=== PATIENT | female | born 1940 | race African-American/Black ===

== ENCOUNTER 2019-12-18 18:24 | Inpatient (IN) | payer MEDICARE, MEDICAID ==
[~2019-12-18] VITALS: Ht 160 cm; Wt 69.4 kg
[~2019-12-18 18:24] MED LIST: AMLODIPINE BES2.5 MG ORAL; ATORVASTATIN CA40 MG ORAL; CLOPIDOGREL75 MG ORAL; DEXILANT60 MG ORAL; DIOVAN HCT 1601 EACH ORAL; ISOSORBIDE MONO30 M1 PO; LABETALOL HCL100 MG ORAL; LIDODERM700 M1 TOPIC; LORATADINE10 M2 PO; LYRICA75 M1 ORAL; MONTELUKAST SOD10 MG ORAL; PHENYTOIN100 MG/4 M ORAL
[2019-12-18] MEDS ORDERED: CODEINE 30MG TA30 MG ORAL (18:26)
[2019-12-18] MEDS ORDERED: LOSARTAN POTASS25 MG ORAL (18:26)
[2019-12-18 18:30] VITALS: BP 107/46
--- NOTE | 2019-12-18 18:30 | NUR ---
ED Nurse Note: Pt brought in by 68 from home due to Nausea and vomiting since this morning. Denies abd pain. Pt is on dialysis M/W/F. States toe pain on right foot. Temp 102.5 F in triage. AAO x4, follows commands. Fistula on left upper arm.
--- NOTE | 2019-12-18 19:23 | NUR ---
HAND-OFF: Report given to cammie KAYE.
[2019-12-18] MEDS ORDERED: Acetaminophen 500mg (ES) tab ORAL ONE (19:30)
[2019-12-18] MEDS ORDERED: Vancomycin 1 GM in NS 275 ML IVPB ONE (19:30)
--- NOTE | 2019-12-18 19:30 | NUR ---
ED Nurse Note: Patient tolerated medication administration well. Octavio continue to monitor.
[2019-12-18 19:59] LABS: ANION GAP 21 mmol/L (5-15); BLOOD UREA NITROGEN 56 mg/dL (7-18); CALCIUM 9.7 MG/DL (8.5-10.1); CARBON DIOXIDE 21 MMOL/L (21-32); CHLORIDE 96 MMOL/L (98-107); CREATININE 8.5 MG/DL (0.55-1.30); POTASSIUM 4.9 MMOL/L (3.5-5.1); SODIUM 137 MMOL/L (136-145)
--- NOTE | 2019-12-18 20:03 | NUR ---
ED Nurse Note: IV at right AC infiltrated, will DC and restart.
[2019-12-18 20:13] LABS: ALANINE AMINOTRANSFERASE 16 U/L (12-78); ALBUMIN 3.2 G/DL (3.4-5.0); ALBUMIN/GLOBULIN RATIO 0.6 (1.0-2.7); ALKALINE PHOSPHATASE 107 U/L (46-116); ASPARTATE AMINO TRANSFERASE 18 U/L (15-37); BILIRUBIN,TOTAL 0.5 MG/DL (0.2-1.0); CKMB 1.1 NG/ML (0.0-3.6); CREATINE KINASE 57 U/L (26-308); HEMOGLOBIN 11.6 G/DL (12.0-16.0); MEAN CORPUSCULAR VOLUME 101 FL (80-99); PLATELET COUNT 294 K/UL (150-450); RED BLOOD COUNT 3.67 M/UL (4.20-5.40); RED CELL DISTRIBUTION WIDTH 14.6 % (11.6-14.8); WHITE BLOOD COUNT 21.8 K/UL (4.8-10.8)
[2019-12-18] MEDS ORDERED: Meropenem 1 GM in NS 55 ML IVPB ONE (20:45)
--- NOTE | 2019-12-18 21:08 | NUR ---
ED Nurse Note: Andrey for patient for dialysis 15G needles used along with numbing cream. wei include in report.
[2019-12-18 21:09] VITALS: BP 111/54
[2019-12-18] MEDS ORDERED: Albuterol/Ipratropium 3ml neb HHN PRN (21:30)
[2019-12-18] MEDS ORDERED: Zolpidem 5mg tab ORAL PRN (21:30)
[2019-12-18] MEDS ORDERED: Miralax 17gm pkt ORAL PRN (21:30)
--- NOTE | 2019-12-18 21:49 | NUR ---
ED Nurse Note: cALLED TO RENDER REPORT, DAISY KAYE UNAVAILABLE, CN INFORMED AND DOCUMENTED
--- NOTE | 2019-12-18 21:57 | Emergency Room Report ---
History of Present Illness General Chief Complaint: Nausea Source: Patient Present Illness HPI This patient states that she has had pain in her right foot for the past month. She has a wound on her right pinky toe that has been followed by her primary care physician. She states that she has had significant pain in that toe and swelling in her foot. She states today she started vomiting and has had pain in her foot. She notes that she did take Tylenol with codeine for the first time and associates the nausea and vomiting with that medication. She states she believes that it is too strong for her. She denies abdominal pain. She denies fever or chills. She denies chest pain or shortness of breath. She has no other complaints. Allergies: Coded Allergies: SULFA (SULFONAMIDE ANTIBIOTICS) (Verified Allergy, Mild, 08/19/09) Patient History Past Medical History: see triage record, DM, HTN, renal disease, dialysis Social History: Denies: smoking, alcohol use, drug use Reviewed Nursing Documentation: PMH: Agreed; PSxH: Agreed Nursing Documentation-PMH Past Medical History: No History, Except For Hx Cardiac Problems: No - dialysis M,W,F, pacemaker Hx Hypertension: Yes Hx Pacemaker: Yes - Hypothyroidism Hx Diabetes: Yes Hx Dialysis: Yes - M W F Review of Systems All Other Systems: negative except mentioned in HPI Physical Exam Vital Signs Date Time Temp Pulse Resp B/P (MAP) Pulse Ox O2 Delivery O2 Flow Rate FiO2 12/18/19 18:20 102.6 78 19 132/58 (82) 97 Room Air Sp02 EP Interpretation: reviewed, normal General Appearance: no apparent distress, alert, GCS 15, non-toxic Head: normocephalic, atraumatic Eyes: bilateral eye normal inspection, bilateral eye PERRL ENT: hearing grossly normal, normal pharynx, no angioedema, normal voice Neck: full range of motion, supple/symm/no masses Respiratory: chest non-tender, lungs clear, normal breath sounds, no respiratory distress, no retraction, no accessory muscle use, speaking full sentences Cardiovascular #1: no edema, tachycardia Gastrointestinal: normal bowel sounds, non tender, soft, non-distended, no guarding, no rebound Rectal: deferred Musculoskeletal: back normal, normal range of motion, non-tender Neurologic: alert, motor strength/tone normal, oriented x3, sensory intact, responsive, speech normal Psychiatric: judgement/insight normal, memory normal, mood/affect normal, no suicidal/homicidal ideation Skin: other - R. foot, ulcer on R. 5th toe and swelling and erythema of foot. Medical Decision Making Diagnostic Impression: Primary Impression: Pneumonia Additional Impressions: Fever Sepsis Cellulitis ER Course This patient has sepsis. She has an opacification on chest x-ray that is consistent with pneumonia. She also has a foot wound that could be the source of her infection with an associated cellulitis. She presented with a temp of 102. She was tachycardic. She was given aggressive IV fluid resuscitation and broad-spectrum antibiotics. She responded well to this treatment with a normal blood pressure and normalized heart rate. The patient will be admitted for further evaluation and treatment, monitoring and further IV antibiotics. Laboratory Tests Test 12/18/19 19:00 White Blood Count 21.8 K/UL (4.8-10.8) H Red Blood Count 3.67 M/UL (4.20-5.40) L Hemoglobin 11.6 G/DL (12.0-16.0) L Hematocrit 37.0 % (37.0-47.0) Mean Corpuscular Volume 101 FL (80-99) H Mean Corpuscular Hemoglobin 31.7 PG (27.0-31.0) H Mean Corpuscular Hemoglobin Concent 31.4 G/DL (32.0-36.0) L Red Cell Distribution Width 14.6 % (11.6-14.8) Platelet Count 294 K/UL (150-450) Mean Platelet Volume 6.4 FL (6.5-10.1) L Neutrophils (%) (Auto) % (45.0-75.0) Lymphocytes (%) (Auto) % (20.0-45.0) Monocytes (%) (Auto) % (1.0-10.0) Eosinophils (%) (Auto) % (0.0-3.0) Basophils (%) (Auto) % (0.0-2.0) Differential Total Cells Counted 100 Neutrophils % (Manual) 82 % (45-75) H Lymphocytes % (Manual) 7 % (20-45) L Monocytes % (Manual) 9 % (1-10) Eosinophils % (Manual) 1 % (0-3) Basophils % (Manual) 0 % (0-2) Band Neutrophils 1 % (0-8) Platelet Estimate Adequate Platelet Morphology Normal Hypochromasia 1+ Anisocytosis 1+ Sodium Level 137 MMOL/L (136-145) Potassium Level 4.9 MMOL/L (3.5-5.1) Chloride Level 96 MMOL/L (98-107) L Carbon Dioxide Level 21 MMOL/L (21-32) Anion Gap 21 mmol/L (5-15) H Blood Urea Nitrogen 56 mg/dL (7-18) H Creatinine 8.5 MG/DL (0.55-1.30) H Estimate Glomerular Filtration Rate 5.5 mL/min (>60) Glucose Level 121 MG/DL (74-106) H Lactic Acid Level 1.40 mmol/L (0.4-2.0) Calcium Level 9.7 MG/DL (8.5-10.1) Total Bilirubin 0.5 MG/DL (0.2-1.0) Aspartate Amino Transferase (AST) 18 U/L (15-37) Alanine Aminotransferase (ALT) 16 U/L (12-78) Alkaline Phosphatase 107 U/L (46-116) Total Creatine Kinase 57 U/L (26-308) Creatine Kinase MB 1.1 NG/ML (0.0-3.6) Creatine Kinase MB Relative Index 1.9 Troponin I 0.263 ng/mL (0.000-0.056) Total Protein 8.8 G/DL (6.4-8.2) H Albumin 3.2 G/DL (3.4-5.0) L Globulin 5.6 g/dL Albumin/Globulin Ratio 0.6 (1.0-2.7) L Microbiology Date/Time Source Procedure Growth Status 12/18/19 19:00 Nasal Nares - Final Complete 12/18/19 19:00 Nasal Nares - Final Complete EKG Diagnostic Results Rate: tachycardiac Rhythm: other - Atrial paced Rhythm Strip Diag. Results EP Interpretation: yes Rate: 100's Rhythm: no PVC's, no ectopy, other - Atrial paced. Chest X-Ray Diagnostic Results Chest X-Ray Diagnostic Results : Chest X-Ray Ordered: Yes # of Views/Limited/Complete: 1 View Indication: Other EP Interpretation: Yes Interpretation: other - RML opacity Impression: Other - RML PNA/opacity Last Vital Signs Date Time Temp Pulse Resp B/P (MAP) Pulse Ox O2 Delivery O2 Flow Rate FiO2 12/18/19 21:09 99.3 77 16 111/54 97 Room Air Status: improved Disposition: ADMITTED INPATIENT Condition: Serious Referrals: NON PHYSICIAN (PCP) Juli Duncan DO Dec 18, 2019 21:57
--- NOTE | 2019-12-18 22:25 | NUR ---
ED Nurse Note: Report renderd to Hank KAYE.
--- NOTE | 2019-12-18 22:50 | NUR ---
ED Nurse Note: Patient transported to floor without complication, belongings brought up secondarily.
--- NOTE | 2019-12-18 23:20 | NUR ---
NURSE NOTES: Received pt from ER nruse. Pt transported via gurney. Transported onto bed with staff assistance. Belongings verified with pt and signed with ER nurse at bedside. Oriented pt to room and floor. Pt is a0x4, and talkative. desk monitor placed on pt, and vitals taken. Bed locked in lowest position, bed alarm on, call light within reach. Will continue with plan of care.
[2019-12-19] VITALS: BP 112/54
[2019-12-19 04:00] VITALS: BP 118/62
[2019-12-19] MEDS: NovoLOG Insulin Flexpen SUBQ SCH ×4 (06:30→21:00)
[2019-12-19 07:10] LABS: HEMATOCRIT 31.4 % (37.0-47.0); HEMOGLOBIN 10.3 G/DL (12.0-16.0); MEAN CORPUSCULAR VOLUME 98 FL (80-99); PLATELET COUNT 262 K/UL (150-450); RED BLOOD COUNT 3.21 M/UL (4.20-5.40)
[2019-12-19 07:17] LABS: WHITE BLOOD COUNT 23.3 K/UL (4.8-10.8)
--- NOTE | 2019-12-19 07:20 | NUR ---
WBC REPORTED 23.3 BY FRED FROM LAB >>>>> ID DOCTOR WILL MAKE AWARE Addendum: 12/19/19 at 0743 by JHONATHAN ROBBINS RN RN DR.ALBORZI MORGAN AND WAITING FOR CALL BACK
--- NOTE | 2019-12-19 07:25 | NUR ---
HAND-OFF: Report given to VARGAS Chamberlain. Pt is awake and resting in bed in no acute distress., with HOB elevated, heels off loaded. Iv site intact and patent. Bed locked in lowest position, bed alarm on, call light within reach. Endorsed plan of care.
[2019-12-19 07:37] LABS: ALANINE AMINOTRANSFERASE 47 U/L (12-78); ALBUMIN 2.8 G/DL (3.4-5.0); ALBUMIN/GLOBULIN RATIO 0.6 (1.0-2.7); ANION GAP 18 mmol/L (5-15); ASPARTATE AMINO TRANSFERASE 63 U/L (15-37); BILIRUBIN,TOTAL 0.4 MG/DL (0.2-1.0); BLOOD UREA NITROGEN 63 mg/dL (7-18); CALCIUM 8.8 MG/DL (8.5-10.1); CARBON DIOXIDE 20 MMOL/L (21-32); CHLORIDE 98 MMOL/L (98-107); CHOLESTEROL 130 MG/DL (< 200); CREATININE 8.7 MG/DL (0.55-1.30); HDL CHOLESTEROL 42 MG/DL (40-60); POTASSIUM 4.8 MMOL/L (3.5-5.1); SODIUM 135 MMOL/L (136-145); TRIGLYCERIDES 59 MG/DL (30-150)
[2019-12-19 07:47] LABS: ALKALINE PHOSPHATASE 110 U/L (46-116)
[2019-12-19 08:00] VITALS: BP 99/58
[2019-12-19] MEDS ORDERED: Losartan 25mg tab ORAL SCH (09:00)
--- NOTE | 2019-12-19 09:14 | Consultation ---
Consult Note Consult Note Asked to [facility]a for dialysis management she has left arm fistula been on dialysis 9 years wants dialysis tomorrow not today ! ( she says I know my body !) ER: This patient states that she has had pain in her right foot for the past month. She has a wound on her right pinky toe that has been followed by her primary care physician. She states that she has had significant pain in that toe and swelling in her foot. She states today she started vomiting and has had pain in her foot. She notes that she did take Tylenol with codeine for the first time and associates the nausea and vomiting with that medication. She states she believes that it is too strong for her. She denies abdominal pain. She denies fever or chills. She denies chest pain or shortness of breath. She has no other complaints. Allergies: SULFA (SULFONAMIDE ANTIBIOTICS) (Verified Allergy, Mild, 08/19/09) Past Medical History: see triage record, DM, HTN, renal disease, dialysis Social History: Denies: smoking, alcohol use, drug use Reviewed Nursing Documentation: PMH: Agreed; PSxH: Agreed Past Medical History: No History, Except For Hx Cardiac Problems: No - dialysis M,W,F, pacemaker Hx Hypertension: Yes Hx Pacemaker: Yes - Hypothyroidism Hx Diabetes: Yes Hx Dialysis: Yes - M W F examined Data reviewed Assessment/Plan ESRD Pneumonia Fever Sepsis Cellulitis Leukocytosis DM , elevated A1c Pace Maker- Elevated Troponin HypoAlbuminemia on Vanco- Dialysis in am, as refuses today ! 2D echo adjust cardiac abd BP meds per orders Peter Solorio MD Dec 19, 2019 09:14
--- NOTE | 2019-12-19 09:31 | Diagnostic Imaging Report ---
Indication: Chest pain Technique: One view of the chest Comparison: 03/16/2012 Findings: The heart is enlarged. There is suggestion of mild interstitial prominence. No focal airspace consolidation. No definite effusions. There is a left axillary/subclavian venous stent again demonstrated. Interim placement of a pacemaker Impression: Cardiomegaly with mild pulmonary venous congestion Other findings as noted
[2019-12-19] MEDS ORDERED: Vancomycin 1gm in D5W 275ml IVPB SCH (10:00)
[2019-12-19] MEDS: Heparin 5000 units/ml inj SUBQ SCH ×2 (10:01→23:38)
[2019-12-19] MEDS: Nitroglycerin Patch 0.2mg/hr TDERMAL SCH (10:03)
[2019-12-19] MEDS: Docusate 100mg cap ORAL SCH ×2 (11:53→16:11)
[2019-12-19 12:00] VITALS: BP 119/53
--- NOTE | 2019-12-19 12:32 | NUR ---
blood culture + cocci in cluster >>>> MADE AWARE
--- NOTE | 2019-12-19 12:33 | NUR ---
PATIENT REFUSED [facility] TODAY AND PER DR. SWAIN PATIENT WILL DIALYSIS TOMORROW
--- NOTE | 2019-12-19 12:42 | Infectious Diseases Prog Note ---
Subjective Allergies: Coded Allergies: SULFA (SULFONAMIDE ANTIBIOTICS) (Verified Allergy, Mild, 08/19/09) Subjective # [id number] Objective Vital Signs Last 24 Hour Vital Signs Date Time Temp Pulse Resp B/P (MAP) Pulse Ox O2 Delivery O2 Flow Rate FiO2 12/19/19 12:00 67 12/19/19 12:00 99.1 66 20 119/53 (75) 94 12/19/19 10:03 118/62 12/19/19 09:00 Room Air 12/19/19 08:00 65 12/19/19 08:00 98.2 68 18 99/58 (72) 94 12/19/19 04:00 97.8 72 19 118/62 (80) 96 12/19/19 04:00 72 12/19/19 00:00 98.1 69 18 112/54 (73) 93 12/19/19 00:00 69 12/18/19 23:49 Room Air 12/18/19 22:50 99.3 77 16 111/54 97 Room Air 12/18/19 21:09 99.3 77 16 111/54 97 Room Air 12/18/19 20:06 99.3 12/18/19 20:04 99.3 12/18/19 18:30 102.6 81 17 107/46 97 Room Air 12/18/19 18:20 102.6 78 19 132/58 (82) 97 Room Air Height (Feet): 5 Height (Inches): 3.00 Weight (Pounds): 155 Microbiology Date/Time Source Procedure Growth Status 12/18/19 19:15 Blood Blood Culture - Preliminary Resulted 12/18/19 19:00 Blood Blood Culture - Preliminary Resulted 12/18/19 19:00 Nasal Nares - Final Complete 12/18/19 19:00 Nasal Nares - Final Complete 12/18/19 21:25 Rectum Received Laboratory Tests Test 12/18/19 19:00 12/19/19 06:25 White Blood Count 21.8 K/UL (4.8-10.8) H 23.3 K/UL (4.8-10.8) *H Red Blood Count 3.67 M/UL (4.20-5.40) L 3.21 M/UL (4.20-5.40) L Hemoglobin 11.6 G/DL (12.0-16.0) L 10.3 G/DL (12.0-16.0) L Hematocrit 37.0 % (37.0-47.0) 31.4 % (37.0-47.0) L Mean Corpuscular Volume 101 FL (80-99) H 98 FL (80-99) Mean Corpuscular Hemoglobin 31.7 PG (27.0-31.0) H 32.1 PG (27.0-31.0) H Mean Corpuscular Hemoglobin Concent 31.4 G/DL (32.0-36.0) L 32.8 G/DL (32.0-36.0) Red Cell Distribution Width 14.6 % (11.6-14.8) 13.0 % (11.6-14.8) Platelet Count 294 K/UL (150-450) 262 K/UL (150-450) Mean Platelet Volume 6.4 FL (6.5-10.1) L 6.1 FL (6.5-10.1) L Neutrophils (%) (Auto) % (45.0-75.0) % (45.0-75.0) Lymphocytes (%) (Auto) % (20.0-45.0) % (20.0-45.0) Monocytes (%) (Auto) % (1.0-10.0) % (1.0-10.0) Eosinophils (%) (Auto) % (0.0-3.0) % (0.0-3.0) Basophils (%) (Auto) % (0.0-2.0) % (0.0-2.0) Differential Total Cells Counted 100 100 Neutrophils % (Manual) 82 % (45-75) H 82 % (45-75) H Lymphocytes % (Manual) 7 % (20-45) L 8 % (20-45) L Monocytes % (Manual) 9 % (1-10) 10 % (1-10) Eosinophils % (Manual) 1 % (0-3) 0 % (0-3) Basophils % (Manual) 0 % (0-2) 0 % (0-2) Band Neutrophils 1 % (0-8) 0 % (0-8) Platelet Estimate Adequate Adequate Platelet Morphology Normal Normal Hypochromasia 1+ 1+ Anisocytosis 1+ Sodium Level 137 MMOL/L (136-145) 135 MMOL/L (136-145) L Potassium Level 4.9 MMOL/L (3.5-5.1) 4.8 MMOL/L (3.5-5.1) Chloride Level 96 MMOL/L (98-107) L 98 MMOL/L (98-107) Carbon Dioxide Level 21 MMOL/L (21-32) 20 MMOL/L (21-32) L Anion Gap 21 mmol/L (5-15) H 18 mmol/L (5-15) H Blood Urea Nitrogen 56 mg/dL (7-18) H 63 mg/dL (7-18) H Creatinine 8.5 MG/DL (0.55-1.30) H 8.7 MG/DL (0.55-1.30) H Estimat Glomerular Filtration Rate 5.5 mL/min (>60) 5.5 mL/min (>60) Glucose Level 121 MG/DL (74-106) H 142 MG/DL (74-106) H Lactic Acid Level 1.40 mmol/L (0.4-2.0) Calcium Level 9.7 MG/DL (8.5-10.1) 8.8 MG/DL (8.5-10.1) Total Bilirubin 0.5 MG/DL (0.2-1.0) 0.4 MG/DL (0.2-1.0) Aspartate Amino Transf (AST/SGOT) 18 U/L (15-37) 63 U/L (15-37) H Alanine Aminotransferase (ALT/SGPT) 16 U/L (12-78) 47 U/L (12-78) Alkaline Phosphatase 107 U/L (46-116) 110 U/L (46-116) Total Creatine Kinase 57 U/L (26-308) Creatine Kinase MB 1.1 NG/ML (0.0-3.6) Creatine Kinase MB Relative Index 1.9 Troponin I 0.263 ng/mL (0.000-0.056) Total Protein 8.8 G/DL (6.4-8.2) H 7.5 G/DL (6.4-8.2) Albumin 3.2 G/DL (3.4-5.0) L 2.8 G/DL (3.4-5.0) L Globulin 5.6 g/dL 4.7 g/dL Albumin/Globulin Ratio 0.6 (1.0-2.7) L 0.6 (1.0-2.7) L Hemoglobin A1c 6.4 % (4.3-6.0) H Triglycerides Level 59 MG/DL (30-150) Cholesterol Level 130 MG/DL (< 200) LDL Cholesterol 69 mg/dL (<100) HDL Cholesterol 42 MG/DL (40-60) Cholesterol/HDL Ratio 3.1 (3.3-4.4) L Thyroid Stimulating Hormone (TSH) 1.160 uiU/mL (0.358-3.740) Random Vancomycin Level 11.5 ug/mL Current Medications Medications (Trade) Dose Ordered Sig/Bere Route PRN Reason Start Time Stop Time Status Last Admin Dose Admin Acetaminophen (Tylenol) 650 mg Q4H PRN ORAL T>100.5 12/18/19 21:30 01/17/20 21:29 Albuterol/ Ipratropium (Albuterol/ Ipratropium) 3 ml Q6H PRN HHN dyspnea 12/18/19 21:30 12/23/19 21:29 Clonidine HCl (Catapres Tab) 0.1 mg Q4H PRN ORAL SBP > 160mmhg 12/18/19 21:30 01/17/20 21:29 Dextrose (Dextrose 50%) 25 ml Q30M PRN IV Hypoglycemia 12/18/19 21:30 01/17/20 21:29 Dextrose (Dextrose 50%) 50 ml Q30M PRN IV Hypoglycemia 12/18/19 21:30 01/17/20 21:29 Docusate Sodium (Colace) 100 mg THREE TIMES A DAY ORAL 12/19/19 13:00 01/18/20 12:59 Heparin Sodium (Porcine) (Heparin 5000 units/ml) 5,000 units EVERY 12 HOURS SUBQ 12/19/19 09:00 01/18/20 08:59 12/19/19 10:01 Insulin Aspart (NovoLOG) BEFORE MEALS AND HS SUBQ 12/19/19 06:30 01/18/20 06:29 Losartan Potassium (Cozaar) 25 mg DAILY ORAL 12/20/19 09:00 01/18/20 08:59 Nitroglycerin (Ntg) 1 patch Q24H TDERMAL 12/19/19 09:30 01/18/20 09:29 12/19/19 10:03 Ondansetron HCl (Zofran) 4 mg Q6H PRN IVP Nausea & Vomiting 12/18/19 21:30 01/17/20 21:29 Pantoprazole (Protonix) 40 mg EVERY 12 HOURS ORAL 12/19/19 21:00 01/18/20 20:59 Polyethylene Glycol (Miralax) 17 gm HSPRN PRN ORAL Constipation 12/18/19 21:30 01/17/20 21:29 Vancomycin HCl (Vanco rx to dose) 1 ea DAILY PRN MISC Per rx protocol 12/18/19 21:30 01/17/20 21:29 Zolpidem Tartrate (Ambien) 5 mg HSPRN PRN ORAL Insomnia 12/18/19 21:30 12/25/19 21:29 Roberto David MD Dec 19, 2019 12:42
--- NOTE | 2019-12-19 13:25 | Consultation ---
History of Present Illness General Date patient seen: Dec 19, 2019 Chief Complaint: pain Reason for Consultation: inpatient management Present Illness HPI 79 year old female with hx of DM, HTN, renal disease, on dialysis presented to ER with CC of pain in her right foot for the past month. She has a wound on her right pinky toe and significant pain in that toe and swelling in her foot. She states today she started vomiting after taking Tylenol with codeine for the first time She denies abdominal pain. She denies fever or chills. She denies chest pain or shortness of breath. She was febrile in ER and admitted to telemetry for further treatment. Allergies: Coded Allergies: SULFA (SULFONAMIDE ANTIBIOTICS) (Verified Allergy, Mild, 08/19/09) Medication History Scheduled Losartan Potassium* (Losartan Potassium*), 25 MG ORAL DAILY, (Reported) Scheduled PRN Codeine (Codeine Sulfate), 30 MG ORAL Q6H PRN for For Pain, (Reported) Discontinued Medications Amlodipine Besylate* (Amlodipine Besylate*), 2.5 MG ORAL DAILY, (Reported) Discontinued Reason: Pt stopped taking med Atorvastatin Calcium* (Atorvastatin Calcium*), 40 MG ORAL BEDTIME, (Reported) Discontinued Reason: Pt stopped taking med Clopidogrel* (Clopidogrel*), 75 MG ORAL DAILY, (Reported) Discontinued Reason: Pt stopped taking med Dexlansoprazole (Dexilant), 60 MG ORAL DAILY, (Reported) Discontinued Reason: Pt stopped taking med Isosorbide Mononitrate (Isosorbide Mononitrate Er), 30 MG PO, (Reported) Discontinued Reason: Pt stopped taking med Labetalol Hcl* (Normodyne*), 100 MG ORAL EVERY 12 HOURS, (Reported) Discontinued Reason: Pt stopped taking med Lidocaine Patch* (Lidoderm Patch*), 1 PATCH TOPIC see instructions Discontinued Reason: Pt stopped taking med Loratadine (Loratadine), 10 MG PO, (Reported) Discontinued Reason: Pt stopped taking med Montelukast Sodium* (Montelukast Sodium*), 20 MG ORAL DAILY, (Reported) Discontinued Reason: Pt stopped taking med Phenytoin (Phenytoin*), 100 MG ORAL, (Reported) Discontinued Reason: Pt stopped taking med Pregabalin* (Lyrica*), 50 MG ORAL DAILY, (Reported) Discontinued Reason: Pt stopped taking med Valsartan/Hydrochlorothiazide 160-12.5MG (Diovan Hct 160-12.5 Mg Tab), 1 TAB ORAL DAILY, (Reported) Discontinued Reason: Pt stopped taking med Patient History Healthcare decision maker N Resuscitation status Full Code Advanced Directive on File Past Medical/Surgical History Past Medical/Surgical History: (1) History of pacemaker (2) ESRF (end stage renal failure) (3) Hypothyroidism (4) Diabetes mellitus Review of Systems All Other Systems: negative except mentioned in HPI Physical Exam General Appearance: WD/WN Lines, tubes and drains: peripheral HEENT: normocephalic, atraumatic Neck: non-tender, normal alignment Respiratory/Chest: chest wall non-tender, lungs clear Breasts: no masses Cardiovascular/Chest: normal peripheral pulses Abdomen: normal bowel sounds Genitourinary/Rectal: normal genital exam Extremities: normal range of motion, non-tender Skin Exam: normal pigmentation 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 Last 24 Hour Vital Signs Date Time Temp Pulse Resp B/P (MAP) Pulse Ox O2 Delivery O2 Flow Rate FiO2 12/19/19 12:00 67 12/19/19 12:00 99.1 66 20 119/53 (75) 94 12/19/19 10:03 118/62 12/19/19 09:00 Room Air 12/19/19 08:00 65 12/19/19 08:00 98.2 68 18 99/58 (72) 94 12/19/19 04:00 97.8 72 19 118/62 (80) 96 12/19/19 04:00 72 12/19/19 00:00 98.1 69 18 112/54 (73) 93 12/19/19 00:00 69 12/18/19 23:49 Room Air 12/18/19 22:50 99.3 77 16 111/54 97 Room Air 12/18/19 21:09 99.3 77 16 111/54 97 Room Air 12/18/19 20:06 99.3 12/18/19 20:04 99.3 12/18/19 18:30 102.6 81 17 107/46 97 Room Air 12/18/19 18:20 102.6 78 19 132/58 (82) 97 Room Air Intake and Output 12/18/19 12/19/19 19:00 07:00 Intake Total 2000 ml Balance 2000 ml Intake Oral 0 ml IV Total 2000 ml # Voids 1 Laboratory Tests Test 12/18/19 19:00 12/19/19 06:25 White Blood Count 21.8 K/UL (4.8-10.8) H 23.3 K/UL (4.8-10.8) *H Red Blood Count 3.67 M/UL (4.20-5.40) L 3.21 M/UL (4.20-5.40) L Hemoglobin 11.6 G/DL (12.0-16.0) L 10.3 G/DL (12.0-16.0) L Hematocrit 37.0 % (37.0-47.0) 31.4 % (37.0-47.0) L Mean Corpuscular Volume 101 FL (80-99) H 98 FL (80-99) Mean Corpuscular Hemoglobin 31.7 PG (27.0-31.0) H 32.1 PG (27.0-31.0) H Mean Corpuscular Hemoglobin Concent 31.4 G/DL (32.0-36.0) L 32.8 G/DL (32.0-36.0) Red Cell Distribution Width 14.6 % (11.6-14.8) 13.0 % (11.6-14.8) Platelet Count 294 K/UL (150-450) 262 K/UL (150-450) Mean Platelet Volume 6.4 FL (6.5-10.1) L 6.1 FL (6.5-10.1) L Neutrophils (%) (Auto) % (45.0-75.0) % (45.0-75.0) Lymphocytes (%) (Auto) % (20.0-45.0) % (20.0-45.0) Monocytes (%) (Auto) % (1.0-10.0) % (1.0-10.0) Eosinophils (%) (Auto) % (0.0-3.0) % (0.0-3.0) Basophils (%) (Auto) % (0.0-2.0) % (0.0-2.0) Differential Total Cells Counted 100 100 Neutrophils % (Manual) 82 % (45-75) H 82 % (45-75) H Lymphocytes % (Manual) 7 % (20-45) L 8 % (20-45) L Monocytes % (Manual) 9 % (1-10) 10 % (1-10) Eosinophils % (Manual) 1 % (0-3) 0 % (0-3) Basophils % (Manual) 0 % (0-2) 0 % (0-2) Band Neutrophils 1 % (0-8) 0 % (0-8) Platelet Estimate Adequate Adequate Platelet Morphology Normal Normal Hypochromasia 1+ 1+ Anisocytosis 1+ Sodium Level 137 MMOL/L (136-145) 135 MMOL/L (136-145) L Potassium Level 4.9 MMOL/L (3.5-5.1) 4.8 MMOL/L (3.5-5.1) Chloride Level 96 MMOL/L (98-107) L 98 MMOL/L (98-107) Carbon Dioxide Level 21 MMOL/L (21-32) 20 MMOL/L (21-32) L Anion Gap 21 mmol/L (5-15) H 18 mmol/L (5-15) H Blood Urea Nitrogen 56 mg/dL (7-18) H 63 mg/dL (7-18) H Creatinine 8.5 MG/DL (0.55-1.30) H 8.7 MG/DL (0.55-1.30) H Estimat Glomerular Filtration Rate 5.5 mL/min (>60) 5.5 mL/min (>60) Glucose Level 121 MG/DL (74-106) H 142 MG/DL (74-106) H Lactic Acid Level 1.40 mmol/L (0.4-2.0) Calcium Level 9.7 MG/DL (8.5-10.1) 8.8 MG/DL (8.5-10.1) Total Bilirubin 0.5 MG/DL (0.2-1.0) 0.4 MG/DL (0.2-1.0) Aspartate Amino Transf (AST/SGOT) 18 U/L (15-37) 63 U/L (15-37) H Alanine Aminotransferase (ALT/SGPT) 16 U/L (12-78) 47 U/L (12-78) Alkaline Phosphatase 107 U/L (46-116) 110 U/L (46-116) Total Creatine Kinase 57 U/L (26-308) Creatine Kinase MB 1.1 NG/ML (0.0-3.6) Creatine Kinase MB Relative Index 1.9 Troponin I 0.263 ng/mL (0.000-0.056) Total Protein 8.8 G/DL (6.4-8.2) H 7.5 G/DL (6.4-8.2) Albumin 3.2 G/DL (3.4-5.0) L 2.8 G/DL (3.4-5.0) L Globulin 5.6 g/dL 4.7 g/dL Albumin/Globulin Ratio 0.6 (1.0-2.7) L 0.6 (1.0-2.7) L Hemoglobin A1c 6.4 % (4.3-6.0) H Triglycerides Level 59 MG/DL (30-150) Cholesterol Level 130 MG/DL (< 200) LDL Cholesterol 69 mg/dL (<100) HDL Cholesterol 42 MG/DL (40-60) Cholesterol/HDL Ratio 3.1 (3.3-4.4) L Thyroid Stimulating Hormone (TSH) 1.160 uiU/mL (0.358-3.740) Random Vancomycin Level 11.5 ug/mL Microbiology Date/Time Source Procedure Growth Status 12/18/19 19:15 Blood Blood Culture - Preliminary Resulted 12/18/19 19:00 Blood Blood Culture - Preliminary Resulted 12/18/19 19:00 Nasal Nares - Final Complete 12/18/19 19:00 Nasal Nares - Final Complete 12/18/19 21:25 Rectum Received Height (Feet): 5 Height (Inches): 3.00 Weight (Pounds): 155 Medications Current Medications Medications (Trade) Dose Ordered Sig/Bere Route PRN Reason Start Time Stop Time Status Last Admin Dose Admin Acetaminophen (Tylenol) 650 mg Q4H PRN ORAL T>100.5 12/18/19 21:30 01/17/20 21:29 Albuterol/ Ipratropium (Albuterol/ Ipratropium) 3 ml Q6H PRN HHN dyspnea 12/18/19 21:30 12/23/19 21:29 Clonidine HCl (Catapres Tab) 0.1 mg Q4H PRN ORAL SBP > 160mmhg 12/18/19 21:30 01/17/20 21:29 Dextrose (Dextrose 50%) 25 ml Q30M PRN IV Hypoglycemia 12/18/19 21:30 01/17/20 21:29 Dextrose (Dextrose 50%) 50 ml Q30M PRN IV Hypoglycemia 12/18/19 21:30 01/17/20 21:29 Docusate Sodium (Colace) 100 mg THREE TIMES A DAY ORAL 12/19/19 13:00 01/18/20 12:59 Heparin Sodium (Porcine) (Heparin 5000 units/ml) 5,000 units EVERY 12 HOURS SUBQ 12/19/19 09:00 01/18/20 08:59 12/19/19 10:01 Insulin Aspart (NovoLOG) BEFORE MEALS AND HS SUBQ 12/19/19 06:30 01/18/20 06:29 Losartan Potassium (Cozaar) 25 mg DAILY ORAL 12/20/19 09:00 01/18/20 08:59 Nitroglycerin (Ntg) 1 patch Q24H TDERMAL 12/19/19 09:30 01/18/20 09:29 12/19/19 10:03 Ondansetron HCl (Zofran) 4 mg Q6H PRN IVP Nausea & Vomiting 12/18/19 21:30 01/17/20 21:29 Pantoprazole (Protonix) 40 mg EVERY 12 HOURS ORAL 12/19/19 21:00 01/18/20 20:59 Piperacillin Sod/ Tazobactam Sod 2.25 gm/Dextrose 55 ml @ 110 mls/hr Q8H IV 12/19/19 15:00 12/26/19 14:59 Polyethylene Glycol (Miralax) 17 gm HSPRN PRN ORAL Constipation 12/18/19 21:30 01/17/20 21:29 Vancomycin HCl (Vanco rx to dose) 1 ea DAILY PRN MISC Per rx protocol 12/18/19 21:30 01/17/20 21:29 Zolpidem Tartrate (Ambien) 5 mg HSPRN PRN ORAL Insomnia 12/18/19 21:30 12/25/19 21:29 Assessment/Plan Problem List: (1) Sepsis ICD Codes: A41.9 - Sepsis, unspecified organism SNOMED: 20693901 (2) Cellulitis ICD Codes: L03.90 - Cellulitis, unspecified SNOMED: 328043921 (3) ESRF (end stage renal failure) ICD Codes: N18.6 - End stage renal disease SNOMED: 23738529 (4) History of pacemaker ICD Codes: Z95.0 - Presence of cardiac pacemaker SNOMED: 896907641 (5) Hypothyroidism ICD Codes: E03.9 - Hypothyroidism, unspecified SNOMED: 03127780 (6) Diabetes mellitus ICD Codes: E11.9 - Type 2 diabetes mellitus without complications SNOMED: 46279655 Assessment/Plan: robles culture iv abx wound care podiatry to see Nephrology to arrange for HD monitor BP telemetry records reviewed. sliding scale diabetic diet. Ulisses Amaral MD Dec 19, 2019 13:25
[2019-12-19] MEDS ORDERED: Piperacillin/Tazobactam 3.375 GM in NS 110 ML IVPB SCH (14:00)
--- NOTE | 2019-12-19 14:03 | NUR ---
CASE MANAGEMENT:INITIAL REVIEW 79 YR OLD FEMALE BIBA FROM HOME CC;NAUSEA SI;PNA. FEVER. CELLULITIS. SEPSIS. 102.3 81 19 132/58 97% ON RA WBC 21.8 CL 96 BUN 56 CR 8.5 TROP 0.263. ALB 3.1 TOT PROTEIN 8.8 CXR= Cardiomegaly with mild pulmonary venous congestion IS;IVF NS ZOFRAN IV ONCE ACETAMINOPHEN PO ONCE VANCOMYCIN IV ONCE MEROPENEM IV ONCE ADMITTED TO TELEMETRY TELE STATUS DCP;FROM HOME
[2019-12-19] MEDS: Zosyn 2.25 gm in D5W 55ml IV SCH ×2 (14:48→23:27)
[2019-12-19 16:00] VITALS: BP 143/76
--- NOTE | 2019-12-19 16:52 | Consultation ---
History of Present Illness General Date patient seen: Dec 19, 2019 Time patient seen: 04:45 Chief Complaint: Nausea Referring physician: Dr. Melgoza Reason for Consultation: inpatient management Present Illness HPI Pt seen bedside for R foot 5th digit gangrene, pt states her toes has worsened in appearance over past few weeks. Pt also confirms h/o vomitting and ABD pain. Allergies: Coded Allergies: SULFA (SULFONAMIDE ANTIBIOTICS) (Verified Allergy, Mild, 08/19/09) Medication History Scheduled Losartan Potassium* (Losartan Potassium*), 25 MG ORAL DAILY, (Reported) Scheduled PRN Codeine (Codeine Sulfate), 30 MG ORAL Q6H PRN for For Pain, (Reported) Discontinued Medications Amlodipine Besylate* (Amlodipine Besylate*), 2.5 MG ORAL DAILY, (Reported) Discontinued Reason: Pt stopped taking med Atorvastatin Calcium* (Atorvastatin Calcium*), 40 MG ORAL BEDTIME, (Reported) Discontinued Reason: Pt stopped taking med Clopidogrel* (Clopidogrel*), 75 MG ORAL DAILY, (Reported) Discontinued Reason: Pt stopped taking med Dexlansoprazole (Dexilant), 60 MG ORAL DAILY, (Reported) Discontinued Reason: Pt stopped taking med Isosorbide Mononitrate (Isosorbide Mononitrate Er), 30 MG PO, (Reported) Discontinued Reason: Pt stopped taking med Labetalol Hcl* (Normodyne*), 100 MG ORAL EVERY 12 HOURS, (Reported) Discontinued Reason: Pt stopped taking med Lidocaine Patch* (Lidoderm Patch*), 1 PATCH TOPIC see instructions Discontinued Reason: Pt stopped taking med Loratadine (Loratadine), 10 MG PO, (Reported) Discontinued Reason: Pt stopped taking med Montelukast Sodium* (Montelukast Sodium*), 20 MG ORAL DAILY, (Reported) Discontinued Reason: Pt stopped taking med Phenytoin (Phenytoin*), 100 MG ORAL, (Reported) Discontinued Reason: Pt stopped taking med Pregabalin* (Lyrica*), 50 MG ORAL DAILY, (Reported) Discontinued Reason: Pt stopped taking med Valsartan/Hydrochlorothiazide 160-12.5MG (Diovan Hct 160-12.5 Mg Tab), 1 TAB ORAL DAILY, (Reported) Discontinued Reason: Pt stopped taking med Patient History Healthcare decision maker N Resuscitation status Full Code Advanced Directive on File Physical Exam Physical Exam Narrative Focused RLE Derm: R foot gangrene noted 5th digit. Minimal edema, erythema. (+) POP. Vasc: 1/4 DP/PT pulses. Neuro: SILT diminished. MSK: MS/ROM deferred secondary to pain. Last 24 Hour Vital Signs Date Time Temp Pulse Resp B/P (MAP) Pulse Ox O2 Delivery O2 Flow Rate FiO2 12/19/19 16:00 99.9 66 20 143/76 (98) 94 12/19/19 12:00 67 12/19/19 12:00 99.1 66 20 119/53 (75) 94 12/19/19 10:03 118/62 12/19/19 09:00 Room Air 12/19/19 08:00 65 12/19/19 08:00 98.2 68 18 99/58 (72) 94 12/19/19 04:00 97.8 72 19 118/62 (80) 96 12/19/19 04:00 72 12/19/19 00:00 98.1 69 18 112/54 (73) 93 12/19/19 00:00 69 12/18/19 23:49 Room Air 12/18/19 22:50 99.3 77 16 111/54 97 Room Air 12/18/19 21:09 99.3 77 16 111/54 97 Room Air 12/18/19 20:06 99.3 12/18/19 20:04 99.3 12/18/19 18:30 102.6 81 17 107/46 97 Room Air 12/18/19 18:20 102.6 78 19 132/58 (82) 97 Room Air Intake and Output 12/18/19 12/19/19 19:00 07:00 Intake Total 2000 ml Balance 2000 ml Intake Oral 0 ml IV Total 2000 ml # Voids 1 Laboratory Tests Test 12/18/19 19:00 12/19/19 06:25 12/19/19 06:35 White Blood Count 21.8 K/UL (4.8-10.8) H 23.3 K/UL (4.8-10.8) *H Red Blood Count 3.67 M/UL (4.20-5.40) L 3.21 M/UL (4.20-5.40) L Hemoglobin 11.6 G/DL (12.0-16.0) L 10.3 G/DL (12.0-16.0) L Hematocrit 37.0 % (37.0-47.0) 31.4 % (37.0-47.0) L Mean Corpuscular Volume 101 FL (80-99) H 98 FL (80-99) Mean Corpuscular Hemoglobin 31.7 PG (27.0-31.0) H 32.1 PG (27.0-31.0) H Mean Corpuscular Hemoglobin Concent 31.4 G/DL (32.0-36.0) L 32.8 G/DL (32.0-36.0) Red Cell Distribution Width 14.6 % (11.6-14.8) 13.0 % (11.6-14.8) Platelet Count 294 K/UL (150-450) 262 K/UL (150-450) Mean Platelet Volume 6.4 FL (6.5-10.1) L 6.1 FL (6.5-10.1) L Neutrophils (%) (Auto) % (45.0-75.0) % (45.0-75.0) Lymphocytes (%) (Auto) % (20.0-45.0) % (20.0-45.0) Monocytes (%) (Auto) % (1.0-10.0) % (1.0-10.0) Eosinophils (%) (Auto) % (0.0-3.0) % (0.0-3.0) Basophils (%) (Auto) % (0.0-2.0) % (0.0-2.0) Differential Total Cells Counted 100 100 Neutrophils % (Manual) 82 % (45-75) H 82 % (45-75) H Lymphocytes % (Manual) 7 % (20-45) L 8 % (20-45) L Monocytes % (Manual) 9 % (1-10) 10 % (1-10) Eosinophils % (Manual) 1 % (0-3) 0 % (0-3) Basophils % (Manual) 0 % (0-2) 0 % (0-2) Band Neutrophils 1 % (0-8) 0 % (0-8) Platelet Estimate Adequate Adequate Platelet Morphology Normal Normal Hypochromasia 1+ 1+ Anisocytosis 1+ Sodium Level 137 MMOL/L (136-145) 135 MMOL/L (136-145) L Potassium Level 4.9 MMOL/L (3.5-5.1) 4.8 MMOL/L (3.5-5.1) Chloride Level 96 MMOL/L (98-107) L 98 MMOL/L (98-107) Carbon Dioxide Level 21 MMOL/L (21-32) 20 MMOL/L (21-32) L Anion Gap 21 mmol/L (5-15) H 18 mmol/L (5-15) H Blood Urea Nitrogen 56 mg/dL (7-18) H 63 mg/dL (7-18) H Creatinine 8.5 MG/DL (0.55-1.30) H 8.7 MG/DL (0.55-1.30) H Estimat Glomerular Filtration Rate 5.5 mL/min (>60) 5.5 mL/min (>60) Glucose Level 121 MG/DL (74-106) H 142 MG/DL (74-106) H Lactic Acid Level 1.40 mmol/L (0.4-2.0) Calcium Level 9.7 MG/DL (8.5-10.1) 8.8 MG/DL (8.5-10.1) Total Bilirubin 0.5 MG/DL (0.2-1.0) 0.4 MG/DL (0.2-1.0) Aspartate Amino Transf (AST/SGOT) 18 U/L (15-37) 63 U/L (15-37) H Alanine Aminotransferase (ALT/SGPT) 16 U/L (12-78) 47 U/L (12-78) Alkaline Phosphatase 107 U/L (46-116) 110 U/L (46-116) Total Creatine Kinase 57 U/L (26-308) Creatine Kinase MB 1.1 NG/ML (0.0-3.6) Creatine Kinase MB Relative Index 1.9 Troponin I 0.263 ng/mL (0.000-0.056) Total Protein 8.8 G/DL (6.4-8.2) H 7.5 G/DL (6.4-8.2) Albumin 3.2 G/DL (3.4-5.0) L 2.8 G/DL (3.4-5.0) L Globulin 5.6 g/dL 4.7 g/dL Albumin/Globulin Ratio 0.6 (1.0-2.7) L 0.6 (1.0-2.7) L Hemoglobin A1c 6.4 % (4.3-6.0) H Triglycerides Level 59 MG/DL (30-150) Cholesterol Level 130 MG/DL (< 200) LDL Cholesterol 69 mg/dL (<100) HDL Cholesterol 42 MG/DL (40-60) Cholesterol/HDL Ratio 3.1 (3.3-4.4) L Thyroid Stimulating Hormone (TSH) 1.160 uiU/mL (0.358-3.740) Random Vancomycin Level 11.5 ug/mL Hepatitis B Surface Antigen Pending Microbiology Date/Time Source Procedure Growth Status 12/18/19 19:15 Blood Blood Culture - Preliminary Resulted 12/18/19 19:00 Blood Blood Culture - Preliminary Resulted 12/18/19 19:00 Nasal Nares - Final Complete 12/18/19 19:00 Nasal Nares - Final Complete 12/18/19 21:25 Rectum Received Height (Feet): 5 Height (Inches): 3.00 Weight (Pounds): 155 Medications Current Medications Medications (Trade) Dose Ordered Sig/Bere Route PRN Reason Start Time Stop Time Status Last Admin Dose Admin Acetaminophen (Tylenol) 650 mg Q4H PRN ORAL T>100.5 12/18/19 21:30 01/17/20 21:29 Albuterol/ Ipratropium (Albuterol/ Ipratropium) 3 ml Q6H PRN HHN dyspnea 12/18/19 21:30 12/23/19 21:29 Clonidine HCl (Catapres Tab) 0.1 mg Q4H PRN ORAL SBP > 160mmhg 12/18/19 21:30 01/17/20 21:29 Dextrose (Dextrose 50%) 25 ml Q30M PRN IV Hypoglycemia 12/18/19 21:30 01/17/20 21:29 Dextrose (Dextrose 50%) 50 ml Q30M PRN IV Hypoglycemia 12/18/19 21:30 01/17/20 21:29 Docusate Sodium (Colace) 100 mg THREE TIMES A DAY ORAL 12/19/19 13:00 01/18/20 12:59 Heparin Sodium (Porcine) (Heparin 5000 units/ml) 5,000 units EVERY 12 HOURS SUBQ 12/19/19 09:00 01/18/20 08:59 12/19/19 10:01 Insulin Aspart (NovoLOG) BEFORE MEALS AND HS SUBQ 12/19/19 06:30 01/18/20 06:29 Losartan Potassium (Cozaar) 25 mg DAILY ORAL 12/20/19 09:00 01/18/20 08:59 Nitroglycerin (Ntg) 1 patch Q24H TDERMAL 12/19/19 09:30 01/18/20 09:29 12/19/19 10:03 Ondansetron HCl (Zofran) 4 mg Q6H PRN IVP Nausea & Vomiting 12/18/19 21:30 01/17/20 21:29 Pantoprazole (Protonix) 40 mg EVERY 12 HOURS ORAL 12/19/19 21:00 01/18/20 20:59 Piperacillin Sod/ Tazobactam Sod 2.25 gm/Dextrose 55 ml @ 110 mls/hr Q8H IV 12/19/19 15:00 12/26/19 14:59 12/19/19 14:48 Polyethylene Glycol (Miralax) 17 gm HSPRN PRN ORAL Constipation 12/18/19 21:30 01/17/20 21:29 Vancomycin HCl (Vanco rx to dose) 1 ea DAILY PRN MISC Per rx protocol 12/18/19 21:30 01/17/20 21:29 Zolpidem Tartrate (Ambien) 5 mg HSPRN PRN ORAL Insomnia 12/18/19 21:30 12/25/19 21:29 Assessment/Plan Assessment/Plan: A: R foot 5th digit gangrene DM HTN ESRD PVD P: - Pt seen and evaluated - Discuss findings with patient. - lab and chart reviewed. - R foot XR ordered, R/O OM ST infection. - Arterial U/S ordered to B/L L/E. - Rec betadine dressing to RLE. - Cont IV Abx. - Cont Tx per specialists. - Pt may require surgical intervention pending medical and vasc clearance. - Podiatry will cont to monitor. Zurdo Flood DPM Dec 19, 2019 16:52
--- NOTE | 2019-12-19 17:05 | NUR ---
patient scheduled for HD tomorrow. [facility] ([facility]) NOTIFIED WAITING FOR HD NURSE TO CALL BACK TO CONFIRM
--- NOTE | 2019-12-19 17:45 | Consultation ---
DATE OF CONSULTATION: 12/19/2019 INFECTIOUS DISEASE CONSULTATION CONSULTING PHYSICIAN: Roberto David M.D. REFERRING PHYSICIAN: 1. Ulisses Amaral M.D. 2. Dave Melgoza M.D. REASON FOR CONSULTATION: Evaluation of the patient for bacteremia, sepsis, right foot infection, and antibiotic management. HISTORY OF PRESENT ILLNESS: The patient is a 79-year-old female with multiple medical problems, as listed below, who was admitted to this medical center due to right foot pain and swelling. The patient was found to have a fever at the time of admission. Now, the patient's blood culture is growing gram positive cocci. An Infectious Disease consultation has been requested for further evaluation of the patient antibiotic management. PAST MEDICAL HISTORY: Significant for end-stage renal disease, on hemodialysis, hypertension, diabetes, hypothyroidism, and pacemaker placement. MEDICATIONS: IV vancomycin. ALLERGIES: Sulfa. FAMILY HISTORY: Not contributing. SOCIAL HISTORY: The patient lives at home. REVIEW OF SYSTEMS: A 10-point review was done, the patient does not have cough. No abdominal pain. Most of the pertinent points as mentioned above. PHYSICAL EXAMINATION: HEENT: No pale conjunctivae. No icterus. NECK: No lymphadenopathy. CHEST: Clear. HEART: S1, S2. ABDOMEN: Obese and nontender. EXTREMITY: An AV shunt placed on the left upper extremity. Right foot fifth toe is tender. Plantar surface of the foot is tender. LABORATORY AND DIAGNOSTIC DATA: White blood cells 23 and hemoglobin 10.3. BUN 63 and creatinine 8.3. ALT, AST, and alkaline phosphatase unremarkable. Blood culture 2/2 is growing gram positive cocci. ASSESSMENT: The patient is a 79-year-old female with, 1. Right foot infection, rule out osteomyelitis. 2. Bacteremia, rule out endocarditis versus pacemaker infection. 3. Leukocytosis. 4. Sepsis. 5. Fever. PLAN: 1. We will continue the patient on vancomycin. 2. Add Zosyn. 3. Monitor CBC. 4. Monitor BMP. 5. Monitor blood culture. 6. Bone scan of bone scan to rule out osteomyelitis of right foot. 7. Recommend a DARYN to rule out endocarditis or pacemaker infection. 8. Monitor CBC and BMP. Thank you Dr. Melgoza and Dr. Amaral for allowing me to participate in the care of this patient. I will follow the patient with you during this hospitalization. Roberto David M.D. DR: DELMA JOB#: [id number] CC:
--- NOTE | 2019-12-19 18:53 | History & Physical ---
History and Physical History & Physicial Dictated for Int Med-Dr Melgoza no. [id number]. Hieu Kim MD Dec 19, 2019 18:53
--- NOTE | 2019-12-19 18:57 | NUR ---
NM 3-Phase Bone Scan complete and sent to [facility] for after-hours preliminary report.
--- NOTE | 2019-12-19 19:00 | Cardiac Electrophysiology PN ---
Subjective Subjective Bio pacer Agree with DARYN to R/O endocarditis [id number] Objective Last 24 Hour Vital Signs Date Time Temp Pulse Resp B/P (MAP) Pulse Ox O2 Delivery O2 Flow Rate FiO2 12/19/19 16:00 99.9 66 20 143/76 (98) 94 12/19/19 16:00 65 12/19/19 12:00 67 12/19/19 12:00 99.1 66 20 119/53 (75) 94 12/19/19 10:03 118/62 12/19/19 09:00 Room Air 12/19/19 08:00 65 12/19/19 08:00 98.2 68 18 99/58 (72) 94 12/19/19 04:00 97.8 72 19 118/62 (80) 96 12/19/19 04:00 72 12/19/19 00:00 98.1 69 18 112/54 (73) 93 12/19/19 00:00 69 12/18/19 23:49 Room Air 12/18/19 22:50 99.3 77 16 111/54 97 Room Air 12/18/19 21:09 99.3 77 16 111/54 97 Room Air 12/18/19 20:06 99.3 12/18/19 20:04 99.3 Intake and Output 12/18/19 12/19/19 19:00 07:00 Intake Total 2000 ml Balance 2000 ml Intake Oral 0 ml IV Total 2000 ml # Voids 1 Laboratory Tests Test 12/18/19 19:00 12/19/19 06:25 12/19/19 06:35 White Blood Count 21.8 K/UL (4.8-10.8) H 23.3 K/UL (4.8-10.8) *H Red Blood Count 3.67 M/UL (4.20-5.40) L 3.21 M/UL (4.20-5.40) L Hemoglobin 11.6 G/DL (12.0-16.0) L 10.3 G/DL (12.0-16.0) L Hematocrit 37.0 % (37.0-47.0) 31.4 % (37.0-47.0) L Mean Corpuscular Volume 101 FL (80-99) H 98 FL (80-99) Mean Corpuscular Hemoglobin 31.7 PG (27.0-31.0) H 32.1 PG (27.0-31.0) H Mean Corpuscular Hemoglobin Concent 31.4 G/DL (32.0-36.0) L 32.8 G/DL (32.0-36.0) Red Cell Distribution Width 14.6 % (11.6-14.8) 13.0 % (11.6-14.8) Platelet Count 294 K/UL (150-450) 262 K/UL (150-450) Mean Platelet Volume 6.4 FL (6.5-10.1) L 6.1 FL (6.5-10.1) L Neutrophils (%) (Auto) % (45.0-75.0) % (45.0-75.0) Lymphocytes (%) (Auto) % (20.0-45.0) % (20.0-45.0) Monocytes (%) (Auto) % (1.0-10.0) % (1.0-10.0) Eosinophils (%) (Auto) % (0.0-3.0) % (0.0-3.0) Basophils (%) (Auto) % (0.0-2.0) % (0.0-2.0) Differential Total Cells Counted 100 100 Neutrophils % (Manual) 82 % (45-75) H 82 % (45-75) H Lymphocytes % (Manual) 7 % (20-45) L 8 % (20-45) L Monocytes % (Manual) 9 % (1-10) 10 % (1-10) Eosinophils % (Manual) 1 % (0-3) 0 % (0-3) Basophils % (Manual) 0 % (0-2) 0 % (0-2) Band Neutrophils 1 % (0-8) 0 % (0-8) Platelet Estimate Adequate Adequate Platelet Morphology Normal Normal Hypochromasia 1+ 1+ Anisocytosis 1+ Sodium Level 137 MMOL/L (136-145) 135 MMOL/L (136-145) L Potassium Level 4.9 MMOL/L (3.5-5.1) 4.8 MMOL/L (3.5-5.1) Chloride Level 96 MMOL/L (98-107) L 98 MMOL/L (98-107) Carbon Dioxide Level 21 MMOL/L (21-32) 20 MMOL/L (21-32) L Anion Gap 21 mmol/L (5-15) H 18 mmol/L (5-15) H Blood Urea Nitrogen 56 mg/dL (7-18) H 63 mg/dL (7-18) H Creatinine 8.5 MG/DL (0.55-1.30) H 8.7 MG/DL (0.55-1.30) H Estimat Glomerular Filtration Rate 5.5 mL/min (>60) 5.5 mL/min (>60) Glucose Level 121 MG/DL (74-106) H 142 MG/DL (74-106) H Lactic Acid Level 1.40 mmol/L (0.4-2.0) Calcium Level 9.7 MG/DL (8.5-10.1) 8.8 MG/DL (8.5-10.1) Total Bilirubin 0.5 MG/DL (0.2-1.0) 0.4 MG/DL (0.2-1.0) Aspartate Amino Transf (AST/SGOT) 18 U/L (15-37) 63 U/L (15-37) H Alanine Aminotransferase (ALT/SGPT) 16 U/L (12-78) 47 U/L (12-78) Alkaline Phosphatase 107 U/L (46-116) 110 U/L (46-116) Total Creatine Kinase 57 U/L (26-308) Creatine Kinase MB 1.1 NG/ML (0.0-3.6) Creatine Kinase MB Relative Index 1.9 Troponin I 0.263 ng/mL (0.000-0.056) Total Protein 8.8 G/DL (6.4-8.2) H 7.5 G/DL (6.4-8.2) Albumin 3.2 G/DL (3.4-5.0) L 2.8 G/DL (3.4-5.0) L Globulin 5.6 g/dL 4.7 g/dL Albumin/Globulin Ratio 0.6 (1.0-2.7) L 0.6 (1.0-2.7) L Hemoglobin A1c 6.4 % (4.3-6.0) H Triglycerides Level 59 MG/DL (30-150) Cholesterol Level 130 MG/DL (< 200) LDL Cholesterol 69 mg/dL (<100) HDL Cholesterol 42 MG/DL (40-60) Cholesterol/HDL Ratio 3.1 (3.3-4.4) L Thyroid Stimulating Hormone (TSH) 1.160 uiU/mL (0.358-3.740) Random Vancomycin Level 11.5 ug/mL Hepatitis B Surface Antigen Pending Microbiology Date/Time Source Procedure Growth Status 12/18/19 19:15 Blood Blood Culture - Preliminary Resulted 12/18/19 19:00 Blood Blood Culture - Preliminary Resulted 12/18/19 19:00 Nasal Nares - Final Complete 12/18/19 19:00 Nasal Nares - Final Complete 12/18/19 21:25 Rectum Received Dawit Lopez MD Dec 19, 2019 18:59
--- NOTE | 2019-12-19 19:06 | Diagnostic Imaging Report ---
Indication: Cellulitis Technique: 25.2 mCi of technetium 99 M-MDP was injected intravenously. A triple phase bone scan was then performed with blood flow, blood pool and delayed planar imaging in the region of interest. Several spot images were also obtained. Comparison: None Findings: . I have confirmed the clinical area of interest is the right forefoot. Examination shows slightly increased asymmetric blood flow to the left forefoot. Blood pool images show increased soft tissue uptake within the right foot and ankle. Delayed planar images show no abnormal bone activity on either foot. Impression: Findings consistent with cellulitis of the right foot. Interestingly there is increased blood flow to the left forefoot which is a curiosity. Delayed planar images show no abnormal uptake. Findings negative for acute osteomyelitis for either foot.
--- NOTE | 2019-12-19 19:13 | NUR ---
NURSE NOTES: Received pt from [facility]AYE. Pt is resting in bed in no acute distress, with family at bedside. Iv site intact. Bed locked in lowest position, bed alarm on, call light within reach. Will continue with plan of care.
[2019-12-19 20:00] VITALS: BP 130/61
--- NOTE | 2019-12-19 20:21 | NUR ---
NURSE NOTES: Called [facility] and confirmed dialysis appointment for patient for .
[2019-12-20] VITALS: BP 106/55
--- NOTE | 2019-12-20 00:15 | History and Physical Report ---
DATE OF ADMISSION: 12/18/2019 CHIEF COMPLAINT: The patient is a 79-year-old female, who presents with a chief complaint of right foot pain. HISTORY OF PRESENT ILLNESS: The patient has a history of diabetes. The patient has had pain in the right foot for the last month. The patient has a wound on her right fifth toe, which has been followed by her primary care physician. The patient states the pain in the right foot has increased over the past couple of days. The patient states the pain got so bad that she took Tylenol with Codeine for the first time. The patient then began to have nausea and vomiting secondary to codeine. The patient presented to [place] emergency room. The patient is admitted with right foot pain and possible right fifth toe osteomyelitis. REVIEW OF SYSTEMS: CONSTITUTIONAL: The patient denies weight loss or weight gain. The patient denies fevers or chills. HEENT: The patient denies ear or throat pain. The patient denies headache. CARDIOVASCULAR: The patient denies palpitations or chest pain. CHEST: The patient denies wheeze or shortness of breath. ABDOMEN: The patient denies nausea, vomiting, diarrhea, or constipation. GENITOURINARY: The patient denies dysuria or increased frequency of urination. NEUROMUSCULAR: The patient complains of right foot pain as above. The patient denies seizures or generalized weakness. PAST MEDICAL HISTORY: Significant for, 1. Type 2 diabetes. 2. Hypertension. 3. End-stage renal disease, on hemodialysis every Sunday, Sunday, and Sunday. The patient's last dialysis was Tuesday, December 17, 2019. 4. Hypothyroidism. 5. Peripheral vascular disease. PAST SURGICAL HISTORY: Significant for pacemaker implantation. CURRENT MEDICATIONS: 1. Losartan 25 mg one tab p.o. daily. 2. Tylenol No. 3 one tablet p.o. q.6 hours p.r.n. ALLERGIES: Sulfa drugs. SOCIAL HISTORY: The patient is a . The patient lives alone. The patient denies tobacco or alcohol use. PHYSICAL EXAMINATION: VITAL SIGNS: Temperature 102.6, respirations 19, pulse 78, and blood pressure 132/58. GENERAL: The patient is a well-developed and well-nourished female, in no apparent distress. HEENT: Eyes, pupils are equal and responsive to light and accommodation. Extraocular movements are intact. NECK: Supple without lymphadenopathy. CHEST: Lungs are clear to auscultation bilaterally without wheezes or rales. CARDIOVASCULAR: Regular rhythm and rate. S1, S2 are normal without murmurs, rubs, or gallops. ABDOMEN: Soft, nontender, and nondistended. Positive bowel sounds. No evidence of hepatosplenomegaly. Currently, no rebound or guarding noted. EXTREMITIES: There is swelling of the right foot compared to the left. There is erythema over the right fifth toe. RECTAL/GENITAL: Refused. NEUROLOGIC: Cranial nerves II through XII are grossly intact without focal deficits. Motor strength is 5/5 bilaterally. Deep tendon reflexes are 2+ plantar. LABORATORY STUDIES: WBC 21.8, hemoglobin 11.6, and hematocrit 37.0, and platelets 294,000. Sodium 137, potassium 4.9, chloride 106, CO2 21, BUN 56, creatinine 8.5, and glucose 121. Troponin elevated at 0.263. An x-ray of the right foot is pending. ASSESSMENT: This is a 79-year-old female. 1. Right foot pain. 2. Fever. 3. Ulcer of the right fifth toe 4. Leukocytosis. 5. Diabetes type 2. 6. Hypertension. 7. End-stage renal disease, on hemodialysis. 8. Hypothyroidism. 9. Peripheral vascular disease. 10. Pacemaker in situ. TREATMENT: 1. Right foot pain/ulcer of the right fifth toe. A Podiatry consultation has been obtained with . We will follow recommendations of Podiatry. A nuclear medicine bone scan is pending to rule out osteomyelitis. The patient has been started empirically on Zosyn and vancomycin. 2. Fever. This may be secondary to cellulitis of the right foot as above. An Infectious Disease consultation has been obtained with Dr. David. We will follow recommendation of Infectious Disease. 3. Diabetes type 2. The patient has been placed on a NovoLog sliding scale. 4. Hypertension. Continue losartan as above. 5. End-stage renal disease. A Nephrology consultation has been obtained with Dr. Peter Solorio. The patient's last dialysis was Tuesday, December 17, 2019. Follow recommendations of Dr. Solorio. 6. Hypothyroidism. Continue Synthroid. 7. Pacemaker in situ. A pacemaker check is scheduled with Dr. Dawit Lopez. 8. Elevated troponin. A Cardiology consultation has been obtained with Dr. Bjorn Hayden. Hieu Kim M.D. DR: CHERYL JOB#: [id number] CC:
--- NOTE | 2019-12-20 00:45 | Consultation ---
DATE OF CONSULTATION: 12/19/2019 CARDIOLOGY CONSULTATION CONSULTING PHYSICIAN: Dawit Lopez M.D. REFERRING PHYSICIAN: Dave Melgoza M.D. REASON FOR CONSULTATION: Evaluation of the patient's pacemaker and management of hypertension. HISTORY OF PRESENT ILLNESS: The patient is a 79-year-old lady with history of hypertension and sick sinus syndrome, who underwent a right-sided permanent pacemaker implantation at [facility] by Dr. Byron de guzman. The patient was brought to the hospital for right foot pain and swelling and was found to have fever and blood culture grew gram-positive cocci. The patient was evaluated by Infectious Disease specialist and started on IV antibiotic. A Cardiology consultation was recommended for further evaluation and to rule out endocarditis or pacemaker infection. REVIEW OF SYSTEMS: Review of systems was negative other than what was mentioned in the history of present illness. PAST MEDICAL HISTORY: As mentioned above. FAMILY HISTORY: Noncontributory. SOCIAL HISTORY: She lives at home. Does not smoke or drink alcohol. PHYSICAL EXAMINATION: VITAL SIGNS: Show blood pressure of 142/76, pulse 66, respirations 18, and temperature is 100. HEAD AND NECK: Shows no JVD or carotid bruit. LUNGS: Clear. CARDIOVASCULAR: Shows regular S1 and S2 with no gallop or murmur. The pacemaker in the right subclavian. ABDOMEN: Soft. EXTREMITIES: Left arm dialysis access. LABORATORY AND DIAGNOSTIC DATA: Her labs show white count of 23.2, hemoglobin 10.2, hematocrit 31, and platelet count of 262,000. Sodium 135, potassium 4.8, BUN of 62, creatinine 8.2, and glucose of 114. Troponin is 0.263. ASSESSMENT AND PLAN: 1. Elevated troponin of 0.26. The patient does not have any chest pain. This could be due to renal failure. We will repeat cardiac enzymes. Her echocardiogram showed ejection fraction of 50%. 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 2. Status post Biotronik pacemaker. The pacemaker will be interrogated for further evaluation. 3. Severe pulmonary hypertension. 4. Bacteremia. We will schedule the patient for transesophageal echocardiogram to rule out any vegetation in the valves or in the leads. The patient is already on broad-spectrum intravenous antibiotic per ID as the white count is also 23,000. 5. End-stage renal disease, on hemodialysis. Thank you very much for allowing me to participate in the care of this patient. Please do not hesitate to contact me for any questions regarding my evaluation. Dawit Lopez M.D. DR: ROSITA JOB#: [id number] CC:
[2019-12-20 04:00] VITALS: BP 117/56
[2019-12-20] MEDS: NovoLOG Insulin Flexpen SUBQ SCH ×4 (06:06→21:00)
[2019-12-20] MEDS: Zosyn 2.25 gm in D5W 55ml IV SCH ×3 (06:06→23:51)
--- NOTE | 2019-12-20 06:59 | NUR ---
NURSE NOTES: Left a message for Dr. Solorio in regards to pt requesting lidocaine for comfort during her HD. Endorsed plan to day RN.
--- NOTE | 2019-12-20 07:12 | Pulmonology Progress Note ---
Assessment/Plan Assessment/Plan ASSESSMENT Sepsis with bacteremia Right fifth toe gangrene ESRD, on HD Severe pulmonary HTN Aortic stenosis with aortic regurgitation PVD Anemia of chronic kidney disease Pacemaker HTN DM PLAN OF CARE tele Echo with EF 50% , no evidence of vegetation RVSP of 64 moderate AR, abx as per ID bone scan no evidence of osteomyelitis X-ray of R foot arterial duplex DARYN - rule out endocarditis O2 HHN PRN DVT prophylactics HD as per nephro; monitor volumes renal parameters BP management with current regimen BS management with SSI wound care as per senior speech pathologist recommendation pain management supportive care case discussed and evaluated by supervising physician Subjective Allergies: Coded Allergies: SULFA (SULFONAMIDE ANTIBIOTICS) (Verified Allergy, Mild, 08/19/09) Subjective leuk trending down, still [id number] fevers resolved Objective Last 24 Hour Vital Signs Date Time Temp Pulse Resp B/P (MAP) Pulse Ox O2 Delivery O2 Flow Rate FiO2 12/20/19 04:00 71 12/20/19 04:00 98.1 74 18 117/56 (76) 97 12/20/19 00:00 98.1 74 18 106/55 (72) 98 12/20/19 00:00 74 12/19/19 21:51 98.0 12/19/19 21:00 Room Air 12/19/19 20:00 64 12/19/19 20:00 100.5 64 18 130/61 (84) 96 12/19/19 16:00 99.9 66 20 143/76 (98) 94 12/19/19 16:00 65 12/19/19 12:00 67 12/19/19 12:00 99.1 66 20 119/53 (75) 94 12/19/19 10:03 118/62 12/19/19 09:00 Room Air 12/19/19 08:00 65 12/19/19 08:00 98.2 68 18 99/58 (72) 94 Intake and Output 12/19/19 12/20/19 19:00 07:00 Intake Total 600 ml Balance 600 ml Intake Oral 600 ml General Appearance: no acute distress HEENT: normocephalic, atraumatic, anicteric, mucous membranes moist Respiratory/Chest: lungs clear, no respiratory distress, chest wall tender Cardiovascular: normal rate, regular rhythm Abdomen: normal bowel sounds, soft, non tender Extremities: other - LUE AV shnt + thrill/bruit; R 5 th toe TTP, also TTP plantar surface of the foor, +1 edema of the foot Microbiology Date/Time Source Procedure Growth Status 12/18/19 19:15 Blood Blood Culture - Preliminary Staphylococcus Aureus Resulted 12/18/19 19:00 Blood Blood Culture - Preliminary Staphylococcus Aureus Resulted 12/18/19 19:00 Nasal Nares - Final Complete 12/18/19 19:00 Nasal Nares - Final Complete 12/18/19 21:25 Rectum Received Current Medications Medications (Trade) Dose Ordered Sig/Bere Route PRN Reason Start Time Stop Time Status Last Admin Dose Admin Acetaminophen (Tylenol) 650 mg Q4H PRN ORAL T>100.5 12/18/19 21:30 01/17/20 21:29 12/19/19 21:21 Albuterol/ Ipratropium (Albuterol/ Ipratropium) 3 ml Q6H PRN HHN dyspnea 12/18/19 21:30 12/23/19 21:29 Clonidine HCl (Catapres Tab) 0.1 mg Q4H PRN ORAL SBP > 160mmhg 12/18/19 21:30 01/17/20 21:29 Dextrose (Dextrose 50%) 25 ml Q30M PRN IV Hypoglycemia 12/18/19 21:30 01/17/20 21:29 Dextrose (Dextrose 50%) 50 ml Q30M PRN IV Hypoglycemia 12/18/19 21:30 01/17/20 21:29 Docusate Sodium (Colace) 100 mg THREE TIMES A DAY ORAL 12/19/19 13:00 01/18/20 12:59 Heparin Sodium (Porcine) (Heparin 5000 units/ml) 5,000 units EVERY 12 HOURS SUBQ 12/19/19 09:00 01/18/20 08:59 12/19/19 23:38 Insulin Aspart (NovoLOG) BEFORE MEALS AND HS SUBQ 12/19/19 06:30 01/18/20 06:29 Losartan Potassium (Cozaar) 25 mg DAILY ORAL 12/20/19 09:00 01/18/20 08:59 Nitroglycerin (Ntg) 1 patch Q24H TDERMAL 12/19/19 09:30 01/18/20 09:29 12/19/19 10:03 Ondansetron HCl (Zofran) 4 mg Q6H PRN IVP Nausea & Vomiting 12/18/19 21:30 01/17/20 21:29 Pantoprazole (Protonix) 40 mg EVERY 12 HOURS ORAL 12/19/19 21:00 01/18/20 20:59 12/19/19 23:28 Piperacillin Sod/ Tazobactam Sod 2.25 gm/Dextrose 55 ml @ 110 mls/hr Q8H IV 12/19/19 15:00 12/26/19 14:59 12/20/19 06:06 Polyethylene Glycol (Miralax) 17 gm HSPRN PRN ORAL Constipation 12/18/19 21:30 01/17/20 21:29 Vancomycin HCl (Vanco rx to dose) 1 ea DAILY PRN MISC Per rx protocol 12/18/19 21:30 01/17/20 21:29 Zolpidem Tartrate (Ambien) 5 mg HSPRN PRN ORAL Insomnia 12/18/19 21:30 12/25/19 21:29 Nova Natarajan CLEAN ROOM TECHNICIAN Dec 20, 2019 07:12
--- NOTE | 2019-12-20 07:27 | NUR ---
HAND-OFF: Report given to VARGAS Demarco. Endorsed plan of care. Pt resting in bed in no acute distress with HOB elevated. Iv site intact. Bed locked in lowest position bed alarm on, call light within reach.
[2019-12-20] MEDS: Losartan 25mg tab ORAL SCH (07:51)
--- NOTE | 2019-12-20 07:55 | NUR ---
NURSE NOTES: Received pt in bed, AAO x 4. On NC 1L/min. No c/o of pain/distress. IV on R hand intact and patent, with SL. MAULIK shunt noted. Side rails x 3. Bed in the lowest, locked, and alarm on. Call light within reach. Will continue to monitor
[2019-12-20 08:00] VITALS: BP 141/67
[2019-12-20] MEDS: Nitroglycerin Patch 0.2mg/hr TDERMAL SCH (08:08)
[2019-12-20] MEDS: Docusate 100mg cap ORAL SCH ×3 (08:43→17:38)
[2019-12-20] MEDS: Heparin 5000 units/ml inj SUBQ SCH ×2 (08:45→22:02)
--- NOTE | 2019-12-20 09:25 | Nephrology Progress Note ---
Assessment/Plan Problem List: (1) ESRF (end stage renal failure) (2) History of pacemaker (3) Pulmonary hypertension Assessment ESRD Pneumonia Fever Sepsis Cellulitis Leukocytosis DM , elevated A1c Pace Maker- Elevated Troponin HypoAlbuminemia Sepsis with bacteremia Right fifth toe gangrene Aortic stenosis with aortic regurgitation PVD Anemia of chronic kidney disease DM Plan on Vanco- and Zosyn Dialysis 2D echo EjFx 50- Pulm HTN adjust cardiac abd BP meds Anemia rees per orders Subjective ROS Limited/Unobtainable: No Objective Objective Last 24 Hour Vital Signs Date Time Temp Pulse Resp B/P (MAP) Pulse Ox O2 Delivery O2 Flow Rate FiO2 12/20/19 08:13 Room Air 12/20/19 07:51 117/56 12/20/19 04:00 71 12/20/19 04:00 98.1 74 18 117/56 (76) 97 12/20/19 00:00 98.1 74 18 106/55 (72) 98 12/20/19 00:00 74 12/19/19 21:51 98.0 12/19/19 21:00 Room Air 12/19/19 20:00 64 12/19/19 20:00 100.5 64 18 130/61 (84) 96 12/19/19 16:00 99.9 66 20 143/76 (98) 94 12/19/19 16:00 65 12/19/19 12:00 67 12/19/19 12:00 99.1 66 20 119/53 (75) 94 12/19/19 10:03 118/62 Intake and Output 12/19/19 12/20/19 19:00 07:00 Intake Total 600 ml 280 ml Balance 600 ml 280 ml Intake Oral 600 ml 280 ml Height (Feet): 5 Height (Inches): 3.00 Weight (Pounds): 165 General Appearance: no apparent distress Cardiovascular: normal rate Respiratory/Chest: decreased breath sounds Abdomen: distended Peter Solorio MD Dec 20, 2019 09:25
--- NOTE | 2019-12-20 10:22 | Diagnostic Imaging Report ---
EXAM: XR Right Foot Complete, 3 or More Views CLINICAL HISTORY: PAIN TECHNIQUE: Frontal, lateral and oblique views of the right foot. COMPARISON: None FINDINGS: Bones/joints: No displaced fracture or dislocation identified. Osteopenia. Degenerative changes of the right first MTP joint. Degenerative changes of the interphalangeal joints. Posterior calcaneal spur. Soft tissues: Mild diffuse soft tissue swelling. Extensive vascular calcifications. IMPRESSION: No displaced fracture or dislocation identified.
[2019-12-20 11:46] LABS: HEMATOCRIT 29.8 % (37.0-47.0); HEMOGLOBIN 9.8 G/DL (12.0-16.0); MEAN CORPUSCULAR VOLUME 97 FL (80-99); PLATELET COUNT 248 K/UL (150-450); RED BLOOD COUNT 3.09 M/UL (4.20-5.40); RED CELL DISTRIBUTION WIDTH 12.7 % (11.6-14.8); WHITE BLOOD COUNT 18.9 K/UL (4.8-10.8)
[2019-12-20 12:00] VITALS: BP 147/79
[2019-12-20 12:23] LABS: ALANINE AMINOTRANSFERASE 53 U/L (12-78); ALBUMIN 2.7 G/DL (3.4-5.0); ALBUMIN/GLOBULIN RATIO 0.6 (1.0-2.7); ALKALINE PHOSPHATASE 108 U/L (46-116); ANION GAP 20 mmol/L (5-15); ASPARTATE AMINO TRANSFERASE 44 U/L (15-37); BILIRUBIN,TOTAL 0.4 MG/DL (0.2-1.0); BLOOD UREA NITROGEN 73 mg/dL (7-18); CALCIUM 9.2 MG/DL (8.5-10.1); CARBON DIOXIDE 16 MMOL/L (21-32); CHLORIDE 94 MMOL/L (98-107); CREATININE 10.3 MG/DL (0.55-1.30); GAMMA GLUTAMYL TRANSPEPTIDASE 54 U/L (5-85); PHOSPHORUS 7.6 MG/DL (2.5-4.9); POTASSIUM 5.2 MMOL/L (3.5-5.1); SODIUM 130 MMOL/L (136-145)
--- NOTE | 2019-12-20 12:25 | NUR ---
NURSE NOTES: reported from lab with troponin 2.62, call placed to dr amaya and message left.
--- NOTE | 2019-12-20 12:54 | Diagnostic Imaging Report ---
EXAM: US Duplex Right Lower Extremity Arteries CLINICAL HISTORY: PAIN TECHNIQUE: Real-time duplex ultrasound scan of the right lower extremity arteries integrating B-mode two-dimensional vascular structure, Doppler spectral analysis and color flow Doppler imaging. COMPARISON: None FINDINGS: Right common femoral artery: No acute findings. No occlusion or significant stenosis on color flow and spectral Doppler imaging. Normal waveform. Right superficial femoral artery: Normal flow in the proximal and mid superficial femoral artery. Minimal flow in the distal right superficial femoral artery, suggesting upstream stenosis. Right popliteal artery: Monophasic waveforms in the right popliteal artery. Right calf/foot arteries: Monophasic waveforms in the right posterior tibial artery, anterior tibial artery, peroneal artery, and dorsalis pedis artery. Soft tissues: Unremarkable. IMPRESSION: Normal flow in the proximal and mid superficial femoral artery. Minimal flow in the distal right superficial femoral artery, suggesting upstream stenosis. Monophasic waveforms in the downstream popliteal artery and calf arteries.
[2019-12-20 13:09] LABS: IRON 24 ug/dL (50-175); TOTAL IRON BINDING CAPACITY 155 ug/dL (250-450)
[2019-12-20 13:10] LABS: % IRON SATURATION 15 % (15-50); FERRITIN 1108 NG/ML (8-388)
--- NOTE | 2019-12-20 13:12 | Cardiac Electrophysiology PN ---
Assessment/Plan Assessment/Plan 1. Elevated troponin of 0.26. Levels are flat. The patient does not have any chest pain. Likely due to renal failure. Echocardiogram showed ejection fraction of 50%. 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 2. Status post Biotronik pacemaker. The pacemaker will be interrogated for further evaluation. 3. Severe pulmonary hypertension. 4. Bacteremia. Scheduled for transesophageal echocardiogram to rule out any vegetation in the valves or in the leads. The patient is already on broad-spectrum intravenous antibiotic per ID as the white count is also 23,000. 5. End-stage renal disease, on hemodialysis. CLAUDINE RN Subjective Subjective Alert in NAD getting HD Agree with DARYN to R/O endocarditis Objective Last 24 Hour Vital Signs Date Time Temp Pulse Resp B/P (MAP) Pulse Ox O2 Delivery O2 Flow Rate FiO2 12/20/19 08:13 Room Air 12/20/19 08:00 78 12/20/19 08:00 98.2 73 20 141/67 (91) 96 12/20/19 07:51 117/56 12/20/19 04:00 71 12/20/19 04:00 98.1 74 18 117/56 (76) 97 12/20/19 00:00 98.1 74 18 106/55 (72) 98 12/20/19 00:00 74 12/19/19 21:51 98.0 12/19/19 21:00 Room Air 12/19/19 20:00 64 12/19/19 20:00 100.5 64 18 130/61 (84) 96 12/19/19 16:00 99.9 66 20 143/76 (98) 94 12/19/19 16:00 65 Intake and Output 12/19/19 12/20/19 19:00 07:00 Intake Total 600 ml 280 ml Balance 600 ml 280 ml Intake Oral 600 ml 280 ml Laboratory Tests Test 12/20/19 10:20 White Blood Count 18.9 K/UL (4.8-10.8) H Red Blood Count 3.09 M/UL (4.20-5.40) L Hemoglobin 9.8 G/DL (12.0-16.0) L Hematocrit 29.8 % (37.0-47.0) L Mean Corpuscular Volume 97 FL (80-99) Mean Corpuscular Hemoglobin 31.9 PG (27.0-31.0) H Mean Corpuscular Hemoglobin Concent 33.0 G/DL (32.0-36.0) Red Cell Distribution Width 12.7 % (11.6-14.8) Platelet Count 248 K/UL (150-450) Mean Platelet Volume 6.0 FL (6.5-10.1) L Neutrophils (%) (Auto) % (45.0-75.0) Lymphocytes (%) (Auto) % (20.0-45.0) Monocytes (%) (Auto) % (1.0-10.0) Eosinophils (%) (Auto) % (0.0-3.0) Basophils (%) (Auto) % (0.0-2.0) Differential Total Cells Counted 100 Neutrophils % (Manual) 79 % (45-75) H Lymphocytes % (Manual) 6 % (20-45) L Monocytes % (Manual) 15 % (1-10) H Eosinophils % (Manual) 0 % (0-3) Basophils % (Manual) 0 % (0-2) Band Neutrophils 0 % (0-8) Platelet Estimate Adequate Platelet Morphology Normal Hypochromasia 2+ Anisocytosis 1+ Sodium Level 130 MMOL/L (136-145) L Potassium Level 5.2 MMOL/L (3.5-5.1) H Chloride Level 94 MMOL/L (98-107) L Carbon Dioxide Level 16 MMOL/L (21-32) L Anion Gap 20 mmol/L (5-15) H Blood Urea Nitrogen 73 mg/dL (7-18) H Creatinine 10.3 MG/DL (0.55-1.30) H Estimat Glomerular Filtration Rate 4.4 mL/min (>60) Glucose Level 142 MG/DL (74-106) H Uric Acid 5.1 MG/DL (2.6-7.2) Calcium Level 9.2 MG/DL (8.5-10.1) Phosphorus Level 7.6 MG/DL (2.5-4.9) H Magnesium Level 2.3 MG/DL (1.8-2.4) Iron Level Pending Unsaturated Iron Binding Pending Ferritin Pending Total Bilirubin 0.4 MG/DL (0.2-1.0) Gamma Glutamyl Transpeptidase 54 U/L (5-85) Aspartate Amino Transf (AST/SGOT) 44 U/L (15-37) H Alanine Aminotransferase (ALT/SGPT) 53 U/L (12-78) Alkaline Phosphatase 108 U/L (46-116) Troponin I 2.620 ng/mL (0.000-0.056) C-Reactive Protein, Quantitative Pending Pro-B-Type Natriuretic Peptide > 21017 pg/mL (0-125) H Total Protein 7.4 G/DL (6.4-8.2) Albumin 2.7 G/DL (3.4-5.0) L Globulin 4.7 g/dL Albumin/Globulin Ratio 0.6 (1.0-2.7) L Vitamin B12 Level Pending Folate Pending Microbiology Date/Time Source Procedure Growth Status 12/18/19 19:15 Blood Blood Culture - Preliminary Staphylococcus Aureus Resulted 12/18/19 19:00 Blood Blood Culture - Preliminary Staphylococcus Aureus Resulted 12/18/19 19:00 Nasal Nares - Final Complete 12/18/19 19:00 Nasal Nares - Final Complete 12/18/19 21:25 Rectum Received Objective HEAD AND NECK: No JVD or carotid bruit. LUNGS: Clear. CARDIOVASCULAR: Shows regular S1 and S2 with no gallop or murmur. The pacemaker in the right subclavian. ABDOMEN: Soft. EXTREMITIES: Left arm dialysis access. Dawit Lopez MD Dec 20, 2019 13:12
--- NOTE | 2019-12-20 13:55 | Internal Med Progress Note ---
Subjective Physician Name Hieu Kim Attending Physician Dave Melgoza MD Current Medications Medications (Trade) Dose Ordered Sig/Bere Route PRN Reason Start Time Stop Time Status Last Admin Dose Admin Acetaminophen (Tylenol) 650 mg Q4H PRN ORAL T>100.5 12/18/19 21:30 01/17/20 21:29 12/19/19 21:21 Albuterol/ Ipratropium (Albuterol/ Ipratropium) 3 ml Q6H PRN HHN dyspnea 12/18/19 21:30 12/23/19 21:29 Clonidine HCl (Catapres Tab) 0.1 mg Q4H PRN ORAL SBP > 160mmhg 12/18/19 21:30 01/17/20 21:29 Dextrose (Dextrose 50%) 25 ml Q30M PRN IV Hypoglycemia 12/18/19 21:30 01/17/20 21:29 Dextrose (Dextrose 50%) 50 ml Q30M PRN IV Hypoglycemia 12/18/19 21:30 01/17/20 21:29 Docusate Sodium (Colace) 100 mg THREE TIMES A DAY ORAL 12/19/19 13:00 01/18/20 12:59 12/20/19 08:43 Heparin Sodium (Porcine) (Heparin 5000 units/ml) 5,000 units EVERY 12 HOURS SUBQ 12/19/19 09:00 01/18/20 08:59 12/20/19 08:45 Insulin Aspart (NovoLOG) BEFORE MEALS AND HS SUBQ 12/19/19 06:30 01/18/20 06:29 Losartan Potassium (Cozaar) 25 mg DAILY ORAL 12/20/19 09:00 01/18/20 08:59 Nitroglycerin (Ntg) 1 patch Q24H TDERMAL 12/19/19 09:30 01/18/20 09:29 12/19/19 10:03 Ondansetron HCl (Zofran) 4 mg Q6H PRN IVP Nausea & Vomiting 12/18/19 21:30 01/17/20 21:29 Pantoprazole (Protonix) 40 mg EVERY 12 HOURS ORAL 12/19/19 21:00 01/18/20 20:59 12/20/19 08:43 Piperacillin Sod/ Tazobactam Sod 2.25 gm/Dextrose 55 ml @ 110 mls/hr Q8H IV 12/19/19 15:00 12/26/19 14:59 12/20/19 06:06 Polyethylene Glycol (Miralax) 17 gm HSPRN PRN ORAL Constipation 12/18/19 21:30 01/17/20 21:29 Vancomycin HCl (Vanco rx to dose) 1 ea DAILY PRN MISC Per rx protocol 12/18/19 21:30 01/17/20 21:29 Zolpidem Tartrate (Ambien) 5 mg HSPRN PRN ORAL Insomnia 12/18/19 21:30 12/25/19 21:29 Allergies: Coded Allergies: SULFA (SULFONAMIDE ANTIBIOTICS) (Verified Allergy, Mild, 08/19/09) Objective Last Vital Signs Date Time Temp Pulse Resp B/P (MAP) Pulse Ox O2 Delivery O2 Flow Rate FiO2 12/20/19 12:00 76 147/79 (101) 12/20/19 08:13 Room Air 12/20/19 08:00 98.2 20 96 Laboratory Tests Test 12/20/19 10:20 White Blood Count 18.9 K/UL (4.8-10.8) H Red Blood Count 3.09 M/UL (4.20-5.40) L Hemoglobin 9.8 G/DL (12.0-16.0) L Hematocrit 29.8 % (37.0-47.0) L Mean Corpuscular Volume 97 FL (80-99) Mean Corpuscular Hemoglobin 31.9 PG (27.0-31.0) H Mean Corpuscular Hemoglobin Concent 33.0 G/DL (32.0-36.0) Red Cell Distribution Width 12.7 % (11.6-14.8) Platelet Count 248 K/UL (150-450) Mean Platelet Volume 6.0 FL (6.5-10.1) L Neutrophils (%) (Auto) % (45.0-75.0) Lymphocytes (%) (Auto) % (20.0-45.0) Monocytes (%) (Auto) % (1.0-10.0) Eosinophils (%) (Auto) % (0.0-3.0) Basophils (%) (Auto) % (0.0-2.0) Differential Total Cells Counted 100 Neutrophils % (Manual) 79 % (45-75) H Lymphocytes % (Manual) 6 % (20-45) L Monocytes % (Manual) 15 % (1-10) H Eosinophils % (Manual) 0 % (0-3) Basophils % (Manual) 0 % (0-2) Band Neutrophils 0 % (0-8) Platelet Estimate Adequate Platelet Morphology Normal Hypochromasia 2+ Anisocytosis 1+ Sodium Level 130 MMOL/L (136-145) L Potassium Level 5.2 MMOL/L (3.5-5.1) H Chloride Level 94 MMOL/L (98-107) L Carbon Dioxide Level 16 MMOL/L (21-32) L Anion Gap 20 mmol/L (5-15) H Blood Urea Nitrogen 73 mg/dL (7-18) H Creatinine 10.3 MG/DL (0.55-1.30) H Estimat Glomerular Filtration Rate 4.4 mL/min (>60) Glucose Level 142 MG/DL (74-106) H Uric Acid 5.1 MG/DL (2.6-7.2) Calcium Level 9.2 MG/DL (8.5-10.1) Phosphorus Level 7.6 MG/DL (2.5-4.9) H Magnesium Level 2.3 MG/DL (1.8-2.4) Iron Level 24 ug/dL (50-175) L Total Iron Binding Capacity 155 ug/dL (250-450) L Percent Iron Saturation 15 % (15-50) Unsaturated Iron Binding 131 ug/dL (112-346) Ferritin 1108 NG/ML (8-388) H Total Bilirubin 0.4 MG/DL (0.2-1.0) Gamma Glutamyl Transpeptidase 54 U/L (5-85) Aspartate Amino Transf (AST/SGOT) 44 U/L (15-37) H Alanine Aminotransferase (ALT/SGPT) 53 U/L (12-78) Alkaline Phosphatase 108 U/L (46-116) Troponin I 2.620 ng/mL (0.000-0.056) C-Reactive Protein, Quantitative 22.9 mg/dL (0.00-0.90) H Pro-B-Type Natriuretic Peptide > 39418 pg/mL (0-125) H Total Protein 7.4 G/DL (6.4-8.2) Albumin 2.7 G/DL (3.4-5.0) L Globulin 4.7 g/dL Albumin/Globulin Ratio 0.6 (1.0-2.7) L Vitamin B12 Level > 2000 PG/ML (193-986) H Folate 38.4 NG/ML (8.6-58.9) Microbiology Date/Time Source Procedure Growth Status 12/18/19 19:15 Blood Blood Culture - Preliminary Staphylococcus Aureus Resulted 12/18/19 19:00 Blood Blood Culture - Preliminary Staphylococcus Aureus Resulted 12/18/19 19:00 Nasal Nares - Final Complete 12/18/19 19:00 Nasal Nares - Final Complete 12/18/19 21:25 Rectum Received Intake and Output 12/19/19 12/20/19 19:00 07:00 Intake Total 600 ml 280 ml Balance 600 ml 280 ml Intake Oral 600 ml 280 ml Objective PHYSICAL EXAMINATION: GENERAL: The patient is a well-developed and well-nourished female, in no apparent distress. HEENT: Eyes, pupils are equal and responsive to light and accommodation. Extraocular movements are intact. NECK: Supple without lymphadenopathy. CHEST: Lungs are clear to auscultation bilaterally without wheezes or rales. CARDIOVASCULAR: Regular rhythm and rate. S1, S2 are normal without murmurs, rubs, or gallops. ABDOMEN: Soft, nontender, and nondistended. Positive bowel sounds. No evidence of hepatosplenomegaly. Currently, no rebound or guarding noted. EXTREMITIES: There is swelling of the right foot compared to the left. There is erythema over the right fifth toe. RECTAL/GENITAL: Refused. NEUROLOGIC: Cranial nerves II through XII are grossly intact without focal deficits. Motor strength is 5/5 bilaterally. Deep tendon reflexes are 2+ plantar. Assessment/Plan Assessment/Plan ASSESSMENT: This is a 79-year-old female. 1. Right foot pain. 2. Fever. 3. Gangrene of the right fifth toe 4. Leukocytosis. 5. Diabetes type 2. 6. Hypertension. 7. End-stage renal disease, on hemodialysis. 8. Hypothyroidism. 9. Peripheral vascular disease. 10. Pacemaker in situ. TREATMENT: 1. Right foot pain/gangrene of the right fifth toe. A Podiatry consultation has been obtained with Dr. Flood. We will follow recommendations of Podiatry. A nuclear medicine bone scan is pending to rule out osteomyelitis. ABX=Zosyn and vancomycin. 2. Fever. This may be secondary to cellulitis of the right foot as above. An Infectious Disease consultation has been obtained with Dr. David. We will follow recommendation of Infectious Disease. 3. Diabetes type 2. The patient has been placed on a NovoLog sliding scale. 4. Hypertension. Continue losartan as above. 5. End-stage renal disease. A Nephrology consultation has been obtained with Dr. Peter Solorio. The patient's last dialysis was Tuesday, December 17, 2019. Follow recommendations of Dr. Solorio. 6. Hypothyroidism. Continue Synthroid. 7. Pacemaker in situ. A pacemaker check is scheduled with Dr. Dawit Lopez. 8. Elevated troponin. A Cardiology consultation has been obtained with Dr. Bjorn Hayden. Hieu Kim MD Dec 20, 2019 13:55
[2019-12-20] MEDS: Morphine Sulfate 2mg/ml Inj(IV/IM USE ONLY) IVP PRN (14:44)
--- NOTE | 2019-12-20 15:36 | Infectious Diseases Prog Note ---
Assessment/Plan Assessment/Plan ASSESSMENT: The patient is a 79-year-old female with, 1. Right foot infection, rule out osteomyelitis. -xray R foot: No displaced fracture or dislocation identified. -bone scan: No evidence for osteomyelitis. 2. High grade Bacteremia, rule out endocarditis versus pacemaker infection. -12/18 Bcx 2/4 S. aureus (sensi p), 12/19 Bcx 1/2 GPC clusters -2d echo: limited study, no mention of vegetations 3. Leukocytosis; improving 4. Sepsis. 5. Fever; improving PLAN: 1. We will continue the patient on vancomycin #3 for S.aureus bacteremic 2. Cont empiric Zosyn #2 3. Monitor CBC. 4. Monitor BMP. 5. Monitor blood culture..; reorder x2 6 Recommend a DARYN to rule out endocarditis or pacemaker infection. 7. Monitor CBC and BMP. Thank you Dr. Melgoza and Dr. Amaral for allowing me to participate in the care of this patient. I will follow the patient with you during this hospitalization. Subjective Allergies: Coded Allergies: SULFA (SULFONAMIDE ANTIBIOTICS) (Verified Allergy, Mild, 08/19/09) Subjective Tm 100.8 wbc improving remains bacteremic Objective Vital Signs Last 24 Hour Vital Signs Date Time Temp Pulse Resp B/P (MAP) Pulse Ox O2 Delivery O2 Flow Rate FiO2 12/20/19 12:00 71 12/20/19 12:00 76 147/79 (101) 12/20/19 08:13 Room Air 12/20/19 08:00 78 12/20/19 08:00 98.2 73 20 141/67 (91) 96 12/20/19 07:51 117/56 12/20/19 04:00 71 12/20/19 04:00 98.1 74 18 117/56 (76) 97 12/20/19 00:00 98.1 74 18 106/55 (72) 98 12/20/19 00:00 74 12/19/19 21:51 98.0 12/19/19 21:00 Room Air 12/19/19 20:00 64 12/19/19 20:00 100.5 64 18 130/61 (84) 96 12/19/19 16:00 99.9 66 20 143/76 (98) 94 12/19/19 16:00 65 Height (Feet): 5 Height (Inches): 3.00 Weight (Pounds): 163 Objective HEENT: No pale conjunctivae. No icterus. NECK: No lymphadenopathy. CHEST: Clear. HEART: S1, S2. ABDOMEN: Obese and nontender. EXTREMITY: An AV shunt placed on the left upper extremity. Right foot fifth toe is tender. Plantar surface of the foot is tender. Microbiology Date/Time Source Procedure Growth Status 12/19/19 15:45 Blood Blood Culture - Preliminary Resulted 12/18/19 19:15 Blood Blood Culture - Preliminary Staphylococcus Aureus Resulted 12/18/19 19:00 Blood Blood Culture - Preliminary Staphylococcus Aureus Resulted 12/18/19 19:00 Nasal Nares - Final Complete 12/18/19 19:00 Nasal Nares - Final Complete 12/18/19 21:25 Rectum Received Laboratory Tests Test 12/20/19 10:20 White Blood Count 18.9 K/UL (4.8-10.8) H Red Blood Count 3.09 M/UL (4.20-5.40) L Hemoglobin 9.8 G/DL (12.0-16.0) L Hematocrit 29.8 % (37.0-47.0) L Mean Corpuscular Volume 97 FL (80-99) Mean Corpuscular Hemoglobin 31.9 PG (27.0-31.0) H Mean Corpuscular Hemoglobin Concent 33.0 G/DL (32.0-36.0) Red Cell Distribution Width 12.7 % (11.6-14.8) Platelet Count 248 K/UL (150-450) Mean Platelet Volume 6.0 FL (6.5-10.1) L Neutrophils (%) (Auto) % (45.0-75.0) Lymphocytes (%) (Auto) % (20.0-45.0) Monocytes (%) (Auto) % (1.0-10.0) Eosinophils (%) (Auto) % (0.0-3.0) Basophils (%) (Auto) % (0.0-2.0) Differential Total Cells Counted 100 Neutrophils % (Manual) 79 % (45-75) H Lymphocytes % (Manual) 6 % (20-45) L Monocytes % (Manual) 15 % (1-10) H Eosinophils % (Manual) 0 % (0-3) Basophils % (Manual) 0 % (0-2) Band Neutrophils 0 % (0-8) Platelet Estimate Adequate Platelet Morphology Normal Hypochromasia 2+ Anisocytosis 1+ Sodium Level 130 MMOL/L (136-145) L Potassium Level 5.2 MMOL/L (3.5-5.1) H Chloride Level 94 MMOL/L (98-107) L Carbon Dioxide Level 16 MMOL/L (21-32) L Anion Gap 20 mmol/L (5-15) H Blood Urea Nitrogen 73 mg/dL (7-18) H Creatinine 10.3 MG/DL (0.55-1.30) H Estimat Glomerular Filtration Rate 4.4 mL/min (>60) Glucose Level 142 MG/DL (74-106) H Uric Acid 5.1 MG/DL (2.6-7.2) Calcium Level 9.2 MG/DL (8.5-10.1) Phosphorus Level 7.6 MG/DL (2.5-4.9) H Magnesium Level 2.3 MG/DL (1.8-2.4) Iron Level 24 ug/dL (50-175) L Total Iron Binding Capacity 155 ug/dL (250-450) L Percent Iron Saturation 15 % (15-50) Unsaturated Iron Binding 131 ug/dL (112-346) Ferritin 1108 NG/ML (8-388) H Total Bilirubin 0.4 MG/DL (0.2-1.0) Gamma Glutamyl Transpeptidase 54 U/L (5-85) Aspartate Amino Transf (AST/SGOT) 44 U/L (15-37) H Alanine Aminotransferase (ALT/SGPT) 53 U/L (12-78) Alkaline Phosphatase 108 U/L (46-116) Troponin I 2.620 ng/mL (0.000-0.056) C-Reactive Protein, Quantitative 22.9 mg/dL (0.00-0.90) H Pro-B-Type Natriuretic Peptide > 15985 pg/mL (0-125) H Total Protein 7.4 G/DL (6.4-8.2) Albumin 2.7 G/DL (3.4-5.0) L Globulin 4.7 g/dL Albumin/Globulin Ratio 0.6 (1.0-2.7) L Vitamin B12 Level > 2000 PG/ML (193-986) H Folate 38.4 NG/ML (8.6-58.9) Current Medications Medications (Trade) Dose Ordered Sig/Bere Route PRN Reason Start Time Stop Time Status Last Admin Dose Admin Acetaminophen (Tylenol) 650 mg Q4H PRN ORAL T>100.5 12/18/19 21:30 01/17/20 21:29 12/20/19 14:02 Albuterol/ Ipratropium (Albuterol/ Ipratropium) 3 ml Q6H PRN HHN dyspnea 12/18/19 21:30 12/23/19 21:29 Clonidine HCl (Catapres Tab) 0.1 mg Q4H PRN ORAL SBP > 160mmhg 12/18/19 21:30 01/17/20 21:29 Dextrose (Dextrose 50%) 25 ml Q30M PRN IV Hypoglycemia 12/18/19 21:30 01/17/20 21:29 Dextrose (Dextrose 50%) 50 ml Q30M PRN IV Hypoglycemia 12/18/19 21:30 01/17/20 21:29 Docusate Sodium (Colace) 100 mg THREE TIMES A DAY ORAL 12/19/19 13:00 01/18/20 12:59 12/20/19 14:01 Heparin Sodium (Porcine) (Heparin 5000 units/ml) 5,000 units EVERY 12 HOURS SUBQ 12/19/19 09:00 01/18/20 08:59 12/20/19 08:45 Insulin Aspart (NovoLOG) BEFORE MEALS AND HS SUBQ 12/19/19 06:30 01/18/20 06:29 Losartan Potassium (Cozaar) 25 mg DAILY ORAL 12/20/19 09:00 01/18/20 08:59 Morphine Sulfate (Morphine Sulfate) 2 mg Q4H PRN IVP Moderate Pain (Pain Scale 4-6) 12/20/19 14:15 12/27/19 14:14 12/20/19 14:44 Morphine Sulfate (Morphine Sulfate) 4 mg Q4H PRN IVP Severe Pain (Pain Scale 7-10) 12/20/19 14:15 12/27/19 14:14 Nitroglycerin (Ntg) 1 patch Q24H TDERMAL 12/19/19 09:30 01/18/20 09:29 12/19/19 10:03 Ondansetron HCl (Zofran) 4 mg Q6H PRN IVP Nausea & Vomiting 12/18/19 21:30 01/17/20 21:29 Pantoprazole (Protonix) 40 mg EVERY 12 HOURS ORAL 12/19/19 21:00 01/18/20 20:59 12/20/19 08:43 Piperacillin Sod/ Tazobactam Sod 2.25 gm/Dextrose 55 ml @ 110 mls/hr Q8H IV 12/19/19 15:00 12/26/19 14:59 12/20/19 14:43 Polyethylene Glycol (Miralax) 17 gm HSPRN PRN ORAL Constipation 12/18/19 21:30 01/17/20 21:29 Vancomycin HCl (Vanco rx to dose) 1 ea DAILY PRN MISC Per rx protocol 12/18/19 21:30 01/17/20 21:29 Zolpidem Tartrate (Ambien) 5 mg HSPRN PRN ORAL Insomnia 12/18/19 21:30 12/25/19 21:29 Monika Fernandez M.D. Dec 20, 2019 15:36
[2019-12-20 16:00] VITALS: BP 142/59
[2019-12-20] MEDS: Morphine Sulfate 4mg/ml Inj (IV USE ONLY) IVP PRN ×2 (17:35→22:06)
--- NOTE | 2019-12-20 19:25 | NUR ---
HAND-OFF: Report given to VARGAS Cross.
--- NOTE | 2019-12-20 19:26 | NUR ---
NURSE NOTES: Got report from Dav KAYE. Pt in stable condition. Denies any pain. No s/s of distress or discomfort noted. Pt resting in bed comfortably. Bed in low and locked position, call light within reach, bedside table within reach. Continue to monitor.
[2019-12-20 20:00] VITALS: BP 150/61
[2019-12-21] VITALS: BP 124/62
[2019-12-21 04:00] VITALS: BP 120/53
[2019-12-21] MEDS ORDERED: Vancomycin 1gm in D5W 275ml IVPB ONE (04:00)
[2019-12-21] MEDS: NovoLOG Insulin Flexpen SUBQ SCH ×4 (06:30→21:00)
[2019-12-21] MEDS: Zosyn 2.25 gm in D5W 55ml IV SCH ×3 (06:45→22:22)
--- NOTE | 2019-12-21 07:30 | NUR ---
HAND-OFF: Report given to Dav KAYE.
--- NOTE | 2019-12-21 07:39 | Pulmonology Progress Note ---
Assessment/Plan Assessment/Plan ASSESSMENT Sepsis with Staph aureus bacteremia Right fifth toe gangrene ESRD, on HD Severe pulmonary HTN Aortic stenosis with aortic regurgitation PVD Anemia of chronic kidney disease Pacemaker HTN DM PLAN OF CARE tele Echo with EF 50% , no evidence of vegetation RVSP of 64 moderate AR, abx as per ID BCX + Staph aureus 12/18 and 12/19 bone scan no evidence of osteomyelitis X-ray of R foot arterial duplex DARYN - rule out endocarditis O2 HHN PRN DVT prophylactics HD as per nephro; monitor volumes renal parameters BP management with current regimen troponin elevated, patient remains asymptomatic cardio on board f BS management with SSI wound care as per turbine assembler recommendation pain management supportive care case discussed and evaluated by supervising physician Subjective Allergies: Coded Allergies: SULFA (SULFONAMIDE ANTIBIOTICS) (Verified Allergy, Mild, 08/19/09) Subjective leuk trending down, still [id number] fevers resolved Objective Last 24 Hour Vital Signs Date Time Temp Pulse Resp B/P (MAP) Pulse Ox O2 Delivery O2 Flow Rate FiO2 12/21/19 04:00 76 12/21/19 04:00 98.0 78 18 120/53 (75) 96 12/21/19 00:00 70 12/21/19 00:00 98.7 75 18 124/62 (82) 100 12/20/19 22:40 99.1 12/20/19 21:00 Room Air 12/20/19 20:00 98.1 70 19 150/61 (90) 95 12/20/19 20:00 70 12/20/19 16:00 81 12/20/19 16:00 99.1 73 142/59 (86) 12/20/19 12:00 71 12/20/19 12:00 76 147/79 (101) 12/20/19 08:13 Room Air 12/20/19 08:00 78 12/20/19 08:00 98.2 73 20 141/67 (91) 96 12/20/19 07:51 117/56 Intake and Output 12/20/19 12/21/19 19:00 07:00 Intake Total 2720 ml Balance 2720 ml Intake Oral 720 ml Hemodialysis 2000 ml Objective General Appearance: no acute distress HEENT: normocephalic, atraumatic, anicteric, mucous membranes moist Respiratory/Chest: lungs clear, no respiratory distress, chest wall tender Cardiovascular: normal rate, regular rhythm Abdomen: normal bowel sounds, soft, non tender Extremities: other - LUE AV shnt + thrill/bruit; R 5 th toe TTP, also TTP plantar surface of the foor, +1 edema of the foot Microbiology Date/Time Source Procedure Growth Status 12/19/19 15:45 Blood Blood Culture - Final Staphylococcus Aureus Complete 12/19/19 15:45 Blood Blood Culture - Final Staphylococcus Aureus Complete 12/18/19 19:15 Blood Blood Culture - Final Staphylococcus Aureus Complete 12/18/19 19:00 Blood Blood Culture - Final Staphylococcus Aureus Complete 12/18/19 21:25 Nasal Nares MRSA Culture - Final NO METHICILLIN RESISTANT STAPH AUREUS... Complete 12/18/19 19:00 Nasal Nares - Final Complete 12/18/19 19:00 Nasal Nares - Final Complete 12/18/19 21:25 Rectum Received Laboratory Tests 12/20/19 10:20: White Blood Count 18.9H, Red Blood Count 3.09L, Hemoglobin 9.8L, Hematocrit 29.8L, Mean Corpuscular Volume 97, Mean Corpuscular Hemoglobin 31.9H, Mean Corpuscular Hemoglobin Concent 33.0, Red Cell Distribution Width 12.7, Platelet Count 248, Mean Platelet Volume 6.0L, Neutrophils (%) (Auto) , Lymphocytes (%) ( Auto) , Monocytes (%) (Auto) , Eosinophils (%) (Auto) , Basophils (%) (Auto) , Differential Total Cells Counted 100, Neutrophils % (Manual) 79H, Lymphocytes % (Manual) 6L, Monocytes % (Manual) 15H, Eosinophils % (Manual) 0, Basophils % ( Manual) 0, Band Neutrophils 0, Platelet Estimate Adequate, Platelet Morphology Normal, Hypochromasia 2+, Anisocytosis 1+, Sodium Level 130L, Potassium Level 5.2H, Chloride Level 94L, Carbon Dioxide Level 16L, Anion Gap 20H, Blood Urea Nitrogen 73H, Creatinine 10.3H, Estimat Glomerular Filtration Rate 4.4, Glucose Level 142H, Uric Acid 5.1, Calcium Level 9.2, Phosphorus Level 7.6H, Magnesium Level 2.3, Iron Level 24L, Total Iron Binding Capacity 155L, Percent Iron Saturation 15, Unsaturated Iron Binding 131, Ferritin 1108H, Total Bilirubin 0.4 , Gamma Glutamyl Transpeptidase 54, Aspartate Amino Transf (AST/SGOT) 44H, Alanine Aminotransferase (ALT/SGPT) 53, Alkaline Phosphatase 108, Troponin I 2.620H, C-Reactive Protein, Quantitative 22.9H, Pro-B-Type Natriuretic Peptide > 70909L, Total Protein 7.4, Albumin 2.7L, Globulin 4.7, Albumin/Globulin Ratio 0.6L, Vitamin B12 Level > 2000H, Folate 38.4 12/20/19 18:00: Random Vancomycin Level 17.0 Current Medications Medications (Trade) Dose Ordered Sig/Bere Route PRN Reason Start Time Stop Time Status Last Admin Dose Admin Acetaminophen (Tylenol) 650 mg Q4H PRN ORAL T>100.5 12/18/19 21:30 01/17/20 21:29 12/20/19 14:02 Albuterol/ Ipratropium (Albuterol/ Ipratropium) 3 ml Q6H PRN HHN dyspnea 12/18/19 21:30 12/23/19 21:29 Clonidine HCl (Catapres Tab) 0.1 mg Q4H PRN ORAL SBP > 160mmhg 12/18/19 21:30 01/17/20 21:29 Dextrose (Dextrose 50%) 25 ml Q30M PRN IV Hypoglycemia 12/18/19 21:30 01/17/20 21:29 Dextrose (Dextrose 50%) 50 ml Q30M PRN IV Hypoglycemia 12/18/19 21:30 01/17/20 21:29 Docusate Sodium (Colace) 100 mg THREE TIMES A DAY ORAL 12/19/19 13:00 01/18/20 12:59 12/20/19 14:01 Heparin Sodium (Porcine) (Heparin 5000 units/ml) 5,000 units EVERY 12 HOURS SUBQ 12/19/19 09:00 01/18/20 08:59 12/20/19 22:02 Insulin Aspart (NovoLOG) BEFORE MEALS AND HS SUBQ 12/19/19 06:30 01/18/20 06:29 Losartan Potassium (Cozaar) 25 mg DAILY ORAL 12/20/19 09:00 01/18/20 08:59 Morphine Sulfate (Morphine Sulfate) 2 mg Q4H PRN IVP Moderate Pain (Pain Scale 4-6) 12/20/19 14:15 12/27/19 14:14 12/20/19 14:44 Morphine Sulfate (Morphine Sulfate) 4 mg Q4H PRN IVP Severe Pain (Pain Scale 7-10) 12/20/19 14:15 12/27/19 14:14 12/20/19 22:06 Nitroglycerin (Ntg) 1 patch Q24H TDERMAL 12/19/19 09:30 01/18/20 09:29 12/19/19 10:03 Ondansetron HCl (Zofran) 4 mg Q6H PRN IVP Nausea & Vomiting 12/18/19 21:30 01/17/20 21:29 12/21/19 02:15 Pantoprazole (Protonix) 40 mg EVERY 12 HOURS ORAL 12/19/19 21:00 01/18/20 20:59 12/20/19 22:00 Piperacillin Sod/ Tazobactam Sod 2.25 gm/Dextrose 55 ml @ 110 mls/hr Q8H IV 12/19/19 15:00 12/26/19 14:59 12/21/19 06:45 Polyethylene Glycol (Miralax) 17 gm HSPRN PRN ORAL Constipation 12/18/19 21:30 01/17/20 21:29 Vancomycin HCl (Vanco rx to dose) 1 ea DAILY PRN MISC Per rx protocol 12/18/19 21:30 01/17/20 21:29 Zolpidem Tartrate (Ambien) 5 mg HSPRN PRN ORAL Insomnia 12/18/19 21:30 12/25/19 21:29 Nova Natarajan NP Dec 21, 2019 07:38
[2019-12-21 08:00] VITALS: BP 111/57
--- NOTE | 2019-12-21 08:12 | NUR ---
NURSE NOTES: Received pt in bed, AAO x 4. c/o of nausea and pain on her R foot. Will give meds as ordered. IV on R hand 22g intact and patent, with SL. MAULIK shunt noted. Side rails x 3. Bed in the lowest, locked, and alarm on. Call light within reach. Will continue to monitor
[2019-12-21 08:25] LABS: HEMATOCRIT 31.6 % (37.0-47.0); HEMOGLOBIN 10.4 G/DL (12.0-16.0); MEAN CORPUSCULAR VOLUME 97 FL (80-99); PLATELET COUNT 252 K/UL (150-450); RED BLOOD COUNT 3.25 M/UL (4.20-5.40); RED CELL DISTRIBUTION WIDTH 12.8 % (11.6-14.8); WHITE BLOOD COUNT 18.3 K/UL (4.8-10.8)
[2019-12-21 08:58] LABS: % IRON SATURATION 20 % (15-50); IRON 30 ug/dL (50-175); TOTAL IRON BINDING CAPACITY 149 ug/dL (250-450)
[2019-12-21] MEDS: Losartan 25mg tab ORAL SCH (09:00)
[2019-12-21 09:07] LABS: ALANINE AMINOTRANSFERASE 45 U/L (12-78); ALBUMIN 2.7 G/DL (3.4-5.0); ALBUMIN/GLOBULIN RATIO 0.5 (1.0-2.7); ALKALINE PHOSPHATASE 103 U/L (46-116); ANION GAP 14 mmol/L (5-15); ASPARTATE AMINO TRANSFERASE 35 U/L (15-37); BILIRUBIN,TOTAL 0.5 MG/DL (0.2-1.0); BLOOD UREA NITROGEN 50 mg/dL (7-18); CARBON DIOXIDE 26 MMOL/L (21-32); CHLORIDE 91 MMOL/L (98-107); CREATININE 7.7 MG/DL (0.55-1.30); FERRITIN 1304 NG/ML (8-388); PHOSPHORUS 6.7 MG/DL (2.5-4.9); POTASSIUM 4.2 MMOL/L (3.5-5.1); SODIUM 131 MMOL/L (136-145)
[2019-12-21] MEDS: Nitroglycerin Patch 0.2mg/hr TDERMAL SCH (09:30)
[2019-12-21] MEDS: Docusate 100mg cap ORAL SCH ×3 (09:46→16:37)
[2019-12-21] MEDS: Heparin 5000 units/ml inj SUBQ SCH ×2 (09:48→21:34)
--- NOTE | 2019-12-21 11:56 | Nephrology Progress Note ---
Assessment/Plan Problem List: (1) ESRF (end stage renal failure) (2) History of pacemaker (3) Pulmonary hypertension Assessment ESRD Pneumonia Fever Sepsis Cellulitis Leukocytosis DM , elevated A1c Pace Maker- Elevated Troponin HypoAlbuminemia Sepsis with bacteremia Right fifth toe gangrene Aortic stenosis with aortic regurgitation PVD Anemia of chronic kidney disease DM Plan on Vanco- and Zosyn Dialysis next 12/21 2D echo EjFx 50- Pulm HTN adjust cardiac abd BP meds Anemia rees per orders Subjective ROS Limited/Unobtainable: No Constitutional: Reports: malaise Objective Objective Last 24 Hour Vital Signs Date Time Temp Pulse Resp B/P (MAP) Pulse Ox O2 Delivery O2 Flow Rate FiO2 12/21/19 09:30 111/57 12/21/19 09:00 Room Air 12/21/19 09:00 111/57 12/21/19 08:00 97.8 67 20 111/57 (75) 100 12/21/19 08:00 77 12/21/19 04:00 76 12/21/19 04:00 98.0 78 18 120/53 (75) 96 12/21/19 00:00 70 12/21/19 00:00 98.7 75 18 124/62 (82) 100 12/20/19 22:40 99.1 12/20/19 21:00 Room Air 12/20/19 20:00 98.1 70 19 150/61 (90) 95 12/20/19 20:00 70 12/20/19 16:00 81 12/20/19 16:00 99.1 73 142/59 (86) 12/20/19 12:00 71 12/20/19 12:00 76 147/79 (101) Intake and Output 12/20/19 12/21/19 19:00 07:00 Intake Total 2720 ml Balance 2720 ml Intake Oral 720 ml Hemodialysis 2000 ml Laboratory Tests 12/20/19 18:00: Random Vancomycin Level 17.0 12/21/19 08:00: White Blood Count 18.3H, Red Blood Count 3.25L, Hemoglobin 10.4L, Hematocrit 31.6L, Mean Corpuscular Volume 97, Mean Corpuscular Hemoglobin 32.1H, Mean Corpuscular Hemoglobin Concent 33.0, Red Cell Distribution Width 12.8, Platelet Count 252, Mean Platelet Volume 5.7L, Neutrophils (%) (Auto) , Lymphocytes (%) ( Auto) , Monocytes (%) (Auto) , Eosinophils (%) (Auto) , Basophils (%) (Auto) , Differential Total Cells Counted 100, Neutrophils % (Manual) 81H, Lymphocytes % (Manual) 6L, Monocytes % (Manual) 12H, Eosinophils % (Manual) 1, Basophils % ( Manual) 0, Band Neutrophils 0, Platelet Estimate Adequate, Platelet Morphology Normal, Sodium Level 131L, Potassium Level 4.2, Chloride Level 91L, Carbon Dioxide Level 26, Anion Gap 14, Blood Urea Nitrogen 50H, Creatinine 7.7H, Estimat Glomerular Filtration Rate 6.2, Glucose Level 149H, Calcium Level 9.0, Phosphorus Level 6.7H, Magnesium Level 2.2, Iron Level 30L, Total Iron Binding Capacity 149L, Percent Iron Saturation 20, Unsaturated Iron Binding 119, Ferritin 1304H, Total Bilirubin 0.5, Aspartate Amino Transf (AST/SGOT) 35, Alanine Aminotransferase (ALT/SGPT) 45, Alkaline Phosphatase 103, C-Reactive Protein, Quantitative 56.6H, Pro-B-Type Natriuretic Peptide > 57596T, Total Protein 7.7, Albumin 2.7L, Globulin 5.0, Albumin/Globulin Ratio 0.5L, Vitamin B12 Level > 2000H, Folate 36.6 Height (Feet): 5 Height (Inches): 3.00 Weight (Pounds): 156 General Appearance: no apparent distress Cardiovascular: normal rate Respiratory/Chest: decreased breath sounds Abdomen: soft Objective no change Peter Solorio MD Dec 21, 2019 11:56
[2019-12-21 12:00] VITALS: BP 121/58
--- NOTE | 2019-12-21 12:39 | Cardiac Electrophysiology PN ---
Assessment/Plan Assessment/Plan 1. Elevated troponin of 0.26. Levels are flat. No chest pain. Likely due to renal failure. Echo showed ejection fraction of 50%. 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 2. Status post Biotronik pacemaker. Interrogation pending 3. Severe pulmonary hypertension. 4. Bacteremia. Scheduled for transesophageal echocardiogram to rule out any vegetation in the valves or in the leads. The patient is already on broad-spectrum intravenous antibiotic per ID as the white count is also 23,000. 5. End-stage renal disease, on hemodialysis. CLAUDINE RN Subjective Subjective Alert in NAD had HD yesterday. DARYN to R/O endocarditis pending Objective Last 24 Hour Vital Signs Date Time Temp Pulse Resp B/P (MAP) Pulse Ox O2 Delivery O2 Flow Rate FiO2 12/21/19 09:30 111/57 12/21/19 09:00 Room Air 12/21/19 09:00 111/57 12/21/19 08:00 97.8 67 20 111/57 (75) 100 12/21/19 08:00 77 12/21/19 04:00 76 12/21/19 04:00 98.0 78 18 120/53 (75) 96 12/21/19 00:00 70 12/21/19 00:00 98.7 75 18 124/62 (82) 100 12/20/19 22:40 99.1 12/20/19 21:00 Room Air 12/20/19 20:00 98.1 70 19 150/61 (90) 95 12/20/19 20:00 70 12/20/19 16:00 81 12/20/19 16:00 99.1 73 142/59 (86) Intake and Output 12/20/19 12/21/19 19:00 07:00 Intake Total 2720 ml Balance 2720 ml Intake Oral 720 ml Hemodialysis 2000 ml Laboratory Tests Test 12/20/19 18:00 12/21/19 08:00 Random Vancomycin Level 17.0 ug/mL White Blood Count 18.3 K/UL (4.8-10.8) H Red Blood Count 3.25 M/UL (4.20-5.40) L Hemoglobin 10.4 G/DL (12.0-16.0) L Hematocrit 31.6 % (37.0-47.0) L Mean Corpuscular Volume 97 FL (80-99) Mean Corpuscular Hemoglobin 32.1 PG (27.0-31.0) H Mean Corpuscular Hemoglobin Concent 33.0 G/DL (32.0-36.0) Red Cell Distribution Width 12.8 % (11.6-14.8) Platelet Count 252 K/UL (150-450) Mean Platelet Volume 5.7 FL (6.5-10.1) L Neutrophils (%) (Auto) % (45.0-75.0) Lymphocytes (%) (Auto) % (20.0-45.0) Monocytes (%) (Auto) % (1.0-10.0) Eosinophils (%) (Auto) % (0.0-3.0) Basophils (%) (Auto) % (0.0-2.0) Differential Total Cells Counted 100 Neutrophils % (Manual) 81 % (45-75) H Lymphocytes % (Manual) 6 % (20-45) L Monocytes % (Manual) 12 % (1-10) H Eosinophils % (Manual) 1 % (0-3) Basophils % (Manual) 0 % (0-2) Band Neutrophils 0 % (0-8) Platelet Estimate Adequate Platelet Morphology Normal Sodium Level 131 MMOL/L (136-145) L Potassium Level 4.2 MMOL/L (3.5-5.1) Chloride Level 91 MMOL/L (98-107) L Carbon Dioxide Level 26 MMOL/L (21-32) Anion Gap 14 mmol/L (5-15) Blood Urea Nitrogen 50 mg/dL (7-18) H Creatinine 7.7 MG/DL (0.55-1.30) H Estimat Glomerular Filtration Rate 6.2 mL/min (>60) Glucose Level 149 MG/DL (74-106) H Calcium Level 9.0 MG/DL (8.5-10.1) Phosphorus Level 6.7 MG/DL (2.5-4.9) H Magnesium Level 2.2 MG/DL (1.8-2.4) Iron Level 30 ug/dL (50-175) L Total Iron Binding Capacity 149 ug/dL (250-450) L Percent Iron Saturation 20 % (15-50) Unsaturated Iron Binding 119 ug/dL (112-346) Ferritin 1304 NG/ML (8-388) H Total Bilirubin 0.5 MG/DL (0.2-1.0) Aspartate Amino Transf (AST/SGOT) 35 U/L (15-37) Alanine Aminotransferase (ALT/SGPT) 45 U/L (12-78) Alkaline Phosphatase 103 U/L (46-116) C-Reactive Protein, Quantitative 56.6 mg/dL (0.00-0.90) H Pro-B-Type Natriuretic Peptide > 36046 pg/mL (0-125) H Total Protein 7.7 G/DL (6.4-8.2) Albumin 2.7 G/DL (3.4-5.0) L Globulin 5.0 g/dL Albumin/Globulin Ratio 0.5 (1.0-2.7) L Vitamin B12 Level > 2000 PG/ML (193-986) H Folate 36.6 NG/ML (8.6-58.9) Microbiology Date/Time Source Procedure Growth Status 12/19/19 15:45 Blood Blood Culture - Final Staphylococcus Aureus Complete 12/19/19 15:45 Blood Blood Culture - Final Staphylococcus Aureus Complete 12/18/19 19:15 Blood Blood Culture - Final Staphylococcus Aureus Complete 12/18/19 19:00 Blood Blood Culture - Final Staphylococcus Aureus Complete 12/18/19 21:25 Nasal Nares MRSA Culture - Final NO METHICILLIN RESISTANT STAPH AUREUS... Complete 12/18/19 19:00 Nasal Nares - Final Complete 12/18/19 19:00 Nasal Nares - Final Complete 12/18/19 21:25 Rectum - Final NO CARBAPENEM-RESISTANT ENTEROBACTERI... Complete 12/18/19 21:25 Rectum VRE Culture - Final NO VANCOMYCIN RESISTANT ENTEROCOCCUS ... Complete Objective HEAD AND NECK: No JVD or carotid bruit. LUNGS: Clear. CARDIOVASCULAR: Shows regular S1 and S2 with no gallop or murmur. The pacemaker in the right subclavian. ABDOMEN: Soft. EXTREMITIES: Left arm dialysis access. Dawit Lopez MD Dec 21, 2019 12:39
--- NOTE | 2019-12-21 12:47 | Internal Med Progress Note ---
Subjective Date of Service: Dec 21, 2019 Physician Name Hieu Kim Attending Physician Dave Melgoza MD Current Medications Medications (Trade) Dose Ordered Sig/Bere Route PRN Reason Start Time Stop Time Status Last Admin Dose Admin Acetaminophen (Tylenol) 650 mg Q4H PRN ORAL T>100.5 12/18/19 21:30 01/17/20 21:29 12/20/19 14:02 Albuterol/ Ipratropium (Albuterol/ Ipratropium) 3 ml Q6H PRN HHN dyspnea 12/18/19 21:30 12/23/19 21:29 Clonidine HCl (Catapres Tab) 0.1 mg Q4H PRN ORAL SBP > 160mmhg 12/18/19 21:30 01/17/20 21:29 Dextrose (Dextrose 50%) 25 ml Q30M PRN IV Hypoglycemia 12/18/19 21:30 01/17/20 21:29 Dextrose (Dextrose 50%) 50 ml Q30M PRN IV Hypoglycemia 12/18/19 21:30 01/17/20 21:29 Docusate Sodium (Colace) 100 mg THREE TIMES A DAY ORAL 12/19/19 13:00 01/18/20 12:59 12/21/19 09:46 Heparin Sodium (Porcine) (Heparin 5000 units/ml) 5,000 units EVERY 12 HOURS SUBQ 12/19/19 09:00 01/18/20 08:59 12/21/19 09:48 Insulin Aspart (NovoLOG) BEFORE MEALS AND HS SUBQ 12/19/19 06:30 01/18/20 06:29 Losartan Potassium (Cozaar) 25 mg DAILY ORAL 12/20/19 09:00 01/18/20 08:59 Morphine Sulfate (Morphine Sulfate) 2 mg Q4H PRN IVP Moderate Pain (Pain Scale 4-6) 12/20/19 14:15 12/27/19 14:14 12/20/19 14:44 Morphine Sulfate (Morphine Sulfate) 4 mg Q4H PRN IVP Severe Pain (Pain Scale 7-10) 12/20/19 14:15 12/27/19 14:14 12/20/19 22:06 Nitroglycerin (Ntg) 1 patch Q24H TDERMAL 12/19/19 09:30 01/18/20 09:29 12/19/19 10:03 Ondansetron HCl (Zofran) 4 mg Q6H PRN IVP Nausea & Vomiting 12/18/19 21:30 01/17/20 21:29 12/21/19 09:46 Pantoprazole (Protonix) 40 mg EVERY 12 HOURS ORAL 12/19/19 21:00 01/18/20 20:59 12/21/19 09:46 Piperacillin Sod/ Tazobactam Sod 2.25 gm/Dextrose 55 ml @ 110 mls/hr Q8H IV 12/19/19 15:00 12/26/19 14:59 12/21/19 06:45 Polyethylene Glycol (Miralax) 17 gm HSPRN PRN ORAL Constipation 12/18/19 21:30 01/17/20 21:29 Zolpidem Tartrate (Ambien) 5 mg HSPRN PRN ORAL Insomnia 12/18/19 21:30 12/25/19 21:29 Allergies: Coded Allergies: SULFA (SULFONAMIDE ANTIBIOTICS) (Verified Allergy, Mild, 08/19/09) ROS Limited/Unobtainable: No Constitutional: Reports: no symptoms HEENT: Reports: no symptoms Cardiovascular: Reports: no symptoms Respiratory: Reports: no symptoms Gastrointestinal/Abdominal: Reports: no symptoms Genitourinary: Reports: no symptoms Neurologic/Psychiatric: Reports: no symptoms Subjective 79 YO F admitted with right foot pain. Now gangrene right 5th toe. Cover for Int Dell-Dr Melgoza Objective Last Vital Signs Date Time Temp Pulse Resp B/P (MAP) Pulse Ox O2 Delivery O2 Flow Rate FiO2 12/21/19 09:30 111/57 12/21/19 09:00 Room Air 12/21/19 08:00 97.8 67 20 100 Laboratory Tests Test 12/20/19 18:00 12/21/19 08:00 Random Vancomycin Level 17.0 ug/mL White Blood Count 18.3 K/UL (4.8-10.8) H Red Blood Count 3.25 M/UL (4.20-5.40) L Hemoglobin 10.4 G/DL (12.0-16.0) L Hematocrit 31.6 % (37.0-47.0) L Mean Corpuscular Volume 97 FL (80-99) Mean Corpuscular Hemoglobin 32.1 PG (27.0-31.0) H Mean Corpuscular Hemoglobin Concent 33.0 G/DL (32.0-36.0) Red Cell Distribution Width 12.8 % (11.6-14.8) Platelet Count 252 K/UL (150-450) Mean Platelet Volume 5.7 FL (6.5-10.1) L Neutrophils (%) (Auto) % (45.0-75.0) Lymphocytes (%) (Auto) % (20.0-45.0) Monocytes (%) (Auto) % (1.0-10.0) Eosinophils (%) (Auto) % (0.0-3.0) Basophils (%) (Auto) % (0.0-2.0) Differential Total Cells Counted 100 Neutrophils % (Manual) 81 % (45-75) H Lymphocytes % (Manual) 6 % (20-45) L Monocytes % (Manual) 12 % (1-10) H Eosinophils % (Manual) 1 % (0-3) Basophils % (Manual) 0 % (0-2) Band Neutrophils 0 % (0-8) Platelet Estimate Adequate Platelet Morphology Normal Sodium Level 131 MMOL/L (136-145) L Potassium Level 4.2 MMOL/L (3.5-5.1) Chloride Level 91 MMOL/L (98-107) L Carbon Dioxide Level 26 MMOL/L (21-32) Anion Gap 14 mmol/L (5-15) Blood Urea Nitrogen 50 mg/dL (7-18) H Creatinine 7.7 MG/DL (0.55-1.30) H Estimat Glomerular Filtration Rate 6.2 mL/min (>60) Glucose Level 149 MG/DL (74-106) H Calcium Level 9.0 MG/DL (8.5-10.1) Phosphorus Level 6.7 MG/DL (2.5-4.9) H Magnesium Level 2.2 MG/DL (1.8-2.4) Iron Level 30 ug/dL (50-175) L Total Iron Binding Capacity 149 ug/dL (250-450) L Percent Iron Saturation 20 % (15-50) Unsaturated Iron Binding 119 ug/dL (112-346) Ferritin 1304 NG/ML (8-388) H Total Bilirubin 0.5 MG/DL (0.2-1.0) Aspartate Amino Transf (AST/SGOT) 35 U/L (15-37) Alanine Aminotransferase (ALT/SGPT) 45 U/L (12-78) Alkaline Phosphatase 103 U/L (46-116) C-Reactive Protein, Quantitative 56.6 mg/dL (0.00-0.90) H Pro-B-Type Natriuretic Peptide > 95428 pg/mL (0-125) H Total Protein 7.7 G/DL (6.4-8.2) Albumin 2.7 G/DL (3.4-5.0) L Globulin 5.0 g/dL Albumin/Globulin Ratio 0.5 (1.0-2.7) L Vitamin B12 Level > 2000 PG/ML (193-986) H Folate 36.6 NG/ML (8.6-58.9) Microbiology Date/Time Source Procedure Growth Status 12/19/19 15:45 Blood Blood Culture - Final Staphylococcus Aureus Complete 12/19/19 15:45 Blood Blood Culture - Final Staphylococcus Aureus Complete 12/18/19 19:15 Blood Blood Culture - Final Staphylococcus Aureus Complete 12/18/19 19:00 Blood Blood Culture - Final Staphylococcus Aureus Complete 12/18/19 21:25 Nasal Nares MRSA Culture - Final NO METHICILLIN RESISTANT STAPH AUREUS... Complete 12/18/19 19:00 Nasal Nares - Final Complete 12/18/19 19:00 Nasal Nares - Final Complete 12/18/19 21:25 Rectum - Final NO CARBAPENEM-RESISTANT ENTEROBACTERI... Complete 12/18/19 21:25 Rectum VRE Culture - Final NO VANCOMYCIN RESISTANT ENTEROCOCCUS ... Complete Intake and Output 12/20/19 12/21/19 19:00 07:00 Intake Total 2720 ml Balance 2720 ml Intake Oral 720 ml Hemodialysis 2000 ml Objective PHYSICAL EXAMINATION: GENERAL: The patient is a well-developed and well-nourished female, in no apparent distress. HEENT: Eyes, pupils are equal and responsive to light and accommodation. Extraocular movements are intact. NECK: Supple without lymphadenopathy. CHEST: Lungs are clear to auscultation bilaterally without wheezes or rales. CARDIOVASCULAR: Regular rhythm and rate. S1, S2 are normal without murmurs, rubs, or gallops. ABDOMEN: Soft, nontender, and nondistended. Positive bowel sounds. No evidence of hepatosplenomegaly. Currently, no rebound or guarding noted. EXTREMITIES: There is swelling of the right foot compared to the left. There is erythema over the right fifth toe. RECTAL/GENITAL: Refused. NEUROLOGIC: Cranial nerves II through XII are grossly intact without focal deficits. Motor strength is 5/5 bilaterally. Deep tendon reflexes are 2+ plantar. Assessment/Plan Assessment/Plan ASSESSMENT: This is a 79-year-old female. 1. Right foot pain. 2. Fever. 3. Gangrene of the right fifth toe 4. Leukocytosis. 5. Diabetes type 2. 6. Hypertension. 7. End-stage renal disease, on hemodialysis. 8. Hypothyroidism. 9. Peripheral vascular disease. 10. Pacemaker in situ. TREATMENT: 1. Right foot pain/gangrene of the right fifth toe. A Podiatry consultation has been obtained with Dr. Flood. We will follow recommendations of Podiatry. A nuclear medicine bone scan is pending to rule out osteomyelitis. ABX=Zosyn and vancomycin. 2. Fever. This may be secondary to cellulitis of the right foot as above. An Infectious Disease consultation has been obtained with Dr. David. We will follow recommendation of Infectious Disease. 3. Diabetes type 2. The patient has been placed on a NovoLog sliding scale. 4. Hypertension. Continue losartan as above. 5. End-stage renal disease. A Nephrology consultation has been obtained with Dr. Peter Solorio. The patient's last dialysis was Tuesday, December 17, 2019. Follow recommendations of Dr. Solorio. 6. Hypothyroidism. Continue Synthroid. 7. Pacemaker in situ. A pacemaker check is scheduled with Dr. Dawit Lopez. 8. Elevated troponin. A Cardiology consultation has been obtained with Dr. Bjorn Hayden. Hieu Kim MD Dec 21, 2019 12:47
[2019-12-21 16:00] VITALS: BP 140/70
--- NOTE | 2019-12-21 18:24 | NUR ---
NURSE NOTES: Spoke with Sharif dialysis nurse regarding hemodialysis scheduled for 12/21/19 and confirmed. Addendum: 12/21/19 at 1918 by STONEY RETANA RN Spoke with Sharif dialysis nurse regarding hemodialysis scheduled for 12/22/19 and confirmed.
--- NOTE | 2019-12-21 19:18 | NUR ---
HAND-OFF: Report given to VARGAS Bower.
--- NOTE | 2019-12-21 19:27 | NUR ---
NURSE NOTES: RECEIVED PATIENT RESTING IN BED, NO COMPLAINTS OF PAIN AT THIS TIME. FALL PRECAUTIONS IN PLACE: CALL LIGHT AND BEDSIDE TABLE WITHIN REACH, BED IN LOW POSITION AND BED ALARM ON. PLAN OF CARE REVIEWED.
[2019-12-21 20:00] VITALS: BP 112/55
[2019-12-22] VITALS (7 sets, daily range): BP systolic 110–164; BP diastolic 52–72
[2019-12-22] MEDS: NovoLOG Insulin Flexpen SUBQ SCH ×4 (06:17→21:00)
[2019-12-22] MEDS: Zosyn 2.25 gm in D5W 55ml IV SCH (06:40)
--- NOTE | 2019-12-22 06:55 | NUR ---
NURSE NOTES: CALLED [facility] TO CONFIRM HD TIME. LEFT MESSAGE WITH PELON.
--- NOTE | 2019-12-22 07:27 | NUR ---
HAND-OFF: Report given to Fermín PEACOCK RN.PATIENT HAVING BREAKFAST, NO SIGNS OF DISTRESS NOTED.
--- NOTE | 2019-12-22 07:28 | NUR ---
NURSE NOTES: Received report from Marla KAYE. Pt alert and orientedx4 and able to make needs known. IV site in right hand 22G SL patent and asymptomatic. Bed in lowest position and locked. Call light within easy reach. AV shunt on left arm noted with thrill/bruit. Will continue to plan of care.
--- NOTE | 2019-12-22 07:28 | NUR ---
HAND-OFF: Report given to VARGAS MARSHALL. PATIENT ASLEEP, NO SIGNS OF DISTRESS NOTED.
[2019-12-22 07:57] LABS: BASOPHILS % (AUTO) 0.5 % (0.0-2.0); EOSINOPHILS % (AUTO) 0.9 % (0.0-3.0); HEMATOCRIT 31.1 % (37.0-47.0); HEMOGLOBIN 10.5 G/DL (12.0-16.0); LYMPHOCYTES % (AUTO) 7.4 % (20.0-45.0); MEAN CORPUSCULAR VOLUME 96 FL (80-99); MONOCYTES % (AUTO) 11.2 % (1.0-10.0); PLATELET COUNT 251 K/UL (150-450); RED BLOOD COUNT 3.25 M/UL (4.20-5.40); RED CELL DISTRIBUTION WIDTH 12.8 % (11.6-14.8); WHITE BLOOD COUNT 17.9 K/UL (4.8-10.8)
[2019-12-22 08:24] LABS: ALANINE AMINOTRANSFERASE 33 U/L (12-78); ALBUMIN 2.6 G/DL (3.4-5.0); ALBUMIN/GLOBULIN RATIO 0.5 (1.0-2.7); ALKALINE PHOSPHATASE 97 U/L (46-116); ANION GAP 19 mmol/L (5-15); ASPARTATE AMINO TRANSFERASE 24 U/L (15-37); BILIRUBIN,TOTAL 0.5 MG/DL (0.2-1.0); BLOOD UREA NITROGEN 62 mg/dL (7-18); CARBON DIOXIDE 23 MMOL/L (21-32); CHLORIDE 90 MMOL/L (98-107); CREATININE 9.3 MG/DL (0.55-1.30); PHOSPHORUS 8.3 MG/DL (2.5-4.9); POTASSIUM 4.7 MMOL/L (3.5-5.1); SODIUM 131 MMOL/L (136-145)
[2019-12-22] MEDS: Losartan 25mg tab ORAL SCH (09:00)
--- NOTE | 2019-12-22 09:07 | NUR ---
NURSE NOTES: Informed Dr. Solorio regarding Na 131. No new orders received
[2019-12-22] MEDS: Docusate 100mg cap ORAL SCH ×3 (09:43→17:28)
[2019-12-22] MEDS: Heparin 5000 units/ml inj SUBQ SCH ×2 (09:45→21:38)
[2019-12-22] MEDS: Nitroglycerin Patch 0.2mg/hr TDERMAL SCH (09:45)
--- NOTE | 2019-12-22 10:37 | Infectious Diseases Prog Note ---
Assessment/Plan Assessment/Plan ASSESSMENT: The patient is a 79-year-old female with, 1. Right foot infection, -xray R foot: No displaced fracture or dislocation identified. -bone scan: No evidence for osteomyelitis. 2. High grade Bacteremia, rule out endocarditis versus pacemaker infection. -12/18 Bcx 2/ MSSA 12/19 Bcx 1/ GPC clusters -2d echo: limited study, no mention of vegetations 3. Leukocytosis; improving 4. Sepsis. 5. Fever; improving PLAN: Ancef # 1 DC vancomycin # and c Zosyn # 4 Monitor CBC. Monitor BMP. onitor blood culture..; reorder x2 Recommend a DARYN to rule out endocarditis or pacemaker infection. Monitor CBC and BMP. Subjective Allergies: Coded Allergies: SULFA (SULFONAMIDE ANTIBIOTICS) (Verified Allergy, Mild, 08/19/09) Subjective +ve blood CX Objective Vital Signs Last 24 Hour Vital Signs Date Time Temp Pulse Resp B/P (MAP) Pulse Ox O2 Delivery O2 Flow Rate FiO2 12/22/19 09:45 151/70 12/22/19 09:00 151/70 12/22/19 08:00 97.5 74 20 151/70 (97) 95 12/22/19 04:00 77 12/22/19 04:00 98.4 74 17 110/57 (74) 95 12/22/19 00:00 75 12/22/19 00:00 98.2 71 16 115/52 (73) 92 12/21/19 21:00 Room Air 12/21/19 20:00 98.4 76 18 112/55 (74) 93 12/21/19 20:00 74 12/21/19 16:00 98.4 74 20 140/70 (93) 98 12/21/19 16:00 72 12/21/19 12:00 97.7 74 20 121/58 (79) 95 12/21/19 12:00 76 Height (Feet): 5 Height (Inches): 3.00 Weight (Pounds): 158 Respiratory/Chest: lungs clear Cardiovascular: regular rhythm Abdomen: soft, non tender Microbiology Date/Time Source Procedure Growth Status 12/20/19 18:04 Blood Blood Culture - Preliminary NO GROWTH AFTER 24 HOURS Resulted 12/20/19 18:00 Blood Blood Culture - Preliminary NO GROWTH AFTER 24 HOURS Resulted 12/19/19 15:45 Blood Blood Culture - Final Staphylococcus Aureus Complete 12/19/19 15:45 Blood Blood Culture - Final Staphylococcus Aureus Complete Laboratory Tests Test 12/22/19 06:16 White Blood Count 17.9 K/UL (4.8-10.8) H Red Blood Count 3.25 M/UL (4.20-5.40) L Hemoglobin 10.5 G/DL (12.0-16.0) L Hematocrit 31.1 % (37.0-47.0) L Mean Corpuscular Volume 96 FL (80-99) Mean Corpuscular Hemoglobin 32.3 PG (27.0-31.0) H Mean Corpuscular Hemoglobin Concent 33.8 G/DL (32.0-36.0) Red Cell Distribution Width 12.8 % (11.6-14.8) Platelet Count 251 K/UL (150-450) Mean Platelet Volume 5.4 FL (6.5-10.1) L Neutrophils (%) (Auto) 80.0 % (45.0-75.0) H Lymphocytes (%) (Auto) 7.4 % (20.0-45.0) L Monocytes (%) (Auto) 11.2 % (1.0-10.0) H Eosinophils (%) (Auto) 0.9 % (0.0-3.0) Basophils (%) (Auto) 0.5 % (0.0-2.0) Sodium Level 131 MMOL/L (136-145) L Potassium Level 4.7 MMOL/L (3.5-5.1) Chloride Level 90 MMOL/L (98-107) L Carbon Dioxide Level 23 MMOL/L (21-32) Anion Gap 19 mmol/L (5-15) H Blood Urea Nitrogen 62 mg/dL (7-18) H Creatinine 9.3 MG/DL (0.55-1.30) H Estimat Glomerular Filtration Rate 5.0 mL/min (>60) Glucose Level 71 MG/DL (74-106) L Calcium Level 9.0 MG/DL (8.5-10.1) Phosphorus Level 8.3 MG/DL (2.5-4.9) H Magnesium Level 2.2 MG/DL (1.8-2.4) Total Bilirubin 0.5 MG/DL (0.2-1.0) Aspartate Amino Transf (AST/SGOT) 24 U/L (15-37) Alanine Aminotransferase (ALT/SGPT) 33 U/L (12-78) Alkaline Phosphatase 97 U/L (46-116) C-Reactive Protein, Quantitative 33.6 mg/dL (0.00-0.90) H Pro-B-Type Natriuretic Peptide > 55403 pg/mL (0-125) H Total Protein 7.6 G/DL (6.4-8.2) Albumin 2.6 G/DL (3.4-5.0) L Globulin 5.0 g/dL Albumin/Globulin Ratio 0.5 (1.0-2.7) L Current Medications Medications (Trade) Dose Ordered Sig/Bere Route PRN Reason Start Time Stop Time Status Last Admin Dose Admin Acetaminophen (Tylenol) 650 mg Q4H PRN ORAL T>100.5 12/18/19 21:30 01/17/20 21:29 12/20/19 14:02 Albuterol/ Ipratropium (Albuterol/ Ipratropium) 3 ml Q6H PRN HHN dyspnea 12/18/19 21:30 12/23/19 21:29 Clonidine HCl (Catapres Tab) 0.1 mg Q4H PRN ORAL SBP > 160mmhg 12/18/19 21:30 01/17/20 21:29 Dextrose (Dextrose 50%) 25 ml Q30M PRN IV Hypoglycemia 12/18/19 21:30 01/17/20 21:29 Dextrose (Dextrose 50%) 50 ml Q30M PRN IV Hypoglycemia 12/18/19 21:30 01/17/20 21:29 Docusate Sodium (Colace) 100 mg THREE TIMES A DAY ORAL 12/19/19 13:00 01/18/20 12:59 12/22/19 09:43 Heparin Sodium (Porcine) (Heparin 5000 units/ml) 5,000 units EVERY 12 HOURS SUBQ 12/19/19 09:00 01/18/20 08:59 12/22/19 09:45 Insulin Aspart (NovoLOG) BEFORE MEALS AND HS SUBQ 12/19/19 06:30 01/18/20 06:29 Losartan Potassium (Cozaar) 25 mg DAILY ORAL 12/20/19 09:00 01/18/20 08:59 Morphine Sulfate (Morphine Sulfate) 2 mg Q4H PRN IVP Moderate Pain (Pain Scale 4-6) 12/20/19 14:15 12/27/19 14:14 12/20/19 14:44 Morphine Sulfate (Morphine Sulfate) 4 mg Q4H PRN IVP Severe Pain (Pain Scale 7-10) 12/20/19 14:15 12/27/19 14:14 12/20/19 22:06 Nitroglycerin (Ntg) 1 patch Q24H TDERMAL 12/19/19 09:30 01/18/20 09:29 12/22/19 09:45 Ondansetron HCl (Zofran) 4 mg Q6H PRN IVP Nausea & Vomiting 12/18/19 21:30 01/17/20 21:29 12/21/19 09:46 Pantoprazole (Protonix) 40 mg EVERY 12 HOURS ORAL 12/19/19 21:00 01/18/20 20:59 12/22/19 09:44 Piperacillin Sod/ Tazobactam Sod 2.25 gm/Dextrose 55 ml @ 110 mls/hr Q8H IV 12/19/19 15:00 12/26/19 14:59 12/22/19 06:40 Polyethylene Glycol (Miralax) 17 gm HSPRN PRN ORAL Constipation 12/18/19 21:30 01/17/20 21:29 Zolpidem Tartrate (Ambien) 5 mg HSPRN PRN ORAL Insomnia 12/18/19 21:30 12/25/19 21:29 Roberto David MD Dec 22, 2019 10:37
--- NOTE | 2019-12-22 10:52 | Nephrology Progress Note ---
Assessment/Plan Problem List: (1) ESRF (end stage renal failure) (2) History of pacemaker (3) Pulmonary hypertension Assessment ESRD Pneumonia Fever Sepsis Cellulitis Leukocytosis DM , elevated A1c Pace Maker- Elevated Troponin HypoAlbuminemia Sepsis with bacteremia Right fifth toe gangrene Aortic stenosis with aortic regurgitation PVD Anemia of chronic kidney disease DM Plan start Sensipar Phos binders on Vanco- and Zosyn Dialysis next 12/21 2D echo EjFx 50- Pulm HTN adjust cardiac abd BP meds Anemia rees per orders Subjective ROS Limited/Unobtainable: No Constitutional: Reports: malaise Objective Objective Last 24 Hour Vital Signs Date Time Temp Pulse Resp B/P (MAP) Pulse Ox O2 Delivery O2 Flow Rate FiO2 12/22/19 09:45 151/70 12/22/19 09:00 Room Air 12/22/19 09:00 151/70 12/22/19 08:00 76 12/22/19 08:00 97.5 74 20 151/70 (97) 95 12/22/19 04:00 77 12/22/19 04:00 98.4 74 17 110/57 (74) 95 12/22/19 00:00 75 12/22/19 00:00 98.2 71 16 115/52 (73) 92 12/21/19 21:00 Room Air 12/21/19 20:00 98.4 76 18 112/55 (74) 93 12/21/19 20:00 74 12/21/19 16:00 98.4 74 20 140/70 (93) 98 12/21/19 16:00 72 12/21/19 12:00 97.7 74 20 121/58 (79) 95 12/21/19 12:00 76 Intake and Output 12/21/19 12/22/19 19:00 07:00 Intake Total 400 ml 295 ml Balance 400 ml 295 ml Intake Oral 400 ml 240 ml IV Total 55 ml Laboratory Tests 12/22/19 06:16: White Blood Count 17.9H, Red Blood Count 3.25L, Hemoglobin 10.5L, Hematocrit 31.1L, Mean Corpuscular Volume 96, Mean Corpuscular Hemoglobin 32.3H, Mean Corpuscular Hemoglobin Concent 33.8, Red Cell Distribution Width 12.8, Platelet Count 251, Mean Platelet Volume 5.4L, Neutrophils (%) (Auto) 80.0H, Lymphocytes (%) (Auto) 7.4L, Monocytes (%) (Auto) 11.2H, Eosinophils (%) (Auto) 0.9, Basophils (%) (Auto) 0.5, Sodium Level 131L, Potassium Level 4.7, Chloride Level 90L, Carbon Dioxide Level 23, Anion Gap 19H, Blood Urea Nitrogen 62H, Creatinine 9.3H, Estimat Glomerular Filtration Rate 5.0, Glucose Level 71L, Calcium Level 9.0, Phosphorus Level 8.3H, Magnesium Level 2.2, Total Bilirubin 0.5, Aspartate Amino Transf (AST/SGOT) 24, Alanine Aminotransferase (ALT/SGPT) 33, Alkaline Phosphatase 97, C-Reactive Protein, Quantitative 33.6H, Pro-B-Type Natriuretic Peptide > 20625B, Total Protein 7.6, Albumin 2.6L, Globulin 5.0, Albumin/Globulin Ratio 0.5L Height (Feet): 5 Height (Inches): 3.00 Weight (Pounds): 158 General Appearance: no apparent distress Objective no change Peter Solorio MD Dec 22, 2019 10:52
--- NOTE | 2019-12-22 11:40 | NUR ---
NURSE NOTES: Dr. David notified regarding GRAM POS CO[facility]I IN [facility]
--- NOTE | 2019-12-22 11:48 | Pulmonology Progress Note ---
Assessment/Plan Problems: (1) Sepsis (2) Cellulitis (3) ESRF (end stage renal failure) (4) History of pacemaker (5) Hypothyroidism (6) Diabetes mellitus Assessment/Plan robles culture, persistent Bacteremia with Staph aureus continue iv abx wound care podiatry to see Nephrology to handle HD monitor BP telemetry records reviewed. sliding scale diabetic diet. Subjective ROS Limited/Unobtainable: No Interval Events: getting Hd Constitutional: Reports: no symptoms HEENT: Repors: no symptoms Respiratory: Reports: no symptoms Allergies: Coded Allergies: SULFA (SULFONAMIDE ANTIBIOTICS) (Verified Allergy, Mild, 08/19/09) Objective Last 24 Hour Vital Signs Date Time Temp Pulse Resp B/P (MAP) Pulse Ox O2 Delivery O2 Flow Rate FiO2 12/22/19 09:45 151/70 12/22/19 09:00 Room Air 12/22/19 09:00 151/70 12/22/19 08:00 76 12/22/19 08:00 97.5 74 20 151/70 (97) 95 12/22/19 04:00 77 12/22/19 04:00 98.4 74 17 110/57 (74) 95 12/22/19 00:00 75 12/22/19 00:00 98.2 71 16 115/52 (73) 92 12/21/19 21:00 Room Air 12/21/19 20:00 98.4 76 18 112/55 (74) 93 12/21/19 20:00 74 12/21/19 16:00 98.4 74 20 140/70 (93) 98 12/21/19 16:00 72 12/21/19 12:00 97.7 74 20 121/58 (79) 95 12/21/19 12:00 76 Intake and Output 12/21/19 12/22/19 19:00 07:00 Intake Total 400 ml 295 ml Balance 400 ml 295 ml Intake Oral 400 ml 240 ml IV Total 55 ml HEENT: normocephalic, anicteric Respiratory/Chest: chest wall non-tender, lungs clear, normal breath sounds Breasts: no masses Cardiovascular: normal peripheral pulses, normal rate Genitourinary: normal external genitalia Extremities: no cyanosis Skin: no ulcers Neurologic/Psychiatric: metal weigher II-XII grossly normal Microbiology Date/Time Source Procedure Growth Status 12/20/19 18:04 Blood Blood Culture - Preliminary Resulted 12/20/19 18:00 Blood Blood Culture - Preliminary NO GROWTH AFTER 24 HOURS Resulted 12/19/19 15:45 Blood Blood Culture - Final Staphylococcus Aureus Complete 12/19/19 15:45 Blood Blood Culture - Final Staphylococcus Aureus Complete Laboratory Tests 12/22/19 06:16: White Blood Count 17.9H, Red Blood Count 3.25L, Hemoglobin 10.5L, Hematocrit 31.1L, Mean Corpuscular Volume 96, Mean Corpuscular Hemoglobin 32.3H, Mean Corpuscular Hemoglobin Concent 33.8, Red Cell Distribution Width 12.8, Platelet Count 251, Mean Platelet Volume 5.4L, Neutrophils (%) (Auto) 80.0H, Lymphocytes (%) (Auto) 7.4L, Monocytes (%) (Auto) 11.2H, Eosinophils (%) (Auto) 0.9, Basophils (%) (Auto) 0.5, Sodium Level 131L, Potassium Level 4.7, Chloride Level 90L, Carbon Dioxide Level 23, Anion Gap 19H, Blood Urea Nitrogen 62H, Creatinine 9.3H, Estimat Glomerular Filtration Rate 5.0, Glucose Level 71L, Calcium Level 9.0, Phosphorus Level 8.3H, Magnesium Level 2.2, Total Bilirubin 0.5, Aspartate Amino Transf (AST/SGOT) 24, Alanine Aminotransferase (ALT/SGPT) 33, Alkaline Phosphatase 97, C-Reactive Protein, Quantitative 33.6H, Pro-B-Type Natriuretic Peptide > 39768S, Total Protein 7.6, Albumin 2.6L, Globulin 5.0, Albumin/Globulin Ratio 0.5L Current Medications Medications (Trade) Dose Ordered Sig/Bere Route PRN Reason Start Time Stop Time Status Last Admin Dose Admin Acetaminophen (Tylenol) 650 mg Q4H PRN ORAL T>100.5 12/18/19 21:30 01/17/20 21:29 12/20/19 14:02 Albuterol/ Ipratropium (Albuterol/ Ipratropium) 3 ml Q6H PRN HHN dyspnea 12/18/19 21:30 12/23/19 21:29 Cefazolin Sodium 1 gm/Dextrose 110 ml @ 220 mls/hr Q24H IVPB 12/22/19 14:00 12/29/19 13:59 Cinacalcet (Sensipar) 60 mg QHS ORAL 12/22/19 21:00 01/21/20 20:59 Clonidine HCl (Catapres Tab) 0.1 mg Q4H PRN ORAL SBP > 160mmhg 12/18/19 21:30 01/17/20 21:29 Dextrose (Dextrose 50%) 25 ml Q30M PRN IV Hypoglycemia 12/18/19 21:30 01/17/20 21:29 Dextrose (Dextrose 50%) 50 ml Q30M PRN IV Hypoglycemia 12/18/19 21:30 01/17/20 21:29 Docusate Sodium (Colace) 100 mg THREE TIMES A DAY ORAL 12/19/19 13:00 01/18/20 12:59 12/22/19 09:43 Heparin Sodium (Porcine) (Heparin 5000 units/ml) 5,000 units EVERY 12 HOURS SUBQ 12/19/19 09:00 01/18/20 08:59 12/22/19 09:45 Insulin Aspart (NovoLOG) BEFORE MEALS AND HS SUBQ 12/19/19 06:30 01/18/20 06:29 Losartan Potassium (Cozaar) 25 mg DAILY ORAL 12/20/19 09:00 01/18/20 08:59 Morphine Sulfate (Morphine Sulfate) 2 mg Q4H PRN IVP Moderate Pain (Pain Scale 4-6) 12/20/19 14:15 12/27/19 14:14 12/20/19 14:44 Morphine Sulfate (Morphine Sulfate) 4 mg Q4H PRN IVP Severe Pain (Pain Scale 7-10) 12/20/19 14:15 12/27/19 14:14 12/20/19 22:06 Nitroglycerin (Ntg) 1 patch Q24H TDERMAL 12/19/19 09:30 01/18/20 09:29 12/22/19 09:45 Ondansetron HCl (Zofran) 4 mg Q6H PRN IVP Nausea & Vomiting 12/18/19 21:30 01/17/20 21:29 12/21/19 09:46 Pantoprazole (Protonix) 40 mg EVERY 12 HOURS ORAL 12/19/19 21:00 01/18/20 20:59 12/22/19 09:44 Polyethylene Glycol (Miralax) 17 gm HSPRN PRN ORAL Constipation 12/18/19 21:30 01/17/20 21:29 Sevelamer Carbonate (Renvela) 1,600 mg THREE TIMES A DAY ORAL 12/22/19 13:00 01/21/20 12:59 Zolpidem Tartrate (Ambien) 5 mg HSPRN PRN ORAL Insomnia 12/18/19 21:30 12/25/19 21:29 Ulisses Amaral MD Dec 22, 2019 11:48
[2019-12-22] MEDS ORDERED: ceFAZolin 1gm/50ml Premix 50 ML IV SCH (14:00)
--- NOTE | 2019-12-22 14:15 | Cardiac Electrophysiology PN ---
Assessment/Plan Assessment/Plan 1. Elevated troponin of 0.26. Levels are flat. No chest pain. Likely due to renal failure. Echo showed ejection fraction of 50%. 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 2. Status post Biotronik pacemaker. Interrogation pending 3. Severe pulmonary hypertension. 4. Bacteremia. Scheduled for transesophageal echocardiogram to rule out any vegetation in the valves or in the leads next Sunday now. Already on broad-spectrum intravenous antibiotic per ID 5. End-stage renal disease, on hemodialysis. CLAUDINE RN Subjective Subjective Alert in NAD had HD today. DARYN to R/O endocarditis rescheduled for next Sunday due to availability issue Objective Last 24 Hour Vital Signs Date Time Temp Pulse Resp B/P (MAP) Pulse Ox O2 Delivery O2 Flow Rate FiO2 12/22/19 09:45 151/70 12/22/19 09:00 Room Air 12/22/19 09:00 151/70 12/22/19 08:00 76 12/22/19 08:00 97.5 74 20 151/70 (97) 95 12/22/19 04:00 77 12/22/19 04:00 98.4 74 17 110/57 (74) 95 12/22/19 00:00 75 12/22/19 00:00 98.2 71 16 115/52 (73) 92 12/21/19 21:00 Room Air 12/21/19 20:00 98.4 76 18 112/55 (74) 93 12/21/19 20:00 74 12/21/19 16:00 98.4 74 20 140/70 (93) 98 12/21/19 16:00 72 Intake and Output 12/21/19 12/22/19 19:00 07:00 Intake Total 400 ml 295 ml Balance 400 ml 295 ml Intake Oral 400 ml 240 ml IV Total 55 ml Laboratory Tests Test 12/22/19 06:16 White Blood Count 17.9 K/UL (4.8-10.8) H Red Blood Count 3.25 M/UL (4.20-5.40) L Hemoglobin 10.5 G/DL (12.0-16.0) L Hematocrit 31.1 % (37.0-47.0) L Mean Corpuscular Volume 96 FL (80-99) Mean Corpuscular Hemoglobin 32.3 PG (27.0-31.0) H Mean Corpuscular Hemoglobin Concent 33.8 G/DL (32.0-36.0) Red Cell Distribution Width 12.8 % (11.6-14.8) Platelet Count 251 K/UL (150-450) Mean Platelet Volume 5.4 FL (6.5-10.1) L Neutrophils (%) (Auto) 80.0 % (45.0-75.0) H Lymphocytes (%) (Auto) 7.4 % (20.0-45.0) L Monocytes (%) (Auto) 11.2 % (1.0-10.0) H Eosinophils (%) (Auto) 0.9 % (0.0-3.0) Basophils (%) (Auto) 0.5 % (0.0-2.0) Sodium Level 131 MMOL/L (136-145) L Potassium Level 4.7 MMOL/L (3.5-5.1) Chloride Level 90 MMOL/L (98-107) L Carbon Dioxide Level 23 MMOL/L (21-32) Anion Gap 19 mmol/L (5-15) H Blood Urea Nitrogen 62 mg/dL (7-18) H Creatinine 9.3 MG/DL (0.55-1.30) H Estimat Glomerular Filtration Rate 5.0 mL/min (>60) Glucose Level 71 MG/DL (74-106) L Calcium Level 9.0 MG/DL (8.5-10.1) Phosphorus Level 8.3 MG/DL (2.5-4.9) H Magnesium Level 2.2 MG/DL (1.8-2.4) Total Bilirubin 0.5 MG/DL (0.2-1.0) Aspartate Amino Transf (AST/SGOT) 24 U/L (15-37) Alanine Aminotransferase (ALT/SGPT) 33 U/L (12-78) Alkaline Phosphatase 97 U/L (46-116) C-Reactive Protein, Quantitative 33.6 mg/dL (0.00-0.90) H Pro-B-Type Natriuretic Peptide > 28498 pg/mL (0-125) H Total Protein 7.6 G/DL (6.4-8.2) Albumin 2.6 G/DL (3.4-5.0) L Globulin 5.0 g/dL Albumin/Globulin Ratio 0.5 (1.0-2.7) L Microbiology Date/Time Source Procedure Growth Status 12/20/19 18:04 Blood Blood Culture - Preliminary Resulted 12/20/19 18:00 Blood Blood Culture - Preliminary NO GROWTH AFTER 24 HOURS Resulted 12/19/19 15:45 Blood Blood Culture - Final Staphylococcus Aureus Complete 12/19/19 15:45 Blood Blood Culture - Final Staphylococcus Aureus Complete Objective HEAD AND NECK: No JVD or carotid bruit. LUNGS: Clear. CARDIOVASCULAR: Shows regular S1 and S2 with no gallop or murmur. The pacemaker in the right subclavian. ABDOMEN: Soft. EXTREMITIES: Left arm dialysis access. Dawit Lopez MD Dec 22, 2019 14:15
--- NOTE | 2019-12-22 14:59 | NUR ---
CASE MANAGEMENT:REVIEW 12/22/19 SI: SEPSIS. BACTEREMIA. RT 5TH TOE GANGRENE ESRD ON HD. PACEMAKER 98.0 78 20 164/70 94% ON RA WBC+17.9 NA-131 BUN+62 CR+9.3 IS: IV ANCEF Q24 RENVELA PO TID COZAAR PO QD PROTONIX PO Q12 HEPARIN SQ Q12 : TELEMETRY STATUS DCP: FROM HOME PLAN: DARYN TO R/O ENDOCARDITIS
--- NOTE | 2019-12-22 15:55 | NUR ---
RD ASSESSMENT & RECOMMENDATIONS SEE CARE ACTIVITY FOR COMPLETE ASSESSMENT DAILY ESTIMATED NEEDS: Needs based on ESRD, HD/ 56kg abw 25-30 kcals/kg 0813-9917 total kcals 1.2-1.8 g protein/kg 67-100 g total protein 20-22 mL/kg 8556-7776 total fluid mLs NUTRITION DIAGNOSIS: Altered nutrition related lab values R/T ESRD, DM as evidenced by elev elev creat (9.3), elev phos (8.3), elev BNP (>20947), elev A1C 6.4. CURRENT DIET:[facility] MED PO DIET RECOMMENDATIONS: RENAL, [facility] MED ADDITIONAL RECOMMENDATIONS: * Standing wt for accurate CBW * Monitor lytes (phos elev, phos binder added) * High prot snacks in b/w meals * Nephrovite x 1 * Nepro x 1 w/ variable PO intake (425kcal/19g prot per cherry)
--- NOTE | 2019-12-22 19:05 | Internal Med Progress Note ---
Subjective Date of Service: Dec 22, 2019 Physician Name Hieu Kim Attending Physician Dave Melgoza MD Current Medications Medications (Trade) Dose Ordered Sig/Bere Route PRN Reason Start Time Stop Time Status Last Admin Dose Admin Acetaminophen (Tylenol) 650 mg Q4H PRN ORAL T>100.5 12/18/19 21:30 01/17/20 21:29 12/20/19 14:02 Albuterol/ Ipratropium (Albuterol/ Ipratropium) 3 ml Q6H PRN HHN dyspnea 12/18/19 21:30 12/23/19 21:29 Cefazolin Sodium 50 ml @ 100 mls/hr Q24H IV 12/22/19 14:00 12/29/19 13:59 12/22/19 14:08 Cinacalcet (Sensipar) 60 mg QHS ORAL 12/22/19 21:00 01/21/20 20:59 Clonidine HCl (Catapres Tab) 0.1 mg Q4H PRN ORAL SBP > 160mmhg 12/18/19 21:30 01/17/20 21:29 12/22/19 14:13 Dextrose (Dextrose 50%) 25 ml Q30M PRN IV Hypoglycemia 12/18/19 21:30 01/17/20 21:29 Dextrose (Dextrose 50%) 50 ml Q30M PRN IV Hypoglycemia 12/18/19 21:30 01/17/20 21:29 Docusate Sodium (Colace) 100 mg THREE TIMES A DAY ORAL 12/19/19 13:00 01/18/20 12:59 12/22/19 17:28 Heparin Sodium (Porcine) (Heparin 5000 units/ml) 5,000 units EVERY 12 HOURS SUBQ 12/19/19 09:00 01/18/20 08:59 12/22/19 09:45 Insulin Aspart (NovoLOG) BEFORE MEALS AND HS SUBQ 12/19/19 06:30 01/18/20 06:29 Losartan Potassium (Cozaar) 25 mg DAILY ORAL 12/20/19 09:00 01/18/20 08:59 Morphine Sulfate (Morphine Sulfate) 2 mg Q4H PRN IVP Moderate Pain (Pain Scale 4-6) 12/20/19 14:15 12/27/19 14:14 12/20/19 14:44 Morphine Sulfate (Morphine Sulfate) 4 mg Q4H PRN IVP Severe Pain (Pain Scale 7-10) 12/20/19 14:15 12/27/19 14:14 12/20/19 22:06 Nitroglycerin (Ntg) 1 patch Q24H TDERMAL 12/19/19 09:30 01/18/20 09:29 12/22/19 09:45 Ondansetron HCl (Zofran) 4 mg Q6H PRN IVP Nausea & Vomiting 12/18/19 21:30 01/17/20 21:29 12/21/19 09:46 Pantoprazole (Protonix) 40 mg EVERY 12 HOURS ORAL 12/19/19 21:00 01/18/20 20:59 12/22/19 09:44 Polyethylene Glycol (Miralax) 17 gm HSPRN PRN ORAL Constipation 12/18/19 21:30 01/17/20 21:29 Sevelamer Carbonate (Renvela) 1,600 mg THREE TIMES A DAY ORAL 12/22/19 13:00 01/21/20 12:59 12/22/19 17:28 Zolpidem Tartrate (Ambien) 5 mg HSPRN PRN ORAL Insomnia 12/18/19 21:30 12/25/19 21:29 Allergies: Coded Allergies: SULFA (SULFONAMIDE ANTIBIOTICS) (Verified Allergy, Mild, 08/19/09) ROS Limited/Unobtainable: No Constitutional: Reports: no symptoms HEENT: Reports: no symptoms Respiratory: Reports: no symptoms Gastrointestinal/Abdominal: Reports: no symptoms Genitourinary: Reports: no symptoms Neurologic/Psychiatric: Reports: no symptoms Subjective 79 YO F admitted with right foot pain. Now gangrene right 5th toe and sepsis. Cover for Int Dell-Dr Melgoza Objective Last Vital Signs Date Time Temp Pulse Resp B/P (MAP) Pulse Ox O2 Delivery O2 Flow Rate FiO2 12/22/19 16:00 75 12/22/19 16:00 98.7 20 148/71 (96) 95 12/22/19 09:00 Room Air Laboratory Tests Test 12/22/19 06:16 White Blood Count 17.9 K/UL (4.8-10.8) H Red Blood Count 3.25 M/UL (4.20-5.40) L Hemoglobin 10.5 G/DL (12.0-16.0) L Hematocrit 31.1 % (37.0-47.0) L Mean Corpuscular Volume 96 FL (80-99) Mean Corpuscular Hemoglobin 32.3 PG (27.0-31.0) H Mean Corpuscular Hemoglobin Concent 33.8 G/DL (32.0-36.0) Red Cell Distribution Width 12.8 % (11.6-14.8) Platelet Count 251 K/UL (150-450) Mean Platelet Volume 5.4 FL (6.5-10.1) L Neutrophils (%) (Auto) 80.0 % (45.0-75.0) H Lymphocytes (%) (Auto) 7.4 % (20.0-45.0) L Monocytes (%) (Auto) 11.2 % (1.0-10.0) H Eosinophils (%) (Auto) 0.9 % (0.0-3.0) Basophils (%) (Auto) 0.5 % (0.0-2.0) Sodium Level 131 MMOL/L (136-145) L Potassium Level 4.7 MMOL/L (3.5-5.1) Chloride Level 90 MMOL/L (98-107) L Carbon Dioxide Level 23 MMOL/L (21-32) Anion Gap 19 mmol/L (5-15) H Blood Urea Nitrogen 62 mg/dL (7-18) H Creatinine 9.3 MG/DL (0.55-1.30) H Estimat Glomerular Filtration Rate 5.0 mL/min (>60) Glucose Level 71 MG/DL (74-106) L Calcium Level 9.0 MG/DL (8.5-10.1) Phosphorus Level 8.3 MG/DL (2.5-4.9) H Magnesium Level 2.2 MG/DL (1.8-2.4) Total Bilirubin 0.5 MG/DL (0.2-1.0) Aspartate Amino Transf (AST/SGOT) 24 U/L (15-37) Alanine Aminotransferase (ALT/SGPT) 33 U/L (12-78) Alkaline Phosphatase 97 U/L (46-116) C-Reactive Protein, Quantitative 33.6 mg/dL (0.00-0.90) H Pro-B-Type Natriuretic Peptide > 73030 pg/mL (0-125) H Total Protein 7.6 G/DL (6.4-8.2) Albumin 2.6 G/DL (3.4-5.0) L Globulin 5.0 g/dL Albumin/Globulin Ratio 0.5 (1.0-2.7) L Microbiology Date/Time Source Procedure Growth Status 12/20/19 18:04 Blood Blood Culture - Preliminary Resulted 12/20/19 18:00 Blood Blood Culture - Preliminary NO GROWTH AFTER 24 HOURS Resulted Intake and Output 12/21/19 12/22/19 19:00 07:00 Intake Total 400 ml 295 ml Balance 400 ml 295 ml Intake Oral 400 ml 240 ml IV Total 55 ml Objective PHYSICAL EXAMINATION: GENERAL: The patient is a well-developed and well-nourished female, in no apparent distress. HEENT: Eyes, pupils are equal and responsive to light and accommodation. Extraocular movements are intact. NECK: Supple without lymphadenopathy. CHEST: Lungs are clear to auscultation bilaterally without wheezes or rales. CARDIOVASCULAR: Regular rhythm and rate. S1, S2 are normal without murmurs, rubs, or gallops. ABDOMEN: Soft, nontender, and nondistended. Positive bowel sounds. No evidence of hepatosplenomegaly. Currently, no rebound or guarding noted. EXTREMITIES: There is swelling of the right foot compared to the left. There is erythema over the right fifth toe. RECTAL/GENITAL: Refused. NEUROLOGIC: Cranial nerves II through XII are grossly intact without focal deficits. Motor strength is 5/5 bilaterally. Deep tendon reflexes are 2+ plantar. Assessment/Plan Assessment/Plan ASSESSMENT: This is a 79-year-old female. 1. Right foot pain. 2. Fever. 3. Gangrene of the right fifth toe 4. Leukocytosis. 5. Diabetes type 2. 6. Hypertension. 7. End-stage renal disease, on hemodialysis. 8. Hypothyroidism. 9. Peripheral vascular disease. 10. Pacemaker in situ. 11. Sepsis=MSSA staph aureus TREATMENT: 1. Right foot pain/gangrene of the right fifth toe. A Podiatry consultation has been obtained with Dr. Flood. We will follow recommendations of Podiatry. A nuclear medicine bone scan is pending to rule out osteomyelitis. ABX=Cefazolin; S/P Zosyn and vancomycin. 2. Fever. This may be secondary to cellulitis of the right foot as above. An Infectious Disease consultation has been obtained with Dr. David. We will follow recommendation of Infectious Disease. 3. Diabetes type 2. The patient has been placed on a NovoLog sliding scale. 4. Hypertension. Continue losartan as above. 5. End-stage renal disease. A Nephrology consultation has been obtained with Dr. Peter Solorio. The patient's last dialysis was Tuesday, December 17, 2019. Follow recommendations of Dr. Solorio. 6. Hypothyroidism. Continue Synthroid. 7. Pacemaker in situ. A pacemaker check is scheduled with Dr. Dawit Lopez. 8. Elevated troponin. A Cardiology consultation has been obtained with Dr. Lopez. Await transesophageal echocardiogram to rule out Sub acute bacterial endocarditis. Hieu Kim MD Dec 22, 2019 19:05
--- NOTE | 2019-12-22 19:17 | NUR ---
HAND-OFF: Report given to Martin KAYE. Pt remains stable.
--- NOTE | 2019-12-22 19:18 | NUR ---
NURSE NOTES: Received pt from VARGAS Saucedo. Pt is awake and resting in bed with family at bedside, with HOB elevated. Iv site intact. Bed locked in lowest position bed alarm on, call light within reach. Will continue with plan of care.
[2019-12-22] MEDS: Sensipar 30mg Tab ORAL SCH (21:38)
[2019-12-23] VITALS: BP 127/66
[2019-12-23 04:00] VITALS: BP 122/56
[2019-12-23] MEDS: NovoLOG Insulin Flexpen SUBQ SCH ×4 (06:27→21:00)
--- NOTE | 2019-12-23 07:17 | NUR ---
HAND-OFF: Report given to VARGAS Mcdowell. Endorsed plan of care.
[2019-12-23 07:37] LABS: HEMATOCRIT 32.8 % (37.0-47.0); HEMOGLOBIN 10.9 G/DL (12.0-16.0); MEAN CORPUSCULAR VOLUME 96 FL (80-99); PLATELET COUNT 295 K/UL (150-450); RED BLOOD COUNT 3.41 M/UL (4.20-5.40); RED CELL DISTRIBUTION WIDTH 12.6 % (11.6-14.8); WHITE BLOOD COUNT 19.7 K/UL (4.8-10.8)
[2019-12-23 07:42] LABS: ANION GAP 14 mmol/L (5-15); BLOOD UREA NITROGEN 44 mg/dL (7-18); CALCIUM 8.9 MG/DL (8.5-10.1); CARBON DIOXIDE 25 MMOL/L (21-32); CHLORIDE 90 MMOL/L (98-107); CREATININE 7.3 MG/DL (0.55-1.30); POTASSIUM 3.9 MMOL/L (3.5-5.1); SODIUM 129 MMOL/L (136-145)
[2019-12-23 08:00] VITALS: BP 154/64
--- NOTE | 2019-12-23 08:04 | NUR ---
NURSE NOTES: Patient stable AOx4 complaining of heart burn. Will call kitchen for jen raines. RR even and unlabored. Side rails upx2, call light within reach, bed low and locked. Will continue to monitor.
[2019-12-23] MEDS: Nitroglycerin Patch 0.2mg/hr TDERMAL SCH (09:02)
[2019-12-23] MEDS: Docusate 100mg cap ORAL SCH ×3 (09:03→17:42)
[2019-12-23] MEDS: Losartan 25mg tab ORAL SCH (09:04)
[2019-12-23] MEDS: Heparin 5000 units/ml inj SUBQ SCH ×2 (09:05→21:23)
--- NOTE | 2019-12-23 10:45 | Cardiac Electrophysiology PN ---
Assessment/Plan Assessment/Plan 1. Elevated troponin of 0.26. Levels are flat and low. No chest pain. Due to renal failure. Echo showed ejection fraction of 50%. 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 2. Status post Biotronik pacemaker. Interrogation showed Nkl Fx and battery > 7 years 3. Severe pulmonary hypertension. 4. Bacteremia. Scheduled for transesophageal echocardiogram to rule out any vegetation in the valves or in the leads next Sunday now. Already on broad-spectrum intravenous antibiotic per ID 5. End-stage renal disease, on hemodialysis. 6. R foot 5th digit gangrene, pt states her toes has worsened in appearance. FU Podiatry CLAUDINE RN Subjective Subjective Alert in NAD had HD yesterday. DARYN to R/O endocarditis rescheduled for next Sunday due to availability issue Objective Last 24 Hour Vital Signs Date Time Temp Pulse Resp B/P (MAP) Pulse Ox O2 Delivery O2 Flow Rate FiO2 12/23/19 09:04 154/64 12/23/19 09:02 154/64 12/23/19 08:04 93 20 95 Room Air 21 12/23/19 08:00 97.9 94 20 154/64 (94) 96 12/23/19 04:00 97.0 79 18 122/56 (78) 98 12/23/19 04:00 79 12/23/19 00:00 91 12/23/19 00:00 98.7 91 15 127/66 (86) 95 12/22/19 21:00 Room Air 12/22/19 20:00 99.4 80 16 127/68 (87) 98 12/22/19 20:00 80 12/22/19 19:54 81 20 98 Room Air 21 12/22/19 16:00 75 12/22/19 16:00 98.7 76 20 148/71 (96) 95 12/22/19 14:13 164/70 12/22/19 14:00 98.0 78 20 164/70 (101) 94 12/22/19 12:00 73 12/22/19 12:00 97.8 76 20 154/72 (99) 96 Intake and Output 12/22/19 12/23/19 19:00 07:00 Intake Total 2291 ml 360 ml Balance 2291 ml 360 ml Intake Oral 236 ml 360 ml IV Total 55 ml Hemodialysis 2000 ml # Voids 1 Laboratory Tests Test 12/23/19 06:00 White Blood Count 19.7 K/UL (4.8-10.8) H Red Blood Count 3.41 M/UL (4.20-5.40) L Hemoglobin 10.9 G/DL (12.0-16.0) L Hematocrit 32.8 % (37.0-47.0) L Mean Corpuscular Volume 96 FL (80-99) Mean Corpuscular Hemoglobin 32.1 PG (27.0-31.0) H Mean Corpuscular Hemoglobin Concent 33.3 G/DL (32.0-36.0) Red Cell Distribution Width 12.6 % (11.6-14.8) Platelet Count 295 K/UL (150-450) Mean Platelet Volume 5.9 FL (6.5-10.1) L Neutrophils (%) (Auto) % (45.0-75.0) Lymphocytes (%) (Auto) % (20.0-45.0) Monocytes (%) (Auto) % (1.0-10.0) Eosinophils (%) (Auto) % (0.0-3.0) Basophils (%) (Auto) % (0.0-2.0) Neutrophils % (Manual) Pending Lymphocytes % (Manual) Pending Platelet Estimate Pending Platelet Morphology Pending Sodium Level 129 MMOL/L (136-145) L Potassium Level 3.9 MMOL/L (3.5-5.1) Chloride Level 90 MMOL/L (98-107) L Carbon Dioxide Level 25 MMOL/L (21-32) Anion Gap 14 mmol/L (5-15) Blood Urea Nitrogen 44 mg/dL (7-18) H Creatinine 7.3 MG/DL (0.55-1.30) H Estimat Glomerular Filtration Rate 6.5 mL/min (>60) Glucose Level 101 MG/DL (74-106) Calcium Level 8.9 MG/DL (8.5-10.1) Microbiology Date/Time Source Procedure Growth Status 12/20/19 18:04 Blood Blood Culture - Preliminary Staphylococcus Aureus Resulted 12/20/19 18:00 Blood Blood Culture - Preliminary NO GROWTH AFTER 48 HOURS Resulted Objective HEAD AND NECK: No JVD or carotid bruit. LUNGS: Clear. CARDIOVASCULAR: Shows regular S1 and S2 with no gallop or murmur. The pacemaker in the right subclavian. ABDOMEN: Soft. EXTREMITIES: Left arm dialysis access.Right 5th toe gangrene Dawit Lopez MD Dec 23, 2019 10:45
--- NOTE | 2019-12-23 11:52 | Pulmonology Progress Note ---
Assessment/Plan Problems: (1) Sepsis (2) Cellulitis (3) Dry gangrene (4) ESRF (end stage renal failure) (5) History of pacemaker (6) Hypothyroidism (7) Diabetes mellitus (8) Bacteremia Assessment/Plan robles culture, persistent Bacteremia with Staph aureus will need DARYN continue iv abx wound care podiatry following Nephrology to handle HD monitor BP telemetry records reviewed. sliding scale diabetic diet. Subjective ROS Limited/Unobtainable: No Constitutional: Reports: no symptoms Allergies: Coded Allergies: SULFA (SULFONAMIDE ANTIBIOTICS) (Verified Allergy, Mild, 08/19/09) Objective Last 24 Hour Vital Signs Date Time Temp Pulse Resp B/P (MAP) Pulse Ox O2 Delivery O2 Flow Rate FiO2 12/23/19 09:04 154/64 12/23/19 09:02 154/64 12/23/19 09:00 Room Air 12/23/19 08:04 93 20 95 Room Air 21 12/23/19 08:00 94 12/23/19 08:00 97.9 94 20 154/64 (94) 96 12/23/19 04:00 97.0 79 18 122/56 (78) 98 12/23/19 04:00 79 12/23/19 00:00 91 12/23/19 00:00 98.7 91 15 127/66 (86) 95 12/22/19 21:00 Room Air 12/22/19 20:00 99.4 80 16 127/68 (87) 98 12/22/19 20:00 80 12/22/19 19:54 81 20 98 Room Air 21 12/22/19 16:00 75 12/22/19 16:00 98.7 76 20 148/71 (96) 95 12/22/19 14:13 164/70 12/22/19 14:00 98.0 78 20 164/70 (101) 94 12/22/19 12:00 73 12/22/19 12:00 97.8 76 20 154/72 (99) 96 Intake and Output 12/22/19 12/23/19 19:00 07:00 Intake Total 2291 ml 360 ml Balance 2291 ml 360 ml Intake Oral 236 ml 360 ml IV Total 55 ml Hemodialysis 2000 ml # Voids 1 General Appearance: WD/WN HEENT: normocephalic, atraumatic Respiratory/Chest: chest wall non-tender, lungs clear Breasts: no masses Cardiovascular: normal rate Abdomen: normal bowel sounds, soft, non tender, no organomegaly Microbiology Date/Time Source Procedure Growth Status 12/20/19 18:04 Blood Blood Culture - Preliminary Staphylococcus Aureus Resulted 12/20/19 18:00 Blood Blood Culture - Preliminary NO GROWTH AFTER 48 HOURS Resulted Laboratory Tests 12/23/19 06:00: White Blood Count 19.7H, Red Blood Count 3.41L, Hemoglobin 10.9L, Hematocrit 32.8L, Mean Corpuscular Volume 96, Mean Corpuscular Hemoglobin 32.1H, Mean Corpuscular Hemoglobin Concent 33.3, Red Cell Distribution Width 12.6, Platelet Count 295, Mean Platelet Volume 5.9L, Neutrophils (%) (Auto) , Lymphocytes (%) ( Auto) , Monocytes (%) (Auto) , Eosinophils (%) (Auto) , Basophils (%) (Auto) , Neutrophils % (Manual) [Pending], Lymphocytes % (Manual) [Pending], Platelet Estimate [Pending], Platelet Morphology [Pending], Sodium Level 129L, Potassium Level 3.9, Chloride Level 90L, Carbon Dioxide Level 25, Anion Gap 14, Blood Urea Nitrogen 44H, Creatinine 7.3H, Estimat Glomerular Filtration Rate 6.5, Glucose Level 101, Calcium Level 8.9 Current Medications Medications (Trade) Dose Ordered Sig/Bere Route PRN Reason Start Time Stop Time Status Last Admin Dose Admin Acetaminophen (Tylenol) 650 mg Q4H PRN ORAL T>100.5 12/18/19 21:30 01/17/20 21:29 12/23/19 06:35 Albuterol/ Ipratropium (Albuterol/ Ipratropium) 3 ml Q6H PRN HHN dyspnea 12/18/19 21:30 12/23/19 21:29 Cefazolin Sodium 1 gm/Dextrose 55 ml @ 110 mls/hr Q24H IVP 12/23/19 14:00 12/30/19 13:59 Cinacalcet (Sensipar) 60 mg QHS ORAL 12/22/19 21:00 01/21/20 20:59 12/22/19 21:38 Clonidine HCl (Catapres Tab) 0.1 mg Q4H PRN ORAL SBP > 160mmhg 12/18/19 21:30 01/17/20 21:29 12/22/19 14:13 Dextrose (Dextrose 50%) 25 ml Q30M PRN IV Hypoglycemia 12/18/19 21:30 01/17/20 21:29 Dextrose (Dextrose 50%) 50 ml Q30M PRN IV Hypoglycemia 12/18/19 21:30 01/17/20 21:29 Docusate Sodium (Colace) 100 mg THREE TIMES A DAY ORAL 12/19/19 13:00 01/18/20 12:59 12/23/19 09:03 Heparin Sodium (Porcine) (Heparin 5000 units/ml) 5,000 units EVERY 12 HOURS SUBQ 12/19/19 09:00 01/18/20 08:59 12/23/19 09:05 Insulin Aspart (NovoLOG) BEFORE MEALS AND HS SUBQ 12/19/19 06:30 01/18/20 06:29 Losartan Potassium (Cozaar) 25 mg DAILY ORAL 12/20/19 09:00 01/18/20 08:59 12/23/19 09:04 Morphine Sulfate (Morphine Sulfate) 2 mg Q4H PRN IVP Moderate Pain (Pain Scale 4-6) 12/20/19 14:15 12/27/19 14:14 12/20/19 14:44 Morphine Sulfate (Morphine Sulfate) 4 mg Q4H PRN IVP Severe Pain (Pain Scale 7-10) 12/20/19 14:15 12/27/19 14:14 12/20/19 22:06 Neomycin/ Polymyxin/ Bacitracin (Neosporin) 1 applic BID TOPIC 12/23/19 12:00 01/22/20 11:59 Nitroglycerin (Ntg) 1 patch Q24H TDERMAL 12/19/19 09:30 01/18/20 09:29 12/23/19 09:02 Ondansetron HCl (Zofran) 4 mg Q6H PRN IVP Nausea & Vomiting 12/18/19 21:30 01/17/20 21:29 12/23/19 06:35 Pantoprazole (Protonix) 40 mg EVERY 12 HOURS ORAL 12/19/19 21:00 01/18/20 20:59 12/23/19 09:01 Polyethylene Glycol (Miralax) 17 gm HSPRN PRN ORAL Constipation 12/18/19 21:30 01/17/20 21:29 Sevelamer Carbonate (Renvela) 1,600 mg THREE TIMES A DAY ORAL 12/22/19 13:00 01/21/20 12:59 12/23/19 09:02 Zolpidem Tartrate (Ambien) 5 mg HSPRN PRN ORAL Insomnia 12/18/19 21:30 12/25/19 21:29 Ulisses Amaral MD Dec 23, 2019 11:52
[2019-12-23] MEDS: Neosporin Oint Ud Pkt TOPIC SCH ×2 (11:56→17:43)
[2019-12-23 12:00] VITALS: BP 153/72
[2019-12-23] MEDS: ceFAZolin 1gm in D5W 55ml IVP SCH (14:03)
--- NOTE | 2019-12-23 15:06 | Nephrology Progress Note ---
Assessment/Plan Problem List: (1) ESRF (end stage renal failure) (2) History of pacemaker (3) Pulmonary hypertension Assessment ESRD Pneumonia Fever Sepsis Cellulitis Leukocytosis DM , elevated A1c Pace Maker- Elevated Troponin HypoAlbuminemia Sepsis with bacteremia Right fifth toe gangrene Aortic stenosis with aortic regurgitation PVD Anemia of chronic kidney disease DM Plan start Sensipar Phos binders on Vanco- and Zosyn Dialysis next December 23 2D echo EjFx 50- Pulm HTN adjust cardiac abd BP meds Anemia rees per orders Subjective ROS Limited/Unobtainable: No Objective Objective Last 24 Hour Vital Signs Date Time Temp Pulse Resp B/P (MAP) Pulse Ox O2 Delivery O2 Flow Rate FiO2 12/23/19 12:00 95 12/23/19 09:04 154/64 12/23/19 09:02 154/64 12/23/19 09:00 Room Air 12/23/19 08:04 93 20 95 Room Air 21 12/23/19 08:00 94 12/23/19 08:00 97.9 94 20 154/64 (94) 96 12/23/19 04:00 97.0 79 18 122/56 (78) 98 12/23/19 04:00 79 12/23/19 00:00 91 12/23/19 00:00 98.7 91 15 127/66 (86) 95 12/22/19 21:00 Room Air 12/22/19 20:00 99.4 80 16 127/68 (87) 98 12/22/19 20:00 80 12/22/19 19:54 81 20 98 Room Air 21 12/22/19 16:00 75 12/22/19 16:00 98.7 76 20 148/71 (96) 95 Intake and Output 12/22/19 12/23/19 19:00 07:00 Intake Total 2291 ml 360 ml Balance 2291 ml 360 ml Intake Oral 236 ml 360 ml IV Total 55 ml Hemodialysis 2000 ml # Voids 1 Laboratory Tests 12/23/19 06:00: White Blood Count 19.7H, Red Blood Count 3.41L, Hemoglobin 10.9L, Hematocrit 32.8L, Mean Corpuscular Volume 96, Mean Corpuscular Hemoglobin 32.1H, Mean Corpuscular Hemoglobin Concent 33.3, Red Cell Distribution Width 12.6, Platelet Count 295, Mean Platelet Volume 5.9L, Neutrophils (%) (Auto) , Lymphocytes (%) ( Auto) , Monocytes (%) (Auto) , Eosinophils (%) (Auto) , Basophils (%) (Auto) , Differential Total Cells Counted 100, Neutrophils % (Manual) 77H, Lymphocytes % (Manual) 13L, Monocytes % (Manual) 10, Eosinophils % (Manual) 0, Basophils % ( Manual) 0, Band Neutrophils 0, Platelet Estimate Adequate, Platelet Morphology Normal, Red Blood Cell Morphology Normal, Sodium Level 129L, Potassium Level 3.9 , Chloride Level 90L, Carbon Dioxide Level 25, Anion Gap 14, Blood Urea Nitrogen 44H, Creatinine 7.3H, Estimat Glomerular Filtration Rate 6.5, Glucose Level 101, Calcium Level 8.9 Height (Feet): 5 Height (Inches): 3.00 Weight (Pounds): 154 General Appearance: no apparent distress Cardiovascular: normal rate Respiratory/Chest: lungs clear Objective no change Peter Solorio MD Dec 23, 2019 15:06
--- NOTE | 2019-12-23 15:26 | NUR ---
NURSE NOTES: [facility] called to schedule dialysis tomorrow. Per coach operator, nurse will call back.
[2019-12-23 16:00] VITALS: BP 123/80
--- NOTE | 2019-12-23 17:32 | Infectious Diseases Prog Note ---
Assessment/Plan Assessment/Plan ASSESSMENT: The patient is a 79-year-old female with, 1. Right foot infection, -xray R foot: No displaced fracture or dislocation identified. -bone scan: No evidence for osteomyelitis. 2. High grade Bacteremia, rule out endocarditis versus pacemaker infection. -12/18 Bcx 2/ MSSA 12/19 Bcx 1/ GPC clusters -2d echo: limited study, no mention of vegetations 3. Leukocytosis; improving 4. Sepsis, sp 5. Fever; Sp PLAN: Ancef # 2 / SP vancomycin # and c Zosyn # 4 Monitor CBC. Monitor BMP. Monitor blood culture. Recommend a DARYN to rule out endocarditis or pacemaker infection. Monitor CBC and BMP. Subjective Allergies: Coded Allergies: SULFA (SULFONAMIDE ANTIBIOTICS) (Verified Allergy, Mild, 08/19/09) Subjective +ve blood CX Objective Vital Signs Last 24 Hour Vital Signs Date Time Temp Pulse Resp B/P (MAP) Pulse Ox O2 Delivery O2 Flow Rate FiO2 12/23/19 16:00 97.2 77 20 123/80 (94) 98 12/23/19 16:00 77 12/23/19 12:00 95 12/23/19 12:00 98.2 77 20 153/72 (99) 97 12/23/19 09:04 154/64 12/23/19 09:02 154/64 12/23/19 09:00 Room Air 12/23/19 08:04 93 20 95 Room Air 21 12/23/19 08:00 94 12/23/19 08:00 97.9 94 20 154/64 (94) 96 12/23/19 04:00 97.0 79 18 122/56 (78) 98 12/23/19 04:00 79 12/23/19 00:00 91 12/23/19 00:00 98.7 91 15 127/66 (86) 95 12/22/19 21:00 Room Air 12/22/19 20:00 99.4 80 16 127/68 (87) 98 12/22/19 20:00 80 12/22/19 19:54 81 20 98 Room Air 21 Height (Feet): 5 Height (Inches): 3.00 Weight (Pounds): 154 HEENT: anicteric Respiratory/Chest: normal breath sounds Cardiovascular: regular rhythm Abdomen: soft, non tender Microbiology Date/Time Source Procedure Growth Status 12/20/19 18:04 Blood Blood Culture - Preliminary Staphylococcus Aureus Resulted 12/20/19 18:00 Blood Blood Culture - Preliminary NO GROWTH AFTER 48 HOURS Resulted Laboratory Tests Test 12/23/19 06:00 White Blood Count 19.7 K/UL (4.8-10.8) H Red Blood Count 3.41 M/UL (4.20-5.40) L Hemoglobin 10.9 G/DL (12.0-16.0) L Hematocrit 32.8 % (37.0-47.0) L Mean Corpuscular Volume 96 FL (80-99) Mean Corpuscular Hemoglobin 32.1 PG (27.0-31.0) H Mean Corpuscular Hemoglobin Concent 33.3 G/DL (32.0-36.0) Red Cell Distribution Width 12.6 % (11.6-14.8) Platelet Count 295 K/UL (150-450) Mean Platelet Volume 5.9 FL (6.5-10.1) L Neutrophils (%) (Auto) % (45.0-75.0) Lymphocytes (%) (Auto) % (20.0-45.0) Monocytes (%) (Auto) % (1.0-10.0) Eosinophils (%) (Auto) % (0.0-3.0) Basophils (%) (Auto) % (0.0-2.0) Differential Total Cells Counted 100 Neutrophils % (Manual) 77 % (45-75) H Lymphocytes % (Manual) 13 % (20-45) L Monocytes % (Manual) 10 % (1-10) Eosinophils % (Manual) 0 % (0-3) Basophils % (Manual) 0 % (0-2) Band Neutrophils 0 % (0-8) Platelet Estimate Adequate Platelet Morphology Normal Red Blood Cell Morphology Normal Sodium Level 129 MMOL/L (136-145) L Potassium Level 3.9 MMOL/L (3.5-5.1) Chloride Level 90 MMOL/L (98-107) L Carbon Dioxide Level 25 MMOL/L (21-32) Anion Gap 14 mmol/L (5-15) Blood Urea Nitrogen 44 mg/dL (7-18) H Creatinine 7.3 MG/DL (0.55-1.30) H Estimat Glomerular Filtration Rate 6.5 mL/min (>60) Glucose Level 101 MG/DL (74-106) Calcium Level 8.9 MG/DL (8.5-10.1) Current Medications Medications (Trade) Dose Ordered Sig/Bere Route PRN Reason Start Time Stop Time Status Last Admin Dose Admin Acetaminophen (Tylenol) 650 mg Q4H PRN ORAL T>100.5 12/18/19 21:30 01/17/20 21:29 12/23/19 14:07 Albuterol/ Ipratropium (Albuterol/ Ipratropium) 3 ml Q6H PRN HHN dyspnea 12/18/19 21:30 12/23/19 21:29 Cefazolin Sodium 1 gm/Dextrose 55 ml @ 110 mls/hr Q24H IVP 12/23/19 14:00 12/30/19 13:59 12/23/19 14:03 Cinacalcet (Sensipar) 60 mg QHS ORAL 12/22/19 21:00 01/21/20 20:59 12/22/19 21:38 Clonidine HCl (Catapres Tab) 0.1 mg Q4H PRN ORAL SBP > 160mmhg 12/18/19 21:30 01/17/20 21:29 12/22/19 14:13 Dextrose (Dextrose 50%) 25 ml Q30M PRN IV Hypoglycemia 12/18/19 21:30 01/17/20 21:29 Dextrose (Dextrose 50%) 50 ml Q30M PRN IV Hypoglycemia 12/18/19 21:30 01/17/20 21:29 Docusate Sodium (Colace) 100 mg THREE TIMES A DAY ORAL 12/19/19 13:00 01/18/20 12:59 12/23/19 14:02 Heparin Sodium (Porcine) (Heparin 5000 units/ml) 5,000 units EVERY 12 HOURS SUBQ 12/19/19 09:00 01/18/20 08:59 12/23/19 09:05 Insulin Aspart (NovoLOG) BEFORE MEALS AND HS SUBQ 12/19/19 06:30 01/18/20 06:29 Losartan Potassium (Cozaar) 25 mg DAILY ORAL 12/20/19 09:00 01/18/20 08:59 12/23/19 09:04 Morphine Sulfate (Morphine Sulfate) 2 mg Q4H PRN IVP Moderate Pain (Pain Scale 4-6) 12/20/19 14:15 12/27/19 14:14 12/20/19 14:44 Morphine Sulfate (Morphine Sulfate) 4 mg Q4H PRN IVP Severe Pain (Pain Scale 7-10) 12/20/19 14:15 12/27/19 14:14 12/20/19 22:06 Neomycin/ Polymyxin/ Bacitracin (Neosporin) 1 applic BID TOPIC 12/23/19 12:00 01/22/20 11:59 12/23/19 11:56 Nitroglycerin (Ntg) 1 patch Q24H TDERMAL 12/19/19 09:30 01/18/20 09:29 12/23/19 09:02 Ondansetron HCl (Zofran) 4 mg Q6H PRN IVP Nausea & Vomiting 12/18/19 21:30 01/17/20 21:29 12/23/19 06:35 Pantoprazole (Protonix) 40 mg EVERY 12 HOURS ORAL 12/19/19 21:00 01/18/20 20:59 12/23/19 09:01 Polyethylene Glycol (Miralax) 17 gm HSPRN PRN ORAL Constipation 12/18/19 21:30 01/17/20 21:29 Sevelamer Carbonate (Renvela) 1,600 mg THREE TIMES A DAY ORAL 12/22/19 13:00 01/21/20 12:59 12/23/19 11:56 Zolpidem Tartrate (Ambien) 5 mg HSPRN PRN ORAL Insomnia 12/18/19 21:30 12/25/19 21:29 Roberto David MD Dec 23, 2019 17:32
--- NOTE | 2019-12-23 17:36 | Internal Med Progress Note ---
Subjective Date of Service: Dec 23, 2019 Physician Name Hieu Kim Attending Physician Dave Melgoza MD Current Medications Medications (Trade) Dose Ordered Sig/Bere Route PRN Reason Start Time Stop Time Status Last Admin Dose Admin Acetaminophen (Tylenol) 650 mg Q4H PRN ORAL T>100.5 12/18/19 21:30 01/17/20 21:29 12/23/19 14:07 Albuterol/ Ipratropium (Albuterol/ Ipratropium) 3 ml Q6H PRN HHN dyspnea 12/18/19 21:30 12/23/19 21:29 Cefazolin Sodium 1 gm/Dextrose 55 ml @ 110 mls/hr Q24H IVP 12/23/19 14:00 12/30/19 13:59 12/23/19 14:03 Cinacalcet (Sensipar) 60 mg QHS ORAL 12/22/19 21:00 01/21/20 20:59 12/22/19 21:38 Clonidine HCl (Catapres Tab) 0.1 mg Q4H PRN ORAL SBP > 160mmhg 12/18/19 21:30 01/17/20 21:29 12/22/19 14:13 Dextrose (Dextrose 50%) 25 ml Q30M PRN IV Hypoglycemia 12/18/19 21:30 01/17/20 21:29 Dextrose (Dextrose 50%) 50 ml Q30M PRN IV Hypoglycemia 12/18/19 21:30 01/17/20 21:29 Docusate Sodium (Colace) 100 mg THREE TIMES A DAY ORAL 12/19/19 13:00 01/18/20 12:59 12/23/19 14:02 Heparin Sodium (Porcine) (Heparin 5000 units/ml) 5,000 units EVERY 12 HOURS SUBQ 12/19/19 09:00 01/18/20 08:59 12/23/19 09:05 Insulin Aspart (NovoLOG) BEFORE MEALS AND HS SUBQ 12/19/19 06:30 01/18/20 06:29 Losartan Potassium (Cozaar) 25 mg DAILY ORAL 12/20/19 09:00 01/18/20 08:59 12/23/19 09:04 Morphine Sulfate (Morphine Sulfate) 2 mg Q4H PRN IVP Moderate Pain (Pain Scale 4-6) 12/20/19 14:15 12/27/19 14:14 12/20/19 14:44 Morphine Sulfate (Morphine Sulfate) 4 mg Q4H PRN IVP Severe Pain (Pain Scale 7-10) 12/20/19 14:15 12/27/19 14:14 12/20/19 22:06 Neomycin/ Polymyxin/ Bacitracin (Neosporin) 1 applic BID TOPIC 12/23/19 12:00 01/22/20 11:59 12/23/19 11:56 Nitroglycerin (Ntg) 1 patch Q24H TDERMAL 12/19/19 09:30 01/18/20 09:29 12/23/19 09:02 Ondansetron HCl (Zofran) 4 mg Q6H PRN IVP Nausea & Vomiting 12/18/19 21:30 01/17/20 21:29 12/23/19 06:35 Pantoprazole (Protonix) 40 mg EVERY 12 HOURS ORAL 12/19/19 21:00 01/18/20 20:59 12/23/19 09:01 Polyethylene Glycol (Miralax) 17 gm HSPRN PRN ORAL Constipation 12/18/19 21:30 01/17/20 21:29 Sevelamer Carbonate (Renvela) 1,600 mg THREE TIMES A DAY ORAL 12/22/19 13:00 01/21/20 12:59 12/23/19 11:56 Zolpidem Tartrate (Ambien) 5 mg HSPRN PRN ORAL Insomnia 12/18/19 21:30 12/25/19 21:29 Allergies: Coded Allergies: SULFA (SULFONAMIDE ANTIBIOTICS) (Verified Allergy, Mild, 08/19/09) ROS Limited/Unobtainable: No Constitutional: Reports: no symptoms HEENT: Reports: no symptoms Cardiovascular: Reports: no symptoms Respiratory: Reports: no symptoms Gastrointestinal/Abdominal: Reports: no symptoms Genitourinary: Reports: no symptoms Neurologic/Psychiatric: Reports: no symptoms Subjective 79 YO F admitted with right foot pain. Now gangrene right 5th toe and sepsis. Cover for Int Jun Melgoza Objective Last Vital Signs Date Time Temp Pulse Resp B/P (MAP) Pulse Ox O2 Delivery O2 Flow Rate FiO2 12/23/19 16:00 97.2 77 20 123/80 (94) 98 12/23/19 09:00 Room Air 12/23/19 08:04 21 Laboratory Tests Test 12/23/19 06:00 White Blood Count 19.7 K/UL (4.8-10.8) H Red Blood Count 3.41 M/UL (4.20-5.40) L Hemoglobin 10.9 G/DL (12.0-16.0) L Hematocrit 32.8 % (37.0-47.0) L Mean Corpuscular Volume 96 FL (80-99) Mean Corpuscular Hemoglobin 32.1 PG (27.0-31.0) H Mean Corpuscular Hemoglobin Concent 33.3 G/DL (32.0-36.0) Red Cell Distribution Width 12.6 % (11.6-14.8) Platelet Count 295 K/UL (150-450) Mean Platelet Volume 5.9 FL (6.5-10.1) L Neutrophils (%) (Auto) % (45.0-75.0) Lymphocytes (%) (Auto) % (20.0-45.0) Monocytes (%) (Auto) % (1.0-10.0) Eosinophils (%) (Auto) % (0.0-3.0) Basophils (%) (Auto) % (0.0-2.0) Differential Total Cells Counted 100 Neutrophils % (Manual) 77 % (45-75) H Lymphocytes % (Manual) 13 % (20-45) L Monocytes % (Manual) 10 % (1-10) Eosinophils % (Manual) 0 % (0-3) Basophils % (Manual) 0 % (0-2) Band Neutrophils 0 % (0-8) Platelet Estimate Adequate Platelet Morphology Normal Red Blood Cell Morphology Normal Sodium Level 129 MMOL/L (136-145) L Potassium Level 3.9 MMOL/L (3.5-5.1) Chloride Level 90 MMOL/L (98-107) L Carbon Dioxide Level 25 MMOL/L (21-32) Anion Gap 14 mmol/L (5-15) Blood Urea Nitrogen 44 mg/dL (7-18) H Creatinine 7.3 MG/DL (0.55-1.30) H Estimat Glomerular Filtration Rate 6.5 mL/min (>60) Glucose Level 101 MG/DL (74-106) Calcium Level 8.9 MG/DL (8.5-10.1) Microbiology Date/Time Source Procedure Growth Status 12/20/19 18:04 Blood Blood Culture - Preliminary Staphylococcus Aureus Resulted 12/20/19 18:00 Blood Blood Culture - Preliminary NO GROWTH AFTER 48 HOURS Resulted Intake and Output 12/22/19 12/23/19 19:00 07:00 Intake Total 2291 ml 360 ml Balance 2291 ml 360 ml Intake Oral 236 ml 360 ml IV Total 55 ml Hemodialysis 2000 ml # Voids 1 Objective PHYSICAL EXAMINATION: GENERAL: The patient is a well-developed and well-nourished female, in no apparent distress. HEENT: Eyes, pupils are equal and responsive to light and accommodation. Extraocular movements are intact. NECK: Supple without lymphadenopathy. CHEST: Lungs are clear to auscultation bilaterally without wheezes or rales. CARDIOVASCULAR: Regular rhythm and rate. S1, S2 are normal without murmurs, rubs, or gallops. ABDOMEN: Soft, nontender, and nondistended. Positive bowel sounds. No evidence of hepatosplenomegaly. Currently, no rebound or guarding noted. EXTREMITIES: There is swelling of the right foot compared to the left. There is erythema over the right fifth toe. RECTAL/GENITAL: Refused. NEUROLOGIC: Cranial nerves II through XII are grossly intact without focal deficits. Motor strength is 5/5 bilaterally. Deep tendon reflexes are 2+ plantar. Assessment/Plan Assessment/Plan ASSESSMENT: This is a 79-year-old female. 1. Right foot pain. 2. Fever. 3. Gangrene of the right fifth toe 4. Leukocytosis. 5. Diabetes type 2. 6. Hypertension. 7. End-stage renal disease, on hemodialysis. 8. Hypothyroidism. 9. Peripheral vascular disease. 10. Pacemaker in situ. 11. Sepsis=MSSA staph aureus TREATMENT: 1. Right foot pain/gangrene of the right fifth toe. A Podiatry consultation has been obtained with Dr. Flood. We will follow recommendations of Podiatry. A nuclear medicine bone scan is pending to rule out osteomyelitis. ABX=Cefazolin; S/P Zosyn and vancomycin. 2. Fever. This may be secondary to cellulitis of the right foot as above. An Infectious Disease consultation has been obtained with Dr. David. We will follow recommendation of Infectious Disease. 3. Diabetes type 2. The patient has been placed on a NovoLog sliding scale. 4. Hypertension. Continue losartan as above. 5. End-stage renal disease. A Nephrology consultation has been obtained with Dr. Peter Solorio. The patient's last dialysis was Tuesday, December 17, 2019. Follow recommendations of Dr. Solorio. 6. Hypothyroidism. Continue Synthroid. 7. Pacemaker in situ. A pacemaker check is scheduled with Dr. Dawit Lopez. 8. Elevated troponin. A Cardiology consultation has been obtained with Dr. Lopez. Await transesophageal echocardiogram to rule out Sub acute bacterial endocarditis. Hieu Kim MD Dec 23, 2019 17:36
--- NOTE | 2019-12-23 19:28 | NUR ---
HAND-OFF: Report given to Cheli Staton RN. Patient stable. Plan of care endorsed.
[2019-12-23 20:00] VITALS: BP 146/64
[2019-12-23] MEDS: Sensipar 30mg Tab ORAL SCH (21:22)
[2019-12-24] VITALS: BP 120/55
[2019-12-24] MEDS: Morphine Sulfate 2mg/ml Inj(IV/IM USE ONLY) IVP PRN ×2 (01:21→01:23)
[2019-12-24 04:00] VITALS: BP 143/72
--- NOTE | 2019-12-24 06:07 | NUR ---
NURSE NOTES: PATIENT WISHES TO SIT IN A CHAIR. ASSISTED PATIENT TO CHAIR, BLE ELEVATED. INSTRUCTED PATIENT TO CALL FOR ASSISTANCE, PATIENT VERBALIZED UNDERSTANDING. CALL LIGHT WITHIN REACH.
--- NOTE | 2019-12-24 06:29 | NUR ---
NURSE NOTES: CALLED [facility] TO CONFIRM HD TIME. LEFT MESSAGE WITH [facility].
[2019-12-24] MEDS: NovoLOG Insulin Flexpen SUBQ SCH ×4 (06:30→21:00)
--- NOTE | 2019-12-24 07:31 | NUR ---
HAND-OFF: Report given to VARGAS STATON. PATIENT EATING BREAKFAST, NO SIGNS OF DISTRESS NOTED.
--- NOTE | 2019-12-24 07:32 | NUR ---
NURSE NOTES: Received report from Cheli/RN, Patient is awake and alert, siting up on chair, eating breakfast. On room air, No acute distress/SOB noted. Breathing unlabored and even. Able to make needs known, Genesis pain at this time. IV on Right FA Patent, no bleeding or infiltration noted. Bed in low position and locked, bed alarm engaged. Call light within reach, Encouraged to use call light when needed. Will continue plan of care.
[2019-12-24 08:00] VITALS: BP 110/41
[2019-12-24] MEDS: Losartan 25mg tab ORAL SCH (09:00)
--- NOTE | 2019-12-24 09:32 | Infectious Diseases Prog Note ---
Assessment/Plan Assessment/Plan ASSESSMENT: The patient is a 79-year-old female with, 1. Right foot infection, -xray R foot: No displaced fracture or dislocation identified. -bone scan: No evidence for osteomyelitis. 2. High grade Bacteremia, rule out endocarditis versus pacemaker infection. -12/18 Bcx 2/ MSSA 12/19 Bcx 1/ GPC clusters -2d echo: limited study, no mention of vegetations 3. Leukocytosis; persists 4. Sepsis, sp 5. Fever; Sp PLAN: Ancef # 3 3/ SP vancomycin # and c Zosyn # 4 Monitor CBC. Monitor BMP. Monitor blood culture.( Rpt ) Recommend a DARYN to rule out endocarditis or pacemaker infection. Monitor CBC and BMP CT of C/A/P if WBC does not improve Pod fup Subjective Allergies: Coded Allergies: SULFA (SULFONAMIDE ANTIBIOTICS) (Verified Allergy, Mild, 08/19/09) Subjective afebrile await DARYN Objective Vital Signs Last 24 Hour Vital Signs Date Time Temp Pulse Resp B/P (MAP) Pulse Ox O2 Delivery O2 Flow Rate FiO2 12/24/19 08:00 97.9 82 18 110/41 (64) 99 12/24/19 04:00 84 12/24/19 04:00 97.9 78 19 143/72 (95) 97 12/24/19 00:00 76 12/24/19 00:00 99.0 81 20 120/55 (76) 92 12/23/19 21:00 Room Air 12/23/19 20:00 85 12/23/19 20:00 98.1 78 20 146/64 (91) 96 12/23/19 19:54 76 20 98 Nasal Cannula 2.0 28 12/23/19 19:54 98 Nasal Cannula 2.0 28 12/23/19 16:00 97.2 77 20 123/80 (94) 98 12/23/19 16:00 77 12/23/19 12:00 95 12/23/19 12:00 98.2 77 20 153/72 (99) 97 Height (Feet): 5 Height (Inches): 3.00 Weight (Pounds): 154 Current Medications Medications (Trade) Dose Ordered Sig/Bere Route PRN Reason Start Time Stop Time Status Last Admin Dose Admin Acetaminophen (Tylenol) 650 mg Q4H PRN ORAL T>100.5 12/18/19 21:30 01/17/20 21:29 12/24/19 01:28 Cefazolin Sodium 1 gm/Dextrose 55 ml @ 110 mls/hr Q24H IVP 12/23/19 14:00 12/30/19 13:59 12/23/19 14:03 Cinacalcet (Sensipar) 60 mg QHS ORAL 12/22/19 21:00 01/21/20 20:59 12/23/19 21:22 Clonidine HCl (Catapres Tab) 0.1 mg Q4H PRN ORAL SBP > 160mmhg 12/18/19 21:30 01/17/20 21:29 12/22/19 14:13 Dextrose (Dextrose 50%) 25 ml Q30M PRN IV Hypoglycemia 12/18/19 21:30 01/17/20 21:29 Dextrose (Dextrose 50%) 50 ml Q30M PRN IV Hypoglycemia 12/18/19 21:30 01/17/20 21:29 Docusate Sodium (Colace) 100 mg THREE TIMES A DAY ORAL 12/19/19 13:00 01/18/20 12:59 12/23/19 17:42 Heparin Sodium (Porcine) (Heparin 5000 units/ml) 5,000 units EVERY 12 HOURS SUBQ 12/19/19 09:00 01/18/20 08:59 12/23/19 21:23 Insulin Aspart (NovoLOG) BEFORE MEALS AND HS SUBQ 12/19/19 06:30 01/18/20 06:29 Losartan Potassium (Cozaar) 25 mg DAILY ORAL 12/20/19 09:00 01/18/20 08:59 12/23/19 09:04 Morphine Sulfate (Morphine Sulfate) 2 mg Q4H PRN IVP Moderate Pain (Pain Scale 4-6) 12/20/19 14:15 12/27/19 14:14 12/24/19 01:21 Morphine Sulfate (Morphine Sulfate) 4 mg Q4H PRN IVP Severe Pain (Pain Scale 7-10) 12/20/19 14:15 12/27/19 14:14 12/20/19 22:06 Neomycin/ Polymyxin/ Bacitracin (Neosporin) 1 applic BID TOPIC 12/23/19 12:00 01/22/20 11:59 12/23/19 17:43 Nitroglycerin (Ntg) 1 patch Q24H TDERMAL 12/19/19 09:30 01/18/20 09:29 12/23/19 09:02 Ondansetron HCl (Zofran) 4 mg Q6H PRN IVP Nausea & Vomiting 12/18/19 21:30 01/17/20 21:29 12/23/19 17:47 Pantoprazole (Protonix) 40 mg EVERY 12 HOURS ORAL 12/19/19 21:00 01/18/20 20:59 12/23/19 21:22 Polyethylene Glycol (Miralax) 17 gm HSPRN PRN ORAL Constipation 12/18/19 21:30 01/17/20 21:29 Sevelamer Carbonate (Renvela) 1,600 mg THREE TIMES A DAY ORAL 12/22/19 13:00 01/21/20 12:59 12/23/19 17:43 Zolpidem Tartrate (Ambien) 5 mg HSPRN PRN ORAL Insomnia 12/18/19 21:30 12/25/19 21:29 Roberto David MD Dec 24, 2019 09:32
[2019-12-24] MEDS: Neosporin Oint Ud Pkt TOPIC SCH ×2 (09:34→17:32)
[2019-12-24] MEDS: Nitroglycerin Patch 0.2mg/hr TDERMAL SCH (09:34)
[2019-12-24] MEDS: Docusate 100mg cap ORAL SCH ×3 (09:34→17:32)
[2019-12-24] MEDS: Heparin 5000 units/ml inj SUBQ SCH ×2 (09:37→21:38)
--- NOTE | 2019-12-24 10:34 | NUR ---
CASE MANAGEMENT:REVIEW 12/24/19 SI: SEPSIS. BACTEREMIA. RT 5TH TOE GANGRENE ESRD ON HD. PACEMAKER 97.9 82 18 110/41 99% ON RA IS: IV ANCEF Q24 RENVELA PO TID COZAAR PO QD PROTONIX PO Q12 HEPARIN SQ Q12 IV MORPHINE Q4HRS PRN : TELEMETRY STATUS DCP: FROM HOME PLAN: DARYN TO R/O ENDOCARDITIS
--- NOTE | 2019-12-24 11:11 | Pulmonology Progress Note ---
Assessment/Plan Problems: (1) Sepsis (2) Bacteremia (3) Cellulitis (4) History of pacemaker (5) ESRF (end stage renal failure) (6) Hypothyroidism (7) Diabetes mellitus (8) Dry gangrene Assessment/Plan robles culture, persistent Bacteremia with Staph aureus, last cultures from became positive will need DARYN continue iv abx wound care podiatry following Nephrology to handle HD monitor BP telemetry records reviewed. sliding scale diabetic diet. Subjective ROS Limited/Unobtainable: No Constitutional: Reports: no symptoms HEENT: Repors: no symptoms Allergies: Coded Allergies: SULFA (SULFONAMIDE ANTIBIOTICS) (Verified Allergy, Mild, 08/19/09) Objective Last 24 Hour Vital Signs Date Time Temp Pulse Resp B/P (MAP) Pulse Ox O2 Delivery O2 Flow Rate FiO2 12/24/19 09:34 110/41 12/24/19 09:00 110/41 12/24/19 09:00 Room Air 12/24/19 08:00 77 12/24/19 08:00 97.9 82 18 110/41 (64) 99 12/24/19 04:00 84 12/24/19 04:00 97.9 78 19 143/72 (95) 97 12/24/19 00:00 76 12/24/19 00:00 99.0 81 20 120/55 (76) 92 12/23/19 21:00 Room Air 12/23/19 20:00 85 12/23/19 20:00 98.1 78 20 146/64 (91) 96 12/23/19 19:54 76 20 98 Nasal Cannula 2.0 28 12/23/19 19:54 98 Nasal Cannula 2.0 28 12/23/19 16:00 97.2 77 20 123/80 (94) 98 12/23/19 16:00 77 12/23/19 12:00 95 12/23/19 12:00 98.2 77 20 153/72 (99) 97 Intake and Output 12/23/19 12/24/19 19:00 07:00 Intake Total 292 ml 120 ml Output Total 0 ml Balance 292 ml 120 ml Intake Oral 237 ml 120 ml IV Total 55 ml Output Urine Total 0 ml General Appearance: WD/WN HEENT: normocephalic, atraumatic Respiratory/Chest: chest wall non-tender, lungs clear Breasts: no masses Cardiovascular: normal peripheral pulses Abdomen: normal bowel sounds, soft, non tender Current Medications Medications (Trade) Dose Ordered Sig/Bere Route PRN Reason Start Time Stop Time Status Last Admin Dose Admin Acetaminophen (Tylenol) 650 mg Q4H PRN ORAL T>100.5 12/18/19 21:30 01/17/20 21:29 12/24/19 09:58 Cefazolin Sodium 1 gm/Dextrose 55 ml @ 110 mls/hr Q24H IVP 12/23/19 14:00 12/30/19 13:59 12/23/19 14:03 Cinacalcet (Sensipar) 60 mg QHS ORAL 12/22/19 21:00 01/21/20 20:59 12/23/19 21:22 Clonidine HCl (Catapres Tab) 0.1 mg Q4H PRN ORAL SBP > 160mmhg 12/18/19 21:30 01/17/20 21:29 12/22/19 14:13 Dextrose (Dextrose 50%) 25 ml Q30M PRN IV Hypoglycemia 12/18/19 21:30 01/17/20 21:29 Dextrose (Dextrose 50%) 50 ml Q30M PRN IV Hypoglycemia 12/18/19 21:30 01/17/20 21:29 Docusate Sodium (Colace) 100 mg THREE TIMES A DAY ORAL 12/19/19 13:00 01/18/20 12:59 12/24/19 09:34 Heparin Sodium (Porcine) (Heparin 5000 units/ml) 5,000 units EVERY 12 HOURS SUBQ 12/19/19 09:00 01/18/20 08:59 12/24/19 09:37 Insulin Aspart (NovoLOG) BEFORE MEALS AND HS SUBQ 12/19/19 06:30 01/18/20 06:29 Losartan Potassium (Cozaar) 25 mg DAILY ORAL 12/20/19 09:00 01/18/20 08:59 12/23/19 09:04 Morphine Sulfate (Morphine Sulfate) 2 mg Q4H PRN IVP Moderate Pain (Pain Scale 4-6) 12/20/19 14:15 12/27/19 14:14 12/24/19 01:21 Morphine Sulfate (Morphine Sulfate) 4 mg Q4H PRN IVP Severe Pain (Pain Scale 7-10) 12/20/19 14:15 12/27/19 14:14 12/20/19 22:06 Neomycin/ Polymyxin/ Bacitracin (Neosporin) 1 applic BID TOPIC 12/23/19 12:00 01/22/20 11:59 12/24/19 09:34 Nitroglycerin (Ntg) 1 patch Q24H TDERMAL 12/19/19 09:30 01/18/20 09:29 12/24/19 09:34 Ondansetron HCl (Zofran) 4 mg Q6H PRN IVP Nausea & Vomiting 12/18/19 21:30 01/17/20 21:29 12/23/19 17:47 Pantoprazole (Protonix) 40 mg EVERY 12 HOURS ORAL 12/19/19 21:00 01/18/20 20:59 12/24/19 09:33 Polyethylene Glycol (Miralax) 17 gm HSPRN PRN ORAL Constipation 12/18/19 21:30 01/17/20 21:29 Sevelamer Carbonate (Renvela) 1,600 mg THREE TIMES A DAY ORAL 12/22/19 13:00 01/21/20 12:59 12/24/19 09:33 Zolpidem Tartrate (Ambien) 5 mg HSPRN PRN ORAL Insomnia 12/18/19 21:30 12/25/19 21:29 Ulisses Amaral MD Dec 24, 2019 11:11
[2019-12-24 12:00] VITALS: BP 137/63
--- NOTE | 2019-12-24 12:18 | Internal Med Progress Note ---
Subjective Date of Service: Dec 24, 2019 Physician Name JudyHieu Attending Physician Dave Melgoza MD Current Medications Medications (Trade) Dose Ordered Sig/Bere Route PRN Reason Start Time Stop Time Status Last Admin Dose Admin Acetaminophen (Tylenol) 650 mg Q4H PRN ORAL T>100.5 12/18/19 21:30 01/17/20 21:29 12/24/19 09:58 Cefazolin Sodium 1 gm/Dextrose 55 ml @ 110 mls/hr Q24H IVP 12/23/19 14:00 12/30/19 13:59 12/23/19 14:03 Cinacalcet (Sensipar) 60 mg QHS ORAL 12/22/19 21:00 01/21/20 20:59 12/23/19 21:22 Clonidine HCl (Catapres Tab) 0.1 mg Q4H PRN ORAL SBP > 160mmhg 12/18/19 21:30 01/17/20 21:29 12/22/19 14:13 Dextrose (Dextrose 50%) 25 ml Q30M PRN IV Hypoglycemia 12/18/19 21:30 01/17/20 21:29 Dextrose (Dextrose 50%) 50 ml Q30M PRN IV Hypoglycemia 12/18/19 21:30 01/17/20 21:29 Docusate Sodium (Colace) 100 mg THREE TIMES A DAY ORAL 12/19/19 13:00 01/18/20 12:59 12/24/19 09:34 Heparin Sodium (Porcine) (Heparin 5000 units/ml) 5,000 units EVERY 12 HOURS SUBQ 12/19/19 09:00 01/18/20 08:59 12/24/19 09:37 Insulin Aspart (NovoLOG) BEFORE MEALS AND HS SUBQ 12/19/19 06:30 01/18/20 06:29 Losartan Potassium (Cozaar) 25 mg DAILY ORAL 12/20/19 09:00 01/18/20 08:59 12/23/19 09:04 Morphine Sulfate (Morphine Sulfate) 2 mg Q4H PRN IVP Moderate Pain (Pain Scale 4-6) 12/20/19 14:15 12/27/19 14:14 12/24/19 01:21 Morphine Sulfate (Morphine Sulfate) 4 mg Q4H PRN IVP Severe Pain (Pain Scale 7-10) 12/20/19 14:15 12/27/19 14:14 12/20/19 22:06 Neomycin/ Polymyxin/ Bacitracin (Neosporin) 1 applic BID TOPIC 12/23/19 12:00 01/22/20 11:59 12/24/19 09:34 Nitroglycerin (Ntg) 1 patch Q24H TDERMAL 12/19/19 09:30 01/18/20 09:29 12/24/19 09:34 Ondansetron HCl (Zofran) 4 mg Q6H PRN IVP Nausea & Vomiting 12/18/19 21:30 01/17/20 21:29 12/23/19 17:47 Pantoprazole (Protonix) 40 mg EVERY 12 HOURS ORAL 12/19/19 21:00 01/18/20 20:59 12/24/19 09:33 Polyethylene Glycol (Miralax) 17 gm HSPRN PRN ORAL Constipation 12/18/19 21:30 01/17/20 21:29 Sevelamer Carbonate (Renvela) 1,600 mg THREE TIMES A DAY ORAL 12/22/19 13:00 01/21/20 12:59 12/24/19 09:33 Zolpidem Tartrate (Ambien) 5 mg HSPRN PRN ORAL Insomnia 12/18/19 21:30 12/25/19 21:29 Allergies: Coded Allergies: SULFA (SULFONAMIDE ANTIBIOTICS) (Verified Allergy, Mild, 08/19/09) ROS Limited/Unobtainable: No Constitutional: Reports: no symptoms HEENT: Reports: no symptoms Cardiovascular: Reports: no symptoms Respiratory: Reports: no symptoms Gastrointestinal/Abdominal: Reports: no symptoms Genitourinary: Reports: no symptoms Neurologic/Psychiatric: Reports: no symptoms Subjective 79 YO F admitted with right foot pain. Now gangrene right 5th toe and sepsis. Cover for Int Dell-Dr Melgoza Objective Last Vital Signs Date Time Temp Pulse Resp B/P (MAP) Pulse Ox O2 Delivery O2 Flow Rate FiO2 12/24/19 09:34 110/41 12/24/19 09:00 Room Air 12/24/19 08:00 77 12/24/19 08:00 97.9 18 99 12/23/19 19:54 2.0 28 Intake and Output 12/23/19 12/24/19 19:00 07:00 Intake Total 292 ml 120 ml Output Total 0 ml Balance 292 ml 120 ml Intake Oral 237 ml 120 ml IV Total 55 ml Output Urine Total 0 ml Objective PHYSICAL EXAMINATION: GENERAL: The patient is a well-developed and well-nourished female, in no apparent distress. HEENT: Eyes, pupils are equal and responsive to light and accommodation. Extraocular movements are intact. NECK: Supple without lymphadenopathy. CHEST: Lungs are clear to auscultation bilaterally without wheezes or rales. CARDIOVASCULAR: Regular rhythm and rate. S1, S2 are normal without murmurs, rubs, or gallops. ABDOMEN: Soft, nontender, and nondistended. Positive bowel sounds. No evidence of hepatosplenomegaly. Currently, no rebound or guarding noted. EXTREMITIES: There is swelling of the right foot compared to the left. There is erythema over the right fifth toe. RECTAL/GENITAL: Refused. NEUROLOGIC: Cranial nerves II through XII are grossly intact without focal deficits. Motor strength is 5/5 bilaterally. Deep tendon reflexes are 2+ plantar. Assessment/Plan Assessment/Plan ASSESSMENT: This is a 79-year-old female. 1. Right foot pain. 2. Fever. 3. Gangrene of the right fifth toe 4. Leukocytosis. 5. Diabetes type 2. 6. Hypertension. 7. End-stage renal disease, on hemodialysis. 8. Hypothyroidism. 9. Peripheral vascular disease. 10. Pacemaker in situ. 11. Sepsis=MSSA staph aureus TREATMENT: 1. Right foot pain/gangrene of the right fifth toe. A Podiatry consultation has been obtained with Dr. Flood. We will follow recommendations of Podiatry. A nuclear medicine bone scan is pending to rule out osteomyelitis. ABX=Cefazolin; S/P Zosyn and vancomycin. 2. Fever. This may be secondary to cellulitis of the right foot as above. An Infectious Disease consultation has been obtained with Dr. David. We will follow recommendation of Infectious Disease. 3. Diabetes type 2. The patient has been placed on a NovoLog sliding scale. 4. Hypertension. Continue losartan as above. 5. End-stage renal disease. A Nephrology consultation has been obtained with Dr. Peter Solorio. The patient's last dialysis was Tuesday, December 17, 2019. Follow recommendations of Dr. Fouladian. 6. Hypothyroidism. Continue Synthroid. 7. Pacemaker in situ. A pacemaker check is scheduled with Dr. Dawit Lopez. 8. Elevated troponin. A Cardiology consultation has been obtained with Dr. Lopez. Await transesophageal echocardiogram to rule out Sub acute bacterial endocarditis. Hieu Kim MD Dec 24, 2019 12:17
[2019-12-24] MEDS: ceFAZolin 1gm in D5W 55ml IVP SCH (13:25)
--- NOTE | 2019-12-24 13:31 | Nephrology Progress Note ---
Assessment/Plan Problem List: (1) ESRF (end stage renal failure) (2) History of pacemaker (3) Pulmonary hypertension Assessment ESRD Pneumonia Fever Sepsis Cellulitis Leukocytosis DM , elevated A1c Pace Maker- Elevated Troponin HypoAlbuminemia Sepsis with bacteremia Right fifth toe gangrene Aortic stenosis with aortic regurgitation PVD Anemia of chronic kidney disease DM Plan no labs today start Sensipar Phos binders on Vanco- and Zosyn Dialysis next December 23 2D echo EjFx 50- Pulm HTN adjust cardiac abd BP meds Anemia rees per orders Subjective ROS Limited/Unobtainable: No Constitutional: Reports: malaise Objective Objective Last 24 Hour Vital Signs Date Time Temp Pulse Resp B/P (MAP) Pulse Ox O2 Delivery O2 Flow Rate FiO2 12/24/19 12:00 98.1 67 18 137/63 (87) 95 12/24/19 09:34 110/41 12/24/19 09:00 110/41 12/24/19 09:00 Room Air 12/24/19 08:14 Room Air 12/24/19 08:13 84 18 98 Room Air 21 12/24/19 08:00 77 12/24/19 08:00 97.9 82 18 110/41 (64) 99 12/24/19 04:00 84 12/24/19 04:00 97.9 78 19 143/72 (95) 97 12/24/19 00:00 76 12/24/19 00:00 99.0 81 20 120/55 (76) 92 12/23/19 21:00 Room Air 12/23/19 20:00 85 12/23/19 20:00 98.1 78 20 146/64 (91) 96 12/23/19 19:54 76 20 98 Nasal Cannula 2.0 28 12/23/19 19:54 98 Nasal Cannula 2.0 28 12/23/19 16:00 97.2 77 20 123/80 (94) 98 12/23/19 16:00 77 Intake and Output 12/23/19 12/24/19 19:00 07:00 Intake Total 292 ml 120 ml Output Total 0 ml Balance 292 ml 120 ml Intake Oral 237 ml 120 ml IV Total 55 ml Output Urine Total 0 ml Height (Feet): 5 Height (Inches): 3.00 Weight (Pounds): 154 General Appearance: no apparent distress Respiratory/Chest: decreased breath sounds Abdomen: soft Objective no change Peter Solorio MD Dec 24, 2019 13:31
--- NOTE | 2019-12-24 14:25 | Cardiac Electrophysiology PN ---
Assessment/Plan Assessment/Plan 1. Elevated troponin of 0.26. Levels are flat and low. No chest pain due to renal failure. Echo EF 50%. 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 2. Status post Biotronik pacemaker. Interrogation showed Nkl Fx and battery > 7 years 3. Severe pulmonary hypertension. 4. Bacteremia. DARYN to rule out any vegetation in the valves or in the leads next Sunday now. Already on broad-spectrum intravenous antibiotic per ID. Repeat blood Cx today pending 5. End-stage renal disease, on hemodialysis. 6. R foot 5th digit gangrene. FU Podiatry DW RN and son and HD RN at bedside Subjective Subjective Alert in NAD getting HD today. DARYN to R/O endocarditis pending on Sunday due to availability issue Objective Last 24 Hour Vital Signs Date Time Temp Pulse Resp B/P (MAP) Pulse Ox O2 Delivery O2 Flow Rate FiO2 12/24/19 12:00 60 12/24/19 12:00 98.1 67 18 137/63 (87) 95 12/24/19 09:34 110/41 12/24/19 09:00 110/41 12/24/19 09:00 Room Air 12/24/19 08:14 Room Air 12/24/19 08:13 84 18 98 Room Air 21 12/24/19 08:00 77 12/24/19 08:00 97.9 82 18 110/41 (64) 99 12/24/19 04:00 84 12/24/19 04:00 97.9 78 19 143/72 (95) 97 12/24/19 00:00 76 12/24/19 00:00 99.0 81 20 120/55 (76) 92 12/23/19 21:00 Room Air 12/23/19 20:00 85 12/23/19 20:00 98.1 78 20 146/64 (91) 96 12/23/19 19:54 76 20 98 Nasal Cannula 2.0 28 12/23/19 19:54 98 Nasal Cannula 2.0 28 12/23/19 16:00 97.2 77 20 123/80 (94) 98 12/23/19 16:00 77 Intake and Output 12/23/19 12/24/19 19:00 07:00 Intake Total 292 ml 120 ml Output Total 0 ml Balance 292 ml 120 ml Intake Oral 237 ml 120 ml IV Total 55 ml Output Urine Total 0 ml Objective HEAD AND NECK: No JVD or carotid bruit. LUNGS: Clear. CARDIOVASCULAR: Shows regular S1 and S2 with no gallop or murmur. The pacemaker in the right subclavian. ABDOMEN: Soft. EXTREMITIES: Left arm dialysis access.Right 5th toe gangrene Dawit Lopez MD Dec 24, 2019 14:25
[2019-12-24 15:26] LABS: HEMATOCRIT 29.7 % (37.0-47.0); HEMOGLOBIN 9.8 G/DL (12.0-16.0); MEAN CORPUSCULAR VOLUME 96 FL (80-99); PLATELET COUNT 253 K/UL (150-450); RED BLOOD COUNT 3.09 M/UL (4.20-5.40); RED CELL DISTRIBUTION WIDTH 12.3 % (11.6-14.8); WHITE BLOOD COUNT 14.6 K/UL (4.8-10.8)
[2019-12-24 15:45] LABS: ALANINE AMINOTRANSFERASE 8 U/L (12-78); ALBUMIN 2.4 G/DL (3.4-5.0); ALBUMIN/GLOBULIN RATIO 0.5 (1.0-2.7); ALKALINE PHOSPHATASE 98 U/L (46-116); ANION GAP 17 mmol/L (5-15); ASPARTATE AMINO TRANSFERASE 18 U/L (15-37); BILIRUBIN,TOTAL 0.4 MG/DL (0.2-1.0); BLOOD UREA NITROGEN 49 mg/dL (7-18); CALCIUM 8.7 MG/DL (8.5-10.1); CARBON DIOXIDE 22 MMOL/L (21-32); CHLORIDE 91 MMOL/L (98-107); CREATININE 7.7 MG/DL (0.55-1.30); PHOSPHORUS 6.2 MG/DL (2.5-4.9); POTASSIUM 4.3 MMOL/L (3.5-5.1); SODIUM 130 MMOL/L (136-145)
[2019-12-24 16:00] VITALS: BP 141/74
--- NOTE | 2019-12-24 19:34 | NUR ---
HAND-OFF: Report given to Roro/RN, Patient is in stable condition. Endorsed plan of care.
--- NOTE | 2019-12-24 19:35 | NUR ---
NURSE NOTES: Received report from VARGAS Clarke. Patient resting in bed comfortably. There are no signs of distress or pain noted at the time. IV checked, no signs of infiltration, bleeding, or erythema. Bed in the lowest position, brakes on, side rails up x 2 and call light within reach. Will continue plan of care.
[2019-12-24 20:00] VITALS: BP 156/72
--- NOTE | 2019-12-24 20:07 | General Progress Note ---
Progress Note Progress Note All noted R foot 5th digit gangrene DM HTN ESRD on hd Calcific PAD Pacemaker Sepsis r/o vegetations awaiting DARYN Duplex reviewed Rec Abx per ID Cards clearance in progress Once all cleared will need selective leg angiogram to assess for revascularization Podiatry f/u Albert Camacho MD Dec 24, 2019 20:07
[2019-12-24] MEDS: Sensipar 30mg Tab ORAL SCH (21:35)
[2019-12-25] VITALS: BP 138/60
[2019-12-25 04:00] VITALS: BP 130/74
[2019-12-25] MEDS: NovoLOG Insulin Flexpen SUBQ SCH ×4 (06:13→20:38)
--- NOTE | 2019-12-25 06:59 | NUR ---
HAND-OFF: Report given to VARGAS Clarke.Patient sitting in the chair resting comfortably. No signs of distress or pain noted. Endorsed plan of care.
--- NOTE | 2019-12-25 07:05 | NUR ---
NURSE NOTES: Received report from Mariah/RN, Patient is awake and alert, siting up on chair, resting comfortably. On 2L nasal canula, No acute distress/SOB noted. Breathing unlabored and even. Able to make needs known, Genesis pain at this time. IV on Right FA Patent, no bleeding or infiltration noted. Call light within reach, Encouraged to use call light when needed. Will continue plan of care.
[2019-12-25 07:45] LABS: HEMATOCRIT 33.8 % (37.0-47.0); HEMOGLOBIN 10.9 G/DL (12.0-16.0); MEAN CORPUSCULAR VOLUME 97 FL (80-99); PLATELET COUNT 292 K/UL (150-450); RED BLOOD COUNT 3.47 M/UL (4.20-5.40); RED CELL DISTRIBUTION WIDTH 12.3 % (11.6-14.8); WHITE BLOOD COUNT 19.4 K/UL (4.8-10.8)
[2019-12-25 08:00] VITALS: BP 140/69
[2019-12-25 08:05] LABS: ALANINE AMINOTRANSFERASE < 6 U/L (12-78); ALBUMIN 2.7 G/DL (3.4-5.0); ALBUMIN/GLOBULIN RATIO 0.5 (1.0-2.7); ALKALINE PHOSPHATASE 110 U/L (46-116); ANION GAP 12 mmol/L (5-15); ASPARTATE AMINO TRANSFERASE 21 U/L (15-37); BILIRUBIN,TOTAL 0.5 MG/DL (0.2-1.0); BLOOD UREA NITROGEN 36 mg/dL (7-18); CALCIUM 9.6 MG/DL (8.5-10.1); CARBON DIOXIDE 29 MMOL/L (21-32); CHLORIDE 92 MMOL/L (98-107); CREATININE 6.7 MG/DL (0.55-1.30); PHOSPHORUS 5.6 MG/DL (2.5-4.9); POTASSIUM 4.5 MMOL/L (3.5-5.1); SODIUM 133 MMOL/L (136-145)
[2019-12-25] MEDS: Neosporin Oint Ud Pkt TOPIC SCH ×2 (09:13→17:43)
[2019-12-25] MEDS: Losartan 25mg tab ORAL SCH (09:13)
[2019-12-25] MEDS: Docusate 100mg cap ORAL SCH ×3 (09:13→17:43)
[2019-12-25] MEDS: Nitroglycerin Patch 0.2mg/hr TDERMAL SCH (09:13)
[2019-12-25] MEDS: Heparin 5000 units/ml inj SUBQ SCH ×2 (09:14→20:22)
--- NOTE | 2019-12-25 10:41 | Cardiac Electrophysiology PN ---
Assessment/Plan Assessment/Plan 1. Elevated troponin of 0.26. Levels are flat and low. No chest pain due to renal failure. Echo EF 50%. 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 2. Status post Biotronik pacemaker. Interrogation showed Nkl Fx and battery > 7 years 3. Severe pulmonary hypertension. 4. Bacteremia. DARYN to rule out any vegetation in the valves or in the leads next Sunday now. Already on broad-spectrum intravenous antibiotic per ID. Repeat blood Cx pending 5. End-stage renal disease, on hemodialysis. 6. R foot 5th digit gangrene. Podiatry and vascular surgery Will need peripheral angiogram at [facility] by Dr Janice CHOW RN at bedside Subjective Subjective Alert in NAD had HD yesterday DARYN to R/O endocarditis pending on Sunday due to availability issue Objective Last 24 Hour Vital Signs Date Time Temp Pulse Resp B/P (MAP) Pulse Ox O2 Delivery O2 Flow Rate FiO2 12/25/19 09:13 140/69 12/25/19 09:13 140/69 12/25/19 08:00 96.8 76 18 140/69 (92) 98 12/25/19 07:15 97 Nasal Cannula 2.0 28 12/25/19 07:15 77 18 97 Nasal Cannula 2.0 28 12/25/19 04:00 97.5 110 18 130/74 (92) 97 12/25/19 04:00 72 12/25/19 00:00 81 12/25/19 00:00 98.2 81 17 138/60 (86) 99 12/24/19 21:00 Nasal Cannula 2.0 12/24/19 20:20 86 18 98 Room Air 21 12/24/19 20:20 Room Air 12/24/19 20:00 97.9 85 20 156/72 (100) 93 12/24/19 20:00 86 12/24/19 16:00 71 12/24/19 16:00 97.8 78 18 141/74 (96) 97 12/24/19 12:00 60 12/24/19 12:00 98.1 67 18 137/63 (87) 95 Intake and Output 12/24/19 12/25/19 19:00 07:00 Intake Total 270 ml 2125 ml Output Total 0 ml Balance 270 ml 2125 ml Intake Oral 270 ml 125 ml Hemodialysis 2000 ml Output Urine Total 0 ml Laboratory Tests Test 12/24/19 15:00 12/25/19 07:07 White Blood Count 14.6 K/UL (4.8-10.8) H 19.4 K/UL (4.8-10.8) H Red Blood Count 3.09 M/UL (4.20-5.40) L 3.47 M/UL (4.20-5.40) L Hemoglobin 9.8 G/DL (12.0-16.0) L 10.9 G/DL (12.0-16.0) L Hematocrit 29.7 % (37.0-47.0) L 33.8 % (37.0-47.0) L Mean Corpuscular Volume 96 FL (80-99) 97 FL (80-99) Mean Corpuscular Hemoglobin 31.6 PG (27.0-31.0) H 31.6 PG (27.0-31.0) H Mean Corpuscular Hemoglobin Concent 32.9 G/DL (32.0-36.0) 32.4 G/DL (32.0-36.0) Red Cell Distribution Width 12.3 % (11.6-14.8) 12.3 % (11.6-14.8) Platelet Count 253 K/UL (150-450) 292 K/UL (150-450) Mean Platelet Volume 5.5 FL (6.5-10.1) L 5.8 FL (6.5-10.1) L Neutrophils (%) (Auto) % (45.0-75.0) % (45.0-75.0) Lymphocytes (%) (Auto) % (20.0-45.0) % (20.0-45.0) Monocytes (%) (Auto) % (1.0-10.0) % (1.0-10.0) Eosinophils (%) (Auto) % (0.0-3.0) % (0.0-3.0) Basophils (%) (Auto) % (0.0-2.0) % (0.0-2.0) Differential Total Cells Counted 100 Neutrophils % (Manual) 87 % (45-75) H Pending Lymphocytes % (Manual) 6 % (20-45) L Pending Monocytes % (Manual) 3 % (1-10) Eosinophils % (Manual) 1 % (0-3) Basophils % (Manual) 0 % (0-2) Band Neutrophils 0 % (0-8) Platelet Estimate Adequate Pending Platelet Morphology Normal Pending Hypochromasia 1+ Sodium Level 130 MMOL/L (136-145) L 133 MMOL/L (136-145) L Potassium Level 4.3 MMOL/L (3.5-5.1) 4.5 MMOL/L (3.5-5.1) Chloride Level 91 MMOL/L (98-107) L 92 MMOL/L (98-107) L Carbon Dioxide Level 22 MMOL/L (21-32) 29 MMOL/L (21-32) Anion Gap 17 mmol/L (5-15) H 12 mmol/L (5-15) Blood Urea Nitrogen 49 mg/dL (7-18) H 36 mg/dL (7-18) H Creatinine 7.7 MG/DL (0.55-1.30) H 6.7 MG/DL (0.55-1.30) H Estimat Glomerular Filtration Rate 6.2 mL/min (>60) 7.2 mL/min (>60) Glucose Level 110 MG/DL (74-106) H 111 MG/DL (74-106) H Uric Acid 4.1 MG/DL (2.6-7.2) Calcium Level 8.7 MG/DL (8.5-10.1) 9.6 MG/DL (8.5-10.1) Phosphorus Level 6.2 MG/DL (2.5-4.9) H 5.6 MG/DL (2.5-4.9) H Magnesium Level 2.1 MG/DL (1.8-2.4) 2.3 MG/DL (1.8-2.4) Total Bilirubin 0.4 MG/DL (0.2-1.0) 0.5 MG/DL (0.2-1.0) Aspartate Amino Transf (AST/SGOT) 18 U/L (15-37) 21 U/L (15-37) Alanine Aminotransferase (ALT/SGPT) 8 U/L (12-78) L < 6 U/L (12-78) L Alkaline Phosphatase 98 U/L (46-116) 110 U/L (46-116) C-Reactive Protein, Quantitative 60.7 mg/dL (0.00-0.90) H 39.4 mg/dL (0.00-0.90) H Pro-B-Type Natriuretic Peptide > 10510 pg/mL (0-125) H Total Protein 7.3 G/DL (6.4-8.2) 8.5 G/DL (6.4-8.2) H Albumin 2.4 G/DL (3.4-5.0) L 2.7 G/DL (3.4-5.0) L Globulin 4.9 g/dL 5.8 g/dL Albumin/Globulin Ratio 0.5 (1.0-2.7) L 0.5 (1.0-2.7) L Erythrocyte Sedimentation Rate 99 MM/HR (0-30) H Objective HEAD AND NECK: No JVD or carotid bruit. LUNGS: Clear. CARDIOVASCULAR: Shows regular S1 and S2 with no gallop or murmur. The pacemaker in the right subclavian. ABDOMEN: Soft. EXTREMITIES: Left arm dialysis access.Right 5th toe gangrene Dawit Lopez MD Dec 25, 2019 10:41
--- NOTE | 2019-12-25 11:38 | Internal Med Progress Note ---
Subjective Physician Name Dave Melgoza Attending Physician Dave Melgoza MD Current Medications Medications (Trade) Dose Ordered Sig/Bere Route PRN Reason Start Time Stop Time Status Last Admin Dose Admin Acetaminophen (Tylenol) 650 mg Q4H PRN ORAL T>100.5 12/18/19 21:30 01/17/20 21:29 12/25/19 04:51 Cefazolin Sodium 1 gm/Dextrose 55 ml @ 110 mls/hr Q24H IVP 12/23/19 14:00 12/30/19 13:59 12/24/19 13:25 Cinacalcet (Sensipar) 60 mg QHS ORAL 12/22/19 21:00 01/21/20 20:59 12/24/19 21:35 Clonidine HCl (Catapres Tab) 0.1 mg Q4H PRN ORAL SBP > 160mmhg 12/18/19 21:30 01/17/20 21:29 12/22/19 14:13 Dextrose (Dextrose 50%) 25 ml Q30M PRN IV Hypoglycemia 12/18/19 21:30 01/17/20 21:29 Dextrose (Dextrose 50%) 50 ml Q30M PRN IV Hypoglycemia 12/18/19 21:30 01/17/20 21:29 Docusate Sodium (Colace) 100 mg THREE TIMES A DAY ORAL 12/19/19 13:00 01/18/20 12:59 12/25/19 09:13 Heparin Sodium (Porcine) (Heparin 5000 units/ml) 5,000 units EVERY 12 HOURS SUBQ 12/19/19 09:00 01/18/20 08:59 12/25/19 09:14 Insulin Aspart (NovoLOG) BEFORE MEALS AND HS SUBQ 12/19/19 06:30 01/18/20 06:29 Losartan Potassium (Cozaar) 25 mg DAILY ORAL 12/20/19 09:00 01/18/20 08:59 12/25/19 09:13 Morphine Sulfate (Morphine Sulfate) 2 mg Q4H PRN IVP Moderate Pain (Pain Scale 4-6) 12/20/19 14:15 12/27/19 14:14 12/24/19 01:21 Morphine Sulfate (Morphine Sulfate) 4 mg Q4H PRN IVP Severe Pain (Pain Scale 7-10) 12/20/19 14:15 12/27/19 14:14 12/20/19 22:06 Neomycin/ Polymyxin/ Bacitracin (Neosporin) 1 applic BID TOPIC 12/23/19 12:00 01/22/20 11:59 12/25/19 09:13 Nitroglycerin (Ntg) 1 patch Q24H TDERMAL 12/19/19 09:30 01/18/20 09:29 12/25/19 09:13 Ondansetron HCl (Zofran) 4 mg Q6H PRN IVP Nausea & Vomiting 12/18/19 21:30 01/17/20 21:29 12/23/19 17:47 Pantoprazole (Protonix) 40 mg EVERY 12 HOURS ORAL 12/19/19 21:00 01/18/20 20:59 12/25/19 09:13 Polyethylene Glycol (Miralax) 17 gm HSPRN PRN ORAL Constipation 12/18/19 21:30 01/17/20 21:29 Sevelamer Carbonate (Renvela) 1,600 mg THREE TIMES A DAY ORAL 12/22/19 13:00 01/21/20 12:59 12/25/19 09:13 Zolpidem Tartrate (Ambien) 5 mg HSPRN PRN ORAL Insomnia 12/18/19 21:30 12/25/19 21:29 Allergies: Coded Allergies: SULFA (SULFONAMIDE ANTIBIOTICS) (Verified Allergy, Mild, 08/19/09) Subjective awake, alert, responsive, No CP or SOB, watching TV, WBC: 19.4 Objective Last Vital Signs Date Time Temp Pulse Resp B/P (MAP) Pulse Ox O2 Delivery O2 Flow Rate FiO2 12/25/19 09:13 140/69 12/25/19 08:00 96.8 76 18 98 12/25/19 07:15 Nasal Cannula 2.0 28 Laboratory Tests Test 12/24/19 15:00 12/25/19 07:07 White Blood Count 14.6 K/UL (4.8-10.8) H 19.4 K/UL (4.8-10.8) H Red Blood Count 3.09 M/UL (4.20-5.40) L 3.47 M/UL (4.20-5.40) L Hemoglobin 9.8 G/DL (12.0-16.0) L 10.9 G/DL (12.0-16.0) L Hematocrit 29.7 % (37.0-47.0) L 33.8 % (37.0-47.0) L Mean Corpuscular Volume 96 FL (80-99) 97 FL (80-99) Mean Corpuscular Hemoglobin 31.6 PG (27.0-31.0) H 31.6 PG (27.0-31.0) H Mean Corpuscular Hemoglobin Concent 32.9 G/DL (32.0-36.0) 32.4 G/DL (32.0-36.0) Red Cell Distribution Width 12.3 % (11.6-14.8) 12.3 % (11.6-14.8) Platelet Count 253 K/UL (150-450) 292 K/UL (150-450) Mean Platelet Volume 5.5 FL (6.5-10.1) L 5.8 FL (6.5-10.1) L Neutrophils (%) (Auto) % (45.0-75.0) % (45.0-75.0) Lymphocytes (%) (Auto) % (20.0-45.0) % (20.0-45.0) Monocytes (%) (Auto) % (1.0-10.0) % (1.0-10.0) Eosinophils (%) (Auto) % (0.0-3.0) % (0.0-3.0) Basophils (%) (Auto) % (0.0-2.0) % (0.0-2.0) Differential Total Cells Counted 100 100 Neutrophils % (Manual) 87 % (45-75) H 80 % (45-75) H Lymphocytes % (Manual) 6 % (20-45) L 6 % (20-45) L Monocytes % (Manual) 3 % (1-10) 12 % (1-10) H Eosinophils % (Manual) 1 % (0-3) 1 % (0-3) Basophils % (Manual) 0 % (0-2) 1 % (0-2) Band Neutrophils 0 % (0-8) 0 % (0-8) Platelet Estimate Adequate Adequate Platelet Morphology Normal Normal Hypochromasia 1+ 1+ Sodium Level 130 MMOL/L (136-145) L 133 MMOL/L (136-145) L Potassium Level 4.3 MMOL/L (3.5-5.1) 4.5 MMOL/L (3.5-5.1) Chloride Level 91 MMOL/L (98-107) L 92 MMOL/L (98-107) L Carbon Dioxide Level 22 MMOL/L (21-32) 29 MMOL/L (21-32) Anion Gap 17 mmol/L (5-15) H 12 mmol/L (5-15) Blood Urea Nitrogen 49 mg/dL (7-18) H 36 mg/dL (7-18) H Creatinine 7.7 MG/DL (0.55-1.30) H 6.7 MG/DL (0.55-1.30) H Estimat Glomerular Filtration Rate 6.2 mL/min (>60) 7.2 mL/min (>60) Glucose Level 110 MG/DL (74-106) H 111 MG/DL (74-106) H Uric Acid 4.1 MG/DL (2.6-7.2) Calcium Level 8.7 MG/DL (8.5-10.1) 9.6 MG/DL (8.5-10.1) Phosphorus Level 6.2 MG/DL (2.5-4.9) H 5.6 MG/DL (2.5-4.9) H Magnesium Level 2.1 MG/DL (1.8-2.4) 2.3 MG/DL (1.8-2.4) Total Bilirubin 0.4 MG/DL (0.2-1.0) 0.5 MG/DL (0.2-1.0) Aspartate Amino Transf (AST/SGOT) 18 U/L (15-37) 21 U/L (15-37) Alanine Aminotransferase (ALT/SGPT) 8 U/L (12-78) L < 6 U/L (12-78) L Alkaline Phosphatase 98 U/L (46-116) 110 U/L (46-116) C-Reactive Protein, Quantitative 60.7 mg/dL (0.00-0.90) H 39.4 mg/dL (0.00-0.90) H Pro-B-Type Natriuretic Peptide > 73201 pg/mL (0-125) H Total Protein 7.3 G/DL (6.4-8.2) 8.5 G/DL (6.4-8.2) H Albumin 2.4 G/DL (3.4-5.0) L 2.7 G/DL (3.4-5.0) L Globulin 4.9 g/dL 5.8 g/dL Albumin/Globulin Ratio 0.5 (1.0-2.7) L 0.5 (1.0-2.7) L Erythrocyte Sedimentation Rate 99 MM/HR (0-30) H Intake and Output 12/24/19 12/25/19 19:00 07:00 Intake Total 270 ml 2125 ml Output Total 0 ml Balance 270 ml 2125 ml Intake Oral 270 ml 125 ml Hemodialysis 2000 ml Output Urine Total 0 ml Objective GENERAL: The patient is a well-developed and well-nourished female, in no apparent distress. HEENT: Eyes, pupils are equal and responsive to light and accommodation. Extraocular movements are intact. NECK: Supple without lymphadenopathy. CHEST: Lungs are clear to auscultation bilaterally without wheezes or rales. CARDIOVASCULAR: Regular rhythm and rate. S1, S2 are normal without murmurs or gallops, Right side PPM. ABDOMEN: Soft, nontender, and nondistended. Positive bowel sounds. EXTREMITIES: No Edema, erythema over the right fifth toe, Left UE AVF. RECTAL/GENITAL: Refused. NEUROLOGIC: Cranial nerves II through XII are grossly intact without focal deficits. Motor strength is 5/5 bilaterally. Assessment/Plan Assessment/Plan ASSESSMENT: This is a 79-year-old female. 1. Right foot pain. 2. Fever. 3. Right fifth toe infection. 4. Leukocytosis. 5. Diabetes type 2. 6. Hypertension. 7. End-stage renal disease, on hemodialysis. 8. Hypothyroidism. 9. Peripheral vascular disease. 10. Pacemaker in situ. 11. Sepsis=MSSA staph aureus TREATMENT: 1. Right foot pain/gangrene of the right fifth toe. A Podiatry consultation has been obtained with Dr. Flood. We will follow recommendations of Podiatry. A nuclear medicine bone scan is pending to rule out osteomyelitis. ABX=Zosyn and vancomycin. 2. Fever. This may be secondary to cellulitis of the right foot as above. An Infectious Disease consultation has been obtained with Dr. David. We will follow recommendation of Infectious Disease. 3. Diabetes type 2. The patient has been placed on a NovoLog sliding scale. 4. Hypertension. Continue losartan as above. 5. End-stage renal disease. A Nephrology consultation has been obtained with Dr. Peter Solorio. The patient's last dialysis was Tuesday, December 17, 2019. Follow recommendations of Dr. Solorio. 6. Hypothyroidism. Continue Synthroid. 7. Pacemaker in situ. A pacemaker check is scheduled with Dr. Dawit Lopez. 8. Elevated troponin. A Cardiology consultation has been obtained with Dr. Lopez. Await transesophageal echocardiogram to rule out Sub acute bacterial endocarditis. Dave Melgoza MD Dec 25, 2019 11:38
[2019-12-25 12:00] VITALS: BP 149/55
--- NOTE | 2019-12-25 12:04 | Pulmonology Progress Note ---
Assessment/Plan Problems: (1) Bacteremia (2) Sepsis (3) Cellulitis (4) History of pacemaker (5) ESRF (end stage renal failure) (6) Hypothyroidism (7) Diabetes mellitus (8) Dry gangrene Assessment/Plan robles culture, persistent Bacteremia with Staph aureus, last cultures from became positive will need DARYN continue iv abx wound care podiatry following Nephrology to handle HD monitor BP telemetry records reviewed. sliding scale diabetic diet. Subjective ROS Limited/Unobtainable: No Constitutional: Reports: no symptoms HEENT: Repors: no symptoms Respiratory: Reports: no symptoms Allergies: Coded Allergies: SULFA (SULFONAMIDE ANTIBIOTICS) (Verified Allergy, Mild, 08/19/09) Objective Last 24 Hour Vital Signs Date Time Temp Pulse Resp B/P (MAP) Pulse Ox O2 Delivery O2 Flow Rate FiO2 12/25/19 09:13 140/69 12/25/19 09:13 140/69 12/25/19 08:00 96.8 76 18 140/69 (92) 98 12/25/19 07:15 97 Nasal Cannula 2.0 28 12/25/19 07:15 77 18 97 Nasal Cannula 2.0 28 12/25/19 04:00 97.5 110 18 130/74 (92) 97 12/25/19 04:00 72 12/25/19 00:00 81 12/25/19 00:00 98.2 81 17 138/60 (86) 99 12/24/19 21:00 Nasal Cannula 2.0 12/24/19 20:20 86 18 98 Room Air 21 12/24/19 20:20 Room Air 12/24/19 20:00 97.9 85 20 156/72 (100) 93 12/24/19 20:00 86 12/24/19 16:00 71 12/24/19 16:00 97.8 78 18 141/74 (96) 97 Intake and Output 12/24/19 12/25/19 19:00 07:00 Intake Total 270 ml 2125 ml Output Total 0 ml Balance 270 ml 2125 ml Intake Oral 270 ml 125 ml Hemodialysis 2000 ml Output Urine Total 0 ml General Appearance: WD/WN HEENT: normocephalic Respiratory/Chest: chest wall non-tender, lungs clear Cardiovascular: normal peripheral pulses, normal rate Abdomen: normal bowel sounds, soft, non tender Genitourinary: normal external genitalia Laboratory Tests 12/24/19 15:00: White Blood Count 14.6H, Red Blood Count 3.09L, Hemoglobin 9.8L, Hematocrit 29.7L, Mean Corpuscular Volume 96, Mean Corpuscular Hemoglobin 31.6H, Mean Corpuscular Hemoglobin Concent 32.9, Red Cell Distribution Width 12.3, Platelet Count 253, Mean Platelet Volume 5.5L, Neutrophils (%) (Auto) , Lymphocytes (%) ( Auto) , Monocytes (%) (Auto) , Eosinophils (%) (Auto) , Basophils (%) (Auto) , Differential Total Cells Counted 100, Neutrophils % (Manual) 87H, Lymphocytes % (Manual) 6L, Monocytes % (Manual) 3, Eosinophils % (Manual) 1, Basophils % ( Manual) 0, Band Neutrophils 0, Platelet Estimate Adequate, Platelet Morphology Normal, Hypochromasia 1+, Sodium Level 130L, Potassium Level 4.3, Chloride Level 91L, Carbon Dioxide Level 22, Anion Gap 17H, Blood Urea Nitrogen 49H, Creatinine 7.7H, Estimat Glomerular Filtration Rate 6.2, Glucose Level 110H, Uric Acid 4.1, Calcium Level 8.7, Phosphorus Level 6.2H, Magnesium Level 2.1, Total Bilirubin 0.4, Aspartate Amino Transf (AST/SGOT) 18, Alanine Aminotransferase (ALT/SGPT) 8L, Alkaline Phosphatase 98, C-Reactive Protein, Quantitative 60.7H, Pro-B-Type Natriuretic Peptide > 62925I, Total Protein 7.3, Albumin 2.4L, Globulin 4.9, Albumin/Globulin Ratio 0.5L 12/25/19 07:07: White Blood Count 19.4H, Red Blood Count 3.47L, Hemoglobin 10.9L, Hematocrit 33.8L, Mean Corpuscular Volume 97, Mean Corpuscular Hemoglobin 31.6H, Mean Corpuscular Hemoglobin Concent 32.4, Red Cell Distribution Width 12.3, Platelet Count 292, Mean Platelet Volume 5.8L, Neutrophils (%) (Auto) , Lymphocytes (%) ( Auto) , Monocytes (%) (Auto) , Eosinophils (%) (Auto) , Basophils (%) (Auto) , Differential Total Cells Counted 100, Neutrophils % (Manual) 80H, Lymphocytes % (Manual) 6L, Monocytes % (Manual) 12H, Eosinophils % (Manual) 1, Basophils % ( Manual) 1, Band Neutrophils 0, Platelet Estimate Adequate, Platelet Morphology Normal, Hypochromasia 1+, Sodium Level 133L, Potassium Level 4.5, Chloride Level 92L, Carbon Dioxide Level 29, Anion Gap 12, Blood Urea Nitrogen 36H, Creatinine 6.7H, Estimat Glomerular Filtration Rate 7.2, Glucose Level 111H, Calcium Level 9.6, Phosphorus Level 5.6H, Magnesium Level 2.3, Total Bilirubin 0.5, Aspartate Amino Transf (AST/SGOT) 21, Alanine Aminotransferase (ALT/SGPT) < 6L, Alkaline Phosphatase 110, C-Reactive Protein, Quantitative 39.4H, Total Protein 8.5H, Albumin 2.7L, Globulin 5.8, Albumin/Globulin Ratio 0.5L, Erythrocyte Sedimentation Rate 99H Current Medications Medications (Trade) Dose Ordered Sig/Bere Route PRN Reason Start Time Stop Time Status Last Admin Dose Admin Acetaminophen (Tylenol) 650 mg Q4H PRN ORAL T>100.5 12/18/19 21:30 01/17/20 21:29 12/25/19 04:51 Cefazolin Sodium 1 gm/Dextrose 55 ml @ 110 mls/hr Q24H IVP 12/23/19 14:00 12/30/19 13:59 12/24/19 13:25 Cinacalcet (Sensipar) 60 mg QHS ORAL 12/22/19 21:00 01/21/20 20:59 12/24/19 21:35 Clonidine HCl (Catapres Tab) 0.1 mg Q4H PRN ORAL SBP > 160mmhg 12/18/19 21:30 01/17/20 21:29 12/22/19 14:13 Dextrose (Dextrose 50%) 25 ml Q30M PRN IV Hypoglycemia 12/18/19 21:30 01/17/20 21:29 Dextrose (Dextrose 50%) 50 ml Q30M PRN IV Hypoglycemia 12/18/19 21:30 01/17/20 21:29 Docusate Sodium (Colace) 100 mg THREE TIMES A DAY ORAL 12/19/19 13:00 01/18/20 12:59 12/25/19 09:13 Heparin Sodium (Porcine) (Heparin 5000 units/ml) 5,000 units EVERY 12 HOURS SUBQ 12/19/19 09:00 01/18/20 08:59 12/25/19 09:14 Insulin Aspart (NovoLOG) BEFORE MEALS AND HS SUBQ 12/19/19 06:30 01/18/20 06:29 Losartan Potassium (Cozaar) 25 mg DAILY ORAL 12/20/19 09:00 01/18/20 08:59 12/25/19 09:13 Morphine Sulfate (Morphine Sulfate) 2 mg Q4H PRN IVP Moderate Pain (Pain Scale 4-6) 12/20/19 14:15 12/27/19 14:14 12/24/19 01:21 Morphine Sulfate (Morphine Sulfate) 4 mg Q4H PRN IVP Severe Pain (Pain Scale 7-10) 12/20/19 14:15 12/27/19 14:14 12/20/19 22:06 Neomycin/ Polymyxin/ Bacitracin (Neosporin) 1 applic BID TOPIC 12/23/19 12:00 01/22/20 11:59 12/25/19 09:13 Nitroglycerin (Ntg) 1 patch Q24H TDERMAL 12/19/19 09:30 01/18/20 09:29 12/25/19 09:13 Ondansetron HCl (Zofran) 4 mg Q6H PRN IVP Nausea & Vomiting 12/18/19 21:30 01/17/20 21:29 12/23/19 17:47 Pantoprazole (Protonix) 40 mg EVERY 12 HOURS ORAL 12/19/19 21:00 01/18/20 20:59 12/25/19 09:13 Polyethylene Glycol (Miralax) 17 gm HSPRN PRN ORAL Constipation 12/18/19 21:30 01/17/20 21:29 Sevelamer Carbonate (Renvela) 1,600 mg THREE TIMES A DAY ORAL 12/22/19 13:00 01/21/20 12:59 12/25/19 09:13 Zolpidem Tartrate (Ambien) 5 mg HSPRN PRN ORAL Insomnia 12/18/19 21:30 12/25/19 21:29 Ulisses Amaral MD Dec 25, 2019 12:04
--- NOTE | 2019-12-25 13:34 | Nephrology Progress Note ---
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 HypoAlbuminemia Sepsis with bacteremia Right fifth toe gangrene Aortic stenosis with aortic regurgitation PVD Anemia of chronic kidney disease DM Plan On Sensipar Phos binders on Ancef Dialysis next December 25 2D echo EjFx 50- Pulm HTN adjust cardiac abd BP meds Anemia rees per orders Subjective ROS Limited/Unobtainable: No Constitutional: Reports: malaise Objective Objective Last 24 Hour Vital Signs Date Time Temp Pulse Resp B/P (MAP) Pulse Ox O2 Delivery O2 Flow Rate FiO2 12/25/19 12:00 98.2 79 18 149/55 (86) 98 12/25/19 09:13 140/69 12/25/19 09:13 140/69 12/25/19 09:00 Nasal Cannula 2.0 12/25/19 08:00 96.8 76 18 140/69 (92) 98 12/25/19 08:00 68 12/25/19 07:15 97 Nasal Cannula 2.0 28 12/25/19 07:15 77 18 97 Nasal Cannula 2.0 28 12/25/19 04:00 97.5 110 18 130/74 (92) 97 12/25/19 04:00 72 12/25/19 00:00 81 12/25/19 00:00 98.2 81 17 138/60 (86) 99 12/24/19 21:00 Nasal Cannula 2.0 12/24/19 20:20 86 18 98 Room Air 21 12/24/19 20:20 Room Air 12/24/19 20:00 97.9 85 20 156/72 (100) 93 12/24/19 20:00 86 12/24/19 16:00 71 12/24/19 16:00 97.8 78 18 141/74 (96) 97 Intake and Output 12/24/19 12/25/19 19:00 07:00 Intake Total 270 ml 2125 ml Output Total 0 ml Balance 270 ml 2125 ml Intake Oral 270 ml 125 ml Hemodialysis 2000 ml Output Urine Total 0 ml Laboratory Tests 12/24/19 15:00: White Blood Count 14.6H, Red Blood Count 3.09L, Hemoglobin 9.8L, Hematocrit 29.7L, Mean Corpuscular Volume 96, Mean Corpuscular Hemoglobin 31.6H, Mean Corpuscular Hemoglobin Concent 32.9, Red Cell Distribution Width 12.3, Platelet Count 253, Mean Platelet Volume 5.5L, Neutrophils (%) (Auto) , Lymphocytes (%) ( Auto) , Monocytes (%) (Auto) , Eosinophils (%) (Auto) , Basophils (%) (Auto) , Differential Total Cells Counted 100, Neutrophils % (Manual) 87H, Lymphocytes % (Manual) 6L, Monocytes % (Manual) 3, Eosinophils % (Manual) 1, Basophils % ( Manual) 0, Band Neutrophils 0, Platelet Estimate Adequate, Platelet Morphology Normal, Hypochromasia 1+, Sodium Level 130L, Potassium Level 4.3, Chloride Level 91L, Carbon Dioxide Level 22, Anion Gap 17H, Blood Urea Nitrogen 49H, Creatinine 7.7H, Estimat Glomerular Filtration Rate 6.2, Glucose Level 110H, Uric Acid 4.1, Calcium Level 8.7, Phosphorus Level 6.2H, Magnesium Level 2.1, Total Bilirubin 0.4, Aspartate Amino Transf (AST/SGOT) 18, Alanine Aminotransferase (ALT/SGPT) 8L, Alkaline Phosphatase 98, C-Reactive Protein, Quantitative 60.7H, Pro-B-Type Natriuretic Peptide > 38433C, Total Protein 7.3, Albumin 2.4L, Globulin 4.9, Albumin/Globulin Ratio 0.5L 12/25/19 07:07: White Blood Count 19.4H, Red Blood Count 3.47L, Hemoglobin 10.9L, Hematocrit 33.8L, Mean Corpuscular Volume 97, Mean Corpuscular Hemoglobin 31.6H, Mean Corpuscular Hemoglobin Concent 32.4, Red Cell Distribution Width 12.3, Platelet Count 292, Mean Platelet Volume 5.8L, Neutrophils (%) (Auto) , Lymphocytes (%) ( Auto) , Monocytes (%) (Auto) , Eosinophils (%) (Auto) , Basophils (%) (Auto) , Differential Total Cells Counted 100, Neutrophils % (Manual) 80H, Lymphocytes % (Manual) 6L, Monocytes % (Manual) 12H, Eosinophils % (Manual) 1, Basophils % ( Manual) 1, Band Neutrophils 0, Platelet Estimate Adequate, Platelet Morphology Normal, Hypochromasia 1+, Sodium Level 133L, Potassium Level 4.5, Chloride Level 92L, Carbon Dioxide Level 29, Anion Gap 12, Blood Urea Nitrogen 36H, Creatinine 6.7H, Estimat Glomerular Filtration Rate 7.2, Glucose Level 111H, Calcium Level 9.6, Phosphorus Level 5.6H, Magnesium Level 2.3, Total Bilirubin 0.5, Aspartate Amino Transf (AST/SGOT) 21, Alanine Aminotransferase (ALT/SGPT) < 6L, Alkaline Phosphatase 110, C-Reactive Protein, Quantitative 39.4H, Total Protein 8.5H, Albumin 2.7L, Globulin 5.8, Albumin/Globulin Ratio 0.5L, Erythrocyte Sedimentation Rate 99H Height (Feet): 5 Height (Inches): 3.00 Weight (Pounds): 147 General Appearance: no apparent distress Cardiovascular: normal rate Respiratory/Chest: decreased breath sounds Abdomen: soft Extremities: other - no change Objective no change Peter Solorio MD Dec 25, 2019 13:34
[2019-12-25] MEDS: ceFAZolin 1gm in D5W 55ml IVP SCH (13:39)
--- NOTE | 2019-12-25 14:00 | NUR ---
NURSE NOTES: Patient is resting, no sign of distress. Will continue to monitor.
[2019-12-25] MEDS: Morphine Sulfate 4mg/ml Inj (IV USE ONLY) IVP PRN (15:25)
[2019-12-25 16:00] VITALS: BP 136/62
--- NOTE | 2019-12-25 16:25 | Infectious Diseases Prog Note ---
Assessment/Plan Assessment/Plan ASSESSMENT: The patient is a 79-year-old female with, Right foot infection, -xray R foot: No displaced fracture or dislocation identified. -bone scan: No evidence for osteomyelitis. High grade Bacteremia, rule out endocarditis versus pacemaker infection. -12/18 Bcx 2/ MSSA 12/19, Bcx MSSA -2d echo: limited study, no mention of vegetations Leukocytosis; persists Sepsis, sp Fever; Sp PLAN: Ancef # 4 3/ SP vancomycin # and Zosyn # 4 Monitor CBC. Monitor BMP. Monitor blood culture ( Rpt ) Recommend a DARYN to rule out endocarditis or pacemaker infection. Monitor CBC and BMP CT of C/A/P to Abscess Pod fup Subjective Allergies: Coded Allergies: SULFA (SULFONAMIDE ANTIBIOTICS) (Verified Allergy, Mild, 08/19/09) Subjective afebrile Objective Vital Signs Last 24 Hour Vital Signs Date Time Temp Pulse Resp B/P (MAP) Pulse Ox O2 Delivery O2 Flow Rate FiO2 12/25/19 12:00 74 12/25/19 12:00 98.2 79 18 149/55 (86) 98 12/25/19 09:13 140/69 12/25/19 09:13 140/69 12/25/19 09:00 Nasal Cannula 2.0 12/25/19 08:00 96.8 76 18 140/69 (92) 98 12/25/19 08:00 68 12/25/19 07:15 97 Nasal Cannula 2.0 28 12/25/19 07:15 77 18 97 Nasal Cannula 2.0 28 12/25/19 04:00 97.5 110 18 130/74 (92) 97 12/25/19 04:00 72 12/25/19 00:00 81 12/25/19 00:00 98.2 81 17 138/60 (86) 99 12/24/19 21:00 Nasal Cannula 2.0 12/24/19 20:20 86 18 98 Room Air 21 12/24/19 20:20 Room Air 12/24/19 20:00 97.9 85 20 156/72 (100) 93 12/24/19 20:00 86 Height (Feet): 5 Height (Inches): 3.00 Weight (Pounds): 147 HEENT: anicteric Respiratory/Chest: normal breath sounds Cardiovascular: regular rhythm Abdomen: soft, non tender Laboratory Tests Test 12/25/19 07:07 White Blood Count 19.4 K/UL (4.8-10.8) H Red Blood Count 3.47 M/UL (4.20-5.40) L Hemoglobin 10.9 G/DL (12.0-16.0) L Hematocrit 33.8 % (37.0-47.0) L Mean Corpuscular Volume 97 FL (80-99) Mean Corpuscular Hemoglobin 31.6 PG (27.0-31.0) H Mean Corpuscular Hemoglobin Concent 32.4 G/DL (32.0-36.0) Red Cell Distribution Width 12.3 % (11.6-14.8) Platelet Count 292 K/UL (150-450) Mean Platelet Volume 5.8 FL (6.5-10.1) L Neutrophils (%) (Auto) % (45.0-75.0) Lymphocytes (%) (Auto) % (20.0-45.0) Monocytes (%) (Auto) % (1.0-10.0) Eosinophils (%) (Auto) % (0.0-3.0) Basophils (%) (Auto) % (0.0-2.0) Differential Total Cells Counted 100 Neutrophils % (Manual) 80 % (45-75) H Lymphocytes % (Manual) 6 % (20-45) L Monocytes % (Manual) 12 % (1-10) H Eosinophils % (Manual) 1 % (0-3) Basophils % (Manual) 1 % (0-2) Band Neutrophils 0 % (0-8) Platelet Estimate Adequate Platelet Morphology Normal Hypochromasia 1+ Erythrocyte Sedimentation Rate 99 MM/HR (0-30) H Sodium Level 133 MMOL/L (136-145) L Potassium Level 4.5 MMOL/L (3.5-5.1) Chloride Level 92 MMOL/L (98-107) L Carbon Dioxide Level 29 MMOL/L (21-32) Anion Gap 12 mmol/L (5-15) Blood Urea Nitrogen 36 mg/dL (7-18) H Creatinine 6.7 MG/DL (0.55-1.30) H Estimat Glomerular Filtration Rate 7.2 mL/min (>60) Glucose Level 111 MG/DL (74-106) H Calcium Level 9.6 MG/DL (8.5-10.1) Phosphorus Level 5.6 MG/DL (2.5-4.9) H Magnesium Level 2.3 MG/DL (1.8-2.4) Total Bilirubin 0.5 MG/DL (0.2-1.0) Aspartate Amino Transf (AST/SGOT) 21 U/L (15-37) Alanine Aminotransferase (ALT/SGPT) < 6 U/L (12-78) L Alkaline Phosphatase 110 U/L (46-116) C-Reactive Protein, Quantitative 39.4 mg/dL (0.00-0.90) H Total Protein 8.5 G/DL (6.4-8.2) H Albumin 2.7 G/DL (3.4-5.0) L Globulin 5.8 g/dL Albumin/Globulin Ratio 0.5 (1.0-2.7) L Current Medications Medications (Trade) Dose Ordered Sig/Bere Route PRN Reason Start Time Stop Time Status Last Admin Dose Admin Acetaminophen (Tylenol) 650 mg Q4H PRN ORAL T>100.5 12/18/19 21:30 01/17/20 21:29 12/25/19 04:51 Cefazolin Sodium 1 gm/Dextrose 55 ml @ 110 mls/hr Q24H IVP 12/23/19 14:00 12/30/19 13:59 12/25/19 13:39 Cinacalcet (Sensipar) 60 mg QHS ORAL 12/22/19 21:00 01/21/20 20:59 12/24/19 21:35 Clonidine HCl (Catapres Tab) 0.1 mg Q4H PRN ORAL SBP > 160mmhg 12/18/19 21:30 01/17/20 21:29 12/22/19 14:13 Dextrose (Dextrose 50%) 25 ml Q30M PRN IV Hypoglycemia 12/18/19 21:30 01/17/20 21:29 Dextrose (Dextrose 50%) 50 ml Q30M PRN IV Hypoglycemia 12/18/19 21:30 01/17/20 21:29 Docusate Sodium (Colace) 100 mg THREE TIMES A DAY ORAL 12/19/19 13:00 01/18/20 12:59 12/25/19 13:39 Heparin Sodium (Porcine) (Heparin 5000 units/ml) 5,000 units EVERY 12 HOURS SUBQ 12/19/19 09:00 01/18/20 08:59 12/25/19 09:14 Insulin Aspart (NovoLOG) BEFORE MEALS AND HS SUBQ 12/19/19 06:30 01/18/20 06:29 Losartan Potassium (Cozaar) 25 mg DAILY ORAL 12/20/19 09:00 01/18/20 08:59 12/25/19 09:13 Morphine Sulfate (Morphine Sulfate) 2 mg Q4H PRN IVP Moderate Pain (Pain Scale 4-6) 12/20/19 14:15 12/27/19 14:14 12/24/19 01:21 Morphine Sulfate (Morphine Sulfate) 4 mg Q4H PRN IVP Severe Pain (Pain Scale 7-10) 12/20/19 14:15 12/27/19 14:14 12/25/19 15:25 Neomycin/ Polymyxin/ Bacitracin (Neosporin) 1 applic BID TOPIC 12/23/19 12:00 01/22/20 11:59 12/25/19 09:13 Nitroglycerin (Ntg) 1 patch Q24H TDERMAL 12/19/19 09:30 01/18/20 09:29 12/25/19 09:13 Ondansetron HCl (Zofran) 4 mg Q6H PRN IVP Nausea & Vomiting 12/18/19 21:30 01/17/20 21:29 12/23/19 17:47 Pantoprazole (Protonix) 40 mg EVERY 12 HOURS ORAL 12/19/19 21:00 01/18/20 20:59 12/25/19 09:13 Polyethylene Glycol (Miralax) 17 gm HSPRN PRN ORAL Constipation 12/18/19 21:30 01/17/20 21:29 Sevelamer Carbonate (Renvela) 1,600 mg THREE TIMES A DAY ORAL 12/22/19 13:00 01/21/20 12:59 12/25/19 13:39 Zolpidem Tartrate (Ambien) 5 mg HSPRN PRN ORAL Insomnia 12/18/19 21:30 12/25/19 21:29 Roberto David MD Dec 25, 2019 16:25
--- NOTE | 2019-12-25 17:29 | NUR ---
NURSE NOTES: Called [facility] and spoke with Hyun to schedule dialysis for tomorrow. Per wood grinder operator, nurse will call back.
--- NOTE | 2019-12-25 19:25 | NUR ---
HAND-OFF: Report given to Mariah/RN, Patient lying semi-rodriges's resting comfortably. Endorsed plan of care.
--- NOTE | 2019-12-25 19:44 | NUR ---
NURSE NOTES: Received report from VARGAS Clarke. Patient is resting in bed comfortably. There are no signs of distress or pain noted at this time. IV checked, patent and flushed. There are no signs of erythema, infiltration, or bleeding on the IV site. Bed in the lowest position, bed alarm on, side rails upx 3, brakes on, and call light within reach. Will continue plan of care.
[2019-12-25 20:00] VITALS: BP 151/73
[2019-12-25] MEDS: Sensipar 30mg Tab ORAL SCH (20:21)
[2019-12-26] VITALS: BP 144/80
--- NOTE | 2019-12-26 02:41 | NUR ---
Patient in bed asleep. There are no signs of distress or pain noted at this time.
[2019-12-26 04:00] VITALS: BP 155/73
[2019-12-26] MEDS: NovoLOG Insulin Flexpen SUBQ SCH ×4 (05:41→21:00)
--- NOTE | 2019-12-26 06:55 | Cardiac Electrophysiology PN ---
Assessment/Plan Assessment/Plan 1. Elevated troponin of 0.26. Levels are flat and low. No chest pain due to renal failure. EF 50%. 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 2. Status post Biotronik pacemaker. Interrogation showed Nl Fx and battery > 7 years 3. Severe pulmonary hypertension. 4. Bacteremia. DARYN to rule out vegetation in the valves or on the leads on Sunday pending Already on broad-spectrum intravenous antibiotic per ID. 5. End-stage renal disease, on hemodialysis. 6. R foot 5th digit gangrene. Podiatry and vascular surgery Will transfer to [facility] after DARYN for peripheral angiogram by Dr Janice CHOW RN at bedside Subjective Subjective Alert in NAD. Scheduled for HD today. Is nauseous DARYN to R/O endocarditis pending on Sunday Objective Last 24 Hour Vital Signs Date Time Temp Pulse Resp B/P (MAP) Pulse Ox O2 Delivery O2 Flow Rate FiO2 12/26/19 04:00 71 12/26/19 04:00 97.0 79 19 155/73 (100) 97 12/26/19 00:00 88 12/26/19 00:00 97.5 77 18 144/80 (101) 100 12/25/19 21:00 Nasal Cannula 2.0 12/25/19 20:00 70 12/25/19 20:00 98.2 77 20 151/73 (99) 96 12/25/19 16:00 96.8 76 19 136/62 (86) 100 12/25/19 16:00 94 12/25/19 12:00 74 12/25/19 12:00 98.2 79 18 149/55 (86) 98 12/25/19 09:13 140/69 12/25/19 09:13 140/69 12/25/19 09:00 Nasal Cannula 2.0 12/25/19 08:00 96.8 76 18 140/69 (92) 98 12/25/19 08:00 68 12/25/19 07:15 97 Nasal Cannula 2.0 28 12/25/19 07:15 77 18 97 Nasal Cannula 2.0 28 Laboratory Tests Test 12/25/19 07:07 White Blood Count 19.4 K/UL (4.8-10.8) H Red Blood Count 3.47 M/UL (4.20-5.40) L Hemoglobin 10.9 G/DL (12.0-16.0) L Hematocrit 33.8 % (37.0-47.0) L Mean Corpuscular Volume 97 FL (80-99) Mean Corpuscular Hemoglobin 31.6 PG (27.0-31.0) H Mean Corpuscular Hemoglobin Concent 32.4 G/DL (32.0-36.0) Red Cell Distribution Width 12.3 % (11.6-14.8) Platelet Count 292 K/UL (150-450) Mean Platelet Volume 5.8 FL (6.5-10.1) L Neutrophils (%) (Auto) % (45.0-75.0) Lymphocytes (%) (Auto) % (20.0-45.0) Monocytes (%) (Auto) % (1.0-10.0) Eosinophils (%) (Auto) % (0.0-3.0) Basophils (%) (Auto) % (0.0-2.0) Differential Total Cells Counted 100 Neutrophils % (Manual) 80 % (45-75) H Lymphocytes % (Manual) 6 % (20-45) L Monocytes % (Manual) 12 % (1-10) H Eosinophils % (Manual) 1 % (0-3) Basophils % (Manual) 1 % (0-2) Band Neutrophils 0 % (0-8) Platelet Estimate Adequate Platelet Morphology Normal Hypochromasia 1+ Erythrocyte Sedimentation Rate 99 MM/HR (0-30) H Sodium Level 133 MMOL/L (136-145) L Potassium Level 4.5 MMOL/L (3.5-5.1) Chloride Level 92 MMOL/L (98-107) L Carbon Dioxide Level 29 MMOL/L (21-32) Anion Gap 12 mmol/L (5-15) Blood Urea Nitrogen 36 mg/dL (7-18) H Creatinine 6.7 MG/DL (0.55-1.30) H Estimat Glomerular Filtration Rate 7.2 mL/min (>60) Glucose Level 111 MG/DL (74-106) H Calcium Level 9.6 MG/DL (8.5-10.1) Phosphorus Level 5.6 MG/DL (2.5-4.9) H Magnesium Level 2.3 MG/DL (1.8-2.4) Total Bilirubin 0.5 MG/DL (0.2-1.0) Aspartate Amino Transf (AST/SGOT) 21 U/L (15-37) Alanine Aminotransferase (ALT/SGPT) < 6 U/L (12-78) L Alkaline Phosphatase 110 U/L (46-116) C-Reactive Protein, Quantitative 39.4 mg/dL (0.00-0.90) H Total Protein 8.5 G/DL (6.4-8.2) H Albumin 2.7 G/DL (3.4-5.0) L Globulin 5.8 g/dL Albumin/Globulin Ratio 0.5 (1.0-2.7) L Objective HEAD AND NECK: No JVD or carotid bruit. LUNGS: Clear. CARDIOVASCULAR: Shows regular S1 and S2 with no gallop or murmur. The pacemaker in the right subclavian. ABDOMEN: Soft. EXTREMITIES: Left arm dialysis access.Right 5th toe gangrene Dawit Lopez MD Dec 26, 2019 06:55
--- NOTE | 2019-12-26 07:39 | NUR ---
HAND-OFF: Report given to VARGAS Doe. Patient is sitting in the chair eating her breakfast. There are no signs of distress or pain noted at this time. Plan of care has been endorsed.
--- NOTE | 2019-12-26 07:49 | NUR ---
NURSE NOTES: Received report from VARGAS Lemus. Pt A/Ox4, observed pt eating breakfast sitting in chair. Pt breathing even and unlabored in RA, 2L NC available PRN. Denies any pain, no s/sx of acute distress. Pt complains of nausea, PRN med administered before shift change, per RN. Bed on lowest position, call light within reach. Will continue plan of care.
[2019-12-26 07:59] VITALS: BP 153/67
[2019-12-26] MEDS: Losartan 25mg tab ORAL SCH (09:00)
[2019-12-26] MEDS: Docusate 100mg cap ORAL SCH ×3 (09:01→18:00)
[2019-12-26] MEDS: Neosporin Oint Ud Pkt TOPIC SCH ×2 (09:01→18:00)
[2019-12-26] MEDS: Nitroglycerin Patch 0.2mg/hr TDERMAL SCH (09:02)
[2019-12-26] MEDS: Heparin 5000 units/ml inj SUBQ SCH ×2 (09:03→21:12)
--- NOTE | 2019-12-26 09:17 | Infectious Diseases Prog Note ---
Assessment/Plan Assessment/Plan ASSESSMENT: The patient is a 79-year-old female with, Right foot infection, -xray R foot: No displaced fracture or dislocation identified. -bone scan: No evidence for osteomyelitis. High grade Bacteremia, rule out endocarditis versus pacemaker infection. -12/18 Bcx 2/ MSSA 12/19, Bcx MSSA -2d echo: limited study, no mention of vegetations Leukocytosis; persists Sepsis, sp Fever; Sp PLAN: Ancef # 5 3/ SP vancomycin # and Zosyn # 4 Monitor CBC. Monitor BMP. Monitor blood culture ( Rpt ) Recommend a DARYN to rule out endocarditis or pacemaker infection. Monitor CBC and BMP CT of C/A/P to Abscess Pod fup transfer to [facility] after DARYN for peripheral angiogram by Dr Camacho Subjective Allergies: Coded Allergies: SULFA (SULFONAMIDE ANTIBIOTICS) (Verified Allergy, Mild, 08/19/09) Subjective await CT no new complain afebrile Objective Vital Signs Last 24 Hour Vital Signs Date Time Temp Pulse Resp B/P (MAP) Pulse Ox O2 Delivery O2 Flow Rate FiO2 12/26/19 09:02 153/67 12/26/19 09:00 153/67 12/26/19 07:59 97.8 75 20 153/67 (95) 96 12/26/19 07:44 75 12/26/19 07:30 96 Nasal Cannula 2.0 28 12/26/19 04:00 71 12/26/19 04:00 97.0 79 19 155/73 (100) 97 12/26/19 00:00 88 12/26/19 00:00 97.5 77 18 144/80 (101) 100 12/25/19 21:00 Nasal Cannula 2.0 12/25/19 20:00 70 12/25/19 20:00 98.2 77 20 151/73 (99) 96 12/25/19 16:00 96.8 76 19 136/62 (86) 100 12/25/19 16:00 94 12/25/19 12:00 74 12/25/19 12:00 98.2 79 18 149/55 (86) 98 Height (Feet): 5 Height (Inches): 3.00 Weight (Pounds): 149 Current Medications Medications (Trade) Dose Ordered Sig/Bere Route PRN Reason Start Time Stop Time Status Last Admin Dose Admin Acetaminophen (Tylenol) 650 mg Q4H PRN ORAL T>100.5 12/18/19 21:30 01/17/20 21:29 12/25/19 23:42 Cefazolin Sodium 1 gm/Dextrose 55 ml @ 110 mls/hr Q24H IVP 12/23/19 14:00 12/30/19 13:59 12/25/19 13:39 Cinacalcet (Sensipar) 60 mg QHS ORAL 12/22/19 21:00 01/21/20 20:59 12/25/19 20:21 Clonidine HCl (Catapres Tab) 0.1 mg Q4H PRN ORAL SBP > 160mmhg 12/18/19 21:30 01/17/20 21:29 12/22/19 14:13 Dextrose (Dextrose 50%) 25 ml Q30M PRN IV Hypoglycemia 12/18/19 21:30 01/17/20 21:29 Dextrose (Dextrose 50%) 50 ml Q30M PRN IV Hypoglycemia 12/18/19 21:30 01/17/20 21:29 Docusate Sodium (Colace) 100 mg THREE TIMES A DAY ORAL 12/19/19 13:00 01/18/20 12:59 12/26/19 09:01 Heparin Sodium (Porcine) (Heparin 5000 units/ml) 5,000 units EVERY 12 HOURS SUBQ 12/19/19 09:00 01/18/20 08:59 12/26/19 09:03 Insulin Aspart (NovoLOG) BEFORE MEALS AND HS SUBQ 12/19/19 06:30 01/18/20 06:29 Losartan Potassium (Cozaar) 25 mg DAILY ORAL 12/20/19 09:00 01/18/20 08:59 12/25/19 09:13 Morphine Sulfate (Morphine Sulfate) 2 mg Q4H PRN IVP Moderate Pain (Pain Scale 4-6) 12/20/19 14:15 12/27/19 14:14 12/24/19 01:21 Morphine Sulfate (Morphine Sulfate) 4 mg Q4H PRN IVP Severe Pain (Pain Scale 7-10) 12/20/19 14:15 12/27/19 14:14 12/25/19 15:25 Neomycin/ Polymyxin/ Bacitracin (Neosporin) 1 applic BID TOPIC 12/23/19 12:00 01/22/20 11:59 12/26/19 09:01 Nitroglycerin (Ntg) 1 patch Q24H TDERMAL 12/19/19 09:30 01/18/20 09:29 12/26/19 09:02 Ondansetron HCl (Zofran) 4 mg Q6H PRN IVP Nausea & Vomiting 12/18/19 21:30 01/17/20 21:29 12/26/19 06:25 Pantoprazole (Protonix) 40 mg EVERY 12 HOURS ORAL 12/19/19 21:00 01/18/20 20:59 12/26/19 09:01 Polyethylene Glycol (Miralax) 17 gm HSPRN PRN ORAL Constipation 12/18/19 21:30 01/17/20 21:29 Sevelamer Carbonate (Renvela) 1,600 mg THREE TIMES A DAY ORAL 12/22/19 13:00 01/21/20 12:59 12/26/19 09:01 Roberto David MD Dec 26, 2019 09:17
--- NOTE | 2019-12-26 10:58 | Pulmonology Progress Note ---
Assessment/Plan Problems: (1) Bacteremia (2) Sepsis (3) Cellulitis (4) History of pacemaker (5) ESRF (end stage renal failure) (6) Hypothyroidism (7) Diabetes mellitus (8) Dry gangrene Assessment/Plan robles culture, persistent Bacteremia with Staph aureus, last cultures from became positive will need DARYN continue iv abx wound care podiatry following Nephrology to handle HD monitor BP telemetry records reviewed. sliding scale diabetic diet. Subjective ROS Limited/Unobtainable: No Constitutional: Reports: no symptoms HEENT: Repors: no symptoms Respiratory: Reports: no symptoms Allergies: Coded Allergies: SULFA (SULFONAMIDE ANTIBIOTICS) (Verified Allergy, Mild, 08/19/09) Objective Last 24 Hour Vital Signs Date Time Temp Pulse Resp B/P (MAP) Pulse Ox O2 Delivery O2 Flow Rate FiO2 12/26/19 09:02 153/67 12/26/19 09:00 153/67 12/26/19 09:00 Nasal Cannula 2.0 12/26/19 07:59 97.8 75 20 153/67 (95) 96 12/26/19 07:44 75 12/26/19 07:30 96 Nasal Cannula 2.0 28 12/26/19 04:00 71 12/26/19 04:00 97.0 79 19 155/73 (100) 97 12/26/19 00:00 88 12/26/19 00:00 97.5 77 18 144/80 (101) 100 12/25/19 21:00 Nasal Cannula 2.0 12/25/19 20:00 70 12/25/19 20:00 98.2 77 20 151/73 (99) 96 12/25/19 16:00 96.8 76 19 136/62 (86) 100 12/25/19 16:00 94 12/25/19 12:00 74 12/25/19 12:00 98.2 79 18 149/55 (86) 98 Intake and Output 12/25/19 12/26/19 19:00 07:00 Intake Total 240 ml Balance 240 ml Intake Oral 240 ml General Appearance: WD/WN HEENT: normocephalic, mucous membranes moist Respiratory/Chest: chest wall non-tender, lungs clear Breasts: no masses Cardiovascular: normal peripheral pulses Abdomen: normal bowel sounds, soft, non tender Skin: no rash Neurologic/Psychiatric: route manager II-XII grossly normal Current Medications Medications (Trade) Dose Ordered Sig/Bere Route PRN Reason Start Time Stop Time Status Last Admin Dose Admin Acetaminophen (Tylenol) 650 mg Q4H PRN ORAL T>100.5 12/18/19 21:30 01/17/20 21:29 12/25/19 23:42 Cefazolin Sodium 1 gm/Dextrose 55 ml @ 110 mls/hr Q24H IVP 12/23/19 14:00 12/30/19 13:59 12/25/19 13:39 Cinacalcet (Sensipar) 60 mg QHS ORAL 12/22/19 21:00 01/21/20 20:59 12/25/19 20:21 Clonidine HCl (Catapres Tab) 0.1 mg Q4H PRN ORAL SBP > 160mmhg 12/18/19 21:30 01/17/20 21:29 12/22/19 14:13 Dextrose (Dextrose 50%) 25 ml Q30M PRN IV Hypoglycemia 12/18/19 21:30 01/17/20 21:29 Dextrose (Dextrose 50%) 50 ml Q30M PRN IV Hypoglycemia 12/18/19 21:30 01/17/20 21:29 Docusate Sodium (Colace) 100 mg THREE TIMES A DAY ORAL 12/19/19 13:00 01/18/20 12:59 12/26/19 09:01 Heparin Sodium (Porcine) (Heparin 5000 units/ml) 5,000 units EVERY 12 HOURS SUBQ 12/19/19 09:00 01/18/20 08:59 12/26/19 09:03 Insulin Aspart (NovoLOG) BEFORE MEALS AND HS SUBQ 12/19/19 06:30 01/18/20 06:29 Losartan Potassium (Cozaar) 25 mg DAILY ORAL 12/20/19 09:00 01/18/20 08:59 12/25/19 09:13 Morphine Sulfate (Morphine Sulfate) 2 mg Q4H PRN IVP Moderate Pain (Pain Scale 4-6) 12/20/19 14:15 12/27/19 14:14 12/24/19 01:21 Morphine Sulfate (Morphine Sulfate) 4 mg Q4H PRN IVP Severe Pain (Pain Scale 7-10) 12/20/19 14:15 12/27/19 14:14 12/25/19 15:25 Neomycin/ Polymyxin/ Bacitracin (Neosporin) 1 applic BID TOPIC 12/23/19 12:00 01/22/20 11:59 12/26/19 09:01 Nitroglycerin (Ntg) 1 patch Q24H TDERMAL 12/19/19 09:30 01/18/20 09:29 12/26/19 09:02 Ondansetron HCl (Zofran) 4 mg Q6H PRN IVP Nausea & Vomiting 12/18/19 21:30 01/17/20 21:29 12/26/19 06:25 Pantoprazole (Protonix) 40 mg EVERY 12 HOURS ORAL 12/19/19 21:00 01/18/20 20:59 12/26/19 09:01 Polyethylene Glycol (Miralax) 17 gm HSPRN PRN ORAL Constipation 12/18/19 21:30 01/17/20 21:29 Sevelamer Carbonate (Renvela) 1,600 mg THREE TIMES A DAY ORAL 12/22/19 13:00 01/21/20 12:59 12/26/19 09:01 Ulisses Amaral MD Dec 26, 2019 10:58
[2019-12-26 12:00] VITALS: BP 156/69
--- NOTE | 2019-12-26 12:17 | Nephrology Progress Note ---
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 HypoAlbuminemia Sepsis with bacteremia Right fifth toe gangrene Aortic stenosis with aortic regurgitation PVD Anemia of chronic kidney disease DM Plan On Sensipar Phos binders on Ancef Dialysis next December 25 2D echo EjFx 50- Pulm HTN adjust cardiac abd BP meds Anemia rees per orders Subjective ROS Limited/Unobtainable: No Objective Objective Last 24 Hour Vital Signs Date Time Temp Pulse Resp B/P (MAP) Pulse Ox O2 Delivery O2 Flow Rate FiO2 12/26/19 11:41 86 12/26/19 09:02 153/67 12/26/19 09:00 153/67 12/26/19 09:00 Nasal Cannula 2.0 12/26/19 07:59 97.8 75 20 153/67 (95) 96 12/26/19 07:44 75 12/26/19 07:30 96 Nasal Cannula 2.0 28 12/26/19 04:00 71 12/26/19 04:00 97.0 79 19 155/73 (100) 97 12/26/19 00:00 88 12/26/19 00:00 97.5 77 18 144/80 (101) 100 12/25/19 21:00 Nasal Cannula 2.0 12/25/19 20:00 70 12/25/19 20:00 98.2 77 20 151/73 (99) 96 12/25/19 16:00 96.8 76 19 136/62 (86) 100 12/25/19 16:00 94 Intake and Output 12/25/19 12/26/19 19:00 07:00 Intake Total 240 ml Balance 240 ml Intake Oral 240 ml Height (Feet): 5 Height (Inches): 3.00 Weight (Pounds): 149 General Appearance: no apparent distress Cardiovascular: normal rate Respiratory/Chest: decreased breath sounds Abdomen: soft Objective no change Peter Solorio MD Dec 26, 2019 12:17
--- NOTE | 2019-12-26 12:33 | General Progress Note ---
Assessment/Plan Assessment/Plan: ASSESSMENT: This is a 79-year-old female. 1. Right foot pain. 2. Fever. 3. Right fifth toe infection. 4. Leukocytosis. 5. Diabetes type 2. 6. Hypertension. 7. End-stage renal disease, on hemodialysis. 8. Hypothyroidism. 9. Peripheral vascular disease. 10. Pacemaker in situ. 11. Sepsis=MSSA staph aureus TREATMENT: 1. Right foot pain/gangrene of the right fifth toe. A Podiatry consultation has been obtained with Dr. Flood. We will follow recommendations of Podiatry. A nuclear medicine bone scan is pending to rule out osteomyelitis. ABX=Zosyn and vancomycin. 2. Fever. Likely secondary to cellulitis of the right foot as above. An Infectious Disease consultation has been obtained with Dr. David. We will follow recommendation of Infectious Disease. 3. Diabetes type 2. The patient has been placed on a NovoLog sliding scale. 4. Hypertension. Continue losartan as above. Will increase to 50 mg daily and monitor. 5. End-stage renal disease. A Nephrology consultation has been obtained with Dr. Peter Solorio. Follow recommendations of Dr. Solorio. 6. Hypothyroidism. Continue Synthroid. 7. Pacemaker in situ. A pacemaker check noted with Dr. Dawit Lopez. 8. Elevated troponin. A Cardiology consultation has been obtained with Dr. Lopez. Await transesophageal echocardiogram to rule out Sub acute bacterial endocarditis and after will need arrangements to transfer to [facility] for vascular evaluation - angiogram by Dr. Lomas ( not available at [facility] [place] . Subjective Date patient seen: Dec 26, 2019 Time patient seen: 12:00 ROS Limited/Unobtainable: No Constitutional: Reports: no symptoms HEENT: Reports: no symptoms Cardiovascular: Reports: no symptoms Respiratory: Reports: no symptoms Gastrointestinal/Abdominal: Reports: no symptoms Genitourinary: Reports: no symptoms Endocrine: Reports: no symptoms Hematologic/Lymphatic: Reports: no symptoms Allergies: Coded Allergies: SULFA (SULFONAMIDE ANTIBIOTICS) (Verified Allergy, Mild, 08/19/09) All Systems: reviewed and negative except above Subjective Feels well. Denies fever, chills, L foot pain is stable. Objective Last 24 Hour Vital Signs Date Time Temp Pulse Resp B/P (MAP) Pulse Ox O2 Delivery O2 Flow Rate FiO2 3/6/20 11:41 86 12/26/19 09:02 153/67 12/26/19 09:00 153/67 12/26/19 09:00 Nasal Cannula 2.0 12/26/19 07:59 97.8 75 20 153/67 (95) 96 12/26/19 07:44 75 12/26/19 07:30 96 Nasal Cannula 2.0 28 12/26/19 04:00 71 12/26/19 04:00 97.0 79 19 155/73 (100) 97 12/26/19 00:00 88 12/26/19 00:00 97.5 77 18 144/80 (101) 100 12/25/19 21:00 Nasal Cannula 2.0 12/25/19 20:00 70 12/25/19 20:00 98.2 77 20 151/73 (99) 96 12/25/19 16:00 96.8 76 19 136/62 (86) 100 12/25/19 16:00 94 Intake and Output 12/25/19 12/26/19 19:00 07:00 Intake Total 240 ml Balance 240 ml Intake Oral 240 ml Height (Feet): 5 Height (Inches): 3.00 Weight (Pounds): 149 General Appearance: WD/WN EENT: PERRL/EOMI Neck: non-tender Cardiovascular: normal rate Respiratory/Chest: lungs clear Abdomen: non tender Extremities: normal range of motion Neurologic: press assistant and feeder II-XII grossly normal Mattie Paz MD Dec 26, 2019 12:33
[2019-12-26] MEDS: Morphine Sulfate 2mg/ml Inj(IV/IM USE ONLY) IVP PRN (13:09)
--- NOTE | 2019-12-26 13:13 | NUR ---
NURSE NOTES: Pt refused 1300 PO meds and stated that "I will not take medication because of my empty stomach". Pt NPO for CT with contrast.
--- NOTE | 2019-12-26 13:46 | NUR ---
CASE MANAGEMENT:REVIEW 12/26/19 SI: SEPSIS. BACTEREMIA. RT 5TH TOE GANGRENE ESRD ON HD. PACEMAKER 96.6 85 19 156/69 100% ON 2L/NC IS: IV ANCEF Q24 RENVELA PO TID COZAAR PO QD PROTONIX PO Q12 HEPARIN SQ Q12 IV MORPHINE Q4HRS PRN : TELEMETRY STATUS DCP: FROM HOME PLAN: DARYN TO R/O ENDOCARDITIS
[2019-12-26] MEDS: ceFAZolin 1gm in D5W 55ml IVP SCH (13:48)
--- NOTE | 2019-12-26 14:50 | NUR ---
RD ASSESSMENT & RECOMMENDATIONS SEE CARE ACTIVITY FOR COMPLETE ASSESSMENT DAILY ESTIMATED NEEDS: Needs based on ESRD, HD/ 56kg abw 25-30 kcals/kg 1989-4579 total kcals 1.2-1.8 g protein/kg 67-100 g total protein 20-22 mL/kg 8249-0435 total fluid mLs NUTRITION DIAGNOSIS: Altered nutrition related lab values R/T ESRD, DM as evidenced by elev elev creat (6.7), elev phos (5.6), elev BNP (>72146), elev A1C 6.4. CURRENT DIET:CCHO MED PO DIET RECOMMENDATIONS: RENAL, CCHO MED ADDITIONAL RECOMMENDATIONS: * Standing wt for accurate CBW * Monitor lytes (phos elev, phos binder added) * 1-2 carbs + high prot snacks in b/w meals + HS * Nephrovite x 1 * Nepro x 1 w/ variable PO intake (425kcal/19g prot per cherry) * Diet education provided on preventing hypoglycemia and on renal diet (12/25)
[2019-12-26 16:00] VITALS: BP 132/58
--- NOTE | 2019-12-26 16:49 | Diagnostic Imaging Report ---
CLINICAL INDICATION:Vomiting, abdominal pain, leukocytosis, suspected cardiac infection, unexplained fevers, hypothyroidism, pacemaker TECHNIQUE: Patient ingested only a limited amount of oral contrast; unable to tolerate. IV administration nonionic contrast. Multiphasic spiral acquisitions obtained through the chest, abdomen, and pelvis. Multiplanar reconstructions were generated. Total dose length product 765 mGycm. CTDIvol(s) one, 79, 9, 8 mGy. Radiation dose was minimized using automated exposure control COMPARISON: none FINDINGS Chest: Atelectatic changes and some consolidation are seen at the right lung base. There is some atelectasis and possibly some scarring at the left lung base. The upper lungs are clear. No effusions are demonstrated. The heart is enlarged. There is a right chest pacemaker. No pericardial effusion. The esophagus is mildly dilated, contains contrast. The included thyroid is unremarkable. No axillary or chest wall mass or adenopathy demonstrated. The bones demonstrate kyphotic deformity and mild degenerative spondylosis changes. The esophagus is mildly dilated Abdomen pelvis: Enteric contrast is only seen within the stomach. Lack of distal opacification limits assessment of the GI tract. There is a moderate amount of retained colonic stool. There is a small fat-containing midline ventral hernia. No evidence of colonic diverticulosis or diverticulitis. The appendix is normal. No small bowel distention. The gallbladder has been removed. The liver, bile ducts, pancreas, spleen, left adrenal are unremarkable. The right adrenal is poorly visualized, probably normal. Both kidneys are enlarged and demonstrate innumerable cysts. No retroperitoneal or mesenteric mass or adenopathy. No pelvic mass or adenopathy. The uterus is absent. The adnexal structures are unremarkable. The bladder is nearly empty, unremarkable. The bones demonstrate degenerative spondylosis changes. IMPRESSION: Bibasilar atelectasis and possibly some right basilar consolidation Limited assessment of the GI tract, due to patient inability to tolerate oral contrast. Mildly dilated esophagus, probably due to distal dysmotility no definite acute process otherwise Enlarged kidneys with innumerable cysts, probably reflecting adult polycystic kidney disease Prior cholecystectomy and hysterectomy Other findings as noted, including small fat-containing midline ventral hernia, degenerative spondylosis changes, pacemaker The CT scanner at [facility] is accredited by the [employer] and the scans are performed using protocols designed to limit radiation exposure to as low as reasonably achievable to attain images of sufficient resolution adequate for diagnostic evaluation.
--- NOTE | 2019-12-26 18:07 | NUR ---
NURSE NOTES: Pt refused PO medications at 1800.
--- NOTE | 2019-12-26 19:00 | NUR ---
NURSE NOTES: Received report from VARGAS Doe. Patient is awake, lying in semi rodriges's, ongoing dialysis, HD Sharif RN at beside. MAULIK AV shunt noted. A/Ox4. Denies pain at this time. No signs of acute distress noted. Checked IV site and flushed. No erythema, bleeding or infiltration noted. Bed at lowest position, brakes on, [id number]. Call light within reach. Will continue to monitor.
--- NOTE | 2019-12-26 19:51 | NUR ---
HAND-OFF: Report given to VARGAS Cuellar. Pt in stable condition, endorsed plan of care.
[2019-12-26 20:00] VITALS: BP 158/62
[2019-12-26] MEDS: Sensipar 30mg Tab ORAL SCH (21:11)
--- NOTE | 2019-12-26 21:54 | NUR ---
NURSE NOTES: Patient complained of pain at her right leg & right toe, nonradiating, with a pain scale of 6/10. No signs of nausea and vomiting. No signs of acute distress noted. Offered pain medication as ordered. Patient wants to take tylenol medication.
[2019-12-27] VITALS: BP 120/53
--- NOTE | 2019-12-27 01:51 | NUR ---
NURSE NOTES: Resting throughout the night. No significant change of condition noted. Will continue to monitor.
[2019-12-27] MEDS: NovoLOG Insulin Flexpen SUBQ SCH ×6 (05:39→21:00)
--- NOTE | 2019-12-27 07:00 | NUR ---
HAND-OFF: Report given to VARGAS Weber. Plan of care endorsed.
[2019-12-27 07:22] LABS: ANION GAP 9 mmol/L (5-15); BLOOD UREA NITROGEN 31 mg/dL (7-18); CALCIUM 8.8 MG/DL (8.5-10.1); CARBON DIOXIDE 32 MMOL/L (21-32); CHLORIDE 91 MMOL/L (98-107); CREATININE 6.1 MG/DL (0.55-1.30); POTASSIUM 4.4 MMOL/L (3.5-5.1); SODIUM 132 MMOL/L (136-145)
[2019-12-27 07:23] LABS: BASOPHILS % (AUTO) 1.2 % (0.0-2.0); EOSINOPHILS % (AUTO) 1.3 % (0.0-3.0); HEMATOCRIT 29.9 % (37.0-47.0); HEMOGLOBIN 9.9 G/DL (12.0-16.0); LYMPHOCYTES % (AUTO) 4.3 % (20.0-45.0); MEAN CORPUSCULAR VOLUME 96 FL (80-99); MONOCYTES % (AUTO) 13.5 % (1.0-10.0); NEUTROPHILS % (AUTO) 79.7 % (45.0-75.0); PLATELET COUNT 208 K/UL (150-450); RED BLOOD COUNT 3.11 M/UL (4.20-5.40); RED CELL DISTRIBUTION WIDTH 12.2 % (11.6-14.8); WHITE BLOOD COUNT 14.4 K/UL (4.8-10.8)
--- NOTE | 2019-12-27 07:57 | NUR ---
NURSE NOTES: Received patient from Scar Cuellar. Patient is awake and alert resting comfortably in bed. No complain of pain or discomfort at this time. Fall precautions in place. Encourage to use call skinner whenever she needed assistance. Left AV fistula positive bruit and thrill. Will follow
[2019-12-27 08:00] VITALS: BP 115/67
[2019-12-27] MEDS: Losartan 50mg tab ORAL SCH ×2 (08:58→09:00)
[2019-12-27] MEDS: Docusate 100mg cap ORAL SCH ×3 (08:58→17:35)
[2019-12-27] MEDS: Nitroglycerin Patch 0.2mg/hr TDERMAL SCH (08:59)
[2019-12-27] MEDS: Neosporin Oint Ud Pkt TOPIC SCH ×2 (08:59→17:36)
[2019-12-27] MEDS: Heparin 5000 units/ml inj SUBQ SCH ×2 (09:00→21:06)
--- NOTE | 2019-12-27 09:10 | Infectious Diseases Prog Note ---
Assessment/Plan Assessment/Plan ASSESSMENT: The patient is a 79-year-old female with, Right foot infection, -xray R foot: No displaced fracture or dislocation identified. -bone scan: No evidence for osteomyelitis. High grade Bacteremia, rule out endocarditis versus pacemaker infection. -12/18 Bcx 2/ MSSA 12/19, Bcx MSSA -2d echo: limited study, no mention of vegetations Leukocytosis; improving - CT of C/A/P : no Abscess Sepsis, sp Fever; Sp PLAN: Ancef # 6 3/ SP vancomycin # and Zosyn # 4 Monitor CBC. Monitor BMP. Monitor blood culture ( Rpt ) Recommend a DARYN to rule out endocarditis or pacemaker infection. Monitor CBC and BMP Pod fup transfer to [facility] after DARYN for peripheral angiogram by Dr Camacho Subjective Allergies: Coded Allergies: SULFA (SULFONAMIDE ANTIBIOTICS) (Verified Allergy, Mild, 08/19/09) Subjective no new complain Objective Vital Signs Last 24 Hour Vital Signs Date Time Temp Pulse Resp B/P (MAP) Pulse Ox O2 Delivery O2 Flow Rate FiO2 12/27/19 08:59 115/67 12/27/19 08:00 97.8 90 18 115/67 (83) 98 12/27/19 07:34 94 Room Air 21 12/27/19 04:00 87 12/27/19 00:00 97.7 84 16 120/53 (75) 98 12/27/19 00:00 82 12/26/19 22:23 98.1 12/26/19 21:00 Nasal Cannula 2.0 12/26/19 20:00 86 12/26/19 20:00 97.9 82 16 158/62 (94) 96 12/26/19 16:16 85 12/26/19 16:00 98.1 78 19 132/58 (82) 96 12/26/19 12:00 96.5 85 19 156/69 (98) 100 12/26/19 11:41 86 Height (Feet): 5 Height (Inches): 3.00 Weight (Pounds): 150 HEENT: mucous membranes moist Respiratory/Chest: normal breath sounds Cardiovascular: regular rhythm Abdomen: no organomegaly Microbiology Date/Time Source Procedure Growth Status 12/24/19 15:20 Blood Blood Culture - Preliminary NO GROWTH AFTER 48 HOURS Resulted 12/24/19 15:15 Blood Blood Culture - Preliminary NO GROWTH AFTER 48 HOURS Resulted Laboratory Tests Test 12/27/19 05:45 White Blood Count 14.4 K/UL (4.8-10.8) H Red Blood Count 3.11 M/UL (4.20-5.40) L Hemoglobin 9.9 G/DL (12.0-16.0) L Hematocrit 29.9 % (37.0-47.0) L Mean Corpuscular Volume 96 FL (80-99) Mean Corpuscular Hemoglobin 31.8 PG (27.0-31.0) H Mean Corpuscular Hemoglobin Concent 33.0 G/DL (32.0-36.0) Red Cell Distribution Width 12.2 % (11.6-14.8) Platelet Count 208 K/UL (150-450) Mean Platelet Volume 6.3 FL (6.5-10.1) L Neutrophils (%) (Auto) 79.7 % (45.0-75.0) H Lymphocytes (%) (Auto) 4.3 % (20.0-45.0) L Monocytes (%) (Auto) 13.5 % (1.0-10.0) H Eosinophils (%) (Auto) 1.3 % (0.0-3.0) Basophils (%) (Auto) 1.2 % (0.0-2.0) Sodium Level 132 MMOL/L (136-145) L Potassium Level 4.4 MMOL/L (3.5-5.1) Chloride Level 91 MMOL/L (98-107) L Carbon Dioxide Level 32 MMOL/L (21-32) Anion Gap 9 mmol/L (5-15) Blood Urea Nitrogen 31 mg/dL (7-18) H Creatinine 6.1 MG/DL (0.55-1.30) H Estimat Glomerular Filtration Rate 8.1 mL/min (>60) Glucose Level 106 MG/DL (74-106) Calcium Level 8.8 MG/DL (8.5-10.1) Current Medications Medications (Trade) Dose Ordered Sig/Bere Route PRN Reason Start Time Stop Time Status Last Admin Dose Admin Acetaminophen (Tylenol) 650 mg Q4H PRN ORAL T>100.5 12/18/19 21:30 01/17/20 21:29 12/26/19 21:53 Cefazolin Sodium 1 gm/Dextrose 55 ml @ 110 mls/hr Q24H IVP 12/23/19 14:00 12/30/19 13:59 12/26/19 13:48 Cinacalcet (Sensipar) 60 mg QHS ORAL 12/22/19 21:00 01/21/20 20:59 12/26/19 21:11 Clonidine HCl (Catapres Tab) 0.1 mg Q4H PRN ORAL SBP > 160mmhg 12/18/19 21:30 01/17/20 21:29 12/22/19 14:13 Dextrose (Dextrose 50%) 25 ml Q30M PRN IV Hypoglycemia 12/18/19 21:30 01/17/20 21:29 Dextrose (Dextrose 50%) 50 ml Q30M PRN IV Hypoglycemia 12/18/19 21:30 01/17/20 21:29 Docusate Sodium (Colace) 100 mg THREE TIMES A DAY ORAL 12/19/19 13:00 01/18/20 12:59 12/27/19 08:58 Heparin Sodium (Porcine) (Heparin 5000 units/ml) 5,000 units EVERY 12 HOURS SUBQ 12/19/19 09:00 01/18/20 08:59 12/27/19 09:00 Insulin Aspart (NovoLOG) BEFORE MEALS AND HS SUBQ 12/19/19 06:30 01/18/20 06:29 Losartan Potassium (Cozaar) 50 mg DAILY ORAL 12/27/19 09:00 01/18/20 08:59 Morphine Sulfate (Morphine Sulfate) 2 mg Q4H PRN IVP Moderate Pain (Pain Scale 4-6) 12/20/19 14:15 12/27/19 14:14 12/26/19 13:09 Morphine Sulfate (Morphine Sulfate) 4 mg Q4H PRN IVP Severe Pain (Pain Scale 7-10) 12/20/19 14:15 12/27/19 14:14 12/25/19 15:25 Neomycin/ Polymyxin/ Bacitracin (Neosporin) 1 applic BID TOPIC 12/23/19 12:00 01/22/20 11:59 12/27/19 08:59 Nitroglycerin (Ntg) 1 patch Q24H TDERMAL 12/19/19 09:30 01/18/20 09:29 12/27/19 08:59 Ondansetron HCl (Zofran) 1 mg Q4H PRN IVP Nausea & Vomiting 12/26/19 19:00 01/17/20 21:29 Pantoprazole (Protonix) 40 mg EVERY 12 HOURS ORAL 12/19/19 21:00 01/18/20 20:59 12/27/19 08:58 Polyethylene Glycol (Miralax) 17 gm HSPRN PRN ORAL Constipation 12/18/19 21:30 01/17/20 21:29 Sevelamer Carbonate (Renvela) 1,600 mg THREE TIMES A DAY ORAL 12/22/19 13:00 01/21/20 12:59 12/27/19 08:58 Roberto David MD Dec 27, 2019 09:10
--- NOTE | 2019-12-27 10:39 | Pulmonology Progress Note ---
Assessment/Plan Assessment/Plan ASSESSMENT Sepsis with Staph aureus bacteremia Persistent leukocytosis Right fifth toe gangrene Cellulitis R foot ESRD, on HD Severe pulmonary HTN Aortic stenosis with aortic regurgitation PVD Anemia of chronic kidney disease Pacemaker HTN DM PLAN OF CARE tele Echo with EF 50% , no evidence of vegetation RVSP of 64 moderate AR, troponin levels flat and not c/w ACS pattern ECG with A pacing and old OH pacemaker interrogated -> normal fx abx as per ID BCX + Staph aureus 12/18 , 12/19 and BCX 12/23 NGTD bone scan no evidence of osteomyelitis, + cellulitis R foot X-ray of R foot -> no fx or dislocation arterial duplex noted DARYN - rule out endocarditis , planned for Sunday O2 HHN PRN DVT prophylactics HD as per nephro; monitor volumes renal parameters BP management with current regimen troponin elevated, patient remains asymptomatic cardio on board BS management with SSI wound care as per battery wrecker operator recommendation pain management supportive care plan to transfer to [facility] after DARYN for angiogram case discussed and evaluated by supervising physician Subjective Allergies: Coded Allergies: SULFA (SULFONAMIDE ANTIBIOTICS) (Verified Allergy, Mild, 08/19/09) Subjective persistent leuk fevers resolved no signs of resp distress, pulse ox stable on RA no CP DARYN pending for Sunday episode of NSTVT yesterday reported by nursing Objective Last 24 Hour Vital Signs Date Time Temp Pulse Resp B/P (MAP) Pulse Ox O2 Delivery O2 Flow Rate FiO2 12/27/19 09:00 115/67 12/27/19 08:59 115/67 12/27/19 08:00 97.8 90 18 115/67 (83) 98 12/27/19 07:34 94 Room Air 21 12/27/19 04:00 87 12/27/19 00:00 97.7 84 16 120/53 (75) 98 12/27/19 00:00 82 12/26/19 22:23 98.1 12/26/19 21:00 Nasal Cannula 2.0 12/26/19 20:00 86 12/26/19 20:00 97.9 82 16 158/62 (94) 96 12/26/19 16:16 85 12/26/19 16:00 98.1 78 19 132/58 (82) 96 12/26/19 12:00 96.5 85 19 156/69 (98) 100 3/6/20 11:41 86 Intake and Output 12/26/19 12/27/19 19:00 07:00 Intake Total 480 ml 540 ml Balance 480 ml 540 ml Intake Oral 480 ml 240 ml Hemodialysis 300 ml Objective General Appearance: no acute distress HEENT: normocephalic, atraumatic, anicteric, mucous membranes moist Respiratory/Chest: lungs clear, no respiratory distress, chest wall tender Cardiovascular: normal rate, A pacing, regular rhythm Abdomen: normal bowel sounds, soft, non tender Extremities: LUE AV shunt + thrill/bruit; R 5 th toe TTP, also TTP plantar surface of the foot, +1 edema of the foot Microbiology Date/Time Source Procedure Growth Status 12/24/19 15:20 Blood Blood Culture - Preliminary NO GROWTH AFTER 48 HOURS Resulted 12/24/19 15:15 Blood Blood Culture - Preliminary NO GROWTH AFTER 48 HOURS Resulted Laboratory Tests 12/27/19 05:45: White Blood Count 14.4H, Red Blood Count 3.11L, Hemoglobin 9.9L, Hematocrit 29.9L, Mean Corpuscular Volume 96, Mean Corpuscular Hemoglobin 31.8H, Mean Corpuscular Hemoglobin Concent 33.0, Red Cell Distribution Width 12.2, Platelet Count 208, Mean Platelet Volume 6.3L, Neutrophils (%) (Auto) 79.7H, Lymphocytes (%) (Auto) 4.3L, Monocytes (%) (Auto) 13.5H, Eosinophils (%) (Auto) 1.3, Basophils (%) (Auto) 1.2, Sodium Level 132L, Potassium Level 4.4, Chloride Level 91L, Carbon Dioxide Level 32, Anion Gap 9, Blood Urea Nitrogen 31H, Creatinine 6.1H, Estimat Glomerular Filtration Rate 8.1, Glucose Level 106, Calcium Level 8.8 Current Medications Medications (Trade) Dose Ordered Sig/Bere Route PRN Reason Start Time Stop Time Status Last Admin Dose Admin Acetaminophen (Tylenol) 650 mg Q4H PRN ORAL T>100.5 12/18/19 21:30 01/17/20 21:29 12/26/19 21:53 Cefazolin Sodium 1 gm/Dextrose 55 ml @ 110 mls/hr Q24H IVP 12/23/19 14:00 12/30/19 13:59 12/26/19 13:48 Cinacalcet (Sensipar) 60 mg QHS ORAL 12/22/19 21:00 01/21/20 20:59 12/26/19 21:11 Clonidine HCl (Catapres Tab) 0.1 mg Q4H PRN ORAL SBP > 160mmhg 12/18/19 21:30 01/17/20 21:29 12/22/19 14:13 Dextrose (Dextrose 50%) 25 ml Q30M PRN IV Hypoglycemia 12/18/19 21:30 01/17/20 21:29 Dextrose (Dextrose 50%) 50 ml Q30M PRN IV Hypoglycemia 12/18/19 21:30 01/17/20 21:29 Docusate Sodium (Colace) 100 mg THREE TIMES A DAY ORAL 12/19/19 13:00 01/18/20 12:59 12/27/19 08:58 Heparin Sodium (Porcine) (Heparin 5000 units/ml) 5,000 units EVERY 12 HOURS SUBQ 12/19/19 09:00 01/18/20 08:59 12/27/19 09:00 Insulin Aspart (NovoLOG) BEFORE MEALS AND HS SUBQ 12/19/19 06:30 01/18/20 06:29 Losartan Potassium (Cozaar) 50 mg DAILY ORAL 12/27/19 09:00 01/18/20 08:59 Morphine Sulfate (Morphine Sulfate) 2 mg Q4H PRN IVP Moderate Pain (Pain Scale 4-6) 12/20/19 14:15 12/27/19 14:14 12/26/19 13:09 Morphine Sulfate (Morphine Sulfate) 4 mg Q4H PRN IVP Severe Pain (Pain Scale 7-10) 12/20/19 14:15 12/27/19 14:14 12/25/19 15:25 Neomycin/ Polymyxin/ Bacitracin (Neosporin) 1 applic BID TOPIC 12/23/19 12:00 01/22/20 11:59 12/27/19 08:59 Nitroglycerin (Ntg) 1 patch Q24H TDERMAL 12/19/19 09:30 01/18/20 09:29 12/27/19 08:59 Ondansetron HCl (Zofran) 1 mg Q4H PRN IVP Nausea & Vomiting 12/26/19 19:00 3/28/20 21:29 Pantoprazole (Protonix) 40 mg EVERY 12 HOURS ORAL 12/19/19 21:00 01/18/20 20:59 12/27/19 08:58 Polyethylene Glycol (Miralax) 17 gm HSPRN PRN ORAL Constipation 12/18/19 21:30 01/17/20 21:29 Sevelamer Carbonate (Renvela) 1,600 mg THREE TIMES A DAY ORAL 12/22/19 13:00 01/21/20 12:59 12/27/19 08:58 Nova Natarajan NP Dec 27, 2019 10:39
--- NOTE | 2019-12-27 10:43 | NUR ---
NURSE NOTES: Message left to Dr. Melgoza. Patient no BM x 6 days. Abdomen non distended with hypoactive Bowel sounds. Awaiting MD's call back
[2019-12-27] MEDS ORDERED: Sennosides 8.6mg tab ORAL SCH (11:15)
[2019-12-27 12:00] VITALS: BP 118/72
--- NOTE | 2019-12-27 12:26 | Nephrology Progress Note ---
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 HypoAlbuminemia Sepsis with bacteremia Right fifth toe gangrene Aortic stenosis with aortic regurgitation PVD Anemia of chronic kidney disease DM Plan On Sensipar Phos binders on Ancef Dialysis December 25December 28 2D echo EjFx 50- Pulm HTN adjust cardiac abd BP meds Anemia rees per orders Subjective ROS Limited/Unobtainable: No Constitutional: Reports: other - feels better Objective Objective Last 24 Hour Vital Signs Date Time Temp Pulse Resp B/P (MAP) Pulse Ox O2 Delivery O2 Flow Rate FiO2 12/27/19 09:00 Nasal Cannula 2.0 12/27/19 09:00 115/67 12/27/19 08:59 115/67 12/27/19 08:00 97.8 90 18 115/67 (83) 98 12/27/19 08:00 90 12/27/19 07:34 94 Room Air 21 12/27/19 04:00 87 12/27/19 00:00 97.7 84 16 120/53 (75) 98 12/27/19 00:00 82 12/26/19 22:23 98.1 12/26/19 21:00 Nasal Cannula 2.0 12/26/19 20:00 86 12/26/19 20:00 97.9 82 16 158/62 (94) 96 12/26/19 16:16 85 12/26/19 16:00 98.1 78 19 132/58 (82) 96 Intake and Output 12/26/19 12/27/19 19:00 07:00 Intake Total 480 ml 540 ml Balance 480 ml 540 ml Intake Oral 480 ml 240 ml Hemodialysis 300 ml Laboratory Tests 12/27/19 05:45: White Blood Count 14.4H, Red Blood Count 3.11L, Hemoglobin 9.9L, Hematocrit 29.9L, Mean Corpuscular Volume 96, Mean Corpuscular Hemoglobin 31.8H, Mean Corpuscular Hemoglobin Concent 33.0, Red Cell Distribution Width 12.2, Platelet Count 208, Mean Platelet Volume 6.3L, Neutrophils (%) (Auto) 79.7H, Lymphocytes (%) (Auto) 4.3L, Monocytes (%) (Auto) 13.5H, Eosinophils (%) (Auto) 1.3, Basophils (%) (Auto) 1.2, Sodium Level 132L, Potassium Level 4.4, Chloride Level 91L, Carbon Dioxide Level 32, Anion Gap 9, Blood Urea Nitrogen 31H, Creatinine 6.1H, Estimat Glomerular Filtration Rate 8.1, Glucose Level 106, Calcium Level 8.8 Height (Feet): 5 Height (Inches): 3.00 Weight (Pounds): 150 General Appearance: no apparent distress Objective no change Peter Solorio MD Dec 27, 2019 12:26
[2019-12-27] MEDS: ceFAZolin 1gm in D5W 55ml IVP SCH (13:18)
--- NOTE | 2019-12-27 13:41 | Cardiac Electrophysiology PN ---
Assessment/Plan Assessment/Plan 1. Elevated troponin of 0.26. Levels are flat and low. No chest pain due to renal failure. EF 50%. 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 2. Status post Biotronik pacer. Interrogation showed Nl Fx and battery > 7 years 3. Severe pulmonary hypertension. 4. Bacteremia. DARYN to rule out vegetation in the valves or on the leads on Sunday pending Already on broad-spectrum intravenous antibiotic per ID. 5. End-stage renal disease, on hemodialysis. 6. R foot 5th digit gangrene. Podiatry and vascular surgery Will transfer to [facility] after DARYN for peripheral angiogram by Dr Janice CHOW RN Subjective Subjective Alert in NAD. Had HD yesterday DARYN to R/O endocarditis pending Sunday Objective Last 24 Hour Vital Signs Date Time Temp Pulse Resp B/P (MAP) Pulse Ox O2 Delivery O2 Flow Rate FiO2 12/27/19 12:00 97.7 94 18 118/72 (87) 98 12/27/19 09:00 Nasal Cannula 2.0 12/27/19 09:00 115/67 12/27/19 08:59 115/67 12/27/19 08:00 97.8 90 18 115/67 (83) 98 12/27/19 08:00 90 12/27/19 07:34 94 Room Air 21 12/27/19 04:00 87 12/27/19 00:00 97.7 84 16 120/53 (75) 98 12/27/19 00:00 82 12/26/19 22:23 98.1 12/26/19 21:00 Nasal Cannula 2.0 12/26/19 20:00 86 12/26/19 20:00 97.9 82 16 158/62 (94) 96 12/26/19 16:16 85 12/26/19 16:00 98.1 78 19 132/58 (82) 96 Intake and Output 12/26/19 12/27/19 19:00 07:00 Intake Total 480 ml 540 ml Balance 480 ml 540 ml Intake Oral 480 ml 240 ml Hemodialysis 300 ml Laboratory Tests Test 12/27/19 05:45 White Blood Count 14.4 K/UL (4.8-10.8) H Red Blood Count 3.11 M/UL (4.20-5.40) L Hemoglobin 9.9 G/DL (12.0-16.0) L Hematocrit 29.9 % (37.0-47.0) L Mean Corpuscular Volume 96 FL (80-99) Mean Corpuscular Hemoglobin 31.8 PG (27.0-31.0) H Mean Corpuscular Hemoglobin Concent 33.0 G/DL (32.0-36.0) Red Cell Distribution Width 12.2 % (11.6-14.8) Platelet Count 208 K/UL (150-450) Mean Platelet Volume 6.3 FL (6.5-10.1) L Neutrophils (%) (Auto) 79.7 % (45.0-75.0) H Lymphocytes (%) (Auto) 4.3 % (20.0-45.0) L Monocytes (%) (Auto) 13.5 % (1.0-10.0) H Eosinophils (%) (Auto) 1.3 % (0.0-3.0) Basophils (%) (Auto) 1.2 % (0.0-2.0) Sodium Level 132 MMOL/L (136-145) L Potassium Level 4.4 MMOL/L (3.5-5.1) Chloride Level 91 MMOL/L (98-107) L Carbon Dioxide Level 32 MMOL/L (21-32) Anion Gap 9 mmol/L (5-15) Blood Urea Nitrogen 31 mg/dL (7-18) H Creatinine 6.1 MG/DL (0.55-1.30) H Estimat Glomerular Filtration Rate 8.1 mL/min (>60) Glucose Level 106 MG/DL (74-106) Calcium Level 8.8 MG/DL (8.5-10.1) Microbiology Date/Time Source Procedure Growth Status 12/24/19 15:20 Blood Blood Culture - Preliminary NO GROWTH AFTER 48 HOURS Resulted 12/24/19 15:15 Blood Blood Culture - Preliminary NO GROWTH AFTER 48 HOURS Resulted Objective HEAD AND NECK: No JVD or carotid bruit. LUNGS: Clear. CARDIOVASCULAR: Shows regular S1 and S2 with no gallop or murmur. The pacemaker in the right subclavian. ABDOMEN: Soft. EXTREMITIES: Left arm dialysis access.Right 5th toe gangrene Dawit Lopez MD Dec 27, 2019 13:41
--- NOTE | 2019-12-27 13:45 | NUR ---
NURSE NOTES: Order received from Dr. Solorio patient to have HD on thursday 12/28. Call out to [facility] dialysis to schedule and spoke with DUSTIN.
--- NOTE | 2019-12-27 13:59 | General Progress Note ---
Assessment/Plan Status: stable Assessment/Plan: ASSESSMENT: This is a 79-year-old female. 1. Right foot pain. 2. Fever. 3. Right fifth toe infection. 4. Leukocytosis. 5. Diabetes type 2. 6. Hypertension. 7. End-stage renal disease, on hemodialysis. 8. Hypothyroidism. 9. Peripheral vascular disease. 10. Pacemaker in situ. 11. Sepsis with bacteremia. now resolved Bcx negative 3/ =MSSA staph aureus TREATMENT: 1. Right foot pain/gangrene of the right fifth toe. A Podiatry consultation has been obtained with Dr. Flood. We will follow recommendations of Podiatry. A nuclear medicine bone scan is pending to rule out osteomyelitis. ABX=Zosyn and vancomycin now stopped and on ANCEF day 6 2. Fever. Likely secondary to cellulitis of the right foot as above. An Infectious Disease consultation has been obtained with Dr. David. We will follow recommendation of Infectious Disease. CT abdomen pelvis without abscess. DARYN PENDING SUNDAY to rule out SBE 3. Diabetes type 2. The patient has been placed on a NovoLog sliding scale. 4. Hypertension. Continue losartan as above. Will increase to 50 mg daily and monitor. 5. End-stage renal disease. A Nephrology consultation has been obtained with Dr. Peter Solorio. Follow recommendations of Dr. Solorio. 6. Hypothyroidism. Continue Synthroid. 7. Pacemaker in situ. A pacemaker check noted with Dr. Dawit Lopez. 8. Elevated troponin. A Cardiology consultation has been obtained with Dr. Lopez. Await transesophageal echocardiogram to rule out Sub acute bacterial endocarditis and after will need arrangements to transfer to [facility] for vascular evaluation - angiogram by Dr. Lomas ( not available at [facility] ) . Subjective Date patient seen: Dec 27, 2019 Time patient seen: 13:00 ROS Limited/Unobtainable: No Allergies: Coded Allergies: SULFA (SULFONAMIDE ANTIBIOTICS) (Verified Allergy, Mild, 08/19/09) All Systems: reviewed and negative except above Subjective Feels well. Denies fever, chills, L foot pain is stable. She wants to be able to ambulate soon. Objective Last 24 Hour Vital Signs Date Time Temp Pulse Resp B/P (MAP) Pulse Ox O2 Delivery O2 Flow Rate FiO2 12/27/19 12:00 97 12/27/19 12:00 97.7 94 18 118/72 (87) 98 12/27/19 09:00 Nasal Cannula 2.0 12/27/19 09:00 115/67 12/27/19 08:59 115/67 12/27/19 08:00 97.8 90 18 115/67 (83) 98 12/27/19 08:00 90 12/27/19 07:34 94 Room Air 21 12/27/19 04:00 87 12/27/19 00:00 97.7 84 16 120/53 (75) 98 12/27/19 00:00 82 12/26/19 22:23 98.1 12/26/19 21:00 Nasal Cannula 2.0 12/26/19 20:00 86 12/26/19 20:00 97.9 82 16 158/62 (94) 96 12/26/19 16:16 85 12/26/19 16:00 98.1 78 19 132/58 (82) 96 Intake and Output 12/26/19 12/27/19 19:00 07:00 Intake Total 480 ml 540 ml Balance 480 ml 540 ml Intake Oral 480 ml 240 ml Hemodialysis 300 ml Laboratory Tests 12/27/19 05:45: White Blood Count 14.4H, Red Blood Count 3.11L, Hemoglobin 9.9L, Hematocrit 29.9L, Mean Corpuscular Volume 96, Mean Corpuscular Hemoglobin 31.8H, Mean Corpuscular Hemoglobin Concent 33.0, Red Cell Distribution Width 12.2, Platelet Count 208, Mean Platelet Volume 6.3L, Neutrophils (%) (Auto) 79.7H, Lymphocytes (%) (Auto) 4.3L, Monocytes (%) (Auto) 13.5H, Eosinophils (%) (Auto) 1.3, Basophils (%) (Auto) 1.2, Sodium Level 132L, Potassium Level 4.4, Chloride Level 91L, Carbon Dioxide Level 32, Anion Gap 9, Blood Urea Nitrogen 31H, Creatinine 6.1H, Estimat Glomerular Filtration Rate 8.1, Glucose Level 106, Calcium Level 8.8 Height (Feet): 5 Height (Inches): 3.00 Weight (Pounds): 150 General Appearance: WD/WN EENT: PERRL/EOMI Neck: non-tender Cardiovascular: normal rate Respiratory/Chest: lungs clear Abdomen: non tender, soft Extremities: other - R foot dressing in place Neurologic: digital composer II-XII grossly normal Skin: normal pigmentation Mattie Paz MD Dec 27, 2019 13:58
[2019-12-27] MEDS ORDERED: Miralax 17gm pkt ORAL ONE (14:30)
[2019-12-27] MEDS ORDERED: Lactulose 20gm/30ml UDC ORAL ONE (15:00)
[2019-12-27 16:00] VITALS: BP 141/67
--- NOTE | 2019-12-27 19:34 | NUR ---
HAND-OFF: Report given to Scar Smith. Plan of care endorsed.
--- NOTE | 2019-12-27 19:36 | NUR ---
NURSE NOTES: Received patient from VARGAS Weber. Patient is awake and alert sitting at the side of her bed, dangling her legs. She appears comfortable, no signs of acute distress. No complaints of pain or discomfort at this time. Fall precautions in place. Encouraged to use call skinner light for assistance. Pt verbalized understanding. Left AV fistula bruit and thrill present. Will follow plan of care and continue to monitor pt.
[2019-12-27 20:00] VITALS: BP 142/81
[2019-12-27] MEDS: Sensipar 30mg Tab ORAL SCH (21:04)
[2019-12-28] VITALS: BP 131/61
[2019-12-28 04:00] VITALS: BP 122/58
[2019-12-28] MEDS: NovoLOG Insulin Flexpen SUBQ SCH ×4 (06:14→21:00)
[2019-12-28 07:13] LABS: BASOPHILS % (AUTO) 1.4 % (0.0-2.0); EOSINOPHILS % (AUTO) 1.4 % (0.0-3.0); HEMATOCRIT 28.2 % (37.0-47.0); HEMOGLOBIN 9.4 G/DL (12.0-16.0); LYMPHOCYTES % (AUTO) 7.3 % (20.0-45.0); MEAN CORPUSCULAR VOLUME 96 FL (80-99); MONOCYTES % (AUTO) 7.9 % (1.0-10.0); PLATELET COUNT 179 K/UL (150-450); RED BLOOD COUNT 2.94 M/UL (4.20-5.40); RED CELL DISTRIBUTION WIDTH 12.5 % (11.6-14.8); WHITE BLOOD COUNT 17.4 K/UL (4.8-10.8)
[2019-12-28 07:15] LABS: ANION GAP 14 mmol/L (5-15); BLOOD UREA NITROGEN 42 mg/dL (7-18); CALCIUM 9.1 MG/DL (8.5-10.1); CARBON DIOXIDE 28 MMOL/L (21-32); CHLORIDE 87 MMOL/L (98-107); CREATININE 7.9 MG/DL (0.55-1.30); POTASSIUM 4.3 MMOL/L (3.5-5.1); SODIUM 129 MMOL/L (136-145)
--- NOTE | 2019-12-28 07:45 | NUR ---
HAND-OFF: Report given to VARGAS Weber
--- NOTE | 2019-12-28 07:50 | NUR ---
NURSE NOTES: Received report from VARGAS Smith. Patient sitting comfortably on bed, eating breakfast. Patient is Alert and oriented x 4. Patient is on room air, with 02 at 2lpm as PRN. On CCHO (medium), renal diet-instructed. No acute distress nor shortness of breath noted, denies chest pain at this time. Patient has right forearm g-20 saline lock that is dry,clean and intact and left upper arm AV shunt. Bed is in lowest position, call light within reach. Bed alarm is on. Advised patient to call for any assistance. Plan of care discussed.
[2019-12-28 08:00] VITALS: BP 130/70
[2019-12-28] MEDS: Miralax 17gm pkt ORAL SCH ×2 (09:00→21:00)
[2019-12-28] MEDS: Docusate 100mg cap ORAL SCH ×3 (09:25→17:56)
[2019-12-28] MEDS: Heparin 5000 units/ml inj SUBQ SCH ×2 (09:26→21:00)
[2019-12-28] MEDS: Nitroglycerin Patch 0.2mg/hr TDERMAL SCH (09:26)
[2019-12-28] MEDS: Losartan 50mg tab ORAL SCH (09:27)
[2019-12-28] MEDS: Neosporin Oint Ud Pkt TOPIC SCH ×2 (09:27→17:56)
--- NOTE | 2019-12-28 10:34 | Pulmonology Progress Note ---
Assessment/Plan Assessment/Plan ASSESSMENT Sepsis with Staph aureus bacteremia Persistent leukocytosis Right fifth toe gangrene Cellulitis R foot ESRD, on HD Severe pulmonary HTN Aortic stenosis with aortic regurgitation PVD Anemia of chronic kidney disease Pacemaker HTN DM PLAN OF CARE tele Echo with EF 50% , no evidence of vegetation RVSP of 64 moderate AR, troponin levels flat and not c/w ACS pattern ECG with A pacing and old CO pacemaker interrogated -> normal fx abx as per ID BCX + Staph aureus 12/18 , 12/19 and BCX 12/23 NGTD bone scan no evidence of osteomyelitis, + cellulitis R foot X-ray of R foot -> no fx or dislocation arterial duplex noted DARYN - rule out endocarditis , planned for Sunday O2 HHN PRN DVT prophylactics CT chest 12/25 with bibasilar atelectasis and possibly some right basilar consolidation check CXR in am HD as per nephro; monitor volumes renal parameters BP management with current regimen troponin elevated, patient remains asymptomatic cardio on board BS management with SSI wound care as per billposting supervisor recommendation pain management supportive care plan to transfer to [facility] after DARYN for angiogram case discussed and evaluated by supervising physician Subjective Allergies: Coded Allergies: SULFA (SULFONAMIDE ANTIBIOTICS) (Verified Allergy, Mild, 08/19/09) Subjective persistent leuk fevers resolved no signs of resp distress, pulse ox stable on RA no CP DARYN pending for Sunday episode of NSTVT 12/25 reported by nursing Objective Last 24 Hour Vital Signs Date Time Temp Pulse Resp B/P (MAP) Pulse Ox O2 Delivery O2 Flow Rate FiO2 12/28/19 09:27 130/70 12/28/19 09:26 130/70 12/28/19 08:00 97.8 85 18 130/70 (90) 96 12/28/19 08:00 83 12/28/19 04:00 82 12/28/19 04:00 97.0 83 18 122/58 (79) 98 12/28/19 00:00 97.0 88 18 131/61 (84) 98 12/28/19 00:00 86 12/27/19 21:01 Nasal Cannula 2.0 12/27/19 21:00 Nasal Cannula 2.0 12/27/19 20:05 96 Nasal Cannula 2.0 28 12/27/19 20:00 97.6 79 16 142/81 (101) 99 12/27/19 20:00 83 12/27/19 16:00 98.0 87 17 141/67 (91) 99 12/27/19 16:00 86 12/27/19 12:00 97 12/27/19 12:00 97.7 94 18 118/72 (87) 98 Intake and Output 12/27/19 12/28/19 19:00 07:00 Intake Total 500 ml Balance 500 ml Intake Oral 500 ml # Bowel Movements 2 Objective General Appearance: no acute distress HEENT: normocephalic, atraumatic, anicteric, mucous membranes moist Respiratory/Chest: lungs clear, no respiratory distress, chest wall tender Cardiovascular: normal rate, A pacing, regular rhythm Abdomen: normal bowel sounds, soft, non tender Extremities: LUE AV shunt + thrill/bruit; R 5 th toe TTP, also TTP plantar surface of the foot, +1 edema of the foot Laboratory Tests 12/28/19 05:45: White Blood Count 17.4H, Red Blood Count 2.94L, Hemoglobin 9.4L, Hematocrit 28.2L, Mean Corpuscular Volume 96, Mean Corpuscular Hemoglobin 32.0H, Mean Corpuscular Hemoglobin Concent 33.3, Red Cell Distribution Width 12.5, Platelet Count 179, Mean Platelet Volume 6.4L, Neutrophils (%) (Auto) 82.0H, Lymphocytes (%) (Auto) 7.3L, Monocytes (%) (Auto) 7.9, Eosinophils (%) (Auto) 1.4, Basophils (%) (Auto) 1.4, Sodium Level 129L, Potassium Level 4.3, Chloride Level 87L, Carbon Dioxide Level 28, Anion Gap 14, Blood Urea Nitrogen 42H, Creatinine 7.9H, Estimat Glomerular Filtration Rate 6.1, Glucose Level 104, Calcium Level 9.1 Current Medications Medications (Trade) Dose Ordered Sig/Bere Route PRN Reason Start Time Stop Time Status Last Admin Dose Admin Acetaminophen (Tylenol) 650 mg Q4H PRN ORAL T>100.5 12/18/19 21:30 01/17/20 21:29 12/28/19 09:42 Cefazolin Sodium 1 gm/Dextrose 55 ml @ 110 mls/hr Q24H IVP 12/23/19 14:00 12/30/19 13:59 12/27/19 13:18 Cinacalcet (Sensipar) 60 mg QHS ORAL 12/22/19 21:00 01/21/20 20:59 12/27/19 21:04 Clonidine HCl (Catapres Tab) 0.1 mg Q4H PRN ORAL SBP > 160mmhg 12/18/19 21:30 01/17/20 21:29 12/22/19 14:13 Dextrose (Dextrose 50%) 25 ml Q30M PRN IV Hypoglycemia 12/18/19 21:30 01/17/20 21:29 Dextrose (Dextrose 50%) 50 ml Q30M PRN IV Hypoglycemia 12/18/19 21:30 01/17/20 21:29 Docusate Sodium (Colace) 100 mg THREE TIMES A DAY ORAL 12/19/19 13:00 01/18/20 12:59 12/28/19 09:25 Heparin Sodium (Porcine) (Heparin 5000 units/ml) 5,000 units EVERY 12 HOURS SUBQ 12/19/19 09:00 01/18/20 08:59 12/28/19 09:26 Insulin Aspart (NovoLOG) BEFORE MEALS AND HS SUBQ 12/19/19 06:30 01/18/20 06:29 Losartan Potassium (Cozaar) 50 mg DAILY ORAL 12/27/19 09:00 01/18/20 08:59 12/28/19 09:27 Neomycin/ Polymyxin/ Bacitracin (Neosporin) 1 applic BID TOPIC 12/23/19 12:00 01/22/20 11:59 12/28/19 09:27 Nitroglycerin (Ntg) 1 patch Q24H TDERMAL 12/19/19 09:30 01/18/20 09:29 12/28/19 09:26 Ondansetron HCl (Zofran) 1 mg Q4H PRN IVP Nausea & Vomiting 12/26/19 19:00 01/17/20 21:29 Pantoprazole (Protonix) 40 mg EVERY 12 HOURS ORAL 12/19/19 21:00 01/18/20 20:59 12/28/19 09:27 Polyethylene Glycol (Miralax) 17 gm DAILY ORAL 12/28/19 09:00 01/27/20 08:59 Polyethylene Glycol (Miralax) 17 gm HSPRN PRN ORAL Constipation 12/18/19 21:30 01/17/20 21:29 Sevelamer Carbonate (Renvela) 1,600 mg THREE TIMES A DAY ORAL 12/22/19 13:00 01/21/20 12:59 12/28/19 09:27 Nova Natarajan NP Dec 28, 2019 10:34
[2019-12-28] MEDS ORDERED: Albuterol/Ipratropium 3ml neb HHN PRN (10:45)
[2019-12-28 12:00] VITALS: BP 112/54
[2019-12-28] MEDS: ceFAZolin 1gm in D5W 55ml IVP SCH (13:44)
--- NOTE | 2019-12-28 14:25 | Nephrology Progress Note ---
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 HypoAlbuminemia Sepsis with bacteremia Right fifth toe gangrene Aortic stenosis with aortic regurgitation PVD Anemia of chronic kidney disease DM Plan On Sensipar Phos binders on Ancef Dialysis next December 28 2D echo EjFx 50- Pulm HTN adjust cardiac abd BP meds Anemia rees per orders Subjective ROS Limited/Unobtainable: No Constitutional: Reports: malaise Objective Objective Last 24 Hour Vital Signs Date Time Temp Pulse Resp B/P (MAP) Pulse Ox O2 Delivery O2 Flow Rate FiO2 12/28/19 12:00 96.7 85 18 112/54 (73) 96 12/28/19 09:27 130/70 12/28/19 09:26 130/70 12/28/19 09:00 Room Air 12/28/19 08:00 97.8 85 18 130/70 (90) 96 12/28/19 08:00 83 12/28/19 04:00 82 12/28/19 04:00 97.0 83 18 122/58 (79) 98 12/28/19 00:00 97.0 88 18 131/61 (84) 98 12/28/19 00:00 86 12/27/19 21:01 Nasal Cannula 2.0 12/27/19 21:00 Nasal Cannula 2.0 12/27/19 20:05 96 Nasal Cannula 2.0 28 12/27/19 20:00 97.6 79 16 142/81 (101) 99 12/27/19 20:00 83 12/27/19 16:00 98.0 87 17 141/67 (91) 99 12/27/19 16:00 86 Intake and Output 12/27/19 12/28/19 19:00 07:00 Intake Total 500 ml Balance 500 ml Intake Oral 500 ml # Bowel Movements 2 Laboratory Tests 12/28/19 05:45: White Blood Count 17.4H, Red Blood Count 2.94L, Hemoglobin 9.4L, Hematocrit 28.2L, Mean Corpuscular Volume 96, Mean Corpuscular Hemoglobin 32.0H, Mean Corpuscular Hemoglobin Concent 33.3, Red Cell Distribution Width 12.5, Platelet Count 179, Mean Platelet Volume 6.4L, Neutrophils (%) (Auto) 82.0H, Lymphocytes (%) (Auto) 7.3L, Monocytes (%) (Auto) 7.9, Eosinophils (%) (Auto) 1.4, Basophils (%) (Auto) 1.4, Sodium Level 129L, Potassium Level 4.3, Chloride Level 87L, Carbon Dioxide Level 28, Anion Gap 14, Blood Urea Nitrogen 42H, Creatinine 7.9H, Estimat Glomerular Filtration Rate 6.1, Glucose Level 104, Calcium Level 9.1 Height (Feet): 5 Height (Inches): 3.00 Weight (Pounds): 151 General Appearance: no apparent distress Cardiovascular: normal rate Abdomen: soft Objective no change Peter Solorio MD Dec 28, 2019 14:25
--- NOTE | 2019-12-28 14:31 | General Progress Note ---
Assessment/Plan Status: stable Assessment/Plan: ASSESSMENT: This is a 79-year-old female. 1. Right foot pain. 2. Fever. 3. Right fifth toe infection. 4. Leukocytosis. 5. Diabetes type 2. 6. Hypertension. 7. End-stage renal disease, on hemodialysis. 8. Hypothyroidism. 9. Peripheral vascular disease. 10. Pacemaker in situ. 11. Sepsis with bacteremia. now resolved Bcx negative 3/4 =MSSA staph aureus TREATMENT: 1. Right foot pain/gangrene of the right fifth toe. A Podiatry consultation has been obtained with Dr. Flood. We will follow recommendations of Podiatry. A nuclear medicine bone scan is pending to rule out osteomyelitis. ABX=Zosyn and vancomycin now stopped and on ANCEF day 7 2. Fever. Likely secondary to cellulitis of the right foot as above. An Infectious Disease consultation has been obtained with Dr. David. We will follow recommendation of Infectious Disease. CT abdomen pelvis without abscess. DARYN PENDING TOMORROW SUNDAY to rule out SBE 3. Diabetes type 2. The patient has been placed on a NovoLog sliding scale. 4. Hypertension. Continue losartan as above. Will increase to 50 mg daily and monitor. 5. End-stage renal disease. A Nephrology consultation has been obtained with Dr. Peter Solorio. Follow recommendations of Dr. Solorio. 6. Hypothyroidism. Continue Synthroid. 7. Pacemaker in situ. A pacemaker check noted with Dr. Dawit Lopez. 8. Elevated troponin. A Cardiology consultation has been obtained with Dr. Lopez. Await transesophageal echocardiogram to rule out Sub acute bacterial endocarditis and after will need arrangements to transfer to [facility] for vascular evaluation - angiogram by Dr. Lomas ( not available at [facility] [place] ) . Subjective Date patient seen: Dec 28, 2019 Allergies: Coded Allergies: SULFA (SULFONAMIDE ANTIBIOTICS) (Verified Allergy, Mild, 08/19/09) All Systems: reviewed and negative except above Subjective Feels well. Denies fever, chills, L foot pain is stable. She wants to be able to ambulate soon. She was able to move her bowels well after lactulose. Objective Last 24 Hour Vital Signs Date Time Temp Pulse Resp B/P (MAP) Pulse Ox O2 Delivery O2 Flow Rate FiO2 12/28/19 12:00 96.7 85 18 112/54 (73) 96 12/28/19 09:27 130/70 12/28/19 09:26 130/70 12/28/19 09:00 Room Air 12/28/19 08:00 97.8 85 18 130/70 (90) 96 12/28/19 08:00 83 12/28/19 04:00 82 12/28/19 04:00 97.0 83 18 122/58 (79) 98 12/28/19 00:00 97.0 88 18 131/61 (84) 98 12/28/19 00:00 86 12/27/19 21:01 Nasal Cannula 2.0 12/27/19 21:00 Nasal Cannula 2.0 12/27/19 20:05 96 Nasal Cannula 2.0 28 12/27/19 20:00 97.6 79 16 142/81 (101) 99 12/27/19 20:00 83 12/27/19 16:00 98.0 87 17 141/67 (91) 99 12/27/19 16:00 86 Intake and Output 12/27/19 12/28/19 19:00 07:00 Intake Total 500 ml Balance 500 ml Intake Oral 500 ml # Bowel Movements 2 Laboratory Tests 12/28/19 05:45: White Blood Count 17.4H, Red Blood Count 2.94L, Hemoglobin 9.4L, Hematocrit 28.2L, Mean Corpuscular Volume 96, Mean Corpuscular Hemoglobin 32.0H, Mean Corpuscular Hemoglobin Concent 33.3, Red Cell Distribution Width 12.5, Platelet Count 179, Mean Platelet Volume 6.4L, Neutrophils (%) (Auto) 82.0H, Lymphocytes (%) (Auto) 7.3L, Monocytes (%) (Auto) 7.9, Eosinophils (%) (Auto) 1.4, Basophils (%) (Auto) 1.4, Sodium Level 129L, Potassium Level 4.3, Chloride Level 87L, Carbon Dioxide Level 28, Anion Gap 14, Blood Urea Nitrogen 42H, Creatinine 7.9H, Estimat Glomerular Filtration Rate 6.1, Glucose Level 104, Calcium Level 9.1 Height (Feet): 5 Height (Inches): 3.00 Weight (Pounds): 151 General Appearance: WD/WN EENT: PERRL/EOMI Neck: supple Cardiovascular: normal rate Respiratory/Chest: lungs clear, normal breath sounds Abdomen: non tender Edema: trace edema Neurologic: regional project 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
[2019-12-28 16:00] VITALS: BP 115/78
--- NOTE | 2019-12-28 19:51 | NUR ---
HAND-OFF: Report given to VARGAS Smith. Patient is on bed, no complaints of pain at this time, plan of care endorsed.
[2019-12-28 20:00] VITALS: BP 125/58
--- NOTE | 2019-12-28 20:00 | NUR ---
NURSE NOTES: . Patient sitting comfortably in bed, is NPO at midnight for DARYN in am. Consent signed in chart. Patient has right forearm 20 G saline lock, patent. Has left upper arm AV shunt, bruit/thrill present- scheduled for hemodialysis 12/28. Bed is in lowest position, locked, call light within reach. Bed alarm is on. Advised patient to call for any assistance. Pt does not want bed alarm on and says she is aware that she is unsteady on her feet- will continue to monitor.
[2019-12-28] MEDS: Sensipar 30mg Tab ORAL SCH (22:00)
[2019-12-28] MEDS: Morphine Sulfate 2mg/ml Inj(IV/IM USE ONLY) IVP PRN (22:07)
[2019-12-29] VITALS (10 sets, daily range): BP systolic 112–148; BP diastolic 42–75
[2019-12-29] MEDS: NovoLOG Insulin Flexpen SUBQ SCH ×4 (06:05→20:43)
[2019-12-29] MEDS: Morphine Sulfate 2mg/ml Inj(IV/IM USE ONLY) IVP PRN ×2 (06:08→23:33)
--- NOTE | 2019-12-29 07:53 | Anethesia Preoperative Eval ---
Anesthesia Pre-op PMH/ROS General Date of Evaluation: Dec 29, 2019 Time of Evaluation: 07:49 Anesthesiologist: Justice ASA Score: ASA 3 Mallampati Score Class I : Soft palate, uvula, fauces, pillars visible Class II: Soft palate, uvula, fauces visible Class III: Soft palate, base of uvula visible Class IV: Only hard plate visible Mallampati Classification: Class II Surgeon: Gui Diagnosis: Bacteremia Surgical Procedure: DARYN Anesthesia History: none Family History: no anesthesia problems Allergies: Coded Allergies: SULFA (SULFONAMIDE ANTIBIOTICS) (Verified Allergy, Mild, 08/19/09) Medications: see eMAR Patient NPO?: Yes Past Medical History Cardiovascular: Reports: HTN, arrhythmia - SSS pacer in place, other - PVD, pulmonary HTN; Denies: CAD, [place], valve dz Pulmonary: Denies: asthma, COPD, ARIELLE, other Gastrointestinal/Genitourinary: Reports: GERD, ESRD - on HD; Denies: CRI, other Neurologic/Psychiatric: Reports: depression/anxiety Endocrine: Reports: DM, hypothyroidism; Denies: steroids, other HEENT: Reports: cataract (L), cataract (R); Denies: glaucoma, NIKOLAI (L), NIKOLAI (R), other Hematology/Immune: Reports: anemia; Denies: DVT, bleeding disorder, other Musculoskeletal/Integumentary: Reports: DJD; Denies: OA, RA, DDD, edema, other PMH Narrative: as above PSxH Narrative: Hysterectomy, cholecystectomy, pacemaker placement Anesthesia Pre-op Phys. Exam Physician Exam Last Vital Signs Date Time Temp Pulse Resp B/P (MAP) Pulse Ox O2 Delivery O2 Flow Rate FiO2 12/29/19 06:39 99.0 12/29/19 04:00 64 18 116/53 (74) 90 12/28/19 21:00 Room Air 12/28/19 20:00 21 12/27/19 21:01 2.0 Constitutional: NAD Neurologic: CN 2-12 intact Cardiovascular: RRR, no M/R/G Respiratory: CTA Gastrointestinal: S/NT/ND Airway Exam Mallampati Score: Class II MO: limited Neck: stiff ROM: limited Teeth: missing Dentures: no upper, no lower Anesthesia Pre-op A/P Labs see chart Risk Assessment & Plan Assessment: ASA 3 Plan: John Iyer MD Dec 29, 2019 07:53
[2019-12-29] MEDS ORDERED: NS 500ML IVPB ONE (08:00)
[2019-12-29] MEDS ORDERED: fentaNYL 100 mcg/2 mL IV ONE (08:00)
[2019-12-29] MEDS ORDERED: Propofol 200mg/20ml IV ONE (08:00)
--- NOTE | 2019-12-29 08:03 | Pre-Procedure Note/Attestation ---
Pre-Procedure Note/Attestation Complete Prior to Procedure Procedure Narrative: Transesophageal echocardiography Indications for Procedure Pre-Operative Diagnosis: Staph A. bacteremia Attestation I attest that I discussed the nature of the procedure; its benefits; risks and complications; and alternatives (and the risks and benefits of such alternatives ), prior to the procedure, with the patient (or the patient's legal telephone services sales representative). I attest that, if there was a reasonable possibility of needing a blood transfusion, the patient (or the patient's legal telephone services sales representative) was given the [facility] standardized written summary, pursuant to the García Jacquelin Blood Safety Act ([place] Health and Safety Code # 1645, as amended). I attest that I re-evaluated the patient just prior to the surgery and that there has been no change in the patient's H&P, except as documented below: Dawit Messer MD Dec 29, 2019 08:03
--- NOTE | 2019-12-29 08:10 | NUR ---
HAND-OFF: Report given to VARGAS Dick.
[2019-12-29 08:14] LABS: HEMATOCRIT 29.4 % (37.0-47.0); HEMOGLOBIN 9.6 G/DL (12.0-16.0); MEAN CORPUSCULAR VOLUME 96 FL (80-99); PLATELET COUNT 179 K/UL (150-450); RED BLOOD COUNT 3.08 M/UL (4.20-5.40); RED CELL DISTRIBUTION WIDTH 12.3 % (11.6-14.8); WHITE BLOOD COUNT 19.5 K/UL (4.8-10.8)
--- NOTE | 2019-12-29 08:27 | Brief Operative Note ---
Immediate Post Operative Note Operative Note Pre-op Diagnosis: Staph A. bacteremia Procedure: DARYN Post-op Diagnosis: Staph A. Bacteremia, no e/o valvular vegetations or presence of vegetations on the pacemaker leads. Surgeon: Dawit Messer MD Spreader Box Operator: None Specimen: none Complications: none Condition: stable Fluids: None Estimated Blood Loss: none Drains: none Packing: N/A Implant(s) used?: No Dawit Messer MD Dec 29, 2019 08:27
[2019-12-29 08:28] LABS: ALANINE AMINOTRANSFERASE 7 U/L (12-78); ALBUMIN 2.5 G/DL (3.4-5.0); ALBUMIN/GLOBULIN RATIO 0.5 (1.0-2.7); ALKALINE PHOSPHATASE 117 U/L (46-116); ANION GAP 14 mmol/L (5-15); ASPARTATE AMINO TRANSFERASE 27 U/L (15-37); BILIRUBIN,TOTAL 0.3 MG/DL (0.2-1.0); BLOOD UREA NITROGEN 50 mg/dL (7-18); CALCIUM 8.8 MG/DL (8.5-10.1); CARBON DIOXIDE 25 MMOL/L (21-32); CHLORIDE 87 MMOL/L (98-107); CREATININE 9.2 MG/DL (0.55-1.30); PHOSPHORUS 4.7 MG/DL (2.5-4.9); POTASSIUM 5.1 MMOL/L (3.5-5.1); SODIUM 126 MMOL/L (136-145)
--- NOTE | 2019-12-29 08:37 | Immediate Post-Op Evaluation ---
Immediate Post-Op Evalulation Immediate Post-Op Evalulation Procedure: DARYN Date of Evaluation: Dec 29, 2019 Time of Evaluation: 08:36 IV Fluids: 200 Blood Products: none Estimated Blood Loss: none Urinary Output: none Blood Pressure Systolic: 141 Blood Pressure Diastolic: 67 Pulse Rate: 78 Respiratory Rate: 20 O2 Sat by Pulse Oximetry: 99 Temperature (Fahrenheit): 97.6 Pain Score (1-10): 1 Nausea: No Vomiting: No Complications NONE Patient Status: reacts, patent, none Hydration Status: adequate John Rendon MD Dec 29, 2019 08:37
[2019-12-29] MEDS: Losartan 50mg tab ORAL SCH (09:00)
[2019-12-29] MEDS: Miralax 17gm pkt ORAL SCH ×2 (09:33→20:09)
[2019-12-29] MEDS: Docusate 100mg cap ORAL SCH ×3 (09:33→18:09)
[2019-12-29] MEDS: Neosporin Oint Ud Pkt TOPIC SCH ×2 (09:34→18:09)
[2019-12-29] MEDS: Nitroglycerin Patch 0.2mg/hr TDERMAL SCH (09:35)
[2019-12-29] MEDS: Heparin 5000 units/ml inj SUBQ SCH ×2 (09:38→20:48)
--- NOTE | 2019-12-29 10:16 | NUR ---
CASE MANAGEMENT:REVIEW 12/29/19 SI: SEPSIS. BACTEREMIA. RT 5TH TOE GANGRENE ESRD ON HD. PACEMAKER 97.6 78 27 112/51 100% ON 3L/NC WBC+19.5 NA-126 BUN+50 CR+9.2 GLUCOSE-73 IS: IV ANCEF Q24 RENVELA PO TID COZAAR PO QD PROTONIX PO Q12 HEPARIN SQ Q12 IV MORPHINE Q4HRS PRN : TELEMETRY STATUS DCP: FROM HOME PLAN: DARYN IN PROGRESS
--- NOTE | 2019-12-29 11:42 | Pulmonology Progress Note ---
Assessment/Plan Problems: (1) Bacteremia (2) Sepsis (3) Cellulitis (4) History of pacemaker (5) ESRF (end stage renal failure) (6) Hypothyroidism (7) Diabetes mellitus (8) Dry gangrene Assessment/Plan WBC still high CT chest, abdomen, pelvis noted. robles culture, persistent Bacteremia with Staph aureus, last cultures from became positive DARYN done by Dr. Messer, No vegetation noted. continue iv abx wound care podiatry following Nephrology to handle HD monitor BP telemetry records reviewed. sliding scale diabetic diet. Subjective ROS Limited/Unobtainable: No Constitutional: Reports: no symptoms HEENT: Repors: no symptoms Respiratory: Reports: no symptoms Allergies: Coded Allergies: SULFA (SULFONAMIDE ANTIBIOTICS) (Verified Allergy, Mild, 08/19/09) Objective Last 24 Hour Vital Signs Date Time Temp Pulse Resp B/P (MAP) Pulse Ox O2 Delivery O2 Flow Rate FiO2 12/29/19 09:35 141/61 12/29/19 08:46 97.6 78 27 112/51 100 Nasal Cannula 3 12/29/19 08:40 82 28 129/42 100 Nasal Cannula 3 12/29/19 08:37 78 20 99 12/29/19 08:35 75 26 121/64 100 Nasal Cannula 3 12/29/19 08:30 97.9 78 24 124/72 100 Nasal Cannula 3 12/29/19 06:39 99.0 12/29/19 04:00 100.0 64 18 116/53 (74) 90 12/29/19 04:00 79 12/29/19 00:00 67 12/29/19 00:00 98.3 73 19 129/62 (84) 98 12/28/19 22:37 96.8 12/28/19 21:00 Room Air 12/28/19 20:00 98.8 70 19 125/58 (80) 99 12/28/19 20:00 70 20 95 Room Air 21 12/28/19 20:00 78 12/28/19 20:00 95 Room Air 21 12/28/19 16:00 96.8 76 20 115/78 (90) 100 12/28/19 16:00 78 12/28/19 12:00 96.7 85 18 112/54 (73) 96 12/28/19 12:00 80 Intake and Output 12/28/19 12/29/19 19:00 07:00 Output Total 1 ml Balance -1 ml Stool Total 1 ml # Voids 3 3 General Appearance: WD/WN HEENT: normocephalic, atraumatic, anicteric Respiratory/Chest: chest wall non-tender, lungs clear Breasts: no masses Cardiovascular: normal rate Abdomen: normal bowel sounds, soft, non tender Genitourinary: normal external genitalia Extremities: no cyanosis Skin: no rash Neurologic/Psychiatric: conche operator II-XII grossly normal Laboratory Tests 12/29/19 07:08: White Blood Count 19.5H, Red Blood Count 3.08L, Hemoglobin 9.6L, Hematocrit 29.4L, Mean Corpuscular Volume 96, Mean Corpuscular Hemoglobin 31.2H, Mean Corpuscular Hemoglobin Concent 32.6, Red Cell Distribution Width 12.3, Platelet Count 179, Mean Platelet Volume 6.0L, Neutrophils (%) (Auto) , Lymphocytes (%) ( Auto) , Monocytes (%) (Auto) , Eosinophils (%) (Auto) , Basophils (%) (Auto) , Differential Total Cells Counted 100, Neutrophils % (Manual) 83H, Lymphocytes % (Manual) 7L, Monocytes % (Manual) 10, Eosinophils % (Manual) 0, Basophils % ( Manual) 0, Band Neutrophils 0, Platelet Estimate Adequate, Platelet Morphology Normal, Sodium Level 126L, Potassium Level 5.1, Chloride Level 87L, Carbon Dioxide Level 25, Anion Gap 14, Blood Urea Nitrogen 50H, Creatinine 9.2H, Estimat Glomerular Filtration Rate 5.1, Glucose Level 73L, Calcium Level 8.8, Phosphorus Level 4.7, Magnesium Level 2.1, Total Bilirubin 0.3, Aspartate Amino Transf (AST/SGOT) 27, Alanine Aminotransferase (ALT/SGPT) 7L, Alkaline Phosphatase 117H, Total Protein 7.6, Albumin 2.5L, Globulin 5.1, Albumin/ Globulin Ratio 0.5L Current Medications Medications (Trade) Dose Ordered Sig/Bere Route PRN Reason Start Time Stop Time Status Last Admin Dose Admin Acetaminophen (Tylenol) 650 mg Q4H PRN ORAL T>100.5 12/18/19 21:30 01/17/20 21:29 12/29/19 06:09 Acetaminophen/ Hydrocodone Bitart ([place] 5/325) 1 tab Q4H PRN ORAL Moderate Pain (Pain Scale 4-6) 12/28/19 22:00 01/04/20 21:59 Albuterol/ Ipratropium (Albuterol/ Ipratropium) 3 ml Q4HRT PRN HHN Shortness of Breath 12/28/19 10:45 01/02/20 10:44 Cefazolin Sodium 1 gm/Dextrose 55 ml @ 110 mls/hr Q24H IVP 12/23/19 14:00 12/30/19 13:59 12/28/19 13:44 Cinacalcet (Sensipar) 60 mg QHS ORAL 12/22/19 21:00 01/21/20 20:59 12/28/19 22:00 Clonidine HCl (Catapres Tab) 0.1 mg Q4H PRN ORAL SBP > 160mmhg 12/18/19 21:30 01/17/20 21:29 12/22/19 14:13 Dextrose (Dextrose 50%) 25 ml Q30M PRN IV Hypoglycemia 12/18/19 21:30 01/17/20 21:29 Dextrose (Dextrose 50%) 50 ml Q30M PRN IV Hypoglycemia 12/18/19 21:30 01/17/20 21:29 Docusate Sodium (Colace) 100 mg THREE TIMES A DAY ORAL 12/19/19 13:00 01/18/20 12:59 12/29/19 09:33 Heparin Sodium (Porcine) (Heparin 5000 units/ml) 5,000 units EVERY 12 HOURS SUBQ 12/19/19 09:00 01/18/20 08:59 12/29/19 09:38 Insulin Aspart (NovoLOG) BEFORE MEALS AND HS SUBQ 12/19/19 06:30 01/18/20 06:29 Losartan Potassium (Cozaar) 50 mg DAILY ORAL 12/27/19 09:00 01/18/20 08:59 12/28/19 09:27 Morphine Sulfate (Morphine Sulfate) 2 mg Q4H PRN IVP Severe Pain (Pain Scale 7-10) 12/28/19 22:00 01/04/20 21:59 12/29/19 06:08 Neomycin/ Polymyxin/ Bacitracin (Neosporin) 1 applic BID TOPIC 12/23/19 12:00 01/22/20 11:59 12/29/19 09:34 Nitroglycerin (Ntg) 1 patch Q24H TDERMAL 12/19/19 09:30 01/18/20 09:29 12/29/19 09:35 Ondansetron HCl (Zofran) 1 mg Q4H PRN IVP Nausea & Vomiting 12/26/19 19:00 01/17/20 21:29 Pantoprazole (Protonix) 40 mg EVERY 12 HOURS ORAL 12/19/19 21:00 01/18/20 20:59 12/29/19 09:33 Polyethylene Glycol (Miralax) 17 gm BEDTIME ORAL 12/28/19 21:00 01/27/20 20:59 Polyethylene Glycol (Miralax) 17 gm DAILY ORAL 12/28/19 09:00 01/27/20 08:59 12/29/19 09:33 Sevelamer Carbonate (Renvela) 1,600 mg THREE TIMES A DAY ORAL 12/22/19 13:00 01/21/20 12:59 12/29/19 09:33 Ulisses Amaral MD Dec 29, 2019 11:42
--- NOTE | 2019-12-29 11:44 | Cardiac Electrophysiology PN ---
Assessment/Plan Assessment/Plan 1. Elevated troponin of 0.26. Levels are flat and low. No chest pain due to renal failure. EF 50%. 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 2. Status post Biotronik pacer. Interrogation showed Nl Fx and battery > 7 years 3. Severe pulmonary hypertension. 4. Bacteremia. DARYN showed no vegetation in the valves or on the leads Already on broad-spectrum intravenous antibiotic per ID. 5. End-stage renal disease, on hemodialysis. 6. R foot 5th digit gangrene. Podiatry and vascular surgery Will transfer to [facility] for peripheral angiogram by Dr Janice CHOW RN Subjective Subjective Alert in NAD. Had HD yesterday Had DARYN by Dr. Messer that showed no vegetations on valves or leads today Objective Last 24 Hour Vital Signs Date Time Temp Pulse Resp B/P (MAP) Pulse Ox O2 Delivery O2 Flow Rate FiO2 12/29/19 09:35 141/61 12/29/19 08:46 97.6 78 27 112/51 100 Nasal Cannula 3 12/29/19 08:40 82 28 129/42 100 Nasal Cannula 3 12/29/19 08:37 78 20 99 12/29/19 08:35 75 26 121/64 100 Nasal Cannula 3 12/29/19 08:30 97.9 78 24 124/72 100 Nasal Cannula 3 12/29/19 06:39 99.0 12/29/19 04:00 100.0 64 18 116/53 (74) 90 12/29/19 04:00 79 12/29/19 00:00 67 12/29/19 00:00 98.3 73 19 129/62 (84) 98 12/28/19 22:37 96.8 12/28/19 21:00 Room Air 12/28/19 20:00 98.8 70 19 125/58 (80) 99 12/28/19 20:00 70 20 95 Room Air 21 12/28/19 20:00 78 12/28/19 20:00 95 Room Air 21 12/28/19 16:00 96.8 76 20 115/78 (90) 100 12/28/19 16:00 78 12/28/19 12:00 96.7 85 18 112/54 (73) 96 12/28/19 12:00 80 Intake and Output 12/28/19 12/29/19 19:00 07:00 Output Total 1 ml Balance -1 ml Stool Total 1 ml # Voids 3 3 Laboratory Tests Test 12/29/19 07:08 White Blood Count 19.5 K/UL (4.8-10.8) H Red Blood Count 3.08 M/UL (4.20-5.40) L Hemoglobin 9.6 G/DL (12.0-16.0) L Hematocrit 29.4 % (37.0-47.0) L Mean Corpuscular Volume 96 FL (80-99) Mean Corpuscular Hemoglobin 31.2 PG (27.0-31.0) H Mean Corpuscular Hemoglobin Concent 32.6 G/DL (32.0-36.0) Red Cell Distribution Width 12.3 % (11.6-14.8) Platelet Count 179 K/UL (150-450) Mean Platelet Volume 6.0 FL (6.5-10.1) L Neutrophils (%) (Auto) % (45.0-75.0) Lymphocytes (%) (Auto) % (20.0-45.0) Monocytes (%) (Auto) % (1.0-10.0) Eosinophils (%) (Auto) % (0.0-3.0) Basophils (%) (Auto) % (0.0-2.0) Differential Total Cells Counted 100 Neutrophils % (Manual) 83 % (45-75) H Lymphocytes % (Manual) 7 % (20-45) L Monocytes % (Manual) 10 % (1-10) Eosinophils % (Manual) 0 % (0-3) Basophils % (Manual) 0 % (0-2) Band Neutrophils 0 % (0-8) Platelet Estimate Adequate Platelet Morphology Normal Sodium Level 126 MMOL/L (136-145) L Potassium Level 5.1 MMOL/L (3.5-5.1) Chloride Level 87 MMOL/L (98-107) L Carbon Dioxide Level 25 MMOL/L (21-32) Anion Gap 14 mmol/L (5-15) Blood Urea Nitrogen 50 mg/dL (7-18) H Creatinine 9.2 MG/DL (0.55-1.30) H Estimat Glomerular Filtration Rate 5.1 mL/min (>60) Glucose Level 73 MG/DL (74-106) L Calcium Level 8.8 MG/DL (8.5-10.1) Phosphorus Level 4.7 MG/DL (2.5-4.9) Magnesium Level 2.1 MG/DL (1.8-2.4) Total Bilirubin 0.3 MG/DL (0.2-1.0) Aspartate Amino Transf (AST/SGOT) 27 U/L (15-37) Alanine Aminotransferase (ALT/SGPT) 7 U/L (12-78) L Alkaline Phosphatase 117 U/L (46-116) H Total Protein 7.6 G/DL (6.4-8.2) Albumin 2.5 G/DL (3.4-5.0) L Globulin 5.1 g/dL Albumin/Globulin Ratio 0.5 (1.0-2.7) L Objective HEAD AND NECK: No JVD or carotid bruit. LUNGS: Clear. CARDIOVASCULAR: Shows regular S1 and S2 with no gallop or murmur. The pacemaker in the right subclavian. ABDOMEN: Soft. EXTREMITIES: Left arm dialysis access.Right 5th toe gangrene Dawit Lopez MD Dec 29, 2019 11:44
--- NOTE | 2019-12-29 12:59 | Infectious Diseases Prog Note ---
Assessment/Plan Assessment/Plan ASSESSMENT: The patient is a 79-year-old female with, Fever; low grade x 1 Right foot infection, -xray R foot: No displaced fracture or dislocation identified. -bone scan: No evidence for osteomyelitis. High grade Bacteremia, no evid of endocarditis or pacemaker infection. -12/28 SP DARYN: no e/o valvular vegetations or presence of vegetations on the pacemaker leads. -12/18 Bcx 2/ MSSA 12/19, Bcx MSSA -2d echo: limited study, no mention of vegetations Leukocytosis; persists - CT of C/A/P : no Abscess Sepsis, sp PLAN: Ancef # 06/18 3/ SP vancomycin # and Zosyn # 4 Monitor CBC. Monitor BMP. Monitor blood culture ( Rpt ) Monitor CBC and BMP Pod fup transfer to [facility] for peripheral angiogram by Dr Camacho Subjective Allergies: Coded Allergies: SULFA (SULFONAMIDE ANTIBIOTICS) (Verified Allergy, Mild, 08/19/09) Subjective low grade fever x 1 Objective Vital Signs Last 24 Hour Vital Signs Date Time Temp Pulse Resp B/P (MAP) Pulse Ox O2 Delivery O2 Flow Rate FiO2 12/29/19 09:35 141/61 12/29/19 08:46 97.6 78 27 112/51 100 Nasal Cannula 3 12/29/19 08:40 82 28 129/42 100 Nasal Cannula 3 12/29/19 08:37 78 20 99 12/29/19 08:35 75 26 121/64 100 Nasal Cannula 3 12/29/19 08:30 97.9 78 24 124/72 100 Nasal Cannula 3 12/29/19 08:00 77 12/29/19 06:39 99.0 12/29/19 04:00 100.0 64 18 116/53 (74) 90 12/29/19 04:00 79 12/29/19 00:00 67 12/29/19 00:00 98.3 73 19 129/62 (84) 98 12/28/19 22:37 96.8 12/28/19 21:00 Room Air 12/28/19 20:00 98.8 70 19 125/58 (80) 99 12/28/19 20:00 70 20 95 Room Air 21 12/28/19 20:00 78 12/28/19 20:00 95 Room Air 21 12/28/19 16:00 96.8 76 20 115/78 (90) 100 12/28/19 16:00 78 Height (Feet): 5 Height (Inches): 3.00 Weight (Pounds): 152 HEENT: mucous membranes moist Respiratory/Chest: normal breath sounds Cardiovascular: regular rhythm Abdomen: non distended Laboratory Tests Test 12/29/19 07:08 White Blood Count 19.5 K/UL (4.8-10.8) H Red Blood Count 3.08 M/UL (4.20-5.40) L Hemoglobin 9.6 G/DL (12.0-16.0) L Hematocrit 29.4 % (37.0-47.0) L Mean Corpuscular Volume 96 FL (80-99) Mean Corpuscular Hemoglobin 31.2 PG (27.0-31.0) H Mean Corpuscular Hemoglobin Concent 32.6 G/DL (32.0-36.0) Red Cell Distribution Width 12.3 % (11.6-14.8) Platelet Count 179 K/UL (150-450) Mean Platelet Volume 6.0 FL (6.5-10.1) L Neutrophils (%) (Auto) % (45.0-75.0) Lymphocytes (%) (Auto) % (20.0-45.0) Monocytes (%) (Auto) % (1.0-10.0) Eosinophils (%) (Auto) % (0.0-3.0) Basophils (%) (Auto) % (0.0-2.0) Differential Total Cells Counted 100 Neutrophils % (Manual) 83 % (45-75) H Lymphocytes % (Manual) 7 % (20-45) L Monocytes % (Manual) 10 % (1-10) Eosinophils % (Manual) 0 % (0-3) Basophils % (Manual) 0 % (0-2) Band Neutrophils 0 % (0-8) Platelet Estimate Adequate Platelet Morphology Normal Sodium Level 126 MMOL/L (136-145) L Potassium Level 5.1 MMOL/L (3.5-5.1) Chloride Level 87 MMOL/L (98-107) L Carbon Dioxide Level 25 MMOL/L (21-32) Anion Gap 14 mmol/L (5-15) Blood Urea Nitrogen 50 mg/dL (7-18) H Creatinine 9.2 MG/DL (0.55-1.30) H Estimat Glomerular Filtration Rate 5.1 mL/min (>60) Glucose Level 73 MG/DL (74-106) L Calcium Level 8.8 MG/DL (8.5-10.1) Phosphorus Level 4.7 MG/DL (2.5-4.9) Magnesium Level 2.1 MG/DL (1.8-2.4) Total Bilirubin 0.3 MG/DL (0.2-1.0) Aspartate Amino Transf (AST/SGOT) 27 U/L (15-37) Alanine Aminotransferase (ALT/SGPT) 7 U/L (12-78) L Alkaline Phosphatase 117 U/L (46-116) H Total Protein 7.6 G/DL (6.4-8.2) Albumin 2.5 G/DL (3.4-5.0) L Globulin 5.1 g/dL Albumin/Globulin Ratio 0.5 (1.0-2.7) L Current Medications Medications (Trade) Dose Ordered Sig/Bere Route PRN Reason Start Time Stop Time Status Last Admin Dose Admin Acetaminophen (Tylenol) 650 mg Q4H PRN ORAL T>100.5 12/18/19 21:30 01/17/20 21:29 12/29/19 06:09 Acetaminophen/ Hydrocodone Bitart ([place] 5/325) 1 tab Q4H PRN ORAL Moderate Pain (Pain Scale 4-6) 12/28/19 22:00 01/04/20 21:59 Albuterol/ Ipratropium (Albuterol/ Ipratropium) 3 ml Q4HRT PRN HHN Shortness of Breath 12/28/19 10:45 01/02/20 10:44 Cefazolin Sodium 1 gm/Dextrose 55 ml @ 110 mls/hr Q24H IVP 12/23/19 14:00 12/30/19 13:59 12/28/19 13:44 Cinacalcet (Sensipar) 60 mg QHS ORAL 12/22/19 21:00 01/21/20 20:59 12/28/19 22:00 Clonidine HCl (Catapres Tab) 0.1 mg Q4H PRN ORAL SBP > 160mmhg 12/18/19 21:30 01/17/20 21:29 12/22/19 14:13 Dextrose (Dextrose 50%) 25 ml Q30M PRN IV Hypoglycemia 12/18/19 21:30 01/17/20 21:29 Dextrose (Dextrose 50%) 50 ml Q30M PRN IV Hypoglycemia 12/18/19 21:30 01/17/20 21:29 Docusate Sodium (Colace) 100 mg THREE TIMES A DAY ORAL 12/19/19 13:00 01/18/20 12:59 12/29/19 09:33 Heparin Sodium (Porcine) (Heparin 5000 units/ml) 5,000 units EVERY 12 HOURS SUBQ 12/19/19 09:00 01/18/20 08:59 12/29/19 09:38 Insulin Aspart (NovoLOG) BEFORE MEALS AND HS SUBQ 12/19/19 06:30 01/18/20 06:29 Losartan Potassium (Cozaar) 50 mg DAILY ORAL 12/27/19 09:00 01/18/20 08:59 12/28/19 09:27 Morphine Sulfate (Morphine Sulfate) 2 mg Q4H PRN IVP Severe Pain (Pain Scale 7-10) 12/28/19 22:00 01/04/20 21:59 12/29/19 06:08 Neomycin/ Polymyxin/ Bacitracin (Neosporin) 1 applic BID TOPIC 12/23/19 12:00 01/22/20 11:59 12/29/19 09:34 Nitroglycerin (Ntg) 1 patch Q24H TDERMAL 12/19/19 09:30 01/18/20 09:29 12/29/19 09:35 Ondansetron HCl (Zofran) 1 mg Q4H PRN IVP Nausea & Vomiting 12/26/19 19:00 01/17/20 21:29 Pantoprazole (Protonix) 40 mg EVERY 12 HOURS ORAL 12/19/19 21:00 01/18/20 20:59 12/29/19 09:33 Polyethylene Glycol (Miralax) 17 gm BEDTIME ORAL 12/28/19 21:00 01/27/20 20:59 Polyethylene Glycol (Miralax) 17 gm DAILY ORAL 12/28/19 09:00 01/27/20 08:59 12/29/19 09:33 Sevelamer Carbonate (Renvela) 1,600 mg THREE TIMES A DAY ORAL 12/22/19 13:00 01/21/20 12:59 12/29/19 09:33 Roberto David MD Dec 29, 2019 12:59
--- NOTE | 2019-12-29 13:15 | Diagnostic Imaging Report ---
Indication: Dyspnea Comparison: 12/18/2019 A single view chest radiograph was obtained. Findings: Pulmonary vascularity is prominent bilaterally especially in the central hilar regions. Cardiomegaly is present and stable. Pacemaker again noted on the right. Left axillary/subclavian stent noted. Bones are osteopenic. IMPRESSION: No acute disease. No change
--- NOTE | 2019-12-29 13:21 | Nephrology Progress Note ---
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 HypoAlbuminemia Sepsis with bacteremia Right fifth toe gangrene Aortic stenosis with aortic regurgitation PVD Anemia of chronic kidney disease DM Plan For dialysis today-I expect correction of hyponatremia after dialysis On Sensipar Phos binders on Ancef Dialysis next December 28 2D echo EjFx 50- Pulm HTN adjust cardiac abd BP meds Anemia rees per orders Subjective ROS Limited/Unobtainable: No Objective Objective Last 24 Hour Vital Signs Date Time Temp Pulse Resp B/P (MAP) Pulse Ox O2 Delivery O2 Flow Rate FiO2 12/29/19 09:35 141/61 12/29/19 09:00 Room Air 12/29/19 08:46 97.6 78 27 112/51 100 Nasal Cannula 3 12/29/19 08:40 82 28 129/42 100 Nasal Cannula 3 12/29/19 08:37 78 20 99 12/29/19 08:35 75 26 121/64 100 Nasal Cannula 3 12/29/19 08:30 97.9 78 24 124/72 100 Nasal Cannula 3 12/29/19 08:00 77 12/29/19 06:39 99.0 12/29/19 04:00 100.0 64 18 116/53 (74) 90 12/29/19 04:00 79 12/29/19 00:00 67 12/29/19 00:00 98.3 73 19 129/62 (84) 98 12/28/19 22:37 96.8 12/28/19 21:00 Room Air 12/28/19 20:00 98.8 70 19 125/58 (80) 99 12/28/19 20:00 70 20 95 Room Air 21 12/28/19 20:00 78 12/28/19 20:00 95 Room Air 21 12/28/19 16:00 96.8 76 20 115/78 (90) 100 12/28/19 16:00 78 Intake and Output 12/28/19 12/29/19 19:00 07:00 Output Total 1 ml Balance -1 ml Stool Total 1 ml # Voids 3 3 Laboratory Tests 12/29/19 07:08: White Blood Count 19.5H, Red Blood Count 3.08L, Hemoglobin 9.6L, Hematocrit 29.4L, Mean Corpuscular Volume 96, Mean Corpuscular Hemoglobin 31.2H, Mean Corpuscular Hemoglobin Concent 32.6, Red Cell Distribution Width 12.3, Platelet Count 179, Mean Platelet Volume 6.0L, Neutrophils (%) (Auto) , Lymphocytes (%) ( Auto) , Monocytes (%) (Auto) , Eosinophils (%) (Auto) , Basophils (%) (Auto) , Differential Total Cells Counted 100, Neutrophils % (Manual) 83H, Lymphocytes % (Manual) 7L, Monocytes % (Manual) 10, Eosinophils % (Manual) 0, Basophils % ( Manual) 0, Band Neutrophils 0, Platelet Estimate Adequate, Platelet Morphology Normal, Sodium Level 126L, Potassium Level 5.1, Chloride Level 87L, Carbon Dioxide Level 25, Anion Gap 14, Blood Urea Nitrogen 50H, Creatinine 9.2H, Estimat Glomerular Filtration Rate 5.1, Glucose Level 73L, Calcium Level 8.8, Phosphorus Level 4.7, Magnesium Level 2.1, Total Bilirubin 0.3, Aspartate Amino Transf (AST/SGOT) 27, Alanine Aminotransferase (ALT/SGPT) 7L, Alkaline Phosphatase 117H, Total Protein 7.6, Albumin 2.5L, Globulin 5.1, Albumin/ Globulin Ratio 0.5L Height (Feet): 5 Height (Inches): 3.00 Weight (Pounds): 152 General Appearance: no apparent distress Objective no change Peter Solorio MD Dec 29, 2019 13:21
--- NOTE | 2019-12-29 13:26 | 48 Hour Post Anesthesia Eval ---
Post Anesthesia Evaluation Procedure: DARYN Date of Evaluation: Dec 29, 2019 Time of Evaluation: 13:24 Blood Pressure Systolic: 136 0: 72 Pulse Rate: 76 Respiratory Rate: 20 Temperature (Fahrenheit): 97.6 O2 Sat by Pulse Oximetry: 97 Airway: patent Nausea: No Vomiting: No Hydration Status: adequate Cardiopulmonary Status: stable Mental Status/LOC: patient returned to baseline Follow-up Care/Observations: n/a Post-Anesthesia Complications: none Follow-up care needed: N/A John Rendon MD Dec 29, 2019 13:26
--- NOTE | 2019-12-29 13:40 | NUR ---
RADIOLOGY DEPT., CHEST X-RAY DONE.-P.DYE
[2019-12-29] MEDS: ceFAZolin 1gm in D5W 55ml IVP SCH (14:15)
[2019-12-29] MEDS: HYDROcodone/Acetamin 5/325 tab ORAL PRN (15:02)
--- NOTE | 2019-12-29 15:30 | Procedure Note ---
DATE OF PROCEDURE: 12/29/2019 SURGEON: Dawit Messer M.D. PROCEDURE: Transesophageal echocardiography. PREOPERATIVE DIAGNOSIS: Staphylococcus aureus bacteremia to rule out valvular vegetation and to rule out pacemaker lead infection. POSTOPERATIVE FINDINGS: 1. No evidence of valvular vegetation, anterior leaflet of mitral valve and aortic valves are heavily calcified. 2. No evidence of pacemaker lead infection to the extent that we were able to visualize the leads. 3. Trace mitral regurgitation with calcified anterior leaflet and mitral valve as well as thickening of anterior leaflet of mitral valve. 4. Severe tricuspid regurgitation with right ventricular systolic pressure measured at 73 mmHg consistent with severe pulmonary hypertension. 5. Mild aortic regurgitation and a calcified aortic valve leaflet. The jet appears to be central. 6. Normal left ventricular systolic function. 7. Mild plaquing of the aortic arch. PLAN AND RECOMMENDATION: Infectious Disease, Dr. David to continue with antibiotic therapy for bacteremia. If this is highly suspicious for infective endocarditis, a DARYN should be repeated in just about a week time. This is provided that the blood cultures remained to be positive. DESCRIPTION OF PROCEDURE: After obtaining the informed consent, following explaining the details of the procedure and discussing the risks, benefits, and alternatives of the procedure, the patient was brought down to the GI laboratory in the fasting state. The patient was placed on the left lateral decubitus position. The prostheses were removed. At the presence of anesthesiologist and use of propofol as a general anesthetic agent, the transesophageal echocardiography probe was advanced and was placed in the midesophageal area distance just about 35 cm from the orifice. After review of the cardiac structure, the probe was removed. The patient tolerated the procedure well without developing any complications. The amount of blood loss was 0. Complications were none. CONCLUSION: No evidence of infective endocarditis in this study, no evidence of infection of the pacemaker leads. Dawit Messer M.D. DR: MIRELLA JOB#: [id number] CC:
--- NOTE | 2019-12-29 19:10 | Internal Med Progress Note ---
Subjective Date of Service: Dec 29, 2019 Physician Name JudyHieu Attending Physician Dave Melgoza MD Current Medications Medications (Trade) Dose Ordered Sig/Bere Route PRN Reason Start Time Stop Time Status Last Admin Dose Admin Acetaminophen (Tylenol) 650 mg Q4H PRN ORAL T>100.5 12/18/19 21:30 01/17/20 21:29 12/29/19 06:09 Acetaminophen/ Hydrocodone Bitart ([place] 5/325) 1 tab Q4H PRN ORAL Moderate Pain (Pain Scale 4-6) 12/28/19 22:00 01/04/20 21:59 12/29/19 15:02 Albuterol/ Ipratropium (Albuterol/ Ipratropium) 3 ml Q4HRT PRN HHN Shortness of Breath 12/28/19 10:45 01/02/20 10:44 Cefazolin Sodium 1 gm/Dextrose 55 ml @ 110 mls/hr Q24H IVP 12/23/19 14:00 12/30/19 13:59 12/29/19 14:15 Cinacalcet (Sensipar) 60 mg QHS ORAL 12/22/19 21:00 01/21/20 20:59 12/28/19 22:00 Clonidine HCl (Catapres Tab) 0.1 mg Q4H PRN ORAL SBP > 160mmhg 12/18/19 21:30 01/17/20 21:29 12/22/19 14:13 Dextrose (Dextrose 50%) 25 ml Q30M PRN IV Hypoglycemia 12/18/19 21:30 01/17/20 21:29 Dextrose (Dextrose 50%) 50 ml Q30M PRN IV Hypoglycemia 12/18/19 21:30 01/17/20 21:29 Docusate Sodium (Colace) 100 mg THREE TIMES A DAY ORAL 12/19/19 13:00 01/18/20 12:59 12/29/19 18:09 Heparin Sodium (Porcine) (Heparin 5000 units/ml) 5,000 units EVERY 12 HOURS SUBQ 12/19/19 09:00 01/18/20 08:59 12/29/19 09:38 Insulin Aspart (NovoLOG) BEFORE MEALS AND HS SUBQ 12/19/19 06:30 01/18/20 06:29 Losartan Potassium (Cozaar) 50 mg DAILY ORAL 12/27/19 09:00 01/18/20 08:59 12/28/19 09:27 Morphine Sulfate (Morphine Sulfate) 2 mg Q4H PRN IVP Severe Pain (Pain Scale 7-10) 12/28/19 22:00 01/04/20 21:59 12/29/19 06:08 Neomycin/ Polymyxin/ Bacitracin (Neosporin) 1 applic BID TOPIC 12/23/19 12:00 01/22/20 11:59 12/29/19 18:09 Nitroglycerin (Ntg) 1 patch Q24H TDERMAL 12/19/19 09:30 01/18/20 09:29 12/29/19 09:35 Ondansetron HCl (Zofran) 1 mg Q4H PRN IVP Nausea & Vomiting 12/26/19 19:00 01/17/20 21:29 Pantoprazole (Protonix) 40 mg EVERY 12 HOURS ORAL 12/19/19 21:00 01/18/20 20:59 12/29/19 09:33 Polyethylene Glycol (Miralax) 17 gm BEDTIME ORAL 12/28/19 21:00 01/27/20 20:59 Polyethylene Glycol (Miralax) 17 gm DAILY ORAL 12/28/19 09:00 01/27/20 08:59 12/29/19 09:33 Sevelamer Carbonate (Renvela) 1,600 mg THREE TIMES A DAY ORAL 12/22/19 13:00 01/21/20 12:59 12/29/19 18:09 Allergies: Coded Allergies: SULFA (SULFONAMIDE ANTIBIOTICS) (Verified Allergy, Mild, 08/19/09) ROS Limited/Unobtainable: No Constitutional: Reports: no symptoms HEENT: Reports: no symptoms Cardiovascular: Reports: no symptoms Respiratory: Reports: no symptoms Gastrointestinal/Abdominal: Reports: no symptoms Genitourinary: Reports: no symptoms Neurologic/Psychiatric: Reports: no symptoms Subjective 79 YO F admitted with right foot pain. Now gangrene right 5th toe and sepsis. Cover for Int Dell-Dr Melgoza. S/P transesophageal echocardiogram 12/29/19 Objective Last Vital Signs Date Time Temp Pulse Resp B/P (MAP) Pulse Ox O2 Delivery O2 Flow Rate FiO2 12/29/19 13:26 76 20 97 12/29/19 09:35 141/61 12/29/19 09:00 Room Air 12/29/19 08:46 97.6 3 12/29/19 07:59 21 Laboratory Tests Test 12/29/19 07:08 White Blood Count 19.5 K/UL (4.8-10.8) H Red Blood Count 3.08 M/UL (4.20-5.40) L Hemoglobin 9.6 G/DL (12.0-16.0) L Hematocrit 29.4 % (37.0-47.0) L Mean Corpuscular Volume 96 FL (80-99) Mean Corpuscular Hemoglobin 31.2 PG (27.0-31.0) H Mean Corpuscular Hemoglobin Concent 32.6 G/DL (32.0-36.0) Red Cell Distribution Width 12.3 % (11.6-14.8) Platelet Count 179 K/UL (150-450) Mean Platelet Volume 6.0 FL (6.5-10.1) L Neutrophils (%) (Auto) % (45.0-75.0) Lymphocytes (%) (Auto) % (20.0-45.0) Monocytes (%) (Auto) % (1.0-10.0) Eosinophils (%) (Auto) % (0.0-3.0) Basophils (%) (Auto) % (0.0-2.0) Differential Total Cells Counted 100 Neutrophils % (Manual) 83 % (45-75) H Lymphocytes % (Manual) 7 % (20-45) L Monocytes % (Manual) 10 % (1-10) Eosinophils % (Manual) 0 % (0-3) Basophils % (Manual) 0 % (0-2) Band Neutrophils 0 % (0-8) Platelet Estimate Adequate Platelet Morphology Normal Sodium Level 126 MMOL/L (136-145) L Potassium Level 5.1 MMOL/L (3.5-5.1) Chloride Level 87 MMOL/L (98-107) L Carbon Dioxide Level 25 MMOL/L (21-32) Anion Gap 14 mmol/L (5-15) Blood Urea Nitrogen 50 mg/dL (7-18) H Creatinine 9.2 MG/DL (0.55-1.30) H Estimat Glomerular Filtration Rate 5.1 mL/min (>60) Glucose Level 73 MG/DL (74-106) L Calcium Level 8.8 MG/DL (8.5-10.1) Phosphorus Level 4.7 MG/DL (2.5-4.9) Magnesium Level 2.1 MG/DL (1.8-2.4) Total Bilirubin 0.3 MG/DL (0.2-1.0) Aspartate Amino Transf (AST/SGOT) 27 U/L (15-37) Alanine Aminotransferase (ALT/SGPT) 7 U/L (12-78) L Alkaline Phosphatase 117 U/L (46-116) H Total Protein 7.6 G/DL (6.4-8.2) Albumin 2.5 G/DL (3.4-5.0) L Globulin 5.1 g/dL Albumin/Globulin Ratio 0.5 (1.0-2.7) L Intake and Output 12/28/19 12/29/19 19:00 07:00 Output Total 1 ml Balance -1 ml Stool Total 1 ml # Voids 3 3 Objective PHYSICAL EXAMINATION: GENERAL: The patient is a well-developed and well-nourished female, in no apparent distress. HEENT: Eyes, pupils are equal and responsive to light and accommodation. Extraocular movements are intact. NECK: Supple without lymphadenopathy. CHEST: Lungs are clear to auscultation bilaterally without wheezes or rales. CARDIOVASCULAR: Regular rhythm and rate. S1, S2 are normal without murmurs, rubs, or gallops. ABDOMEN: Soft, nontender, and nondistended. Positive bowel sounds. No evidence of hepatosplenomegaly. Currently, no rebound or guarding noted. EXTREMITIES: There is swelling of the right foot compared to the left. There is erythema over the right fifth toe. RECTAL/GENITAL: Refused. NEUROLOGIC: Cranial nerves II through XII are grossly intact without focal deficits. Motor strength is 5/5 bilaterally. Deep tendon reflexes are 2+ plantar. Assessment/Plan Assessment/Plan ASSESSMENT: This is a 79-year-old female. 1. Right foot pain. 2. Fever. 3. Gangrene of the right fifth toe 4. Leukocytosis. 5. Diabetes type 2. 6. Hypertension. 7. End-stage renal disease, on hemodialysis. 8. Hypothyroidism. 9. Peripheral vascular disease. 10. Pacemaker in situ. 11. Sepsis=MSSA staph aureus TREATMENT: 1. Right foot pain/gangrene of the right fifth toe. A Podiatry consultation has been obtained with Dr. Flood. We will follow recommendations of Podiatry. A nuclear medicine bone scan is pending to rule out osteomyelitis. ABX=Cefazolin; S/P Zosyn and vancomycin. 2. Fever. This may be secondary to cellulitis of the right foot as above. An Infectious Disease consultation has been obtained with Dr. David. We will follow recommendation of Infectious Disease. 3. Diabetes type 2. The patient has been placed on a NovoLog sliding scale. 4. Hypertension. Continue losartan as above. 5. End-stage renal disease. A Nephrology consultation has been obtained with Dr. Peter Solorio. The patient's last dialysis was Tuesday, December 17, 2019. Follow recommendations of Dr. Solorio. 6. Hypothyroidism. Continue Synthroid. 7. Pacemaker in situ. A pacemaker check is scheduled with Dr. Dawit Lopez. 8. Elevated troponin. A Cardiology consultation has been obtained with Dr. Lopez. 9. S/P transesophageal echocardiogram 12/29/19=negative for Sub acute bacterial endocarditis. Hieu Kim MD Dec 29, 2019 19:10
--- NOTE | 2019-12-29 20:00 | NUR ---
NURSE NOTES: Family verbalized wanting to have pt sent to [facility] for angiogram and not [facility], will inform MD.
--- NOTE | 2019-12-29 20:00 | NUR ---
NURSE NOTES: Patient sitting comfortably in bed, had DARYN this am- no endocarditis per report. Patient has right forearm 20 G saline lock, patent. Has left upper arm AV shunt, bruit/thrill present. Had hemodialysis and 2 L out. VSS. Bed is in lowest position, locked, call light within reach. Bed alarm is on. Advised patient to call for any needed assistance. Pt advised to not get up without assistance, verbalized understanding but sometimes does not follow directions despite education. Will continue to monitor closely.
[2019-12-29] MEDS: Sensipar 30mg Tab ORAL SCH (20:46)
[2019-12-30] VITALS: BP 145/73
--- NOTE | 2019-12-30 00:55 | NUR ---
NURSE NOTES: Took forever to get an IV (extremely hard stick dialysis patient with scarred and rolling inaccessible collapsing veins) I finally got the IV access in a hard location near finger and I was attempting to single handedly remove caps and flush, placed morphine IV med in syringe, and aspirated for blood return, which accidentally made the plunger come out of the syringe and the morphine went onto the floor. Later wasted in pyxis. should have documented and wasted right away or put the med back but was attending to the needs of another pt right after. Informed charge nurse Glenny of the situation. Will attempt to reinsert IV to administer pain medication but will need to establish IV access first.
--- NOTE | 2019-12-30 01:10 | NUR ---
NURSE NOTES: Had assistance in placing IV and going to get pain med to give,
--- NOTE | 2019-12-30 01:45 | NUR ---
NURSE NOTES: Took out morphine to give (since other dose was wasted) but eMAR said 'early attempt to administer' even though pt did not receive it the first time. Put morphine unopened back in the pyxis- returned it to the internal bin. will attempt to reach pipeline since the med was given but wasted initially. Pt is complaining of severe 10/10 pain.
[2019-12-30] MEDS: HYDROcodone/Acetamin 5/325 tab ORAL PRN (02:03)
--- NOTE | 2019-12-30 02:10 | NUR ---
NURSE NOTES: Gave [place] instead of IV med at pt request since could not administer IV med. Will reassess
--- NOTE | 2019-12-30 03:00 | NUR ---
NURSE NOTES: Pt appears comfortable and is resting quietly in bed.
[2019-12-30 04:00] VITALS: BP 136/63
[2019-12-30] MEDS: NovoLOG Insulin Flexpen SUBQ SCH ×4 (06:09→21:00)
--- NOTE | 2019-12-30 06:53 | NUR ---
HAND-OFF: Report given to VARGAS Wilde.
--- NOTE | 2019-12-30 07:20 | NUR ---
NURSE NOTES: Nurse report given by VARGAS Smith. Patient's sitting at bedside to eat breakfast, eyes open spontaneously, breathing regular and unlabored, AO x3, complains of right foot pain, 5/10. No IV noted present at this time. Bed low and locked, call light within reach, side rails x 3, bed alarm is armed. Will continue to monitor.
[2019-12-30 07:23] LABS: HEMATOCRIT 27.3 % (37.0-47.0); HEMOGLOBIN 8.8 G/DL (12.0-16.0); MEAN CORPUSCULAR VOLUME 97 FL (80-99); PLATELET COUNT 185 K/UL (150-450); RED BLOOD COUNT 2.81 M/UL (4.20-5.40); WHITE BLOOD COUNT 19.7 K/UL (4.8-10.8)
[2019-12-30 07:55] LABS: ANION GAP 14 mmol/L (5-15); BLOOD UREA NITROGEN 42 mg/dL (7-18); CALCIUM 8.9 MG/DL (8.5-10.1); CARBON DIOXIDE 25 MMOL/L (21-32); CHLORIDE 91 MMOL/L (98-107); CREATININE 8.3 MG/DL (0.55-1.30); POTASSIUM 4.8 MMOL/L (3.5-5.1); SODIUM 130 MMOL/L (136-145)
[2019-12-30 08:52] VITALS: BP 138/62
[2019-12-30] MEDS: Losartan 50mg tab ORAL SCH (09:10)
[2019-12-30] MEDS: Neosporin Oint Ud Pkt TOPIC SCH ×2 (09:11→18:09)
[2019-12-30] MEDS: Miralax 17gm pkt ORAL SCH ×2 (09:11→21:17)
[2019-12-30] MEDS: Nitroglycerin Patch 0.2mg/hr TDERMAL SCH (09:11)
[2019-12-30] MEDS: Docusate 100mg cap ORAL SCH ×3 (09:11→18:09)
[2019-12-30] MEDS: Heparin 5000 units/ml inj SUBQ SCH ×2 (09:12→21:18)
--- NOTE | 2019-12-30 11:02 | Cardiac Electrophysiology PN ---
Assessment/Plan Assessment/Plan 1. Elevated troponin of 0.26. Levels are flat and low. No chest pain due to renal failure. EF 50%. 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 2. Status post Biotronik pacer. Interrogation showed Nl Fx and battery > 7 years 3. Severe pulmonary hypertension. 4. Bacteremia. DARYN showed no vegetation in the valves or on the leads Already on broad-spectrum intravenous antibiotic per ID. 5. End-stage renal disease, on hemodialysis. 6. R foot 5th digit gangrene. FU Podiatry and vascular surgery Awaiting transfer to [facility] for peripheral angiogram by Dr Janice CHOW RN Subjective Subjective Alert in NAD. HD pending DARYN by Dr. Messer showed no vegetations on valves or leads Awaiting transfer to [facility] today Objective Last 24 Hour Vital Signs Date Time Temp Pulse Resp B/P (MAP) Pulse Ox O2 Delivery O2 Flow Rate FiO2 12/30/19 09:11 138/62 12/30/19 09:10 138/62 12/30/19 09:00 Room Air 12/30/19 08:52 98.1 77 18 138/62 (87) 93 12/30/19 08:00 74 12/30/19 04:00 98.1 77 18 136/63 (87) 93 12/30/19 04:00 79 12/30/19 00:03 97.9 12/30/19 00:00 97.9 80 19 145/73 (97) 94 12/30/19 00:00 75 12/29/19 21:00 Room Air 12/29/19 20:00 97.9 85 18 148/73 (98) 93 12/29/19 20:00 83 12/29/19 19:39 77 18 94 Room Air 21 12/29/19 19:39 94 Room Air 21 12/29/19 16:00 80 12/29/19 16:00 97.9 84 20 147/75 (99) 94 12/29/19 13:26 76 20 97 12/29/19 12:00 71 12/29/19 12:00 98.9 73 18 141/63 (89) 95 Intake and Output 12/29/19 12/30/19 19:00 07:00 Intake Total 357 ml Output Total 0 ml Balance 357 ml Intake Oral 237 ml IV Total 120 ml Estimated Blood Loss 0 ml # Bowel Movements 1 Laboratory Tests Test 12/30/19 05:57 White Blood Count 19.7 K/UL (4.8-10.8) H Red Blood Count 2.81 M/UL (4.20-5.40) L Hemoglobin 8.8 G/DL (12.0-16.0) L Hematocrit 27.3 % (37.0-47.0) L Mean Corpuscular Volume 97 FL (80-99) Mean Corpuscular Hemoglobin 31.4 PG (27.0-31.0) H Mean Corpuscular Hemoglobin Concent 32.4 G/DL (32.0-36.0) Red Cell Distribution Width 13.0 % (11.6-14.8) Platelet Count 185 K/UL (150-450) Mean Platelet Volume 6.5 FL (6.5-10.1) Neutrophils (%) (Auto) % (45.0-75.0) Lymphocytes (%) (Auto) % (20.0-45.0) Monocytes (%) (Auto) % (1.0-10.0) Eosinophils (%) (Auto) % (0.0-3.0) Basophils (%) (Auto) % (0.0-2.0) Differential Total Cells Counted 100 Neutrophils % (Manual) 77 % (45-75) H Lymphocytes % (Manual) 7 % (20-45) L Monocytes % (Manual) 10 % (1-10) Eosinophils % (Manual) 6 % (0-3) H Basophils % (Manual) 0 % (0-2) Band Neutrophils 0 % (0-8) Platelet Estimate Adequate Platelet Morphology Normal Hypochromasia 2+ Anisocytosis 1+ Sodium Level 130 MMOL/L (136-145) L Potassium Level 4.8 MMOL/L (3.5-5.1) Chloride Level 91 MMOL/L (98-107) L Carbon Dioxide Level 25 MMOL/L (21-32) Anion Gap 14 mmol/L (5-15) Blood Urea Nitrogen 42 mg/dL (7-18) H Creatinine 8.3 MG/DL (0.55-1.30) H Estimat Glomerular Filtration Rate 5.7 mL/min (>60) Glucose Level 95 MG/DL (74-106) Calcium Level 8.9 MG/DL (8.5-10.1) Objective HEAD AND NECK: No JVD or carotid bruit. LUNGS: Clear. CARDIOVASCULAR: Shows regular S1 and S2 with no gallop or murmur. The pacemaker in the right subclavian. ABDOMEN: Soft. EXTREMITIES: Left arm dialysis access.Right 5th toe gangrene Dawit Lopez MD Dec 30, 2019 11:02
--- NOTE | 2019-12-30 11:11 | Infectious Diseases Prog Note ---
Assessment/Plan Assessment/Plan ASSESSMENT: The patient is a 79-year-old female with, Fever; low grade x 1 Right foot infection, -xray R foot: No displaced fracture or dislocation identified. -bone scan: No evidence for osteomyelitis. High grade Bacteremia, no evid of endocarditis or pacemaker infection. -12/28 SP DARYN: no e/o valvular vegetations or presence of vegetations on the pacemaker leads. -12/18 Bcx 2/ MSSA 12/19, Bcx MSSA -2d echo: limited study, no mention of vegetations Leukocytosis; persists (m/l 2nd to the Gang. of foot) - CT of C/A/P : no Abscess Sepsis, sp PLAN: Ancef # 07/19 3 SP vancomycin # and Zosyn # 4 Monitor CBC. Monitor BMP. Monitor blood culture (Rpt) Monitor CBC and BMP Pod fup Transfer to [facility] for peripheral angiogram by Dr Camacho Subjective Allergies: Coded Allergies: SULFA (SULFONAMIDE ANTIBIOTICS) (Verified Allergy, Mild, 08/19/09) Subjective afebrile no cough Objective Vital Signs Last 24 Hour Vital Signs Date Time Temp Pulse Resp B/P (MAP) Pulse Ox O2 Delivery O2 Flow Rate FiO2 12/30/19 09:11 138/62 12/30/19 09:10 138/62 12/30/19 09:00 Room Air 12/30/19 08:52 98.1 77 18 138/62 (87) 93 12/30/19 08:00 74 12/30/19 04:00 98.1 77 18 136/63 (87) 93 12/30/19 04:00 79 12/30/19 00:03 97.9 12/30/19 00:00 97.9 80 19 145/73 (97) 94 12/30/19 00:00 75 12/29/19 21:00 Room Air 12/29/19 20:00 97.9 85 18 148/73 (98) 93 12/29/19 20:00 83 12/29/19 19:39 77 18 94 Room Air 21 12/29/19 19:39 94 Room Air 21 12/29/19 16:00 80 12/29/19 16:00 97.9 84 20 147/75 (99) 94 12/29/19 13:26 76 20 97 12/29/19 12:00 71 12/29/19 12:00 98.9 73 18 141/63 (89) 95 Height (Feet): 5 Height (Inches): 3.00 Weight (Pounds): 149 HEENT: anicteric Respiratory/Chest: normal breath sounds Cardiovascular: regular rhythm Abdomen: no organomegaly Laboratory Tests Test 12/30/19 05:57 White Blood Count 19.7 K/UL (4.8-10.8) H Red Blood Count 2.81 M/UL (4.20-5.40) L Hemoglobin 8.8 G/DL (12.0-16.0) L Hematocrit 27.3 % (37.0-47.0) L Mean Corpuscular Volume 97 FL (80-99) Mean Corpuscular Hemoglobin 31.4 PG (27.0-31.0) H Mean Corpuscular Hemoglobin Concent 32.4 G/DL (32.0-36.0) Red Cell Distribution Width 13.0 % (11.6-14.8) Platelet Count 185 K/UL (150-450) Mean Platelet Volume 6.5 FL (6.5-10.1) Neutrophils (%) (Auto) % (45.0-75.0) Lymphocytes (%) (Auto) % (20.0-45.0) Monocytes (%) (Auto) % (1.0-10.0) Eosinophils (%) (Auto) % (0.0-3.0) Basophils (%) (Auto) % (0.0-2.0) Differential Total Cells Counted 100 Neutrophils % (Manual) 77 % (45-75) H Lymphocytes % (Manual) 7 % (20-45) L Monocytes % (Manual) 10 % (1-10) Eosinophils % (Manual) 6 % (0-3) H Basophils % (Manual) 0 % (0-2) Band Neutrophils 0 % (0-8) Platelet Estimate Adequate Platelet Morphology Normal Hypochromasia 2+ Anisocytosis 1+ Sodium Level 130 MMOL/L (136-145) L Potassium Level 4.8 MMOL/L (3.5-5.1) Chloride Level 91 MMOL/L (98-107) L Carbon Dioxide Level 25 MMOL/L (21-32) Anion Gap 14 mmol/L (5-15) Blood Urea Nitrogen 42 mg/dL (7-18) H Creatinine 8.3 MG/DL (0.55-1.30) H Estimat Glomerular Filtration Rate 5.7 mL/min (>60) Glucose Level 95 MG/DL (74-106) Calcium Level 8.9 MG/DL (8.5-10.1) Current Medications Medications (Trade) Dose Ordered Sig/Bere Route PRN Reason Start Time Stop Time Status Last Admin Dose Admin Acetaminophen (Tylenol) 650 mg Q4H PRN ORAL T>100.5 12/18/19 21:30 01/17/20 21:29 12/29/19 06:09 Acetaminophen/ Hydrocodone Bitart ([place] 5/325) 1 tab Q4H PRN ORAL Moderate Pain (Pain Scale 4-6) 12/28/19 22:00 01/04/20 21:59 12/30/19 02:03 Albuterol/ Ipratropium (Albuterol/ Ipratropium) 3 ml Q4HRT PRN HHN Shortness of Breath 12/28/19 10:45 01/02/20 10:44 Cefazolin Sodium 1 gm/Dextrose 55 ml @ 110 mls/hr Q24H IVP 12/23/19 14:00 01/04/20 13:59 12/29/19 14:15 Cinacalcet (Sensipar) 60 mg QHS ORAL 12/22/19 21:00 01/21/20 20:59 12/29/19 20:46 Clonidine HCl (Catapres Tab) 0.1 mg Q4H PRN ORAL SBP > 160mmhg 12/18/19 21:30 01/17/20 21:29 12/22/19 14:13 Dextrose (Dextrose 50%) 25 ml Q30M PRN IV Hypoglycemia 12/18/19 21:30 01/17/20 21:29 Dextrose (Dextrose 50%) 50 ml Q30M PRN IV Hypoglycemia 12/18/19 21:30 01/17/20 21:29 Docusate Sodium (Colace) 100 mg THREE TIMES A DAY ORAL 12/19/19 13:00 01/18/20 12:59 12/30/19 09:11 Heparin Sodium (Porcine) (Heparin 5000 units/ml) 5,000 units EVERY 12 HOURS SUBQ 12/19/19 09:00 01/18/20 08:59 12/30/19 09:12 Insulin Aspart (NovoLOG) BEFORE MEALS AND HS SUBQ 12/19/19 06:30 01/18/20 06:29 Losartan Potassium (Cozaar) 50 mg DAILY ORAL 12/27/19 09:00 01/18/20 08:59 12/30/19 09:10 Morphine Sulfate (Morphine Sulfate) 2 mg Q4H PRN IVP Severe Pain (Pain Scale 7-10) 12/28/19 22:00 01/04/20 21:59 12/29/19 23:33 Neomycin/ Polymyxin/ Bacitracin (Neosporin) 1 applic BID TOPIC 12/23/19 12:00 01/22/20 11:59 12/30/19 09:11 Nitroglycerin (Ntg) 1 patch Q24H TDERMAL 12/19/19 09:30 01/18/20 09:29 12/30/19 09:11 Ondansetron HCl (Zofran) 1 mg Q4H PRN IVP Nausea & Vomiting 12/26/19 19:00 01/17/20 21:29 Pantoprazole (Protonix) 40 mg EVERY 12 HOURS ORAL 12/19/19 21:00 01/18/20 20:59 12/30/19 09:11 Polyethylene Glycol (Miralax) 17 gm BEDTIME ORAL 12/28/19 21:00 01/27/20 20:59 Polyethylene Glycol (Miralax) 17 gm DAILY ORAL 12/28/19 09:00 01/27/20 08:59 12/30/19 09:11 Sevelamer Carbonate (Renvela) 1,600 mg THREE TIMES A DAY ORAL 12/22/19 13:00 01/21/20 12:59 12/30/19 09:11 Roberto David MD Dec 30, 2019 11:11
--- NOTE | 2019-12-30 11:42 | NUR ---
*-*DISCHARGE PLANNING*-* PATIENT HAS BEEN REFERRED TO: [facility] P: [phone] F: [phone] PATIENT FACE SHEET HAS BEEN FAXED ---------WAITING FOR ACCEPTANCE AND ROOM ASSIGNMENT
[2019-12-30 12:00] VITALS: BP 149/69
--- NOTE | 2019-12-30 12:11 | NUR ---
*-*DISCHARGE PLANNING*-* CALLED [facility] AND S/W ASHA. PER ASHA, NO BEDS AVAILABLE AT THIS TIME [facility] P: [phone]
[2019-12-30] MEDS: Morphine Sulfate 2mg/ml Inj(IV/IM USE ONLY) IVP PRN ×2 (12:22→21:46)
--- NOTE | 2019-12-30 12:24 | Pulmonology Progress Note ---
Assessment/Plan Problems: (1) Bacteremia (2) Sepsis (3) Cellulitis (4) History of pacemaker (5) ESRF (end stage renal failure) (6) Hypothyroidism (7) Diabetes mellitus (8) Dry gangrene Assessment/Plan pending transfer for vascular studies of the right leg WBC still high CT chest, abdomen, pelvis noted. robles culture, persistent Bacteremia with Staph aureus, last cultures from became positive DARYN done by Dr. Messer, No vegetation noted. continue iv abx wound care podiatry following Nephrology to handle HD monitor BP telemetry records reviewed. sliding scale diabetic diet. Subjective ROS Limited/Unobtainable: No Constitutional: Reports: no symptoms HEENT: Repors: no symptoms Respiratory: Reports: no symptoms Allergies: Coded Allergies: SULFA (SULFONAMIDE ANTIBIOTICS) (Verified Allergy, Mild, 08/19/09) Objective Last 24 Hour Vital Signs Date Time Temp Pulse Resp B/P (MAP) Pulse Ox O2 Delivery O2 Flow Rate FiO2 12/30/19 09:11 138/62 12/30/19 09:10 138/62 12/30/19 09:00 Room Air 12/30/19 08:52 98.1 77 18 138/62 (87) 93 12/30/19 08:00 74 12/30/19 04:00 98.1 77 18 136/63 (87) 93 12/30/19 04:00 79 12/30/19 00:03 97.9 12/30/19 00:00 97.9 80 19 145/73 (97) 94 12/30/19 00:00 75 12/29/19 21:00 Room Air 12/29/19 20:00 97.9 85 18 148/73 (98) 93 12/29/19 20:00 83 12/29/19 19:39 77 18 94 Room Air 21 12/29/19 19:39 94 Room Air 21 12/29/19 16:00 80 12/29/19 16:00 97.9 84 20 147/75 (99) 94 12/29/19 13:26 76 20 97 Intake and Output 12/29/19 12/30/19 19:00 07:00 Intake Total 357 ml Output Total 0 ml Balance 357 ml Intake Oral 237 ml IV Total 120 ml Estimated Blood Loss 0 ml # Bowel Movements 1 General Appearance: WD/WN HEENT: normocephalic, anicteric Respiratory/Chest: chest wall non-tender, lungs clear Breasts: no masses Cardiovascular: normal peripheral pulses Abdomen: normal bowel sounds, soft, non tender Genitourinary: normal external genitalia Extremities: no clubbing Skin: no rash Laboratory Tests 12/30/19 05:57: White Blood Count 19.7H, Red Blood Count 2.81L, Hemoglobin 8.8L, Hematocrit 27.3L, Mean Corpuscular Volume 97, Mean Corpuscular Hemoglobin 31.4H, Mean Corpuscular Hemoglobin Concent 32.4, Red Cell Distribution Width 13.0, Platelet Count 185, Mean Platelet Volume 6.5, Neutrophils (%) (Auto) , Lymphocytes (%) ( Auto) , Monocytes (%) (Auto) , Eosinophils (%) (Auto) , Basophils (%) (Auto) , Differential Total Cells Counted 100, Neutrophils % (Manual) 77H, Lymphocytes % (Manual) 7L, Monocytes % (Manual) 10, Eosinophils % (Manual) 6H, Basophils % ( Manual) 0, Band Neutrophils 0, Platelet Estimate Adequate, Platelet Morphology Normal, Hypochromasia 2+, Anisocytosis 1+, Sodium Level 130L, Potassium Level 4.8, Chloride Level 91L, Carbon Dioxide Level 25, Anion Gap 14, Blood Urea Nitrogen 42H, Creatinine 8.3H, Estimat Glomerular Filtration Rate 5.7, Glucose Level 95, Calcium Level 8.9 Current Medications Medications (Trade) Dose Ordered Sig/Bere Route PRN Reason Start Time Stop Time Status Last Admin Dose Admin Acetaminophen (Tylenol) 650 mg Q4H PRN ORAL T>100.5 12/18/19 21:30 01/17/20 21:29 12/29/19 06:09 Acetaminophen/ Hydrocodone Bitart ([place] 5/325) 1 tab Q4H PRN ORAL Moderate Pain (Pain Scale 4-6) 12/28/19 22:00 01/04/20 21:59 12/30/19 02:03 Albuterol/ Ipratropium (Albuterol/ Ipratropium) 3 ml Q4HRT PRN HHN Shortness of Breath 12/28/19 10:45 01/02/20 10:44 Cefazolin Sodium 1 gm/Dextrose 55 ml @ 110 mls/hr Q24H IVP 12/23/19 14:00 01/04/20 13:59 12/29/19 14:15 Cinacalcet (Sensipar) 60 mg QHS ORAL 12/22/19 21:00 01/21/20 20:59 12/29/19 20:46 Clonidine HCl (Catapres Tab) 0.1 mg Q4H PRN ORAL SBP > 160mmhg 12/18/19 21:30 01/17/20 21:29 12/22/19 14:13 Dextrose (Dextrose 50%) 25 ml Q30M PRN IV Hypoglycemia 12/18/19 21:30 01/17/20 21:29 Dextrose (Dextrose 50%) 50 ml Q30M PRN IV Hypoglycemia 12/18/19 21:30 01/17/20 21:29 Docusate Sodium (Colace) 100 mg THREE TIMES A DAY ORAL 12/19/19 13:00 01/18/20 12:59 12/30/19 12:21 Heparin Sodium (Porcine) (Heparin 5000 units/ml) 5,000 units EVERY 12 HOURS SUBQ 12/19/19 09:00 01/18/20 08:59 12/30/19 09:12 Insulin Aspart (NovoLOG) BEFORE MEALS AND HS SUBQ 12/19/19 06:30 01/18/20 06:29 Losartan Potassium (Cozaar) 50 mg DAILY ORAL 12/27/19 09:00 01/18/20 08:59 12/30/19 09:10 Morphine Sulfate (Morphine Sulfate) 2 mg Q4H PRN IVP Severe Pain (Pain Scale 7-10) 12/28/19 22:00 01/04/20 21:59 12/30/19 12:22 Neomycin/ Polymyxin/ Bacitracin (Neosporin) 1 applic BID TOPIC 12/23/19 12:00 01/22/20 11:59 12/30/19 09:11 Nitroglycerin (Ntg) 1 patch Q24H TDERMAL 12/19/19 09:30 01/18/20 09:29 12/30/19 09:11 Ondansetron HCl (Zofran) 1 mg Q4H PRN IVP Nausea & Vomiting 12/26/19 19:00 01/17/20 21:29 Pantoprazole (Protonix) 40 mg EVERY 12 HOURS ORAL 12/19/19 21:00 01/18/20 20:59 12/30/19 09:11 Polyethylene Glycol (Miralax) 17 gm BEDTIME ORAL 12/28/19 21:00 01/27/20 20:59 Polyethylene Glycol (Miralax) 17 gm DAILY ORAL 12/28/19 09:00 01/27/20 08:59 12/30/19 09:11 Sevelamer Carbonate (Renvela) 1,600 mg THREE TIMES A DAY ORAL 12/22/19 13:00 01/21/20 12:59 12/30/19 12:21 Ulisses Amaral MD Dec 30, 2019 12:24
--- NOTE | 2019-12-30 12:56 | Nephrology Progress Note ---
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 HypoAlbuminemia Sepsis with bacteremia Right fifth toe gangrene Aortic stenosis with aortic regurgitation PVD Anemia of chronic kidney disease DM Plan On Sensipar Phos binders on Ancef Dialysis next December 30 2D echo EjFx 50- Pulm HTN adjust cardiac abd BP meds Anemia rees per orders Subjective ROS Limited/Unobtainable: No Constitutional: Reports: malaise Objective Objective Last 24 Hour Vital Signs Date Time Temp Pulse Resp B/P (MAP) Pulse Ox O2 Delivery O2 Flow Rate FiO2 12/30/19 09:11 138/62 12/30/19 09:10 138/62 12/30/19 09:00 Room Air 12/30/19 08:52 98.1 77 18 138/62 (87) 93 12/30/19 08:00 74 12/30/19 04:00 98.1 77 18 136/63 (87) 93 12/30/19 04:00 79 12/30/19 00:03 97.9 12/30/19 00:00 97.9 80 19 145/73 (97) 94 12/30/19 00:00 75 12/29/19 21:00 Room Air 12/29/19 20:00 97.9 85 18 148/73 (98) 93 12/29/19 20:00 83 12/29/19 19:39 77 18 94 Room Air 21 12/29/19 19:39 94 Room Air 21 12/29/19 16:00 80 12/29/19 16:00 97.9 84 20 147/75 (99) 94 12/29/19 13:26 76 20 97 Intake and Output 12/29/19 12/30/19 19:00 07:00 Intake Total 357 ml Output Total 0 ml Balance 357 ml Intake Oral 237 ml IV Total 120 ml Estimated Blood Loss 0 ml # Bowel Movements 1 Laboratory Tests 12/30/19 05:57: White Blood Count 19.7H, Red Blood Count 2.81L, Hemoglobin 8.8L, Hematocrit 27.3L, Mean Corpuscular Volume 97, Mean Corpuscular Hemoglobin 31.4H, Mean Corpuscular Hemoglobin Concent 32.4, Red Cell Distribution Width 13.0, Platelet Count 185, Mean Platelet Volume 6.5, Neutrophils (%) (Auto) , Lymphocytes (%) ( Auto) , Monocytes (%) (Auto) , Eosinophils (%) (Auto) , Basophils (%) (Auto) , Differential Total Cells Counted 100, Neutrophils % (Manual) 77H, Lymphocytes % (Manual) 7L, Monocytes % (Manual) 10, Eosinophils % (Manual) 6H, Basophils % ( Manual) 0, Band Neutrophils 0, Platelet Estimate Adequate, Platelet Morphology Normal, Hypochromasia 2+, Anisocytosis 1+, Sodium Level 130L, Potassium Level 4.8, Chloride Level 91L, Carbon Dioxide Level 25, Anion Gap 14, Blood Urea Nitrogen 42H, Creatinine 8.3H, Estimat Glomerular Filtration Rate 5.7, Glucose Level 95, Calcium Level 8.9 Height (Feet): 5 Height (Inches): 3.00 Weight (Pounds): 149 General Appearance: no apparent distress Cardiovascular: normal rate Respiratory/Chest: decreased breath sounds Abdomen: soft Objective no change Peter Solorio MD Dec 30, 2019 12:56
[2019-12-30] MEDS: ceFAZolin 1gm in D5W 55ml IVP SCH (13:34)
--- NOTE | 2019-12-30 14:23 | NUR ---
TRANSFER UPDATE CALLED [facility] AND S/W ASHA. PER ASHA, NO BEDS AVAILABLE AT THIS TIME [facility] P: [phone] [facility] WILL CALL NURSES [facility] WHEN BED AVAILABLE AND PATIENT IS READY TO TRANSFER
[2019-12-30 16:00] VITALS: BP 136/72
--- NOTE | 2019-12-30 16:42 | Internal Med Progress Note ---
Subjective Date of Service: Dec 30, 2019 Physician Name Hieu Kim Attending Physician Dave Melgoza MD Current Medications Medications (Trade) Dose Ordered Sig/Bere Route PRN Reason Start Time Stop Time Status Last Admin Dose Admin Acetaminophen (Tylenol) 650 mg Q4H PRN ORAL T>100.5 12/18/19 21:30 01/17/20 21:29 12/29/19 06:09 Acetaminophen/ Hydrocodone Bitart ([place] 5/325) 1 tab Q4H PRN ORAL Moderate Pain (Pain Scale 4-6) 12/28/19 22:00 01/04/20 21:59 12/30/19 02:03 Albuterol/ Ipratropium (Albuterol/ Ipratropium) 3 ml Q4HRT PRN HHN Shortness of Breath 12/28/19 10:45 01/02/20 10:44 Cefazolin Sodium 1 gm/Dextrose 55 ml @ 110 mls/hr Q24H IVP 12/23/19 14:00 01/04/20 13:59 12/30/19 13:34 Cinacalcet (Sensipar) 60 mg QHS ORAL 12/22/19 21:00 01/21/20 20:59 12/29/19 20:46 Clonidine HCl (Catapres Tab) 0.1 mg Q4H PRN ORAL SBP > 160mmhg 12/18/19 21:30 01/17/20 21:29 12/22/19 14:13 Dextrose (Dextrose 50%) 25 ml Q30M PRN IV Hypoglycemia 12/18/19 21:30 01/17/20 21:29 Dextrose (Dextrose 50%) 50 ml Q30M PRN IV Hypoglycemia 12/18/19 21:30 01/17/20 21:29 Docusate Sodium (Colace) 100 mg THREE TIMES A DAY ORAL 12/19/19 13:00 01/18/20 12:59 12/30/19 12:21 Heparin Sodium (Porcine) (Heparin 5000 units/ml) 5,000 units EVERY 12 HOURS SUBQ 12/19/19 09:00 01/18/20 08:59 12/30/19 09:12 Insulin Aspart (NovoLOG) BEFORE MEALS AND HS SUBQ 12/19/19 06:30 01/18/20 06:29 Losartan Potassium (Cozaar) 50 mg DAILY ORAL 12/27/19 09:00 01/18/20 08:59 12/30/19 09:10 Morphine Sulfate (Morphine Sulfate) 2 mg Q4H PRN IVP Severe Pain (Pain Scale 7-10) 12/28/19 22:00 01/04/20 21:59 12/30/19 12:22 Neomycin/ Polymyxin/ Bacitracin (Neosporin) 1 applic BID TOPIC 12/23/19 12:00 01/22/20 11:59 12/30/19 09:11 Nitroglycerin (Ntg) 1 patch Q24H TDERMAL 12/19/19 09:30 01/18/20 09:29 12/30/19 09:11 Ondansetron HCl (Zofran) 1 mg Q4H PRN IVP Nausea & Vomiting 12/26/19 19:00 01/17/20 21:29 Pantoprazole (Protonix) 40 mg EVERY 12 HOURS ORAL 12/19/19 21:00 01/18/20 20:59 12/30/19 09:11 Polyethylene Glycol (Miralax) 17 gm BEDTIME ORAL 12/28/19 21:00 01/27/20 20:59 Polyethylene Glycol (Miralax) 17 gm DAILY ORAL 12/28/19 09:00 01/27/20 08:59 12/30/19 09:11 Sevelamer Carbonate (Renvela) 1,600 mg THREE TIMES A DAY ORAL 12/22/19 13:00 01/21/20 12:59 12/30/19 12:21 Allergies: Coded Allergies: SULFA (SULFONAMIDE ANTIBIOTICS) (Verified Allergy, Mild, 08/19/09) ROS Limited/Unobtainable: No Constitutional: Reports: no symptoms HEENT: Reports: no symptoms Cardiovascular: Reports: no symptoms Respiratory: Reports: no symptoms Gastrointestinal/Abdominal: Reports: no symptoms Genitourinary: Reports: no symptoms Neurologic/Psychiatric: Reports: no symptoms Subjective 79 YO F admitted with right foot pain. Now gangrene right 5th toe and sepsis. Cover for Int Dell-Dr Melgoza. S/P transesophageal echocardiogram 12/29/19 Objective Last Vital Signs Date Time Temp Pulse Resp B/P (MAP) Pulse Ox O2 Delivery O2 Flow Rate FiO2 12/30/19 16:00 99.0 84 16 136/72 (93) 96 12/30/19 09:00 Room Air 12/29/19 19:39 21 12/29/19 08:46 3 Laboratory Tests Test 12/30/19 05:57 White Blood Count 19.7 K/UL (4.8-10.8) H Red Blood Count 2.81 M/UL (4.20-5.40) L Hemoglobin 8.8 G/DL (12.0-16.0) L Hematocrit 27.3 % (37.0-47.0) L Mean Corpuscular Volume 97 FL (80-99) Mean Corpuscular Hemoglobin 31.4 PG (27.0-31.0) H Mean Corpuscular Hemoglobin Concent 32.4 G/DL (32.0-36.0) Red Cell Distribution Width 13.0 % (11.6-14.8) Platelet Count 185 K/UL (150-450) Mean Platelet Volume 6.5 FL (6.5-10.1) Neutrophils (%) (Auto) % (45.0-75.0) Lymphocytes (%) (Auto) % (20.0-45.0) Monocytes (%) (Auto) % (1.0-10.0) Eosinophils (%) (Auto) % (0.0-3.0) Basophils (%) (Auto) % (0.0-2.0) Differential Total Cells Counted 100 Neutrophils % (Manual) 77 % (45-75) H Lymphocytes % (Manual) 7 % (20-45) L Monocytes % (Manual) 10 % (1-10) Eosinophils % (Manual) 6 % (0-3) H Basophils % (Manual) 0 % (0-2) Band Neutrophils 0 % (0-8) Platelet Estimate Adequate Platelet Morphology Normal Hypochromasia 2+ Anisocytosis 1+ Sodium Level 130 MMOL/L (136-145) L Potassium Level 4.8 MMOL/L (3.5-5.1) Chloride Level 91 MMOL/L (98-107) L Carbon Dioxide Level 25 MMOL/L (21-32) Anion Gap 14 mmol/L (5-15) Blood Urea Nitrogen 42 mg/dL (7-18) H Creatinine 8.3 MG/DL (0.55-1.30) H Estimat Glomerular Filtration Rate 5.7 mL/min (>60) Glucose Level 95 MG/DL (74-106) Calcium Level 8.9 MG/DL (8.5-10.1) Intake and Output 12/29/19 12/30/19 19:00 07:00 Intake Total 357 ml Output Total 0 ml Balance 357 ml Intake Oral 237 ml IV Total 120 ml Estimated Blood Loss 0 ml # Bowel Movements 1 Objective PHYSICAL EXAMINATION: GENERAL: The patient is a well-developed and well-nourished female, in no apparent distress. HEENT: Eyes, pupils are equal and responsive to light and accommodation. Extraocular movements are intact. NECK: Supple without lymphadenopathy. CHEST: Lungs are clear to auscultation bilaterally without wheezes or rales. CARDIOVASCULAR: Regular rhythm and rate. S1, S2 are normal without murmurs, rubs, or gallops. ABDOMEN: Soft, nontender, and nondistended. Positive bowel sounds. No evidence of hepatosplenomegaly. Currently, no rebound or guarding noted. EXTREMITIES: There is swelling of the right foot compared to the left. There is erythema over the right fifth toe. RECTAL/GENITAL: Refused. NEUROLOGIC: Cranial nerves II through XII are grossly intact without focal deficits. Motor strength is 5/5 bilaterally. Deep tendon reflexes are 2+ plantar. Assessment/Plan Assessment/Plan ASSESSMENT: This is a 79-year-old female. 1. Right foot pain. 2. Fever. 3. Gangrene of the right fifth toe 4. Leukocytosis. 5. Diabetes type 2. 6. Hypertension. 7. End-stage renal disease, on hemodialysis. 8. Hypothyroidism. 9. Peripheral vascular disease. 10. Pacemaker in situ. 11. Sepsis=MSSA staph aureus TREATMENT: 1. Right foot pain/gangrene of the right fifth toe. A Podiatry consultation has been obtained with Dr. Flood. We will follow recommendations of Podiatry. A nuclear medicine bone scan is pending to rule out osteomyelitis. ABX=Cefazolin; S/P Zosyn and vancomycin. 2. Fever. This may be secondary to cellulitis of the right foot as above. An Infectious Disease consultation has been obtained with Dr. David. We will follow recommendation of Infectious Disease. 3. Diabetes type 2. The patient has been placed on a NovoLog sliding scale. 4. Hypertension. Continue losartan as above. 5. End-stage renal disease. A Nephrology consultation has been obtained with Dr. Peter Solorio. The patient's last dialysis was Tuesday, December 17, 2019. Follow recommendations of Dr. Solorio. 6. Hypothyroidism. Continue Synthroid. 7. Pacemaker in situ. A pacemaker check is scheduled with Dr. Dawit Lopez. 8. Elevated troponin. A Cardiology consultation has been obtained with Dr. Lopez. 9. S/P transesophageal echocardiogram 12/29/19=negative for Sub acute bacterial endocarditis. 10. Await transfer to [facility] for angiogram (not available at [facility]) Per vascular surgery=Hieu Luna MD Dec 30, 2019 16:42
--- NOTE | 2019-12-30 19:25 | NUR ---
NURSE NOTES: Received pt and report from VARGAS Hernández. Observed pt resting in bed with both eyes closed, arousable to voice. Pt is A/Ox3. environmental monitoring technician is in placed; pt is NSR. IV site intact, asymptomatic, and patent. Pt is on 2L NC; O2 saturation is 94%. Bed is in the lowest position and locked. Call light and bedside table is within reach. No signs/symptoms of acute distress noted at this time. Will continue plan of care.
--- NOTE | 2019-12-30 19:35 | NUR ---
HAND-OFF: Report given to VARGAS Szymanski. Patient's stable, plan of care endorsed.
[2019-12-30] MEDS: Sensipar 30mg Tab ORAL SCH (21:17)
[2019-12-31] VITALS: BP 112/52
[2019-12-31] MEDS: Morphine Sulfate 2mg/ml Inj(IV/IM USE ONLY) IVP PRN (02:51)
[2019-12-31 04:00] VITALS: BP 139/70
[2019-12-31] MEDS: NovoLOG Insulin Flexpen SUBQ SCH ×4 (06:29→21:00)
--- NOTE | 2019-12-31 07:19 | Cardiac Electrophysiology PN ---
Assessment/Plan Assessment/Plan 1. Elevated troponin of 0.26. Levels are flat and low. No chest pain due to renal failure. EF 50%. 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 2. Status post Biotronik pacer with Nl Fx and battery > 7 years 3. Severe pulmonary hypertension. 4. Bacteremia. DARYN showed no vegetation in the valves or on the leads Already on broad-spectrum intravenous antibiotic per ID. 5. End-stage renal disease, on hemodialysis. 6. R foot 5th digit gangrene. FU Podiatry and vascular surgery Awaiting transfer to [facility] for peripheral angiogram by Dr. Janice CHOW RN Subjective Subjective Alert in NAD. Last HD 12/29/19. HD pending today. DARYN showed no vegetations on valves or leads Still awaiting transfer to [facility] for peripheral angiogram Objective Last 24 Hour Vital Signs Date Time Temp Pulse Resp B/P (MAP) Pulse Ox O2 Delivery O2 Flow Rate FiO2 12/31/19 04:00 98.1 73 18 139/70 (93) 96 12/31/19 04:00 73 12/31/19 00:00 97.5 76 19 112/52 (72) 94 12/31/19 00:00 76 12/30/19 21:00 Room Air 12/30/19 20:00 73 12/30/19 19:14 77 18 95 Room Air 21 12/30/19 16:00 83 12/30/19 16:00 99.0 84 16 136/72 (93) 96 12/30/19 12:52 98.1 12/30/19 12:00 97.7 80 18 149/69 (95) 96 12/30/19 12:00 77 12/30/19 09:11 138/62 12/30/19 09:10 138/62 12/30/19 09:00 Room Air 12/30/19 08:52 98.1 77 18 138/62 (87) 93 12/30/19 08:09 74 16 96 Room Air 21 12/30/19 08:00 74 Intake and Output 12/30/19 12/31/19 19:00 07:00 Intake Total 960 ml 320 ml Balance 960 ml 320 ml Intake Oral 960 ml 200 ml Other 120 ml Objective HEAD AND NECK: No JVD or carotid bruit. LUNGS: Clear. CARDIOVASCULAR: Shows regular S1 and S2 with no gallop or murmur. The pacemaker in the right subclavian. ABDOMEN: Soft. EXTREMITIES: Left arm dialysis access.Right 5th toe gangrene Dawit Lopez MD Dec 31, 2019 07:19
[2019-12-31 07:21] LABS: BASOPHILS % (AUTO) 0.5 % (0.0-2.0); HEMATOCRIT 28.6 % (37.0-47.0); HEMOGLOBIN 9.1 G/DL (12.0-16.0); MEAN CORPUSCULAR VOLUME 99 FL (80-99); MONOCYTES % (AUTO) 11.6 % (1.0-10.0); NEUTROPHILS % (AUTO) 79.8 % (45.0-75.0); PLATELET COUNT 190 K/UL (150-450); RED CELL DISTRIBUTION WIDTH 13.1 % (11.6-14.8); WHITE BLOOD COUNT 17.6 K/UL (4.8-10.8)
--- NOTE | 2019-12-31 07:30 | NUR ---
NURSE NOTES: Nurse report given by VARGAS Szymanski. Patient's sleeping in bed but easily awake, eyes open spontaneously, breathing regular and unlabored, Ao x 3, complains of right leg pain, 6/10, endorsing nurse report already given pain regimen already, will continue to monitor closely. Bed low and locked, call light within reach, side rails x 3, bed alarm is armed. IV is saline locked, patent and asymptomatic. Wound noted at right 5th toe and open wound noted on the right foot. Will continue to monitor.
--- NOTE | 2019-12-31 07:40 | NUR ---
HAND-OFF: Report given to VARGAS Hernández. Plan of care endorsed.
[2019-12-31 07:57] LABS: ALANINE AMINOTRANSFERASE 12 U/L (12-78); ALBUMIN 2.5 G/DL (3.4-5.0); ALBUMIN/GLOBULIN RATIO 0.5 (1.0-2.7); ALKALINE PHOSPHATASE 111 U/L (46-116); ANION GAP 16 mmol/L (5-15); ASPARTATE AMINO TRANSFERASE 41 U/L (15-37); BILIRUBIN,TOTAL 0.4 MG/DL (0.2-1.0); BLOOD UREA NITROGEN 61 mg/dL (7-18); CALCIUM 9.1 MG/DL (8.5-10.1); CARBON DIOXIDE 25 MMOL/L (21-32); CHLORIDE 89 MMOL/L (98-107); CREATININE 9.4 MG/DL (0.55-1.30); PHOSPHORUS 4.4 MG/DL (2.5-4.9); POTASSIUM 5.4 MMOL/L (3.5-5.1); SODIUM 130 MMOL/L (136-145)
[2019-12-31 08:00] VITALS: BP 116/57
[2019-12-31] MEDS: Losartan 50mg tab ORAL SCH (09:00)
--- NOTE | 2019-12-31 09:00 | NUR ---
NURSE NOTES: Patient's receiving dialysis and per MD Cristin ordered morphine IM 2mg once during dialysis for the patient. Order acknowledged and carried out. Patient's vital signs are stable, and patient tolerated well with dialysis. Will continue to monitor.
[2019-12-31] MEDS: Miralax 17gm pkt ORAL SCH ×2 (09:02→21:00)
[2019-12-31] MEDS: Neosporin Oint Ud Pkt TOPIC SCH ×2 (09:03→17:55)
[2019-12-31] MEDS: Nitroglycerin Patch 0.2mg/hr TDERMAL SCH (09:03)
[2019-12-31] MEDS: Docusate 100mg cap ORAL SCH ×3 (09:04→17:55)
[2019-12-31] MEDS: Heparin 5000 units/ml inj SUBQ SCH ×2 (09:04→21:15)
[2019-12-31] MEDS ORDERED: Morphine Sulfate 2mg/ml Inj(IV/IM USE ONLY) IM SCH (11:00)
--- NOTE | 2019-12-31 11:16 | Internal Med Progress Note ---
Subjective Date of Service: Dec 31, 2019 Physician Name JudyHieu Attending Physician Dave Melgoza MD Current Medications Medications (Trade) Dose Ordered Sig/Bere Route PRN Reason Start Time Stop Time Status Last Admin Dose Admin Acetaminophen (Tylenol) 650 mg Q4H PRN ORAL T>100.5 12/18/19 21:30 01/17/20 21:29 12/29/19 06:09 Acetaminophen/ Hydrocodone Bitart ([place] 5/325) 1 tab Q4H PRN ORAL Moderate Pain (Pain Scale 4-6) 12/28/19 22:00 01/04/20 21:59 12/30/19 02:03 Albuterol/ Ipratropium (Albuterol/ Ipratropium) 3 ml Q4HRT PRN HHN Shortness of Breath 12/28/19 10:45 01/02/20 10:44 Cefazolin Sodium 1 gm/Dextrose 55 ml @ 110 mls/hr Q24H IVP 12/23/19 14:00 01/04/20 13:59 12/30/19 13:34 Cinacalcet (Sensipar) 60 mg QHS ORAL 12/22/19 21:00 01/21/20 20:59 12/30/19 21:17 Clonidine HCl (Catapres Tab) 0.1 mg Q4H PRN ORAL SBP > 160mmhg 12/18/19 21:30 01/17/20 21:29 12/22/19 14:13 Dextrose (Dextrose 50%) 25 ml Q30M PRN IV Hypoglycemia 12/18/19 21:30 01/17/20 21:29 Dextrose (Dextrose 50%) 50 ml Q30M PRN IV Hypoglycemia 12/18/19 21:30 01/17/20 21:29 Docusate Sodium (Colace) 100 mg THREE TIMES A DAY ORAL 12/19/19 13:00 01/18/20 12:59 12/31/19 09:04 Heparin Sodium (Porcine) (Heparin 5000 units/ml) 5,000 units EVERY 12 HOURS SUBQ 12/19/19 09:00 01/18/20 08:59 12/31/19 09:04 Insulin Aspart (NovoLOG) BEFORE MEALS AND HS SUBQ 12/19/19 06:30 01/18/20 06:29 Losartan Potassium (Cozaar) 50 mg DAILY ORAL 12/27/19 09:00 01/18/20 08:59 12/30/19 09:10 Morphine Sulfate (Morphine Sulfate) 2 mg ONCE IM 12/31/19 11:00 12/31/19 12:00 12/31/19 10:56 Morphine Sulfate (Morphine Sulfate) 2 mg Q4H PRN IVP Severe Pain (Pain Scale 7-10) 12/28/19 22:00 01/04/20 21:59 12/31/19 02:51 Neomycin/ Polymyxin/ Bacitracin (Neosporin) 1 applic BID TOPIC 12/23/19 12:00 01/22/20 11:59 12/31/19 09:03 Nitroglycerin (Ntg) 1 patch Q24H TDERMAL 12/19/19 09:30 01/18/20 09:29 12/31/19 09:03 Ondansetron HCl (Zofran) 1 mg Q4H PRN IVP Nausea & Vomiting 12/26/19 19:00 01/17/20 21:29 Pantoprazole (Protonix) 40 mg EVERY 12 HOURS ORAL 12/19/19 21:00 01/18/20 20:59 12/31/19 09:02 Polyethylene Glycol (Miralax) 17 gm BEDTIME ORAL 12/28/19 21:00 01/27/20 20:59 12/30/19 21:17 Polyethylene Glycol (Miralax) 17 gm DAILY ORAL 12/28/19 09:00 01/27/20 08:59 12/31/19 09:02 Sevelamer Carbonate (Renvela) 1,600 mg THREE TIMES A DAY ORAL 12/22/19 13:00 01/21/20 12:59 12/31/19 09:03 Allergies: Coded Allergies: SULFA (SULFONAMIDE ANTIBIOTICS) (Verified Allergy, Mild, 08/19/09) ROS Limited/Unobtainable: No Constitutional: Reports: no symptoms HEENT: Reports: no symptoms Cardiovascular: Reports: no symptoms Respiratory: Reports: no symptoms Gastrointestinal/Abdominal: Reports: no symptoms Genitourinary: Reports: no symptoms Neurologic/Psychiatric: Reports: no symptoms Subjective 79 YO F admitted with right foot pain. Now gangrene right 5th toe and sepsis. Cover for Int Med-Dr Melgoza. Await transfer to [facility] Objective Last Vital Signs Date Time Temp Pulse Resp B/P (MAP) Pulse Ox O2 Delivery O2 Flow Rate FiO2 12/31/19 09:03 116/57 12/31/19 09:00 Room Air 12/31/19 08:00 97.8 74 20 96 12/30/19 19:14 21 12/29/19 08:46 3 Laboratory Tests Test 12/31/19 06:30 White Blood Count 17.6 K/UL (4.8-10.8) H Red Blood Count 2.90 M/UL (4.20-5.40) L Hemoglobin 9.1 G/DL (12.0-16.0) L Hematocrit 28.6 % (37.0-47.0) L Mean Corpuscular Volume 99 FL (80-99) Mean Corpuscular Hemoglobin 31.2 PG (27.0-31.0) H Mean Corpuscular Hemoglobin Concent 31.7 G/DL (32.0-36.0) L Red Cell Distribution Width 13.1 % (11.6-14.8) Platelet Count 190 K/UL (150-450) Mean Platelet Volume 6.2 FL (6.5-10.1) L Neutrophils (%) (Auto) 79.8 % (45.0-75.0) H Lymphocytes (%) (Auto) 6.0 % (20.0-45.0) L Monocytes (%) (Auto) 11.6 % (1.0-10.0) H Eosinophils (%) (Auto) 2.0 % (0.0-3.0) Basophils (%) (Auto) 0.5 % (0.0-2.0) Sodium Level 130 MMOL/L (136-145) L Potassium Level 5.4 MMOL/L (3.5-5.1) H Chloride Level 89 MMOL/L (98-107) L Carbon Dioxide Level 25 MMOL/L (21-32) Anion Gap 16 mmol/L (5-15) H Blood Urea Nitrogen 61 mg/dL (7-18) H Creatinine 9.4 MG/DL (0.55-1.30) H Estimat Glomerular Filtration Rate 4.8 mL/min (>60) Glucose Level 73 MG/DL (74-106) L Uric Acid 5.5 MG/DL (2.6-7.2) Calcium Level 9.1 MG/DL (8.5-10.1) Phosphorus Level 4.4 MG/DL (2.5-4.9) Magnesium Level 2.3 MG/DL (1.8-2.4) Total Bilirubin 0.4 MG/DL (0.2-1.0) Aspartate Amino Transf (AST/SGOT) 41 U/L (15-37) H Alanine Aminotransferase (ALT/SGPT) 12 U/L (12-78) Alkaline Phosphatase 111 U/L (46-116) C-Reactive Protein, Quantitative 28.3 mg/dL (0.00-0.90) H Pro-B-Type Natriuretic Peptide Pending Total Protein 7.8 G/DL (6.4-8.2) Albumin 2.5 G/DL (3.4-5.0) L Globulin 5.3 g/dL Albumin/Globulin Ratio 0.5 (1.0-2.7) L Intake and Output 12/30/19 12/31/19 19:00 07:00 Intake Total 960 ml 320 ml Balance 960 ml 320 ml Intake Oral 960 ml 200 ml Other 120 ml Objective PHYSICAL EXAMINATION: GENERAL: The patient is a well-developed and well-nourished female, in no apparent distress. HEENT: Eyes, pupils are equal and responsive to light and accommodation. Extraocular movements are intact. NECK: Supple without lymphadenopathy. CHEST: Lungs are clear to auscultation bilaterally without wheezes or rales. CARDIOVASCULAR: Regular rhythm and rate. S1, S2 are normal without murmurs, rubs, or gallops. ABDOMEN: Soft, nontender, and nondistended. Positive bowel sounds. No evidence of hepatosplenomegaly. Currently, no rebound or guarding noted. EXTREMITIES: There is swelling of the right foot compared to the left. There is erythema over the right fifth toe. RECTAL/GENITAL: Refused. NEUROLOGIC: Cranial nerves II through XII are grossly intact without focal deficits. Motor strength is 5/5 bilaterally. Deep tendon reflexes are 2+ plantar. Assessment/Plan Assessment/Plan ASSESSMENT: This is a 79-year-old female. 1. Right foot pain. 2. Fever. 3. Gangrene of the right fifth toe 4. Leukocytosis. 5. Diabetes type 2. 6. Hypertension. 7. End-stage renal disease, on hemodialysis. 8. Hypothyroidism. 9. Peripheral vascular disease. 10. Pacemaker in situ. 11. Sepsis=MSSA staph aureus TREATMENT: 1. Right foot pain/gangrene of the right fifth toe. A Podiatry consultation has been obtained with Dr. Flood. We will follow recommendations of Podiatry. A nuclear medicine bone scan is pending to rule out osteomyelitis. ABX=Cefazolin; S/P Zosyn and vancomycin. 2. Fever. This may be secondary to cellulitis of the right foot as above. An Infectious Disease consultation has been obtained with Dr. David. We will follow recommendation of Infectious Disease. 3. Diabetes type 2. The patient has been placed on a NovoLog sliding scale. 4. Hypertension. Continue losartan as above. 5. End-stage renal disease. A Nephrology consultation has been obtained with Dr. Peter Solorio. The patient's last dialysis was Tuesday, December 17, 2019. Follow recommendations of Dr. Solorio. 6. Hypothyroidism. Continue Synthroid. 7. Pacemaker in situ. A pacemaker check is scheduled with Dr. Dawit Lopez. 8. Elevated troponin. A Cardiology consultation has been obtained with Dr. Lopez. 9. S/P transesophageal echocardiogram 12/29/19=negative for Sub acute bacterial endocarditis. 10. Await transfer to [facility] for angiogram (not available at [facility]) Per vascular surgery=Hieu Luna MD Dec 31, 2019 11:16
[2019-12-31 12:00] VITALS: BP 131/70
--- NOTE | 2019-12-31 12:00 | NUR ---
NURSE NOTES: Informed DR. Amaral regarding patient's K is 5.4. aware, no new order.
--- NOTE | 2019-12-31 12:03 | NUR ---
NURSE NOTES: Patient's BS is 70, patient is asymptomatic, no s/s of hypoglycemic. Gave orange juice to patient to drink. Rechecked BS after half an hour and it is 83. Patient complains of having no appetite, ordered salad for the patient. She stated she will eat and go to sleep. Will continue to monitor closely.
--- NOTE | 2019-12-31 12:12 | NUR ---
NURSE NOTES: Patient completed the dialysis and tolerated well. BP 116/78. Dialysis nurse informed 2.5 liter taken out during dialysis.
--- NOTE | 2019-12-31 12:55 | Pulmonology Progress Note ---
Assessment/Plan Problems: (1) Bacteremia (2) Sepsis (3) Cellulitis (4) History of pacemaker (5) ESRF (end stage renal failure) (6) Hypothyroidism (7) Diabetes mellitus (8) Dry gangrene Assessment/Plan pending transfer for vascular studies of the right leg WBC still high CT chest, abdomen, pelvis noted. robles culture, persistent Bacteremia with Staph aureus, last cultures from became positive DARYN done by Dr. Messer, No vegetation noted. continue iv abx wound care podiatry following Nephrology to handle HD monitor BP telemetry records reviewed. sliding scale diabetic diet. Subjective ROS Limited/Unobtainable: No Constitutional: Reports: no symptoms HEENT: Repors: no symptoms Allergies: Coded Allergies: SULFA (SULFONAMIDE ANTIBIOTICS) (Verified Allergy, Mild, 08/19/09) Objective Last 24 Hour Vital Signs Date Time Temp Pulse Resp B/P (MAP) Pulse Ox O2 Delivery O2 Flow Rate FiO2 12/31/19 12:00 97.3 81 20 131/70 (90) 94 12/31/19 11:27 97.8 12/31/19 09:03 116/57 12/31/19 09:00 116/57 12/31/19 09:00 Room Air 12/31/19 08:00 97.8 74 20 116/57 (76) 96 12/31/19 08:00 62 12/31/19 04:00 98.1 73 18 139/70 (93) 96 12/31/19 04:00 73 12/31/19 00:00 97.5 76 19 112/52 (72) 94 12/31/19 00:00 76 12/30/19 21:00 Room Air 12/30/19 20:00 73 12/30/19 19:14 77 18 95 Room Air 21 12/30/19 16:00 83 12/30/19 16:00 99.0 84 16 136/72 (93) 96 Intake and Output 12/30/19 12/31/19 19:00 07:00 Intake Total 960 ml 320 ml Balance 960 ml 320 ml Intake Oral 960 ml 200 ml Other 120 ml General Appearance: WD/WN HEENT: normocephalic, atraumatic Respiratory/Chest: chest wall non-tender, lungs clear Breasts: no masses Cardiovascular: normal peripheral pulses Abdomen: normal bowel sounds, soft, non tender Genitourinary: normal external genitalia Neurologic/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: 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 Laboratory Tests 12/31/19 06:30: White Blood Count 17.6H, Red Blood Count 2.90L, Hemoglobin 9.1L, Hematocrit 28.6L, Mean Corpuscular Volume 99, Mean Corpuscular Hemoglobin 31.2H, Mean Corpuscular Hemoglobin Concent 31.7L, Red Cell Distribution Width 13.1, Platelet Count 190, Mean Platelet Volume 6.2L, Neutrophils (%) (Auto) 79.8H, Lymphocytes (%) (Auto) 6.0L, Monocytes (%) (Auto) 11.6H, Eosinophils (%) (Auto) 2.0, Basophils (%) (Auto) 0.5, Sodium Level 130L, Potassium Level 5.4H, Chloride Level 89L, Carbon Dioxide Level 25, Anion Gap 16H, Blood Urea Nitrogen 61H, Creatinine 9.4H, Estimat Glomerular Filtration Rate 4.8, Glucose Level 73L , Uric Acid 5.5, Calcium Level 9.1, Phosphorus Level 4.4, Magnesium Level 2.3, Total Bilirubin 0.4, Aspartate Amino Transf (AST/SGOT) 41H, Alanine Aminotransferase (ALT/SGPT) 12, Alkaline Phosphatase 111, C-Reactive Protein, Quantitative 28.3H, Pro-B-Type Natriuretic Peptide [Pending], Total Protein 7.8 , Albumin 2.5L, Globulin 5.3, Albumin/Globulin Ratio 0.5L Current Medications Medications (Trade) Dose Ordered Sig/Bere Route PRN Reason Start Time Stop Time Status Last Admin Dose Admin Acetaminophen (Tylenol) 650 mg Q4H PRN ORAL T>100.5 12/18/19 21:30 01/17/20 21:29 12/29/19 06:09 Acetaminophen/ Hydrocodone Bitart ([place] 5/325) 1 tab Q4H PRN ORAL Moderate Pain (Pain Scale 4-6) 12/28/19 22:00 01/04/20 21:59 12/30/19 02:03 Albuterol/ Ipratropium (Albuterol/ Ipratropium) 3 ml Q4HRT PRN HHN Shortness of Breath 12/28/19 10:45 01/02/20 10:44 Cefazolin Sodium 1 gm/Dextrose 55 ml @ 110 mls/hr Q24H IVP 12/23/19 14:00 01/04/20 13:59 12/30/19 13:34 Cinacalcet (Sensipar) 60 mg QHS ORAL 12/22/19 21:00 01/21/20 20:59 12/30/19 21:17 Clonidine HCl (Catapres Tab) 0.1 mg Q4H PRN ORAL SBP > 160mmhg 12/18/19 21:30 01/17/20 21:29 12/22/19 14:13 Dextrose (Dextrose 50%) 25 ml Q30M PRN IV Hypoglycemia 12/18/19 21:30 01/17/20 21:29 Dextrose (Dextrose 50%) 50 ml Q30M PRN IV Hypoglycemia 12/18/19 21:30 01/17/20 21:29 Docusate Sodium (Colace) 100 mg THREE TIMES A DAY ORAL 12/19/19 13:00 01/18/20 12:59 12/31/19 09:04 Heparin Sodium (Porcine) (Heparin 5000 units/ml) 5,000 units EVERY 12 HOURS SUBQ 12/19/19 09:00 01/18/20 08:59 12/31/19 09:04 Insulin Aspart (NovoLOG) BEFORE MEALS AND HS SUBQ 12/19/19 06:30 01/18/20 06:29 Losartan Potassium (Cozaar) 50 mg DAILY ORAL 12/27/19 09:00 01/18/20 08:59 12/30/19 09:10 Morphine Sulfate (Morphine Sulfate) 2 mg Q4H PRN IVP Severe Pain (Pain Scale 7-10) 12/28/19 22:00 01/04/20 21:59 12/31/19 02:51 Neomycin/ Polymyxin/ Bacitracin (Neosporin) 1 applic BID TOPIC 12/23/19 12:00 01/22/20 11:59 12/31/19 09:03 Nitroglycerin (Ntg) 1 patch Q24H TDERMAL 12/19/19 09:30 01/18/20 09:29 12/31/19 09:03 Ondansetron HCl (Zofran) 1 mg Q4H PRN IVP Nausea & Vomiting 12/26/19 19:00 01/17/20 21:29 Pantoprazole (Protonix) 40 mg EVERY 12 HOURS ORAL 12/19/19 21:00 01/18/20 20:59 12/31/19 09:02 Polyethylene Glycol (Miralax) 17 gm BEDTIME ORAL 12/28/19 21:00 01/27/20 20:59 12/30/19 21:17 Polyethylene Glycol (Miralax) 17 gm DAILY ORAL 12/28/19 09:00 01/27/20 08:59 12/31/19 09:02 Sevelamer Carbonate (Renvela) 1,600 mg THREE TIMES A DAY ORAL 12/22/19 13:00 01/21/20 12:59 12/31/19 09:03 Ulisses Amaral MD Dec 31, 2019 12:55
[2019-12-31] MEDS: ceFAZolin 1gm in D5W 55ml IVP SCH (13:01)
--- NOTE | 2019-12-31 13:05 | Nephrology Progress Note ---
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 HypoAlbuminemia Sepsis with bacteremia Right fifth toe gangrene Aortic stenosis with aortic regurgitation PVD Anemia of chronic kidney disease DM Plan On Sensipar Phos binders on Ancef Dialysis next December 30 done 2D echo EjFx 50- Pulm HTN adjust cardiac abd BP meds Anemia rees per orders Subjective ROS Limited/Unobtainable: No Constitutional: Reports: malaise Objective Objective Last 24 Hour Vital Signs Date Time Temp Pulse Resp B/P (MAP) Pulse Ox O2 Delivery O2 Flow Rate FiO2 12/31/19 12:00 97.3 81 20 131/70 (90) 94 12/31/19 11:27 97.8 12/31/19 09:03 116/57 12/31/19 09:00 116/57 12/31/19 09:00 Room Air 12/31/19 08:00 97.8 74 20 116/57 (76) 96 12/31/19 08:00 62 12/31/19 04:00 98.1 73 18 139/70 (93) 96 12/31/19 04:00 73 12/31/19 00:00 97.5 76 19 112/52 (72) 94 12/31/19 00:00 76 12/30/19 21:00 Room Air 12/30/19 20:00 73 12/30/19 19:14 77 18 95 Room Air 21 12/30/19 16:00 83 12/30/19 16:00 99.0 84 16 136/72 (93) 96 Intake and Output 12/30/19 12/31/19 19:00 07:00 Intake Total 960 ml 320 ml Balance 960 ml 320 ml Intake Oral 960 ml 200 ml Other 120 ml Laboratory Tests 12/31/19 06:30: White Blood Count 17.6H, Red Blood Count 2.90L, Hemoglobin 9.1L, Hematocrit 28.6L, Mean Corpuscular Volume 99, Mean Corpuscular Hemoglobin 31.2H, Mean Corpuscular Hemoglobin Concent 31.7L, Red Cell Distribution Width 13.1, Platelet Count 190, Mean Platelet Volume 6.2L, Neutrophils (%) (Auto) 79.8H, Lymphocytes (%) (Auto) 6.0L, Monocytes (%) (Auto) 11.6H, Eosinophils (%) (Auto) 2.0, Basophils (%) (Auto) 0.5, Sodium Level 130L, Potassium Level 5.4H, Chloride Level 89L, Carbon Dioxide Level 25, Anion Gap 16H, Blood Urea Nitrogen 61H, Creatinine 9.4H, Estimat Glomerular Filtration Rate 4.8, Glucose Level 73L , Uric Acid 5.5, Calcium Level 9.1, Phosphorus Level 4.4, Magnesium Level 2.3, Total Bilirubin 0.4, Aspartate Amino Transf (AST/SGOT) 41H, Alanine Aminotransferase (ALT/SGPT) 12, Alkaline Phosphatase 111, C-Reactive Protein, Quantitative 28.3H, Pro-B-Type Natriuretic Peptide [Pending], Total Protein 7.8 , Albumin 2.5L, Globulin 5.3, Albumin/Globulin Ratio 0.5L Height (Feet): 5 Height (Inches): 3.00 Weight (Pounds): 150 General Appearance: no apparent distress Respiratory/Chest: decreased breath sounds Abdomen: soft Objective no change Peter Solorio MD Dec 31, 2019 13:05
--- NOTE | 2019-12-31 13:34 | NUR ---
CASE MANAGEMENT:REVIEW 12/29/19 SI: SEPSIS. BACTEREMIA. DRY GANGRENE RT 5TH TOE ESRD ON HD. PACEMAKER. S/P DARYN 97.3 81 20 131/70 94% ON RA WBC+17.6 NA-130 K+5.4 BUN+61 CR+9.4 GLUCOSE-71 IS: IV ANCEF Q24 RENVELA PO TID COZAAR PO QD PROTONIX PO Q12 HEPARIN SQ Q12 IV MORPHINE Q4HRS PRN : TELEMETRY STATUS DCP: FROM HOME Addendum: 01/02/20 at 1218 by GLEN REID LVN LVN ABOVE REVIEW FOR 12/31/19
--- NOTE | 2019-12-31 13:39 | NUR ---
RD ASSESSMENT & RECOMMENDATIONS SEE CARE ACTIVITY FOR COMPLETE ASSESSMENT DAILY ESTIMATED NEEDS: Needs based on ESRD, HD/ 56kg abw 25-30 kcals/kg 3136-5003 total kcals 1.2-1.8 g protein/kg 67-100 g total protein 20-22 mL/kg 9314-7819 total fluid mLs NUTRITION DIAGNOSIS: Altered nutrition related lab values R/T ESRD, DM as evidenced by elev elev creat (9.4), elev phos (5.6-> wnl), elev K (5.4) elev BNP (>27318), elev A1C 6.4 w/ episodes of hyperglycemia and hypoglycemia. CURRENT DIET:CCHO MED+ RENAL (soft easy chew) PO DIET RECOMMENDATIONS: RENAL (consider DC carb restriction to help prevent hypoglycemia) ADDITIONAL RECOMMENDATIONS: * Standing wt for accurate CBW * Monitor lytes and renal fxn * MONITOR FOR HYPOGLYCEMIA CLOSELY (cecilia in the AM) -> Encourage HS snack, record % intake of HS snack in EMR -> Diet ed provided on preventing hypoglycemia and on renal diet (12/25) * Nephrovite x 1 .
[2019-12-31 16:00] VITALS: BP 90/45
--- NOTE | 2019-12-31 19:17 | NUR ---
HAND-OFF: Report given to VARGAS Cartagena. Patient's stable, plan of care endorsed.
--- NOTE | 2019-12-31 19:32 | NUR ---
NURSE NOTES: Received patient from Chani KAYE, patient in stable condition, AOx3, laying in bed , IV site on right FA asymptomatic, intact, VSS, bed low&locked, side rails upx3, call light within reach, daughter Anay at bedside. Will continue to monitor and reassess
[2019-12-31 20:00] VITALS: BP 95/51
[2019-12-31] MEDS: Sensipar 30mg Tab ORAL SCH (21:21)
[2020-01-01] VITALS: BP 102/55
[2020-01-01 04:00] VITALS: BP 119/62
[2020-01-01] MEDS: NovoLOG Insulin Flexpen SUBQ SCH ×4 (06:26→21:00)
[2020-01-01 06:41] LABS: BASOPHILS % (AUTO) 0.5 % (0.0-2.0); EOSINOPHILS % (AUTO) 1.1 % (0.0-3.0); HEMATOCRIT 26.5 % (37.0-47.0); HEMOGLOBIN 8.5 G/DL (12.0-16.0); LYMPHOCYTES % (AUTO) 5.7 % (20.0-45.0); MEAN CORPUSCULAR VOLUME 99 FL (80-99); MONOCYTES % (AUTO) 8.8 % (1.0-10.0); NEUTROPHILS % (AUTO) 83.9 % (45.0-75.0); PLATELET COUNT 176 K/UL (150-450); RED BLOOD COUNT 2.67 M/UL (4.20-5.40); RED CELL DISTRIBUTION WIDTH 13.2 % (11.6-14.8); WHITE BLOOD COUNT 14.8 K/UL (4.8-10.8)
[2020-01-01 07:21] LABS: ALANINE AMINOTRANSFERASE 49 U/L (12-78); ALBUMIN 2.3 G/DL (3.4-5.0); ALBUMIN/GLOBULIN RATIO 0.5 (1.0-2.7); ALKALINE PHOSPHATASE 111 U/L (46-116); ANION GAP 13 mmol/L (5-15); ASPARTATE AMINO TRANSFERASE 571 U/L (15-37); BILIRUBIN,TOTAL 0.4 MG/DL (0.2-1.0); BLOOD UREA NITROGEN 36 mg/dL (7-18); CARBON DIOXIDE 25 MMOL/L (21-32); CHLORIDE 94 MMOL/L (98-107); CREATININE 7.1 MG/DL (0.55-1.30); PHOSPHORUS 3.4 MG/DL (2.5-4.9); POTASSIUM 4.9 MMOL/L (3.5-5.1); SODIUM 132 MMOL/L (136-145)
--- NOTE | 2020-01-01 07:48 | NUR ---
HAND-OFF: Report given to VARGAS Doe, patient in stable condition, plan of care endorsed.
--- NOTE | 2020-01-01 07:51 | NUR ---
NURSE NOTES: Received report from VARGAS Cartagena. Pt A/O x4, denies any pain at the moment, no s/sx of acute distress. Observed pt eating breakfast. Pt awaiting to be transferred to [facility] for peripheral angiogram. Bed on lowest position, call light within reach. Will continue to monitor.
[2020-01-01 08:00] VITALS: BP 121/58
--- NOTE | 2020-01-01 08:18 | NUR ---
NURSE NOTES: Reported to Dr Amaral that AST today is 571 from 41 yesterday.
[2020-01-01] MEDS: Docusate 100mg cap ORAL SCH ×3 (08:53→17:07)
[2020-01-01] MEDS: Miralax 17gm pkt ORAL SCH ×2 (08:53→20:56)
[2020-01-01] MEDS: Losartan 50mg tab ORAL SCH (08:56)
[2020-01-01] MEDS: Neosporin Oint Ud Pkt TOPIC SCH ×2 (08:57→17:08)
[2020-01-01] MEDS: Nitroglycerin Patch 0.2mg/hr TDERMAL SCH (08:58)
[2020-01-01] MEDS: Heparin 5000 units/ml inj SUBQ SCH ×2 (08:59→21:20)
--- NOTE | 2020-01-01 10:22 | NUR ---
TRANSFER UPDATE SHEET ROCK LAYER CALLED [facility] (T: [phone]) AND SPOKE WITH TAMAR PER TAMAR PATIENT IS ON THE LIST AND HAS CLEARED CLINICALS...JUST WAITING FOR A BED SOON BED BECOMES AVAILABLE ELSA WILL CALL OUR NURSES STATION
[2020-01-01 12:00] VITALS: BP 122/56
--- NOTE | 2020-01-01 12:07 | NUR ---
NURSE NOTES: Called Dr Padron's office for a new MD consult (podiatry), per Dr Melgoza.
--- NOTE | 2020-01-01 12:14 | Pulmonology Progress Note ---
Assessment/Plan Problems: (1) Bacteremia (2) Sepsis (3) Cellulitis (4) History of pacemaker (5) ESRF (end stage renal failure) (6) Hypothyroidism (7) Diabetes mellitus (8) Dry gangrene Assessment/Plan pending transfer for vascular studies of the right leg WBC still high, slightly lower today CT chest, abdomen, pelvis noted. robles culture, persistent Bacteremia with Staph aureus, last cultures from became positive DARYN done by Dr. Messer, No vegetation noted. continue iv abx wound care podiatry following Nephrology to handle HD monitor BP telemetry records reviewed. sliding scale diabetic diet. Subjective ROS Limited/Unobtainable: No Constitutional: Reports: no symptoms HEENT: Repors: no symptoms Allergies: Coded Allergies: SULFA (SULFONAMIDE ANTIBIOTICS) (Verified Allergy, Mild, 08/19/09) Objective Last 24 Hour Vital Signs Date Time Temp Pulse Resp B/P (MAP) Pulse Ox O2 Delivery O2 Flow Rate FiO2 01/01/20 09:33 96 Nasal Cannula 2.0 28 01/01/20 09:31 96 20 96 Nasal Cannula 2.0 28 01/01/20 09:00 Room Air 01/01/20 08:58 121/58 01/01/20 08:56 121/58 01/01/20 08:00 97.7 83 18 121/58 (79) 96 01/01/20 07:53 78 01/01/20 04:00 74 01/01/20 04:00 97.3 81 18 119/62 (81) 93 01/01/20 00:00 76 01/01/20 00:00 97.7 80 18 102/55 (71) 95 12/31/19 21:00 Room Air 12/31/19 20:00 64 12/31/19 20:00 99.4 72 18 95/51 (66) 94 12/31/19 19:36 67 18 96 Room Air 21 12/31/19 16:00 90 12/31/19 16:00 98.1 80 21 90/45 (60) 94 Intake and Output 12/31/19 01/01/20 19:00 07:00 Intake Total 730 ml Output Total 2000 ml Balance -1270 ml Intake Oral 730 ml Hemodialysis UF 2000 ml # Voids 2 2 # Bowel Movements 5 3 General Appearance: WD/WN HEENT: normocephalic, atraumatic Respiratory/Chest: chest wall non-tender, lungs clear Cardiovascular: normal peripheral pulses Abdomen: normal bowel sounds, soft, non tender Genitourinary: normal external genitalia Skin: no lesions Laboratory Tests 01/01/20 05:55: White Blood Count 14.8H, Red Blood Count 2.67L, Hemoglobin 8.5L, Hematocrit 26.5L, Mean Corpuscular Volume 99, Mean Corpuscular Hemoglobin 31.6H, Mean Corpuscular Hemoglobin Concent 32.0, Red Cell Distribution Width 13.2, Platelet Count 176, Mean Platelet Volume 5.9L, Neutrophils (%) (Auto) 83.9H, Lymphocytes (%) (Auto) 5.7L, Monocytes (%) (Auto) 8.8, Eosinophils (%) (Auto) 1.1, Basophils (%) (Auto) 0.5, Sodium Level 132L, Potassium Level 4.9, Chloride Level 94L, Carbon Dioxide Level 25, Anion Gap 13, Blood Urea Nitrogen 36H, Creatinine 7.1H, Estimat Glomerular Filtration Rate 6.8, Glucose Level 148H, Calcium Level 9.0, Phosphorus Level 3.4, Magnesium Level 2.3, Total Bilirubin 0.4, Aspartate Amino Transf (AST/SGOT) 571H, Alanine Aminotransferase (ALT/SGPT ) 49, Alkaline Phosphatase 111, Total Protein 7.3, Albumin 2.3L, Globulin 5.0, Albumin/Globulin Ratio 0.5L Current Medications Medications (Trade) Dose Ordered Sig/Bere Route PRN Reason Start Time Stop Time Status Last Admin Dose Admin Acetaminophen (Tylenol) 650 mg Q4H PRN ORAL T>100.5 12/18/19 21:30 01/17/20 21:29 12/29/19 06:09 Acetaminophen/ Hydrocodone Bitart ([place] 5/325) 1 tab Q4H PRN ORAL Moderate Pain (Pain Scale 4-6) 12/28/19 22:00 01/04/20 21:59 12/30/19 02:03 Albuterol/ Ipratropium (Albuterol/ Ipratropium) 3 ml Q4HRT PRN HHN Shortness of Breath 12/28/19 10:45 01/02/20 10:44 Cefazolin Sodium 1 gm/Dextrose 55 ml @ 110 mls/hr Q24H IVP 12/23/19 14:00 01/04/20 13:59 12/31/19 13:01 Cinacalcet (Sensipar) 60 mg QHS ORAL 12/22/19 21:00 01/21/20 20:59 12/31/19 21:21 Clonidine HCl (Catapres Tab) 0.1 mg Q4H PRN ORAL SBP > 160mmhg 12/18/19 21:30 01/17/20 21:29 12/22/19 14:13 Dextrose (Dextrose 50%) 25 ml Q30M PRN IV Hypoglycemia 12/18/19 21:30 01/17/20 21:29 Dextrose (Dextrose 50%) 50 ml Q30M PRN IV Hypoglycemia 12/18/19 21:30 01/17/20 21:29 Docusate Sodium (Colace) 100 mg THREE TIMES A DAY ORAL 12/19/19 13:00 01/18/20 12:59 12/31/19 13:07 Heparin Sodium (Porcine) (Heparin 5000 units/ml) 5,000 units EVERY 12 HOURS SUBQ 12/19/19 09:00 01/18/20 08:59 01/01/20 08:59 Insulin Aspart (NovoLOG) BEFORE MEALS AND HS SUBQ 12/19/19 06:30 01/18/20 06:29 Losartan Potassium (Cozaar) 50 mg DAILY ORAL 12/27/19 09:00 01/18/20 08:59 12/30/19 09:10 Morphine Sulfate (Morphine Sulfate) 2 mg Q4H PRN IVP Severe Pain (Pain Scale 7-10) 12/28/19 22:00 01/04/20 21:59 12/31/19 02:51 Neomycin/ Polymyxin/ Bacitracin (Neosporin) 1 applic BID TOPIC 12/23/19 12:00 01/22/20 11:59 01/01/20 08:57 Nitroglycerin (Ntg) 1 patch Q24H TDERMAL 12/19/19 09:30 01/18/20 09:29 01/01/20 08:58 Ondansetron HCl (Zofran) 1 mg Q4H PRN IVP Nausea & Vomiting 12/26/19 19:00 01/17/20 21:29 Pantoprazole (Protonix) 40 mg EVERY 12 HOURS ORAL 12/19/19 21:00 01/18/20 20:59 01/01/20 08:57 Polyethylene Glycol (Miralax) 17 gm BEDTIME ORAL 12/28/19 21:00 01/27/20 20:59 12/30/19 21:17 Polyethylene Glycol (Miralax) 17 gm DAILY ORAL 12/28/19 09:00 01/27/20 08:59 12/31/19 09:02 Sevelamer Carbonate (Renvela) 1,600 mg THREE TIMES A DAY ORAL 12/22/19 13:00 01/21/20 12:59 01/01/20 08:57 Ulisses Amaral MD Jan 01, 2020 12:14
--- NOTE | 2020-01-01 14:00 | NUR ---
NURSE NOTES: Called [facility] (talked to DUSTIN) to schedule dialysis tomorrow, per MD order.
[2020-01-01] MEDS: ceFAZolin 1gm in D5W 55ml IVP SCH (14:15)
--- NOTE | 2020-01-01 14:40 | Infectious Diseases Prog Note ---
Assessment/Plan Assessment/Plan ASSESSMENT: The patient is a 79-year-old female with, Fever; low grade x 1 Right foot infection, -xray R foot: No displaced fracture or dislocation identified. -bone scan: No evidence for osteomyelitis. High grade Bacteremia, no evid of endocarditis or pacemaker infection. -12/28 SP DARYN: no e/o valvular vegetations or presence of vegetations on the pacemaker leads. -12/18 Bcx 2/ MSSA 12/19, Bcx MSSA -2d echo: limited study, no mention of vegetations Leukocytosis; persists (m/l 2nd to the Gang. of foot) - CT of C/A/P : no Abscess Sepsis, sp PLAN: Ancef # 08/18 12/21 SP vancomycin # and Zosyn # 4 Monitor CBC. Monitor BMP. Monitor blood culture (Rpt) Monitor CBC and BMP Pod fup Transfer to [facility] for peripheral angiogram by Dr Camacho Subjective Allergies: Coded Allergies: SULFA (SULFONAMIDE ANTIBIOTICS) (Verified Allergy, Mild, 08/19/09) Subjective No new complain Objective Vital Signs Last 24 Hour Vital Signs Date Time Temp Pulse Resp B/P (MAP) Pulse Ox O2 Delivery O2 Flow Rate FiO2 01/01/20 12:00 96.6 66 19 122/56 (78) 100 01/01/20 11:52 78 01/01/20 09:33 96 Nasal Cannula 2.0 28 01/01/20 09:31 96 20 96 Nasal Cannula 2.0 28 01/01/20 09:00 Room Air 01/01/20 08:58 121/58 01/01/20 08:56 121/58 01/01/20 08:00 97.7 83 18 121/58 (79) 96 01/01/20 07:53 78 01/01/20 04:00 74 01/01/20 04:00 97.3 81 18 119/62 (81) 93 01/01/20 00:00 76 01/01/20 00:00 97.7 80 18 102/55 (71) 95 12/31/19 21:00 Room Air 12/31/19 20:00 64 12/31/19 20:00 99.4 72 18 95/51 (66) 94 12/31/19 19:36 67 18 96 Room Air 21 3/11/20 16:00 90 12/31/19 16:00 98.1 80 21 90/45 (60) 94 Height (Feet): 5 Height (Inches): 3.00 Weight (Pounds): 148 HEENT: anicteric Respiratory/Chest: no respiratory distress Cardiovascular: no gallop/murmur Abdomen: soft, non tender Laboratory Tests Test 01/01/20 05:55 White Blood Count 14.8 K/UL (4.8-10.8) H Red Blood Count 2.67 M/UL (4.20-5.40) L Hemoglobin 8.5 G/DL (12.0-16.0) L Hematocrit 26.5 % (37.0-47.0) L Mean Corpuscular Volume 99 FL (80-99) Mean Corpuscular Hemoglobin 31.6 PG (27.0-31.0) H Mean Corpuscular Hemoglobin Concent 32.0 G/DL (32.0-36.0) Red Cell Distribution Width 13.2 % (11.6-14.8) Platelet Count 176 K/UL (150-450) Mean Platelet Volume 5.9 FL (6.5-10.1) L Neutrophils (%) (Auto) 83.9 % (45.0-75.0) H Lymphocytes (%) (Auto) 5.7 % (20.0-45.0) L Monocytes (%) (Auto) 8.8 % (1.0-10.0) Eosinophils (%) (Auto) 1.1 % (0.0-3.0) Basophils (%) (Auto) 0.5 % (0.0-2.0) Sodium Level 132 MMOL/L (136-145) L Potassium Level 4.9 MMOL/L (3.5-5.1) Chloride Level 94 MMOL/L (98-107) L Carbon Dioxide Level 25 MMOL/L (21-32) Anion Gap 13 mmol/L (5-15) Blood Urea Nitrogen 36 mg/dL (7-18) H Creatinine 7.1 MG/DL (0.55-1.30) H Estimat Glomerular Filtration Rate 6.8 mL/min (>60) Glucose Level 148 MG/DL (74-106) H Calcium Level 9.0 MG/DL (8.5-10.1) Phosphorus Level 3.4 MG/DL (2.5-4.9) Magnesium Level 2.3 MG/DL (1.8-2.4) Total Bilirubin 0.4 MG/DL (0.2-1.0) Aspartate Amino Transf (AST/SGOT) 571 U/L (15-37) H Alanine Aminotransferase (ALT/SGPT) 49 U/L (12-78) Alkaline Phosphatase 111 U/L (46-116) Total Protein 7.3 G/DL (6.4-8.2) Albumin 2.3 G/DL (3.4-5.0) L Globulin 5.0 g/dL Albumin/Globulin Ratio 0.5 (1.0-2.7) L Current Medications Medications (Trade) Dose Ordered Sig/Bere Route PRN Reason Start Time Stop Time Status Last Admin Dose Admin Acetaminophen (Tylenol) 650 mg Q4H PRN ORAL T>100.5 12/18/19 21:30 01/17/20 21:29 12/29/19 06:09 Acetaminophen/ Hydrocodone Bitart ([place] 5/325) 1 tab Q4H PRN ORAL Moderate Pain (Pain Scale 4-6) 12/28/19 22:00 01/04/20 21:59 12/30/19 02:03 Albuterol/ Ipratropium (Albuterol/ Ipratropium) 3 ml Q4HRT PRN HHN Shortness of Breath 12/28/19 10:45 01/02/20 10:44 Cefazolin Sodium 1 gm/Dextrose 55 ml @ 110 mls/hr Q24H IVP 12/23/19 14:00 01/04/20 13:59 01/01/20 14:15 Cinacalcet (Sensipar) 60 mg QHS ORAL 12/22/19 21:00 01/21/20 20:59 12/31/19 21:21 Clonidine HCl (Catapres Tab) 0.1 mg Q4H PRN ORAL SBP > 160mmhg 12/18/19 21:30 01/17/20 21:29 12/22/19 14:13 Dextrose (Dextrose 50%) 25 ml Q30M PRN IV Hypoglycemia 12/18/19 21:30 01/17/20 21:29 Dextrose (Dextrose 50%) 50 ml Q30M PRN IV Hypoglycemia 12/18/19 21:30 01/17/20 21:29 Docusate Sodium (Colace) 100 mg THREE TIMES A DAY ORAL 12/19/19 13:00 01/18/20 12:59 12/31/19 13:07 Heparin Sodium (Porcine) (Heparin 5000 units/ml) 5,000 units EVERY 12 HOURS SUBQ 12/19/19 09:00 01/18/20 08:59 01/01/20 08:59 Insulin Aspart (NovoLOG) BEFORE MEALS AND HS SUBQ 12/19/19 06:30 01/18/20 06:29 Losartan Potassium (Cozaar) 50 mg DAILY ORAL 12/27/19 09:00 01/18/20 08:59 12/30/19 09:10 Morphine Sulfate (Morphine Sulfate) 2 mg Q4H PRN IVP Severe Pain (Pain Scale 7-10) 12/28/19 22:00 01/04/20 21:59 12/31/19 02:51 Neomycin/ Polymyxin/ Bacitracin (Neosporin) 1 applic BID TOPIC 12/23/19 12:00 01/22/20 11:59 01/01/20 08:57 Nitroglycerin (Ntg) 1 patch Q24H TDERMAL 12/19/19 09:30 01/18/20 09:29 01/01/20 08:58 Ondansetron HCl (Zofran) 1 mg Q4H PRN IVP Nausea & Vomiting 12/26/19 19:00 01/17/20 21:29 Pantoprazole (Protonix) 40 mg EVERY 12 HOURS ORAL 12/19/19 21:00 01/18/20 20:59 01/01/20 08:57 Polyethylene Glycol (Miralax) 17 gm BEDTIME ORAL 12/28/19 21:00 01/27/20 20:59 12/30/19 21:17 Polyethylene Glycol (Miralax) 17 gm DAILY ORAL 12/28/19 09:00 01/27/20 08:59 12/31/19 09:02 Sevelamer Carbonate (Renvela) 1,600 mg THREE TIMES A DAY ORAL 12/22/19 13:00 01/21/20 12:59 01/01/20 12:34 Roberto David MD Jan 01, 2020 14:40
--- NOTE | 2020-01-01 15:25 | Nephrology Progress Note ---
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 HypoAlbuminemia Sepsis with bacteremia Right fifth toe gangrene Aortic stenosis with aortic regurgitation PVD Anemia of chronic kidney disease DM Plan Due transfer to [facility] for vascular surgery call procedure and angiogram On Sensipar Phos binders on Ancef Dialysis next January 01 2D echo EjFx 50- Pulm HTN adjust cardiac abd BP meds Anemia rees per orders Subjective ROS Limited/Unobtainable: No Constitutional: Reports: malaise Objective Objective Last 24 Hour Vital Signs Date Time Temp Pulse Resp B/P (MAP) Pulse Ox O2 Delivery O2 Flow Rate FiO2 01/01/20 12:00 96.6 66 19 122/56 (78) 100 01/01/20 11:52 78 01/01/20 09:33 96 Nasal Cannula 2.0 28 01/01/20 09:31 96 20 96 Nasal Cannula 2.0 28 01/01/20 09:00 Room Air 01/01/20 08:58 121/58 01/01/20 08:56 121/58 01/01/20 08:00 97.7 83 18 121/58 (79) 96 01/01/20 07:53 78 01/01/20 04:00 74 01/01/20 04:00 97.3 81 18 119/62 (81) 93 01/01/20 00:00 76 01/01/20 00:00 97.7 80 18 102/55 (71) 95 12/31/19 21:00 Room Air 12/31/19 20:00 64 12/31/19 20:00 99.4 72 18 95/51 (66) 94 12/31/19 19:36 67 18 96 Room Air 21 12/31/19 16:00 90 12/31/19 16:00 98.1 80 21 90/45 (60) 94 Intake and Output 12/31/19 01/01/20 19:00 07:00 Intake Total 730 ml Output Total 2000 ml Balance -1270 ml Intake Oral 730 ml Hemodialysis UF 2000 ml # Voids 2 2 # Bowel Movements 5 3 Laboratory Tests 01/01/20 05:55: White Blood Count 14.8H, Red Blood Count 2.67L, Hemoglobin 8.5L, Hematocrit 26.5L, Mean Corpuscular Volume 99, Mean Corpuscular Hemoglobin 31.6H, Mean Corpuscular Hemoglobin Concent 32.0, Red Cell Distribution Width 13.2, Platelet Count 176, Mean Platelet Volume 5.9L, Neutrophils (%) (Auto) 83.9H, Lymphocytes (%) (Auto) 5.7L, Monocytes (%) (Auto) 8.8, Eosinophils (%) (Auto) 1.1, Basophils (%) (Auto) 0.5, Sodium Level 132L, Potassium Level 4.9, Chloride Level 94L, Carbon Dioxide Level 25, Anion Gap 13, Blood Urea Nitrogen 36H, Creatinine 7.1H, Estimat Glomerular Filtration Rate 6.8, Glucose Level 148H, Calcium Level 9.0, Phosphorus Level 3.4, Magnesium Level 2.3, Total Bilirubin 0.4, Aspartate Amino Transf (AST/SGOT) 571H, Alanine Aminotransferase (ALT/SGPT ) 49, Alkaline Phosphatase 111, Total Protein 7.3, Albumin 2.3L, Globulin 5.0, Albumin/Globulin Ratio 0.5L Height (Feet): 5 Height (Inches): 3.00 Weight (Pounds): 148 General Appearance: no apparent distress Respiratory/Chest: decreased breath sounds Abdomen: soft Extremities: other - Unchanged Objective no change Peter Solorio MD Jan 01, 2020 15:25
--- NOTE | 2020-01-01 15:31 | Cardiac Electrophysiology PN ---
Assessment/Plan Assessment/Plan 1. Elevated troponin of 0.26. Levels are flat and low. No chest pain due to renal failure. EF 50%. 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 2. Status post Biotronik pacer with Nl Fx with battery > 7 years 3. Severe pulmonary hypertension. 4. Bacteremia. DARYN showed no vegetation in the valves or on the leads Already on broad-spectrum intravenous antibiotic per ID. 5. End-stage renal disease, on hemodialysis. 6. R foot 5th digit gangrene. FU Podiatry and vascular surgery Transfer to [facility] for peripheral angiogram by Dr. Camacho after HD tomoroow CLAUDINE RN Subjective Subjective Alert in NAD. HD yesterday DARYN showed no vegetations on valves or leads Still awaiting transfer to [facility] for peripheral angiogram Objective Last 24 Hour Vital Signs Date Time Temp Pulse Resp B/P (MAP) Pulse Ox O2 Delivery O2 Flow Rate FiO2 01/01/20 12:00 96.6 66 19 122/56 (78) 100 01/01/20 11:52 78 01/01/20 09:33 96 Nasal Cannula 2.0 28 01/01/20 09:31 96 20 96 Nasal Cannula 2.0 28 01/01/20 09:00 Room Air 01/01/20 08:58 121/58 01/01/20 08:56 121/58 01/01/20 08:00 97.7 83 18 121/58 (79) 96 01/01/20 07:53 78 01/01/20 04:00 74 01/01/20 04:00 97.3 81 18 119/62 (81) 93 01/01/20 00:00 76 01/01/20 00:00 97.7 80 18 102/55 (71) 95 12/31/19 21:00 Room Air 12/31/19 20:00 64 12/31/19 20:00 99.4 72 18 95/51 (66) 94 12/31/19 19:36 67 18 96 Room Air 21 12/31/19 16:00 90 12/31/19 16:00 98.1 80 21 90/45 (60) 94 Intake and Output 12/31/19 01/01/20 19:00 07:00 Intake Total 730 ml Output Total 2000 ml Balance -1270 ml Intake Oral 730 ml Hemodialysis UF 2000 ml # Voids 2 2 # Bowel Movements 5 3 Laboratory Tests Test 01/01/20 05:55 White Blood Count 14.8 K/UL (4.8-10.8) H Red Blood Count 2.67 M/UL (4.20-5.40) L Hemoglobin 8.5 G/DL (12.0-16.0) L Hematocrit 26.5 % (37.0-47.0) L Mean Corpuscular Volume 99 FL (80-99) Mean Corpuscular Hemoglobin 31.6 PG (27.0-31.0) H Mean Corpuscular Hemoglobin Concent 32.0 G/DL (32.0-36.0) Red Cell Distribution Width 13.2 % (11.6-14.8) Platelet Count 176 K/UL (150-450) Mean Platelet Volume 5.9 FL (6.5-10.1) L Neutrophils (%) (Auto) 83.9 % (45.0-75.0) H Lymphocytes (%) (Auto) 5.7 % (20.0-45.0) L Monocytes (%) (Auto) 8.8 % (1.0-10.0) Eosinophils (%) (Auto) 1.1 % (0.0-3.0) Basophils (%) (Auto) 0.5 % (0.0-2.0) Sodium Level 132 MMOL/L (136-145) L Potassium Level 4.9 MMOL/L (3.5-5.1) Chloride Level 94 MMOL/L (98-107) L Carbon Dioxide Level 25 MMOL/L (21-32) Anion Gap 13 mmol/L (5-15) Blood Urea Nitrogen 36 mg/dL (7-18) H Creatinine 7.1 MG/DL (0.55-1.30) H Estimat Glomerular Filtration Rate 6.8 mL/min (>60) Glucose Level 148 MG/DL (74-106) H Calcium Level 9.0 MG/DL (8.5-10.1) Phosphorus Level 3.4 MG/DL (2.5-4.9) Magnesium Level 2.3 MG/DL (1.8-2.4) Total Bilirubin 0.4 MG/DL (0.2-1.0) Aspartate Amino Transf (AST/SGOT) 571 U/L (15-37) H Alanine Aminotransferase (ALT/SGPT) 49 U/L (12-78) Alkaline Phosphatase 111 U/L (46-116) Total Protein 7.3 G/DL (6.4-8.2) Albumin 2.3 G/DL (3.4-5.0) L Globulin 5.0 g/dL Albumin/Globulin Ratio 0.5 (1.0-2.7) L Objective HEAD AND NECK: No JVD or carotid bruit. LUNGS: Clear. CARDIOVASCULAR: Shows regular S1 and S2 with no gallop or murmur. The pacemaker in the right subclavian. ABDOMEN: Soft. EXTREMITIES: Left arm dialysis access.Right 5th toe gangrene Dawit Lopez MD Jan 01, 2020 15:31
[2020-01-01 16:00] VITALS: BP 113/58
--- NOTE | 2020-01-01 19:01 | Internal Med Progress Note ---
Subjective Date of Service: Jan 01, 2020 Physician Name Hieu Kim Attending Physician Dave Melgoza MD Current Medications Medications (Trade) Dose Ordered Sig/Bere Route PRN Reason Start Time Stop Time Status Last Admin Dose Admin Acetaminophen (Tylenol) 650 mg Q4H PRN ORAL T>100.5 12/18/19 21:30 01/17/20 21:29 12/29/19 06:09 Acetaminophen/ Hydrocodone Bitart ([place] 5/325) 1 tab Q4H PRN ORAL Moderate Pain (Pain Scale 4-6) 12/28/19 22:00 01/04/20 21:59 12/30/19 02:03 Albuterol/ Ipratropium (Albuterol/ Ipratropium) 3 ml Q4HRT PRN HHN Shortness of Breath 12/28/19 10:45 01/02/20 10:44 Cefazolin Sodium 1 gm/Dextrose 55 ml @ 110 mls/hr Q24H IVP 12/23/19 14:00 01/04/20 13:59 01/01/20 14:15 Cinacalcet (Sensipar) 60 mg QHS ORAL 12/22/19 21:00 01/21/20 20:59 12/31/19 21:21 Clonidine HCl (Catapres Tab) 0.1 mg Q4H PRN ORAL SBP > 160mmhg 12/18/19 21:30 01/17/20 21:29 12/22/19 14:13 Dextrose (Dextrose 50%) 25 ml Q30M PRN IV Hypoglycemia 12/18/19 21:30 01/17/20 21:29 Dextrose (Dextrose 50%) 50 ml Q30M PRN IV Hypoglycemia 12/18/19 21:30 01/17/20 21:29 Docusate Sodium (Colace) 100 mg THREE TIMES A DAY ORAL 12/19/19 13:00 01/18/20 12:59 12/31/19 13:07 Heparin Sodium (Porcine) (Heparin 5000 units/ml) 5,000 units EVERY 12 HOURS SUBQ 12/19/19 09:00 01/18/20 08:59 01/01/20 08:59 Insulin Aspart (NovoLOG) BEFORE MEALS AND HS SUBQ 12/19/19 06:30 01/18/20 06:29 Losartan Potassium (Cozaar) 50 mg DAILY ORAL 12/27/19 09:00 01/18/20 08:59 12/30/19 09:10 Morphine Sulfate (Morphine Sulfate) 2 mg Q4H PRN IVP Severe Pain (Pain Scale 7-10) 12/28/19 22:00 01/04/20 21:59 12/31/19 02:51 Neomycin/ Polymyxin/ Bacitracin (Neosporin) 1 applic BID TOPIC 12/23/19 12:00 01/22/20 11:59 01/01/20 17:08 Nitroglycerin (Ntg) 1 patch Q24H TDERMAL 12/19/19 09:30 01/18/20 09:29 01/01/20 08:58 Ondansetron HCl (Zofran) 1 mg Q4H PRN IVP Nausea & Vomiting 12/26/19 19:00 01/17/20 21:29 Pantoprazole (Protonix) 40 mg EVERY 12 HOURS ORAL 12/19/19 21:00 01/18/20 20:59 01/01/20 08:57 Polyethylene Glycol (Miralax) 17 gm BEDTIME ORAL 12/28/19 21:00 01/27/20 20:59 12/30/19 21:17 Polyethylene Glycol (Miralax) 17 gm DAILY ORAL 12/28/19 09:00 01/27/20 08:59 12/31/19 09:02 Sevelamer Carbonate (Renvela) 1,600 mg THREE TIMES A DAY ORAL 12/22/19 13:00 01/21/20 12:59 01/01/20 17:08 Allergies: Coded Allergies: SULFA (SULFONAMIDE ANTIBIOTICS) (Verified Allergy, Mild, 08/19/09) ROS Limited/Unobtainable: No Constitutional: Reports: no symptoms HEENT: Reports: no symptoms Cardiovascular: Reports: no symptoms Respiratory: Reports: no symptoms Gastrointestinal/Abdominal: Reports: no symptoms Genitourinary: Reports: no symptoms Neurologic/Psychiatric: Reports: no symptoms Subjective 79 YO F admitted with right foot pain. Now gangrene right 5th toe and sepsis. Cover for Int Med-Dr Melgoza. Await transfer to [facility] Objective Last Vital Signs Date Time Temp Pulse Resp B/P (MAP) Pulse Ox O2 Delivery O2 Flow Rate FiO2 01/01/20 16:00 98.2 74 18 113/58 (76) 100 3/12/20 09:33 Nasal Cannula 2.0 28 Laboratory Tests Test 01/01/20 05:55 White Blood Count 14.8 K/UL (4.8-10.8) H Red Blood Count 2.67 M/UL (4.20-5.40) L Hemoglobin 8.5 G/DL (12.0-16.0) L Hematocrit 26.5 % (37.0-47.0) L Mean Corpuscular Volume 99 FL (80-99) Mean Corpuscular Hemoglobin 31.6 PG (27.0-31.0) H Mean Corpuscular Hemoglobin Concent 32.0 G/DL (32.0-36.0) Red Cell Distribution Width 13.2 % (11.6-14.8) Platelet Count 176 K/UL (150-450) Mean Platelet Volume 5.9 FL (6.5-10.1) L Neutrophils (%) (Auto) 83.9 % (45.0-75.0) H Lymphocytes (%) (Auto) 5.7 % (20.0-45.0) L Monocytes (%) (Auto) 8.8 % (1.0-10.0) Eosinophils (%) (Auto) 1.1 % (0.0-3.0) Basophils (%) (Auto) 0.5 % (0.0-2.0) Sodium Level 132 MMOL/L (136-145) L Potassium Level 4.9 MMOL/L (3.5-5.1) Chloride Level 94 MMOL/L (98-107) L Carbon Dioxide Level 25 MMOL/L (21-32) Anion Gap 13 mmol/L (5-15) Blood Urea Nitrogen 36 mg/dL (7-18) H Creatinine 7.1 MG/DL (0.55-1.30) H Estimat Glomerular Filtration Rate 6.8 mL/min (>60) Glucose Level 148 MG/DL (74-106) H Calcium Level 9.0 MG/DL (8.5-10.1) Phosphorus Level 3.4 MG/DL (2.5-4.9) Magnesium Level 2.3 MG/DL (1.8-2.4) Total Bilirubin 0.4 MG/DL (0.2-1.0) Aspartate Amino Transf (AST/SGOT) 571 U/L (15-37) H Alanine Aminotransferase (ALT/SGPT) 49 U/L (12-78) Alkaline Phosphatase 111 U/L (46-116) Total Protein 7.3 G/DL (6.4-8.2) Albumin 2.3 G/DL (3.4-5.0) L Globulin 5.0 g/dL Albumin/Globulin Ratio 0.5 (1.0-2.7) L Intake and Output 12/31/19 01/01/20 19:00 07:00 Intake Total 730 ml Output Total 2000 ml Balance -1270 ml Intake Oral 730 ml Hemodialysis UF 2000 ml # Voids 2 2 # Bowel Movements 5 3 Objective PHYSICAL EXAMINATION: GENERAL: The patient is a well-developed and well-nourished female, in no apparent distress. HEENT: Eyes, pupils are equal and responsive to light and accommodation. Extraocular movements are intact. NECK: Supple without lymphadenopathy. CHEST: Lungs are clear to auscultation bilaterally without wheezes or rales. CARDIOVASCULAR: Regular rhythm and rate. S1, S2 are normal without murmurs, rubs, or gallops. ABDOMEN: Soft, nontender, and nondistended. Positive bowel sounds. No evidence of hepatosplenomegaly. Currently, no rebound or guarding noted. EXTREMITIES: There is swelling of the right foot compared to the left. There is erythema over the right fifth toe. RECTAL/GENITAL: Refused. NEUROLOGIC: Cranial nerves II through XII are grossly intact without focal deficits. Motor strength is 5/5 bilaterally. Deep tendon reflexes are 2+ plantar. Assessment/Plan Assessment/Plan ASSESSMENT: This is a 79-year-old female. 1. Right foot pain. 2. Fever. 3. Gangrene of the right fifth toe 4. Leukocytosis. 5. Diabetes type 2. 6. Hypertension. 7. End-stage renal disease, on hemodialysis. 8. Hypothyroidism. 9. Peripheral vascular disease. 10. Pacemaker in situ. 11. Sepsis=MSSA staph aureus TREATMENT: 1. Right foot pain/gangrene of the right fifth toe. A Podiatry consultation has been obtained with Dr. Flood. We will follow recommendations of Podiatry. A nuclear medicine bone scan is pending to rule out osteomyelitis. ABX=Cefazolin; S/P Zosyn and vancomycin. 2. Fever. This may be secondary to cellulitis of the right foot as above. An Infectious Disease consultation has been obtained with Dr. David. We will follow recommendation of Infectious Disease. 3. Diabetes type 2. The patient has been placed on a NovoLog sliding scale. 4. Hypertension. Continue losartan as above. 5. End-stage renal disease. A Nephrology consultation has been obtained with Dr. Peter Solorio. Next hemodialysis 01/02/20. 6. Hypothyroidism. Continue Synthroid. 7. Pacemaker in situ. A pacemaker check is scheduled with Dr. Dawit Lopez. 8. Elevated troponin. A Cardiology consultation has been obtained with Dr. Lopez. 9. S/P transesophageal echocardiogram 12/29/19=negative for Sub acute bacterial endocarditis. 10. Await transfer to [facility] for angiogram (not available at [facility]) Per vascular surgery=Hieu Luna MD Jan 01, 2020 19:01
--- NOTE | 2020-01-01 19:21 | NUR ---
HAND-OFF: Report given to VARGAS Ambrose. Pt in stable condition, endorsed plan of care.
[2020-01-01 20:00] VITALS: BP 134/64
--- NOTE | 2020-01-01 20:00 | NUR ---
NURSE NOTES: RECEIVED PATIENT LYING IN BED, EYES CLOSED, AWAKENED TO NAME, DENIES PAIN. TOLERATING 02 2L VIA NASAL CANULA, NO SIGNS AND SYMPTOMS OF ACUTE CARDIO RESPIRATORY DISTRESS/SHORTNESS OF BREATH, DENIES CHEST PAIN, PACEMAKER RIGHT UPPER CHEST WALL. RIGHT 5TH TOE ULCER/GANGRENE, NOTED WITH DENUDED BLISTER TO DORSAL ASPECT OF RIGHT FOOT, PODIATRY CONSULT PENDING. AV SHUNT LEFT UPPER ARM/+BRUITT/THRILL, HD 01/01/19, PATIENT AWARE. SIDE RAILS UP X3, BED IN LOWEST POSITION FOR SAFETY, CALL LIGHT WITHIN REACH. CONTINUE WITH CURRENT PLAN OF CARE. NAD. [facility] PENDING BED AVAILABILITY, PATIENT AWARE.
[2020-01-01] MEDS: Sensipar 30mg Tab ORAL SCH (21:10)
--- NOTE | 2020-01-01 23:54 | NUR ---
NURSE NOTES: SPOKE TO ISABELL AT [facility], NO BED AVAILABLE-
[2020-01-02] VITALS: BP 157/64
[2020-01-02 04:00] VITALS: BP 127/57
[2020-01-02] MEDS: Morphine Sulfate 2mg/ml Inj(IV/IM USE ONLY) IVP PRN (05:50)
--- NOTE | 2020-01-02 06:10 | NUR ---
NURSE NOTES: BLOOD GLUCOSE MONITORED VIA GLUCOMETER WITH RESULT 115MG/DL, NO SLIDING SCALE COVERAGE. RESTED WELL. NAD.
[2020-01-02] MEDS: NovoLOG Insulin Flexpen SUBQ SCH ×4 (06:23→21:00)
--- NOTE | 2020-01-02 07:29 | NUR ---
HAND-OFF: Report given to VARGAS FERNANDES.
--- NOTE | 2020-01-02 07:30 | NUR ---
NURSE NOTES: Received report from VARGAS Ambrose. Pt alert, A/O x4. Pt denies any pain, breathing even and unlabored in 2L NC. IV site on R FA 24g patent and asymptomatic. Pt is scheduled to have HD today. Bed on lowest position, call light within reach. Will continue plan of care.
[2020-01-02 08:00] VITALS: BP 122/60
--- NOTE | 2020-01-02 08:45 | Nephrology Progress Note ---
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 HypoAlbuminemia Sepsis with bacteremia Right fifth toe gangrene Aortic stenosis with aortic regurgitation PVD Anemia of chronic kidney disease DM Plan Due transfer to [facility] for vascular surgery call procedure and angiogram On Sensipar Phos binders on Ancef Dialysis next January 01 2D echo EjFx 50- Pulm HTN adjust cardiac abd BP meds Anemia rees per orders Subjective ROS Limited/Unobtainable: No Constitutional: Reports: malaise Objective Objective Last 24 Hour Vital Signs Date Time Temp Pulse Resp B/P (MAP) Pulse Ox O2 Delivery O2 Flow Rate FiO2 01/02/20 08:30 Room Air 01/02/20 07:50 99 Nasal Cannula 2.0 28 01/02/20 07:50 82 18 99 Nasal Cannula 2.0 28 01/02/20 06:20 98.4 01/02/20 04:00 98.4 71 18 127/57 (80) 96 01/02/20 04:00 70 01/02/20 00:00 73 01/02/20 00:00 97.2 51 16 157/64 (95) 97 01/01/20 21:00 Room Air 01/01/20 20:00 97.9 74 16 134/64 (87) 99 01/01/20 20:00 75 01/01/20 19:45 72 18 99 Nasal Cannula 2.0 28 01/01/20 19:45 99 Nasal Cannula 2.0 28 01/01/20 16:00 98.2 74 18 113/58 (76) 100 01/01/20 15:44 71 01/01/20 12:00 96.6 66 19 122/56 (78) 100 01/01/20 11:52 78 01/01/20 09:33 96 Nasal Cannula 2.0 28 01/01/20 09:31 96 20 96 Nasal Cannula 2.0 28 01/01/20 09:00 Room Air 01/01/20 08:58 121/58 01/01/20 08:56 121/58 Intake and Output 3/12/20 3/13/20 19:00 07:00 Intake Total 720 ml 120 ml Balance 720 ml 120 ml Intake Oral 720 ml 120 ml # Voids 1 No labs available today Height (Feet): 5 Height (Inches): 3.00 Weight (Pounds): 153 General Appearance: no apparent distress Abdomen: soft Extremities: other - No change Objective no change Peter Solorio MD Jan 02, 2020 08:45
[2020-01-02] MEDS: Losartan 50mg tab ORAL SCH (09:00)
[2020-01-02] MEDS: Heparin 5000 units/ml inj SUBQ SCH ×2 (09:00→21:50)
[2020-01-02] MEDS: Miralax 17gm pkt ORAL SCH ×2 (09:00→21:00)
[2020-01-02] MEDS: Neosporin Oint Ud Pkt TOPIC SCH ×2 (09:00→09:31)
[2020-01-02] MEDS: Docusate 100mg cap ORAL SCH ×3 (09:00→18:00)
[2020-01-02] MEDS: Nitroglycerin Patch 0.2mg/hr TDERMAL SCH (09:30)
[2020-01-02] MEDS ORDERED: Betadine 4oz Bottle TOPIC SCH (10:00)
--- NOTE | 2020-01-02 10:03 | Podiatric Progress Note ---
Assessment/Plan Patient Francesca Pederson is a 79 year old female who was admitted on Dec 18, 2019 at 21: 23 with Problems: (1) Dry gangrene (2) Pulmonary hypertension (3) Right foot infection (4) Diabetes mellitus (5) Cellulitis Assessment/Plan order was given to apply Betadine only to the area with light dry dressings.. awaiting transfer. vascular pending patient will be followed. Subjective Reason for consult R foot gangrene Allergies: Coded Allergies: SULFA (SULFONAMIDE ANTIBIOTICS) (Verified Allergy, Mild, 08/19/09) Subjective Patient seen by bedside consulted for R 5th toe gangrene. Patient is Dm and states few months ago she had a stent insertion and at the time was told of a blockage. She is awaiting transfer to [facility] for vascular work up. Objective Exam Last 24 Hour Vital Signs Date Time Temp Pulse Resp B/P (MAP) Pulse Ox O2 Delivery O2 Flow Rate FiO2 01/02/20 09:30 122/60 01/02/20 09:00 122/60 01/02/20 08:30 Room Air 01/02/20 08:00 97.5 78 20 122/60 (80) 93 01/02/20 07:50 99 Nasal Cannula 2.0 28 01/02/20 07:50 82 18 99 Nasal Cannula 2.0 28 01/02/20 06:20 98.4 01/02/20 04:00 98.4 71 18 127/57 (80) 96 01/02/20 04:00 70 01/02/20 00:00 73 01/02/20 00:00 97.2 51 16 157/64 (95) 97 01/01/20 21:00 Room Air 01/01/20 20:00 97.9 74 16 134/64 (87) 99 01/01/20 20:00 75 01/01/20 19:45 72 18 99 Nasal Cannula 2.0 28 01/01/20 19:45 99 Nasal Cannula 2.0 28 01/01/20 16:00 98.2 74 18 113/58 (76) 100 01/01/20 15:44 71 01/01/20 12:00 96.6 66 19 122/56 (78) 100 01/01/20 11:52 78 Microbiology Date/Time Source Procedure Growth Status 12/24/19 15:20 Blood Blood Culture - Final NO GROWTH AFTER 5 DAYS Complete 2/27/20 21:25 Nasal Nares MRSA Culture - Final NO METHICILLIN RESISTANT STAPH AUREUS... Complete 12/18/19 21:25 Rectum - Final NO CARBAPENEM-RESISTANT ENTEROBACTERI... Complete Vascular Pulses: 0 dorsalis pedis (R), 0 dorsalis pedis (L), 0 posterior tibial (R), 0 posterior tibial (L), 0 popliteal (R), 0 popliteal (L) Temperature: cool Dermatological Dermatological Narrative attention was directed to the R foot were mummified R 5th toe gangrene was noted. no drainage, discharge, pus, noted pretty much dry. R lateral foot noted to be cold to touch compare to the medial portion. Jt Lutz DPM Jan 02, 2020 10:03
--- NOTE | 2020-01-02 10:47 | Infectious Diseases Prog Note ---
Assessment/Plan Assessment/Plan ASSESSMENT: The patient is a 79-year-old female with, Fever; low grade x 1, Sp Right foot infection, -xray R foot: No displaced fracture or dislocation identified. -bone scan: No evidence for osteomyelitis. High grade Bacteremia, no evid of endocarditis or pacemaker infection. -12/28 SP DARYN: no e/o valvular vegetations or presence of vegetations on the pacemaker leads. -12/18 Bcx 2/ MSSA 12/19, Bcx MSSA -2d echo: limited study, no mention of vegetations Leukocytosis; persists (m/l 2nd to the Gang. of foot) - CT of C/A/P : no Abscess Sepsis, sp PLAN: Ancef # 09/18 12/21 SP vancomycin # and Zosyn # 4 Monitor CBC. Monitor BMP. Monitor blood culture (Rpt) Monitor CBC and BMP Pod fup Transfer to [facility] for peripheral angiogram by Dr Camacho Subjective Allergies: Coded Allergies: SULFA (SULFONAMIDE ANTIBIOTICS) (Verified Allergy, Mild, 08/19/09) Subjective afebrile No new complain Objective Vital Signs Last 24 Hour Vital Signs Date Time Temp Pulse Resp B/P (MAP) Pulse Ox O2 Delivery O2 Flow Rate FiO2 01/02/20 09:30 122/60 01/02/20 09:00 122/60 01/02/20 08:30 Room Air 01/02/20 08:00 97.5 78 20 122/60 (80) 93 01/02/20 07:50 99 Nasal Cannula 2.0 28 01/02/20 07:50 82 18 99 Nasal Cannula 2.0 28 01/02/20 07:47 81 01/02/20 06:20 98.4 01/02/20 04:00 98.4 71 18 127/57 (80) 96 01/02/20 04:00 70 01/02/20 00:00 73 01/02/20 00:00 97.2 51 16 157/64 (95) 97 01/01/20 21:00 Room Air 01/01/20 20:00 97.9 74 16 134/64 (87) 99 01/01/20 20:00 75 01/01/20 19:45 72 18 99 Nasal Cannula 2.0 28 01/01/20 19:45 99 Nasal Cannula 2.0 28 01/01/20 16:00 98.2 74 18 113/58 (76) 100 01/01/20 15:44 71 01/01/20 12:00 96.6 66 19 122/56 (78) 100 01/01/20 11:52 78 Height (Feet): 5 Height (Inches): 3.00 Weight (Pounds): 153 HEENT: anicteric Respiratory/Chest: no respiratory distress Cardiovascular: regular rhythm Abdomen: soft, non tender Current Medications Medications (Trade) Dose Ordered Sig/Bere Route PRN Reason Start Time Stop Time Status Last Admin Dose Admin Acetaminophen (Tylenol) 650 mg Q4H PRN ORAL T>100.5 12/18/19 21:30 01/17/20 21:29 12/29/19 06:09 Acetaminophen/ Hydrocodone Bitart ([place] 5/325) 1 tab Q4H PRN ORAL Moderate Pain (Pain Scale 4-6) 12/28/19 22:00 01/04/20 21:59 12/30/19 02:03 Cefazolin Sodium 1 gm/Dextrose 55 ml @ 110 mls/hr Q24H IVP 12/23/19 14:00 01/04/20 13:59 01/01/20 14:15 Cinacalcet (Sensipar) 60 mg QHS ORAL 12/22/19 21:00 01/21/20 20:59 01/01/20 21:10 Clonidine HCl (Catapres Tab) 0.1 mg Q4H PRN ORAL SBP > 160mmhg 12/18/19 21:30 01/17/20 21:29 12/22/19 14:13 Dextrose (Dextrose 50%) 25 ml Q30M PRN IV Hypoglycemia 12/18/19 21:30 01/17/20 21:29 Dextrose (Dextrose 50%) 50 ml Q30M PRN IV Hypoglycemia 12/18/19 21:30 01/17/20 21:29 Docusate Sodium (Colace) 100 mg THREE TIMES A DAY ORAL 12/19/19 13:00 01/18/20 12:59 12/31/19 13:07 Heparin Sodium (Porcine) (Heparin 5000 units/ml) 5,000 units EVERY 12 HOURS SUBQ 12/19/19 09:00 01/18/20 08:59 01/01/20 21:20 Insulin Aspart (NovoLOG) BEFORE MEALS AND HS SUBQ 12/19/19 06:30 01/18/20 06:29 Losartan Potassium (Cozaar) 50 mg DAILY ORAL 12/27/19 09:00 01/18/20 08:59 12/30/19 09:10 Morphine Sulfate (Morphine Sulfate) 2 mg Q4H PRN IVP Severe Pain (Pain Scale 7-10) 12/28/19 22:00 01/04/20 21:59 01/02/20 05:50 Neomycin/ Polymyxin/ Bacitracin (Neosporin) 1 applic BID TOPIC 12/23/19 12:00 01/22/20 11:59 01/01/20 17:08 Nitroglycerin (Ntg) 1 patch Q24H TDERMAL 12/19/19 09:30 01/18/20 09:29 01/01/20 08:58 Ondansetron HCl (Zofran) 1 mg Q4H PRN IVP Nausea & Vomiting 12/26/19 19:00 01/17/20 21:29 Pantoprazole (Protonix) 40 mg EVERY 12 HOURS ORAL 12/19/19 21:00 01/18/20 20:59 01/01/20 21:10 Polyethylene Glycol (Miralax) 17 gm BEDTIME ORAL 12/28/19 21:00 01/27/20 20:59 12/30/19 21:17 Polyethylene Glycol (Miralax) 17 gm DAILY ORAL 12/28/19 09:00 01/27/20 08:59 12/31/19 09:02 Povidone Iodine (Betadine Josefina) 1 applic ONCE TOPIC 01/02/20 10:00 01/02/20 18:00 Sevelamer Carbonate (Renvela) 1,600 mg THREE TIMES A DAY ORAL 12/22/19 13:00 01/21/20 12:59 01/02/20 09:31 Roberto David MD Jan 02, 2020 10:47
--- NOTE | 2020-01-02 11:35 | Pulmonology Progress Note ---
Assessment/Plan Problems: (1) Bacteremia (2) Sepsis (3) Cellulitis (4) History of pacemaker (5) ESRF (end stage renal failure) (6) Hypothyroidism (7) Diabetes mellitus (8) Dry gangrene Assessment/Plan doing better pending transfer for vascular studies of the right leg WBC still high, decreasing CT chest, abdomen, pelvis noted. robles culture, persistent Bacteremia with Staph aureus, last cultures from became positive DARYN done by Dr. Messer, No vegetation noted. continue iv abx wound care podiatry following Nephrology to handle HD monitor BP telemetry records reviewed. sliding scale diabetic diet. Subjective ROS Limited/Unobtainable: No Constitutional: Reports: no symptoms HEENT: Repors: no symptoms Allergies: Coded Allergies: SULFA (SULFONAMIDE ANTIBIOTICS) (Verified Allergy, Mild, 08/19/09) Objective Last 24 Hour Vital Signs Date Time Temp Pulse Resp B/P (MAP) Pulse Ox O2 Delivery O2 Flow Rate FiO2 01/02/20 09:30 122/60 01/02/20 09:00 122/60 01/02/20 08:30 Room Air 01/02/20 08:00 97.5 78 20 122/60 (80) 93 01/02/20 07:50 99 Nasal Cannula 2.0 28 01/02/20 07:50 82 18 99 Nasal Cannula 2.0 28 01/02/20 07:47 81 01/02/20 06:20 98.4 01/02/20 04:00 98.4 71 18 127/57 (80) 96 01/02/20 04:00 70 01/02/20 00:00 73 01/02/20 00:00 97.2 51 16 157/64 (95) 97 01/01/20 21:00 Room Air 01/01/20 20:00 97.9 74 16 134/64 (87) 99 01/01/20 20:00 75 01/01/20 19:45 72 18 99 Nasal Cannula 2.0 28 01/01/20 19:45 99 Nasal Cannula 2.0 28 01/01/20 16:00 98.2 74 18 113/58 (76) 100 01/01/20 15:44 71 01/01/20 12:00 96.6 66 19 122/56 (78) 100 01/01/20 11:52 78 Intake and Output 01/01/20 01/02/20 19:00 07:00 Intake Total 720 ml 120 ml Balance 720 ml 120 ml Intake Oral 720 ml 120 ml # Voids 1 General Appearance: WD/WN HEENT: normocephalic, atraumatic Respiratory/Chest: chest wall non-tender, lungs clear Breasts: no masses Cardiovascular: normal peripheral pulses, normal rate Abdomen: normal bowel sounds, soft, non tender Genitourinary: normal external genitalia Extremities: no cyanosis Skin: no rash Neurologic/Psychiatric: 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 grossly normal Current Medications Medications (Trade) Dose Ordered Sig/Bere Route PRN Reason Start Time Stop Time Status Last Admin Dose Admin Acetaminophen (Tylenol) 650 mg Q4H PRN ORAL T>100.5 12/18/19 21:30 01/17/20 21:29 12/29/19 06:09 Acetaminophen/ Hydrocodone Bitart ([place] 5/325) 1 tab Q4H PRN ORAL Moderate Pain (Pain Scale 4-6) 12/28/19 22:00 01/04/20 21:59 12/30/19 02:03 Cefazolin Sodium 1 gm/Dextrose 55 ml @ 110 mls/hr Q24H IVP 12/23/19 14:00 01/04/20 13:59 01/01/20 14:15 Cinacalcet (Sensipar) 60 mg QHS ORAL 12/22/19 21:00 01/21/20 20:59 01/01/20 21:10 Clonidine HCl (Catapres Tab) 0.1 mg Q4H PRN ORAL SBP > 160mmhg 12/18/19 21:30 01/17/20 21:29 12/22/19 14:13 Dextrose (Dextrose 50%) 25 ml Q30M PRN IV Hypoglycemia 12/18/19 21:30 01/17/20 21:29 Dextrose (Dextrose 50%) 50 ml Q30M PRN IV Hypoglycemia 12/18/19 21:30 01/17/20 21:29 Docusate Sodium (Colace) 100 mg THREE TIMES A DAY ORAL 12/19/19 13:00 01/18/20 12:59 12/31/19 13:07 Heparin Sodium (Porcine) (Heparin 5000 units/ml) 5,000 units EVERY 12 HOURS SUBQ 12/19/19 09:00 01/18/20 08:59 01/01/20 21:20 Insulin Aspart (NovoLOG) BEFORE MEALS AND HS SUBQ 12/19/19 06:30 01/18/20 06:29 Losartan Potassium (Cozaar) 50 mg DAILY ORAL 12/27/19 09:00 01/18/20 08:59 12/30/19 09:10 Morphine Sulfate (Morphine Sulfate) 2 mg Q4H PRN IVP Severe Pain (Pain Scale 7-10) 12/28/19 22:00 01/04/20 21:59 01/02/20 05:50 Neomycin/ Polymyxin/ Bacitracin (Neosporin) 1 applic BID TOPIC 12/23/19 12:00 01/22/20 11:59 01/01/20 17:08 Nitroglycerin (Ntg) 1 patch Q24H TDERMAL 12/19/19 09:30 01/18/20 09:29 01/01/20 08:58 Ondansetron HCl (Zofran) 1 mg Q4H PRN IVP Nausea & Vomiting 12/26/19 19:00 01/17/20 21:29 Pantoprazole (Protonix) 40 mg EVERY 12 HOURS ORAL 12/19/19 21:00 01/18/20 20:59 01/01/20 21:10 Polyethylene Glycol (Miralax) 17 gm BEDTIME ORAL 12/28/19 21:00 01/27/20 20:59 12/30/19 21:17 Polyethylene Glycol (Miralax) 17 gm DAILY ORAL 12/28/19 09:00 01/27/20 08:59 12/31/19 09:02 Povidone Iodine (Betadine Josefina) 1 applic ONCE TOPIC 01/02/20 10:00 01/02/20 18:00 01/02/20 10:57 Sevelamer Carbonate (Renvela) 1,600 mg THREE TIMES A DAY ORAL 12/22/19 13:00 01/21/20 12:59 01/02/20 09:31 Ulisses Amaral MD Jan 02, 2020 11:34
[2020-01-02 12:00] VITALS: BP 110/77
--- NOTE | 2020-01-02 12:18 | NUR ---
CASE MANAGEMENT:REVIEW 01/01 SI: SEPSIS. BACTEREMIA. DRY GANGRENE RT 5TH TOE ESRD ON HD. PACEMAKER. S/P DARYN 98.1 74 20 110/77 98% ON 2L/NC NO LABS IS: IV ANCEF Q24HR RENVELA PO TID COZAAR PO QD PROTONIX PO Q12 HEPARIN SQ Q12 IV MORPHINE Q4HRS PRN : TELEMETRY STATUS DCP: FROM HOME PLAN: PENDING TRANSFER TO [facility] FOR RT LEG ANGIOGRAM
--- NOTE | 2020-01-02 12:23 | NUR ---
TRANSFER UPDATE CALL [facility] (T; [phone]) AND SPOKE WITH AIMEE. PER SARAH, PATIENT HAS BEEN ACCEPTED AND WHEN BED BECOMES AVAILABLE THEY WILL CALL THE NURSES STATION
[2020-01-02] MEDS: ceFAZolin 1gm in D5W 55ml IVP SCH ×2 (13:59→18:55)
--- NOTE | 2020-01-02 15:15 | NUR ---
NURSE NOTES: Pt IV site became infiltrated, pharmacy made aware. After having a new IV site, HD nurse came. Pharmacy advised to run the antibiotics after HD.
[2020-01-02 16:00] VITALS: BP 150/61
[2020-01-02 16:08] LABS: BASOPHILS % (AUTO) 0.7 % (0.0-2.0); HEMATOCRIT 26.6 % (37.0-47.0); HEMOGLOBIN 8.1 G/DL (12.0-16.0); MEAN CORPUSCULAR VOLUME 101 FL (80-99); MONOCYTES % (AUTO) 9.4 % (1.0-10.0); NEUTROPHILS % (AUTO) 81.9 % (45.0-75.0); PLATELET COUNT 217 K/UL (150-450); RED BLOOD COUNT 2.64 M/UL (4.20-5.40); RED CELL DISTRIBUTION WIDTH 14.4 % (11.6-14.8); WHITE BLOOD COUNT 14.3 K/UL (4.8-10.8)
--- NOTE | 2020-01-02 17:31 | Internal Med Progress Note ---
Subjective Physician Name Dave Melgoza Attending Physician Dave Melgoza MD Current Medications Medications (Trade) Dose Ordered Sig/Bere Route PRN Reason Start Time Stop Time Status Last Admin Dose Admin Acetaminophen (Tylenol) 650 mg Q4H PRN ORAL T>100.5 12/18/19 21:30 01/17/20 21:29 12/29/19 06:09 Acetaminophen/ Hydrocodone Bitart ([place] 5/325) 1 tab Q4H PRN ORAL Moderate Pain (Pain Scale 4-6) 12/28/19 22:00 01/04/20 21:59 12/30/19 02:03 Cefazolin Sodium 1 gm/Dextrose 55 ml @ 110 mls/hr Q24H IVP 12/23/19 14:00 01/04/20 13:59 01/01/20 14:15 Cinacalcet (Sensipar) 60 mg QHS ORAL 12/22/19 21:00 01/21/20 20:59 01/01/20 21:10 Clonidine HCl (Catapres Tab) 0.1 mg Q4H PRN ORAL SBP > 160mmhg 12/18/19 21:30 01/17/20 21:29 12/22/19 14:13 Dextrose (Dextrose 50%) 25 ml Q30M PRN IV Hypoglycemia 12/18/19 21:30 01/17/20 21:29 Dextrose (Dextrose 50%) 50 ml Q30M PRN IV Hypoglycemia 12/18/19 21:30 01/17/20 21:29 Docusate Sodium (Colace) 100 mg THREE TIMES A DAY ORAL 12/19/19 13:00 01/18/20 12:59 12/31/19 13:07 Heparin Sodium (Porcine) (Heparin 5000 units/ml) 5,000 units EVERY 12 HOURS SUBQ 12/19/19 09:00 01/18/20 08:59 01/01/20 21:20 Insulin Aspart (NovoLOG) BEFORE MEALS AND HS SUBQ 12/19/19 06:30 01/18/20 06:29 Losartan Potassium (Cozaar) 50 mg DAILY ORAL 12/27/19 09:00 01/18/20 08:59 12/30/19 09:10 Morphine Sulfate (Morphine Sulfate) 2 mg Q4H PRN IVP Severe Pain (Pain Scale 7-10) 12/28/19 22:00 01/04/20 21:59 01/02/20 05:50 Nitroglycerin (Ntg) 1 patch Q24H TDERMAL 12/19/19 09:30 01/18/20 09:29 01/01/20 08:58 Ondansetron HCl (Zofran) 1 mg Q4H PRN IVP Nausea & Vomiting 12/26/19 19:00 01/17/20 21:29 Pantoprazole (Protonix) 40 mg EVERY 12 HOURS ORAL 12/19/19 21:00 01/18/20 20:59 01/01/20 21:10 Polyethylene Glycol (Miralax) 17 gm BEDTIME ORAL 12/28/19 21:00 01/27/20 20:59 12/30/19 21:17 Polyethylene Glycol (Miralax) 17 gm DAILY ORAL 12/28/19 09:00 01/27/20 08:59 12/31/19 09:02 Povidone Iodine (Betadine Josefina) 1 applic ONCE TOPIC 01/02/20 10:00 01/02/20 18:00 01/02/20 10:57 Sevelamer Carbonate (Renvela) 1,600 mg THREE TIMES A DAY ORAL 12/22/19 13:00 01/21/20 12:59 01/02/20 12:43 Allergies: Coded Allergies: SULFA (SULFONAMIDE ANTIBIOTICS) (Verified Allergy, Mild, 08/19/09) Subjective awake, alert, responsive, No CP or SOB, WBC: 14.3, dialysis at the bedside. Objective Last Vital Signs Date Time Temp Pulse Resp B/P (MAP) Pulse Ox O2 Delivery O2 Flow Rate FiO2 01/02/20 16:00 98.2 75 18 150/61 (90) 96 01/02/20 08:30 Room Air 01/02/20 07:50 2.0 28 Laboratory Tests Test 01/02/20 15:00 White Blood Count 14.3 K/UL (4.8-10.8) H Red Blood Count 2.64 M/UL (4.20-5.40) L Hemoglobin 8.1 G/DL (12.0-16.0) L Hematocrit 26.6 % (37.0-47.0) L Mean Corpuscular Volume 101 FL (80-99) H Mean Corpuscular Hemoglobin 30.7 PG (27.0-31.0) Mean Corpuscular Hemoglobin Concent 30.5 G/DL (32.0-36.0) L Red Cell Distribution Width 14.4 % (11.6-14.8) Platelet Count 217 K/UL (150-450) Mean Platelet Volume 7.6 FL (6.5-10.1) Neutrophils (%) (Auto) 81.9 % (45.0-75.0) H Lymphocytes (%) (Auto) 6.0 % (20.0-45.0) L Monocytes (%) (Auto) 9.4 % (1.0-10.0) Eosinophils (%) (Auto) 2.0 % (0.0-3.0) Basophils (%) (Auto) 0.7 % (0.0-2.0) Intake and Output 01/01/20 01/02/20 19:00 07:00 Intake Total 720 ml 120 ml Balance 720 ml 120 ml Intake Oral 720 ml 120 ml # Voids 1 Objective GENERAL: The patient is a well-developed and well-nourished female, in no apparent distress. HEENT: Eyes, pupils are equal and responsive to light and accommodation. Extraocular movements are intact. NECK: Supple without lymphadenopathy. CHEST: Lungs are clear to auscultation bilaterally without wheezes or rales. CARDIOVASCULAR: Regular rhythm and rate. S1, S2 are normal without murmurs or gallops, Right side PPM. ABDOMEN: Soft, nontender, and nondistended. Positive bowel sounds. EXTREMITIES: No Edema, erythema over the right fifth toe, Left UE AVF. RECTAL/GENITAL: Refused. NEUROLOGIC: Cranial nerves II through XII are grossly intact without focal deficits. Motor strength is 5/5 bilaterally. Assessment/Plan Assessment/Plan ASSESSMENT: This is a 79-year-old female. 1. Right foot pain. 2. Fever. 3. Right fifth toe infection. 4. Leukocytosis. 5. Diabetes type 2. 6. Hypertension. 7. End-stage renal disease, on hemodialysis. 8. Hypothyroidism. 9. Peripheral vascular disease. 10. Pacemaker in situ. 11. High grade Bacteremia/ Sepsis=MSSA staph aureus TREATMENT: 1. Right foot pain/gangrene of the right fifth toe. A Podiatry consultation has been obtained with Dr. Flood. We will follow recommendations of Podiatry. A nuclear medicine bone scan is pending to rule out osteomyelitis. ABX=Ancef IV 09/18 2. Fever. This may be secondary to cellulitis of the right foot as above. An Infectious Disease consultation has been obtained with Dr. David. We will follow recommendation of Infectious Disease. 3. Diabetes type 2. The patient has been placed on a NovoLog sliding scale. 4. Hypertension. Continue losartan as above. 5. End-stage renal disease. A Nephrology consultation has been obtained with Dr. Peter Solorio. The patient's last dialysis was Tuesday, December 17, 2019. Follow recommendations of Dr. Solorio. 6. Hypothyroidism. Continue Synthroid. 7. Pacemaker in situ. A pacemaker check is scheduled with Dr. Dawit Lopez. 8. Elevated troponin. A Cardiology consultation has been obtained with Dr. Lopez. Dave Melgoza MD Jan 02, 2020 17:31
--- NOTE | 2020-01-02 18:06 | Cardiac Electrophysiology PN ---
Assessment/Plan Assessment/Plan 1. Elevated troponin of 0.26. Levels are flat and low. No chest pain due to renal failure. EF 50%. 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 2. Status post Biotronik pacer with Nl Fx with battery > 7 years 3. Severe pulmonary hypertension. 4. Bacteremia. DARYN showed no vegetation in the valves or on the leads Already on broad-spectrum intravenous antibiotic per ID. 5. End-stage renal disease, on hemodialysis. 6. R foot 5th digit gangrene. FU Podiatry and vascular surgery Transfer to [facility] for peripheral angiogram by Dr. Janice CHOW RN Subjective Subjective Alert in NAD. Getting HD. DARYN showed no vegetations on valves or leads Awaiting transfer to [facility] for peripheral angiogram Objective Last 24 Hour Vital Signs Date Time Temp Pulse Resp B/P (MAP) Pulse Ox O2 Delivery O2 Flow Rate FiO2 01/02/20 16:00 98.2 75 18 150/61 (90) 96 01/02/20 12:00 98.1 74 20 110/77 (88) 98 01/02/20 11:31 70 01/02/20 09:30 122/60 01/02/20 09:00 122/60 01/02/20 08:30 Room Air 01/02/20 08:00 97.5 78 20 122/60 (80) 93 01/02/20 07:50 99 Nasal Cannula 2.0 28 01/02/20 07:50 82 18 99 Nasal Cannula 2.0 28 01/02/20 07:47 81 01/02/20 06:20 98.4 01/02/20 04:00 98.4 71 18 127/57 (80) 96 01/02/20 04:00 70 01/02/20 00:00 73 01/02/20 00:00 97.2 51 16 157/64 (95) 97 01/01/20 21:00 Room Air 01/01/20 20:00 97.9 74 16 134/64 (87) 99 01/01/20 20:00 75 01/01/20 19:45 72 18 99 Nasal Cannula 2.0 28 01/01/20 19:45 99 Nasal Cannula 2.0 28 Intake and Output 01/01/20 01/02/20 19:00 07:00 Intake Total 720 ml 120 ml Balance 720 ml 120 ml Intake Oral 720 ml 120 ml # Voids 1 Laboratory Tests Test 01/02/20 15:00 White Blood Count 14.3 K/UL (4.8-10.8) H Red Blood Count 2.64 M/UL (4.20-5.40) L Hemoglobin 8.1 G/DL (12.0-16.0) L Hematocrit 26.6 % (37.0-47.0) L Mean Corpuscular Volume 101 FL (80-99) H Mean Corpuscular Hemoglobin 30.7 PG (27.0-31.0) Mean Corpuscular Hemoglobin Concent 30.5 G/DL (32.0-36.0) L Red Cell Distribution Width 14.4 % (11.6-14.8) Platelet Count 217 K/UL (150-450) Mean Platelet Volume 7.6 FL (6.5-10.1) Neutrophils (%) (Auto) 81.9 % (45.0-75.0) H Lymphocytes (%) (Auto) 6.0 % (20.0-45.0) L Monocytes (%) (Auto) 9.4 % (1.0-10.0) Eosinophils (%) (Auto) 2.0 % (0.0-3.0) Basophils (%) (Auto) 0.7 % (0.0-2.0) Objective HEAD AND NECK: No JVD or carotid bruit. LUNGS: Clear. CARDIOVASCULAR: Shows regular S1 and S2 with no gallop or murmur. The pacemaker in the right subclavian. ABDOMEN: Soft. EXTREMITIES: Left arm dialysis access.Right 5th toe gangrene Dawit Lopez MD Jan 02, 2020 18:06
--- NOTE | 2020-01-02 18:30 | NUR ---
receiveed hd by norbert luis via avfistula ,received pt from rylee pt tolerated well hd strong nadine and junie endorded to rylee uf 2000ml
--- NOTE | 2020-01-02 18:50 | NUR ---
NURSE NOTES: Started the antibiotics that was scheduled on 1400. The pt just finished HD. Pharmacy aware.
--- NOTE | 2020-01-02 19:41 | NUR ---
HAND-OFF: Report given to VARGAS Ambrose. Pt in stable condition, endorsed plan of care.
[2020-01-02 20:00] VITALS: BP 143/60
--- NOTE | 2020-01-02 20:00 | NUR ---
NURSE NOTES: RECEIVED PATIENT LYING IN BED, AWAKE, ALERT/ORIENTED X4, DENIES PAIN. NO SIGNS AND SYMPTOMS OF ACUTE CARDIO RESPIRATORY DISTRESS/SHORTNESS OF BREATH, NO EDEMA NOTED. AV FISTULA LEFT UPPER ARM, + BRUITT/THRILL, NO SIGNS OF BLEEDING. ABDOMEN SOFT/NON DISTENDED/AUDIBLE BOWEL SOUNDS, DENIES N/V/D. IV INTACT TO RIGHT FOREARM/GAUGE 22, SL. SIDE RAILS UP X3/BED IN LOWEST POSITION FOR SAFETY. CALL LIGHT WITHIN REACH, ENCOURAGED PATIENT TO UTILIZE CALL LIGHT FOR ASSISTANCE, VERBALIZED UNDERSTANDING. NAD. CONTINUE WITH CURRENT PLAN OF CARE. NAD.
[2020-01-02] MEDS: Sensipar 30mg Tab ORAL SCH (21:48)
--- NOTE | 2020-01-02 23:59 | General Progress Note ---
Progress Note Progress Note Patient seen and examined Right foot toe worsening gangrene+ Severe multilevel arterial occlusive PAD s/p recent right leg angiogram by fishing accessories maker Dr Espino at [facility] ( per patient report) + femorals absent pop pedal pulses ESRD on HD via left arm av shunt Pacemaker DM HTN Rec Dual antiplatelet and statin therapy CT angio aorta to feet to delineate vasculopathy Podiatry to re-eval right foot toe gangrene (to assess salvageability) Right leg angiogram once transferred out d/w pt and pts' nurse at bedside Albert Camacho MD Jan 02, 2020 23:59
[2020-01-03] VITALS: BP 142/59
[2020-01-03 04:00] VITALS: BP 116/68
--- NOTE | 2020-01-03 06:02 | NUR ---
NURSE NOTES: BLOOD GLUCOSE LEVEL MONITORED VIA GLUCOMETER WITH RESULT 105MG/DL, ASYMPTOMATIC, NO NOVOLOG INSULIN SLIDING SCALE COVERAGE NOTED.
[2020-01-03] MEDS: NovoLOG Insulin Flexpen SUBQ SCH ×3 (06:30→16:30)
--- NOTE | 2020-01-03 06:39 | Infectious Diseases Prog Note ---
Assessment/Plan Assessment/Plan ASSESSMENT: The patient is a 79-year-old female with, Fever; low grade x 1, Sp Right foot infection, -xray R foot: No displaced fracture or dislocation identified. -bone scan: No evidence for osteomyelitis. High grade Bacteremia, no evid of endocarditis or pacemaker infection. -12/28 SP DARYN: no e/o valvular vegetations or presence of vegetations on the pacemaker leads. -12/18 Bcx 2/ MSSA 12/19, Bcx MSSA -2d echo: limited study, no mention of vegetations Leukocytosis; persists (m/l 2nd to the Gang. of foot) - CT of C/A/P : no Abscess Sepsis, sp PLAN: Ancef # 10/18 3 SP vancomycin # and Zosyn # 4 Monitor CBC. Monitor BMP. Monitor blood culture (Rpt) Monitor CBC and BMP Pod fup Transfer to [facility] for peripheral angiogram by Dr Camacho Subjective Allergies: Coded Allergies: SULFA (SULFONAMIDE ANTIBIOTICS) (Verified Allergy, Mild, 08/19/09) Subjective Afebrile. on RA. feels well Objective Vital Signs Last 24 Hour Vital Signs Date Time Temp Pulse Resp B/P (MAP) Pulse Ox O2 Delivery O2 Flow Rate FiO2 01/03/20 04:00 74 01/03/20 04:00 98.0 98 18 116/68 (84) 97 01/03/20 00:00 90 01/03/20 00:00 98.2 78 18 142/59 (86) 96 01/02/20 21:00 Room Air 01/02/20 21:00 87 01/02/20 20:00 99.1 86 16 143/60 (87) 95 01/02/20 16:20 79 01/02/20 16:00 98.2 75 18 150/61 (90) 96 01/02/20 12:00 98.1 74 20 110/77 (88) 98 01/02/20 11:31 70 01/02/20 09:30 122/60 01/02/20 09:00 122/60 01/02/20 08:30 Room Air 01/02/20 08:00 97.5 78 20 122/60 (80) 93 01/02/20 07:50 99 Nasal Cannula 2.0 28 01/02/20 07:50 82 18 99 Nasal Cannula 2.0 28 01/02/20 07:47 81 Height (Feet): 5 Height (Inches): 3.00 Weight (Pounds): 153 General Appearance: no acute distress Respiratory/Chest: chest wall non-tender, no respiratory distress, no accessory muscle use Cardiovascular: normal rate, regular rhythm Abdomen: normal bowel sounds, soft, non tender, no mass Laboratory Tests Test 01/02/20 15:00 White Blood Count 14.3 K/UL (4.8-10.8) H Red Blood Count 2.64 M/UL (4.20-5.40) L Hemoglobin 8.1 G/DL (12.0-16.0) L Hematocrit 26.6 % (37.0-47.0) L Mean Corpuscular Volume 101 FL (80-99) H Mean Corpuscular Hemoglobin 30.7 PG (27.0-31.0) Mean Corpuscular Hemoglobin Concent 30.5 G/DL (32.0-36.0) L Red Cell Distribution Width 14.4 % (11.6-14.8) Platelet Count 217 K/UL (150-450) Mean Platelet Volume 7.6 FL (6.5-10.1) Neutrophils (%) (Auto) 81.9 % (45.0-75.0) H Lymphocytes (%) (Auto) 6.0 % (20.0-45.0) L Monocytes (%) (Auto) 9.4 % (1.0-10.0) Eosinophils (%) (Auto) 2.0 % (0.0-3.0) Basophils (%) (Auto) 0.7 % (0.0-2.0) Current Medications Medications (Trade) Dose Ordered Sig/Bere Route PRN Reason Start Time Stop Time Status Last Admin Dose Admin Acetaminophen (Tylenol) 650 mg Q4H PRN ORAL T>100.5 12/18/19 21:30 01/17/20 21:29 12/29/19 06:09 Acetaminophen/ Hydrocodone Bitart ([place] 5/325) 1 tab Q4H PRN ORAL Moderate Pain (Pain Scale 4-6) 12/28/19 22:00 01/04/20 21:59 12/30/19 02:03 Cefazolin Sodium 1 gm/Dextrose 55 ml @ 110 mls/hr Q24H IVP 12/23/19 14:00 01/04/20 13:59 01/02/20 18:55 Cinacalcet (Sensipar) 60 mg QHS ORAL 12/22/19 21:00 01/21/20 20:59 01/02/20 21:48 Clonidine HCl (Catapres Tab) 0.1 mg Q4H PRN ORAL SBP > 160mmhg 12/18/19 21:30 01/17/20 21:29 12/22/19 14:13 Dextrose (Dextrose 50%) 25 ml Q30M PRN IV Hypoglycemia 12/18/19 21:30 01/17/20 21:29 Dextrose (Dextrose 50%) 50 ml Q30M PRN IV Hypoglycemia 12/18/19 21:30 01/17/20 21:29 Docusate Sodium (Colace) 100 mg THREE TIMES A DAY ORAL 12/19/19 13:00 01/18/20 12:59 12/31/19 13:07 Heparin Sodium (Porcine) (Heparin 5000 units/ml) 5,000 units EVERY 12 HOURS SUBQ 12/19/19 09:00 01/18/20 08:59 01/02/20 21:50 Insulin Aspart (NovoLOG) BEFORE MEALS AND HS SUBQ 12/19/19 06:30 01/18/20 06:29 Losartan Potassium (Cozaar) 50 mg DAILY ORAL 12/27/19 09:00 01/18/20 08:59 12/30/19 09:10 Morphine Sulfate (Morphine Sulfate) 2 mg Q4H PRN IVP Severe Pain (Pain Scale 7-10) 12/28/19 22:00 01/04/20 21:59 01/02/20 05:50 Nitroglycerin (Ntg) 1 patch Q24H TDERMAL 12/19/19 09:30 01/18/20 09:29 01/01/20 08:58 Ondansetron HCl (Zofran) 1 mg Q4H PRN IVP Nausea & Vomiting 12/26/19 19:00 01/17/20 21:29 Pantoprazole (Protonix) 40 mg EVERY 12 HOURS ORAL 12/19/19 21:00 01/18/20 20:59 01/02/20 21:48 Polyethylene Glycol (Miralax) 17 gm BEDTIME ORAL 12/28/19 21:00 01/27/20 20:59 12/30/19 21:17 Polyethylene Glycol (Miralax) 17 gm DAILY ORAL 12/28/19 09:00 01/27/20 08:59 12/31/19 09:02 Sevelamer Carbonate (Renvela) 1,600 mg THREE TIMES A DAY ORAL 12/22/19 13:00 01/21/20 12:59 01/02/20 18:53 Gilbert Chapa MD Jan 03, 2020 06:39
--- NOTE | 2020-01-03 07:01 | Pulmonology Progress Note ---
Assessment/Plan Assessment/Plan ASSESSMENT Sepsis with Staph aureus bacteremia Persistent leukocytosis Right fifth toe gangrene Cellulitis R foot ESRD, on HD Severe pulmonary HTN Aortic stenosis with aortic regurgitation PVD Anemia of chronic kidney disease Pacemaker HTN DM PLAN OF CARE tele Echo with EF 50% , no evidence of vegetation RVSP of 64 moderate AR, troponin levels flat and not c/w ACS pattern ECG with A pacing and old [place] pacemaker interrogated -> normal fx DARYN 12/28 no vegetation abx as per ID BCX + Staph aureus 12/18 , 12/19 and BCX 12/23 NGTD bone scan no evidence of osteomyelitis, + cellulitis R foot X-ray of R foot -> no fx or dislocation arterial duplex noted currently on Ancef for 4 wks total O2 HHN PRN DVT prophylactics CT chest 12/25 with bibasilar atelectasis and possibly some right basilar consolidation check CXR in am HD as per nephro; monitor volumes renal parameters BP management with current regimen troponin elevated, patient remains asymptomatic cardio on board BS management with SSI wound care as per inspector [place] recommendation pain management supportive care awaiting for transfer for peripheral angio , may be delayed due to current situation consider dc home with oupt fup for angio case discussed and evaluated by supervising physician Subjective Allergies: Coded Allergies: SULFA (SULFONAMIDE ANTIBIOTICS) (Verified Allergy, Mild, 08/19/09) Subjective persistent leuk fevers resolved no signs of resp distress, pulse ox stable on RA no CP DARYN 12/28 no vegetation awaiting for transfer for peripheral angio Objective Last 24 Hour Vital Signs Date Time Temp Pulse Resp B/P (MAP) Pulse Ox O2 Delivery O2 Flow Rate FiO2 01/03/20 04:00 74 01/03/20 04:00 98.0 98 18 116/68 (84) 97 01/03/20 00:00 90 01/03/20 00:00 98.2 78 18 142/59 (86) 96 01/02/20 21:00 Room Air 01/02/20 21:00 87 01/02/20 20:00 99.1 86 16 143/60 (87) 95 01/02/20 16:20 79 01/02/20 16:00 98.2 75 18 150/61 (90) 96 01/02/20 12:00 98.1 74 20 110/77 (88) 98 01/02/20 11:31 70 01/02/20 09:30 122/60 01/02/20 09:00 122/60 01/02/20 08:30 Room Air 01/02/20 08:00 97.5 78 20 122/60 (80) 93 01/02/20 07:50 99 Nasal Cannula 2.0 28 01/02/20 07:50 82 18 99 Nasal Cannula 2.0 28 01/02/20 07:47 81 Intake and Output 01/02/20 01/03/20 19:00 07:00 Intake Total 2720 ml 360 ml Output Total 2000 ml Balance 720 ml 360 ml Intake Oral 720 ml 360 ml Hemodialysis 2000 ml Hemodialysis UF 2000 ml # Voids 1 1 # Bowel Movements 2 1 Objective General Appearance: no acute distress HEENT: normocephalic, atraumatic, anicteric, mucous membranes moist Respiratory/Chest: lungs clear, no respiratory distress, chest wall tender Cardiovascular: normal rate, A pacing, regular rhythm Abdomen: normal bowel sounds, soft, non tender Extremities: LUE AV shunt + thrill/bruit; R 5 th toe TTP, also TTP plantar surface of the foot, +1 edema of the foot Laboratory Tests 01/02/20 15:00: White Blood Count 14.3H, Red Blood Count 2.64L, Hemoglobin 8.1L, Hematocrit 26.6L, Mean Corpuscular Volume 101H, Mean Corpuscular Hemoglobin 30.7, Mean Corpuscular Hemoglobin Concent 30.5L, Red Cell Distribution Width 14.4, Platelet Count 217, Mean Platelet Volume 7.6, Neutrophils (%) (Auto) 81.9H, Lymphocytes (%) (Auto) 6.0L, Monocytes (%) (Auto) 9.4, Eosinophils (%) (Auto) 2.0, Basophils (%) (Auto) 0.7 Current Medications Medications (Trade) Dose Ordered Sig/Bere Route PRN Reason Start Time Stop Time Status Last Admin Dose Admin Acetaminophen (Tylenol) 650 mg Q4H PRN ORAL T>100.5 12/18/19 21:30 01/17/20 21:29 12/29/19 06:09 Acetaminophen/ Hydrocodone Bitart ([place] 5/325) 1 tab Q4H PRN ORAL Moderate Pain (Pain Scale 4-6) 12/28/19 22:00 01/04/20 21:59 12/30/19 02:03 Cefazolin Sodium 1 gm/Dextrose 55 ml @ 110 mls/hr Q24H IVP 12/23/19 14:00 01/04/20 13:59 01/02/20 18:55 Cinacalcet (Sensipar) 60 mg QHS ORAL 12/22/19 21:00 01/21/20 20:59 01/02/20 21:48 Clonidine HCl (Catapres Tab) 0.1 mg Q4H PRN ORAL SBP > 160mmhg 12/18/19 21:30 01/17/20 21:29 12/22/19 14:13 Dextrose (Dextrose 50%) 25 ml Q30M PRN IV Hypoglycemia 12/18/19 21:30 01/17/20 21:29 Dextrose (Dextrose 50%) 50 ml Q30M PRN IV Hypoglycemia 12/18/19 21:30 01/17/20 21:29 Docusate Sodium (Colace) 100 mg THREE TIMES A DAY ORAL 12/19/19 13:00 01/18/20 12:59 12/31/19 13:07 Heparin Sodium (Porcine) (Heparin 5000 units/ml) 5,000 units EVERY 12 HOURS SUBQ 12/19/19 09:00 01/18/20 08:59 01/02/20 21:50 Insulin Aspart (NovoLOG) BEFORE MEALS AND HS SUBQ 12/19/19 06:30 01/18/20 06:29 Losartan Potassium (Cozaar) 50 mg DAILY ORAL 12/27/19 09:00 01/18/20 08:59 12/30/19 09:10 Morphine Sulfate (Morphine Sulfate) 2 mg Q4H PRN IVP Severe Pain (Pain Scale 7-10) 12/28/19 22:00 01/04/20 21:59 01/02/20 05:50 Nitroglycerin (Ntg) 1 patch Q24H TDERMAL 12/19/19 09:30 01/18/20 09:29 01/01/20 08:58 Ondansetron HCl (Zofran) 1 mg Q4H PRN IVP Nausea & Vomiting 12/26/19 19:00 01/17/20 21:29 Pantoprazole (Protonix) 40 mg EVERY 12 HOURS ORAL 12/19/19 21:00 01/18/20 20:59 01/02/20 21:48 Polyethylene Glycol (Miralax) 17 gm BEDTIME ORAL 12/28/19 21:00 01/27/20 20:59 12/30/19 21:17 Polyethylene Glycol (Miralax) 17 gm DAILY ORAL 12/28/19 09:00 01/27/20 08:59 12/31/19 09:02 Sevelamer Carbonate (Renvela) 1,600 mg THREE TIMES A DAY ORAL 12/22/19 13:00 01/21/20 12:59 01/02/20 18:53 Nova Natarajan NP Jan 03, 2020 07:01
--- NOTE | 2020-01-03 07:30 | NUR ---
NURSE NOTES: Received report from Halie. Pt A/A/O x4. Able to make things known. talkative. Pt denies any pain, breathing even and unlabored in 2L NC. IV site on R FA 24g patent and intact. bruit and thrill present on LAV SHUNT. Bed on lowest position, brakes and bed is lock @ all times. call light within reach. Will continue plan of care.
--- NOTE | 2020-01-03 07:30 | NUR ---
HAND-OFF: Report given to MICHAEL BADILLO.
[2020-01-03 08:00] VITALS: BP 128/53
[2020-01-03] MEDS ORDERED: Albuterol/Ipratropium 3ml neb HHN PRN (08:30)
[2020-01-03] MEDS: Docusate 100mg cap ORAL SCH ×2 (08:37→13:00)
[2020-01-03] MEDS: Miralax 17gm pkt ORAL SCH (08:41)
[2020-01-03] MEDS: Losartan 50mg tab ORAL SCH (08:41)
[2020-01-03] MEDS: Heparin 5000 units/ml inj SUBQ SCH (08:41)
[2020-01-03] MEDS: Nitroglycerin Patch 0.2mg/hr TDERMAL SCH (08:44)
--- NOTE | 2020-01-03 08:54 | Nephrology Progress Note ---
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 HypoAlbuminemia Sepsis with bacteremia Right fifth toe gangrene Aortic stenosis with aortic regurgitation PVD Anemia of chronic kidney disease DM Plan Due transfer to [facility] for vascular surgery call procedure and angiogram On Sensipar Phos binders on Ancef Last dialysis January 01, next dialysis January 04 2D echo EjFx 50- Pulm HTN adjust cardiac abd BP meds Anemia rees per orders Subjective ROS Limited/Unobtainable: No Constitutional: Reports: malaise Objective Objective Last 24 Hour Vital Signs Date Time Temp Pulse Resp B/P (MAP) Pulse Ox O2 Delivery O2 Flow Rate FiO2 01/03/20 08:44 128/53 01/03/20 08:41 128/53 01/03/20 08:00 97.7 78 20 128/53 (78) 96 01/03/20 04:00 74 01/03/20 04:00 98.0 98 18 116/68 (84) 97 01/03/20 00:00 90 01/03/20 00:00 98.2 78 18 142/59 (86) 96 01/02/20 21:00 Room Air 01/02/20 21:00 87 01/02/20 20:00 99.1 86 16 143/60 (87) 95 01/02/20 16:20 79 01/02/20 16:00 98.2 75 18 150/61 (90) 96 01/02/20 12:00 98.1 74 20 110/77 (88) 98 01/02/20 11:31 70 01/02/20 09:30 122/60 01/02/20 09:00 122/60 Intake and Output 01/02/20 01/03/20 19:00 07:00 Intake Total 2720 ml 360 ml Output Total 2000 ml Balance 720 ml 360 ml Intake Oral 720 ml 360 ml Hemodialysis 2000 ml Hemodialysis UF 2000 ml # Voids 1 1 # Bowel Movements 2 1 Laboratory Tests 01/02/20 15:00: White Blood Count 14.3H, Red Blood Count 2.64L, Hemoglobin 8.1L, Hematocrit 26.6L, Mean Corpuscular Volume 101H, Mean Corpuscular Hemoglobin 30.7, Mean Corpuscular Hemoglobin Concent 30.5L, Red Cell Distribution Width 14.4, Platelet Count 217, Mean Platelet Volume 7.6, Neutrophils (%) (Auto) 81.9H, Lymphocytes (%) (Auto) 6.0L, Monocytes (%) (Auto) 9.4, Eosinophils (%) (Auto) 2.0, Basophils (%) (Auto) 0.7 Height (Feet): 5 Height (Inches): 3.00 Weight (Pounds): 153 General Appearance: no apparent distress Objective no change Peter Solorio MD Jan 03, 2020 08:54
--- NOTE | 2020-01-03 08:57 | NUR ---
NURSE NOTES: patient able to go on BSC with assistance. held miralax and colace for diarrhea. patient refused losartan and protonix. explained the indications and remained refused. call light is within reach. will cont to monitor.
[2020-01-03 12:00] VITALS: BP 130/65
--- NOTE | 2020-01-03 13:57 | Cardiac Electrophysiology PN ---
Assessment/Plan Assessment/Plan 1. Troponin leak. Levels are flat and low. No chest pain, due to renal failure. EF 50%. 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 2. Status post Biotronik pacer with Nl Fx with battery > 7 years 3. Severe pulmonary hypertension. 4. Bacteremia. DARYN showed no vegetation in the valves or on the leads Already on broad-spectrum intravenous antibiotic per ID. 5. End-stage renal disease, on hemodialysis. 6. R foot 5th digit gangrene. FU Podiatry and vascular surgery Transfer to [facility] for peripheral angiogram by Dr. Janice CHOW RN Subjective Subjective Alert in NAD. DARYN showed no vegetations on valves or leads Awaiting transfer to [facility] for peripheral angiogram by Dr Ware Objective Last 24 Hour Vital Signs Date Time Temp Pulse Resp B/P (MAP) Pulse Ox O2 Delivery O2 Flow Rate FiO2 01/03/20 12:00 80 01/03/20 12:00 97.7 80 20 130/65 (86) 97 01/03/20 09:08 Room Air 01/03/20 08:44 128/53 01/03/20 08:41 128/53 01/03/20 08:00 75 01/03/20 08:00 97.7 78 20 128/53 (78) 96 01/03/20 04:00 74 01/03/20 04:00 98.0 98 18 116/68 (84) 97 01/03/20 00:00 90 01/03/20 00:00 98.2 78 18 142/59 (86) 96 01/02/20 21:00 Room Air 01/02/20 21:00 87 01/02/20 20:00 99.1 86 16 143/60 (87) 95 01/02/20 16:20 79 01/02/20 16:00 98.2 75 18 150/61 (90) 96 Intake and Output 01/02/20 01/03/20 19:00 07:00 Intake Total 2720 ml 360 ml Output Total 2000 ml Balance 720 ml 360 ml Intake Oral 720 ml 360 ml Hemodialysis 2000 ml Hemodialysis UF 2000 ml # Voids 1 1 # Bowel Movements 2 1 Laboratory Tests Test 01/02/20 15:00 White Blood Count 14.3 K/UL (4.8-10.8) H Red Blood Count 2.64 M/UL (4.20-5.40) L Hemoglobin 8.1 G/DL (12.0-16.0) L Hematocrit 26.6 % (37.0-47.0) L Mean Corpuscular Volume 101 FL (80-99) H Mean Corpuscular Hemoglobin 30.7 PG (27.0-31.0) Mean Corpuscular Hemoglobin Concent 30.5 G/DL (32.0-36.0) L Red Cell Distribution Width 14.4 % (11.6-14.8) Platelet Count 217 K/UL (150-450) Mean Platelet Volume 7.6 FL (6.5-10.1) Neutrophils (%) (Auto) 81.9 % (45.0-75.0) H Lymphocytes (%) (Auto) 6.0 % (20.0-45.0) L Monocytes (%) (Auto) 9.4 % (1.0-10.0) Eosinophils (%) (Auto) 2.0 % (0.0-3.0) Basophils (%) (Auto) 0.7 % (0.0-2.0) Objective HEAD AND NECK: No JVD or carotid bruit. LUNGS: Clear. CARDIOVASCULAR: Shows regular S1 and S2 with no gallop or murmur. The pacemaker in the right subclavian. ABDOMEN: Soft. EXTREMITIES: Left arm dialysis access.Right 5th toe gangrene Dawit Lopez MD Jan 03, 2020 13:57
--- NOTE | 2020-01-03 14:09 | Diagnostic Imaging Report ---
EXAM: XR Right Tibia and Fibula, 2 Views CLINICAL HISTORY: INFECT TECHNIQUE: Frontal and lateral views of the right tibia and fibula. COMPARISON: None FINDINGS: Bones/joints: No displaced fracture or dislocation identified. Osteopenia. Soft tissues: Vascular calcifications and vascular stents posterior to the knee. IMPRESSION: No displaced fracture or dislocation identified.
--- NOTE | 2020-01-03 14:10 | Diagnostic Imaging Report ---
EXAM: XR Right Knee, 3 Views CLINICAL HISTORY: INFECT TECHNIQUE: Three views of the right knee. COMPARISON: None FINDINGS: Bones/joints: No displaced fracture or dislocation identified. Osteopenia. Mild patellofemoral degenerative change. No knee Joint effusion. Soft tissues: Vascular calcifications. Stents posterior to the knee. IMPRESSION: No displaced fracture or dislocation identified.
--- NOTE | 2020-01-03 14:18 | NUR ---
NURSE NOTES: handoff done. off to radiology. kept patient NPO for lunch.
--- NOTE | 2020-01-03 14:30 | Diagnostic Imaging Report ---
EXAM: XR Right Femur, 2 Views CLINICAL HISTORY: INFECT TECHNIQUE: Frontal and lateral views of the right femur. COMPARISON: None FINDINGS: Bones/joints: No displaced fracture or dislocation identified. Evaluation is limited by overlying soft tissue and osteopenia. Mild degenerative change of the right hip. Soft tissues: Vascular calcifications. Generalized soft tissue edema. IMPRESSION: No displaced fracture or dislocation identified. No definite bony lesion. However, exam is limited by overlying soft tissue and osteopenia. Further evaluation could be performed with CT or MRI if clinically indicated
[2020-01-03] MEDS ORDERED: ACETAMINOPHEN325 M1 ORAL (15:09)
[2020-01-03] MEDS ORDERED: SENSIPAR30 MG ORAL (15:11)
[2020-01-03] MEDS ORDERED: NORCO 5-325 TA1 EAC1 ORAL (15:12)
[2020-01-03] MEDS ORDERED: DOCUSATE SODIU100 MG ORAL (15:12)
[2020-01-03] MEDS ORDERED: HEPARIN SO5000 UNIT2 SUBQ (15:13)
[2020-01-03] MEDS ORDERED: DUONEB 0.5-3(2.53 ML HHN (15:13)
[2020-01-03] MEDS ORDERED: LOSARTAN POTASS50 MG ORAL (15:14)
[2020-01-03] MEDS ORDERED: ZOFRAN 4 MG4 MG/2 ML IVP (15:15)
[2020-01-03] MEDS ORDERED: PROTONIX40 MG ORAL (15:16)
[2020-01-03] MEDS ORDERED: RENVELA0.8 GM ORAL (15:17)
[2020-01-03] MEDS ORDERED: MIRALAX17 G2 ORAL (15:17)
[2020-01-03] MEDS ORDERED: CLONIDINE0.1 MG PO (15:18)
[2020-01-03] MEDS ORDERED: NOVOLOG100 UNITS1 (15:19)
[2020-01-03] MEDS ORDERED: CEFAZOLIN SODIUM1 G1 IV (15:20)
[2020-01-03 16:00] VITALS: BP 136/66
--- NOTE | 2020-01-03 16:00 | NUR ---
NURSE NOTES: report given to Eduard @ [facility] . patient is going to room 5006. attempted to call daughter, Mitzy and left a voicemessage. Wash and cleanse bilateral feet and left wound open to air per order. personal belongings noted and per patient she had reported the lower dentures as missing since last week. Claimed that she had reported to the nurse and patient unable to recall the name of the nurse. CTA of abdomen not done although patient signed the consent for contrast. the reason being was patient IV heplock was not big enough. attempted to restart for gauge 20 and unsuccessful. conveyed to Eduard re: the CTA of abdomen. awaiting for the ambulance. resumed patient's diet. will cont to monitor.
--- NOTE | 2020-01-03 16:59 | Internal Med Progress Note ---
Subjective Date of Service: Jan 03, 2020 Physician Name Hieu Kim Attending Physician Dave Melgoza MD Current Medications Medications (Trade) Dose Ordered Sig/Bere Route PRN Reason Start Time Stop Time Status Last Admin Dose Admin Acetaminophen (Tylenol) 650 mg Q4H PRN ORAL T>100.5 12/18/19 21:30 01/17/20 21:29 12/29/19 06:09 Acetaminophen/ Hydrocodone Bitart ([place] 5/325) 1 tab Q4H PRN ORAL Moderate Pain (Pain Scale 4-6) 12/28/19 22:00 01/04/20 21:59 12/30/19 02:03 Albuterol/ Ipratropium (Albuterol/ Ipratropium) 3 ml Q4H PRN HHN Shortness of Breath 01/03/20 08:30 01/08/20 08:29 Cefazolin Sodium 1 gm/Dextrose 55 ml @ 110 mls/hr Q24H IVP 12/23/19 14:00 01/04/20 13:59 01/02/20 18:55 Cinacalcet (Sensipar) 60 mg QHS ORAL 12/22/19 21:00 01/21/20 20:59 01/02/20 21:48 Clonidine HCl (Catapres Tab) 0.1 mg Q4H PRN ORAL SBP > 160mmhg 12/18/19 21:30 01/17/20 21:29 12/22/19 14:13 Dextrose (Dextrose 50%) 25 ml Q30M PRN IV Hypoglycemia 12/18/19 21:30 01/17/20 21:29 Dextrose (Dextrose 50%) 50 ml Q30M PRN IV Hypoglycemia 12/18/19 21:30 01/17/20 21:29 Docusate Sodium (Colace) 100 mg THREE TIMES A DAY ORAL 12/19/19 13:00 01/18/20 12:59 12/31/19 13:07 Heparin Sodium (Porcine) (Heparin 5000 units/ml) 5,000 units EVERY 12 HOURS SUBQ 12/19/19 09:00 01/18/20 08:59 01/03/20 08:41 Insulin Aspart (NovoLOG) BEFORE MEALS AND HS SUBQ 12/19/19 06:30 01/18/20 06:29 Losartan Potassium (Cozaar) 50 mg DAILY ORAL 12/27/19 09:00 01/18/20 08:59 12/30/19 09:10 Morphine Sulfate (Morphine Sulfate) 2 mg Q4H PRN IVP Severe Pain (Pain Scale 7-10) 12/28/19 22:00 01/04/20 21:59 01/02/20 05:50 Nitroglycerin (Ntg) 1 patch Q24H TDERMAL 12/19/19 09:30 01/18/20 09:29 01/03/20 08:44 Ondansetron HCl (Zofran) 1 mg Q4H PRN IVP Nausea & Vomiting 12/26/19 19:00 01/17/20 21:29 Pantoprazole (Protonix) 40 mg EVERY 12 HOURS ORAL 12/19/19 21:00 01/18/20 20:59 01/02/20 21:48 Polyethylene Glycol (Miralax) 17 gm BEDTIME ORAL 12/28/19 21:00 01/27/20 20:59 12/30/19 21:17 Polyethylene Glycol (Miralax) 17 gm DAILY ORAL 12/28/19 09:00 01/27/20 08:59 12/31/19 09:02 Sevelamer Carbonate (Renvela) 1,600 mg THREE TIMES A DAY ORAL 12/22/19 13:00 01/21/20 12:59 01/03/20 08:40 Allergies: Coded Allergies: SULFA (SULFONAMIDE ANTIBIOTICS) (Verified Allergy, Mild, 08/19/09) ROS Limited/Unobtainable: No Constitutional: Reports: no symptoms HEENT: Reports: no symptoms Cardiovascular: Reports: no symptoms Respiratory: Reports: no symptoms Gastrointestinal/Abdominal: Reports: no symptoms Genitourinary: Reports: no symptoms Subjective 79 YO F admitted with right foot pain. Now gangrene right 5th toe and sepsis. Cover for Int Med-Dr Melgoza. Await transfer to [facility] Objective Last Vital Signs Date Time Temp Pulse Resp B/P (MAP) Pulse Ox O2 Delivery O2 Flow Rate FiO2 01/03/20 16:00 98.2 82 20 136/66 (89) 96 01/03/20 09:08 Room Air 01/02/20 07:50 2.0 28 Intake and Output 01/02/20 01/03/20 19:00 07:00 Intake Total 2720 ml 360 ml Output Total 2000 ml Balance 720 ml 360 ml Intake Oral 720 ml 360 ml Hemodialysis 2000 ml Hemodialysis UF 2000 ml # Voids 1 1 # Bowel Movements 2 1 Objective PHYSICAL EXAMINATION: GENERAL: The patient is a well-developed and well-nourished female, in no apparent distress. HEENT: Eyes, pupils are equal and responsive to light and accommodation. Extraocular movements are intact. NECK: Supple without lymphadenopathy. CHEST: Lungs are clear to auscultation bilaterally without wheezes or rales. CARDIOVASCULAR: Regular rhythm and rate. S1, S2 are normal without murmurs, rubs, or gallops. ABDOMEN: Soft, nontender, and nondistended. Positive bowel sounds. No evidence of hepatosplenomegaly. Currently, no rebound or guarding noted. EXTREMITIES: There is swelling of the right foot compared to the left. There is erythema over the right fifth toe. RECTAL/GENITAL: Refused. NEUROLOGIC: Cranial nerves II through XII are grossly intact without focal deficits. Motor strength is 5/5 bilaterally. Deep tendon reflexes are 2+ plantar. Assessment/Plan Assessment/Plan ASSESSMENT: This is a 79-year-old female. 1. Right foot pain. 2. Fever. 3. Gangrene of the right fifth toe 4. Leukocytosis. 5. Diabetes type 2. 6. Hypertension. 7. End-stage renal disease, on hemodialysis. 8. Hypothyroidism. 9. Peripheral vascular disease. 10. Pacemaker in situ. 11. Sepsis=MSSA staph aureus TREATMENT: 1. Right foot pain/gangrene of the right fifth toe. A Podiatry consultation has been obtained with Dr. Flood. We will follow recommendations of Podiatry. A nuclear medicine bone scan is pending to rule out osteomyelitis. ABX=Cefazolin; S/P Zosyn and vancomycin. 2. Fever. This may be secondary to cellulitis of the right foot as above. An Infectious Disease consultation has been obtained with Dr. David. We will follow recommendation of Infectious Disease. 3. Diabetes type 2. The patient has been placed on a NovoLog sliding scale. 4. Hypertension. Continue losartan as above. 5. End-stage renal disease. A Nephrology consultation has been obtained with Dr. Peter Solorio. Next hemodialysis 01/02/20. 6. Hypothyroidism. Continue Synthroid. 7. Pacemaker in situ. A pacemaker check is scheduled with Dr. Dawit Lopez. 8. Elevated troponin. A Cardiology consultation has been obtained with Dr. Lopez. 9. S/P transesophageal echocardiogram 12/29/19=negative for Sub acute bacterial endocarditis. 10. Await transfer to [facility] for angiogram (not available at [facility]) Per vascular surgery=Hieu Luna MD Jan 03, 2020 16:59
--- NOTE | 2020-01-03 17:01 | NUR ---
NURSE NOTES: DISCHARGED PATIENT VIA AMBUL[facility] TO [facility]. HEPLOCK KEPT AND 4 CD FROM RADIOLOGY ENCLOSED IN THE PACKET. NO ACUTE CARDIO-RESP DISTRESS NOTED. HUSSAIN NORRIS MADE AWARE OF THE BOTTOM DENTURE BEING MISSING.
--- NOTE | 2020-01-05 11:58 | Discharge Summary ---
Discharge Summary Discharge Summary _ DATE OF ADMISSION: 12/18/2019 DATE OF DISCHARGE: 01/03/2020 DISCHARGED BY: Dr. Melgoza REASON FOR ADMISSION: 79 years old female with past medical history of end-stage renal disease, on hemodialysis, pacemaker, hypertension, diabetes mellitus, hypothyroidism, presented with complain of pain in the right foot for the last month. Patient reported pain in the righ pinky toe. Patient reported swelling and significant amount of pain . Upon evaluation patient was febrile with temperature 102.6. Laboratory work-up revealed significant leukocytosis with WBC 21.8, hemoglobin 11.6 , hematocrit 27. Lactic acid 1.4. BUN 56, creatinine 8.5, consistent with known history of end-stage renal disease. Glucose 121. Troponin 0.263. EKG revealed atrial paced tachycardia. Chest x-ray r demonstrated cardiomegaly with mild pulmonary congestion. Patient admitted with sepsis ,pneumonia ,cellulitis. CONSULTANTS: primary operator Dr. Scott pulmonary Dr. Amaral ID specialist Dr. David Paper Bag Maker Dr. Flood java grails developer Dr. Solorio HOSPITAL COURSE: Patient admitted and started on broad-spectrum antibiotics. Hemodialysis provided as per java grails developer recommendation with close monitoring of volumes and renal parameters. Blood culture revealed Staph aureus. Influenza swab was negative. Repeated blood culture continued to have Staph aureus. Echocardiogram revealed ejection fraction of 50%, no evidence of vegetation. Right ventricular systolic pressure of 64 . Moderate aortic regurgitation and aortic stenosis. Troponin levels were monitored and remained flat, not consistent with acute coronary syndrome pattern , as per primary operator. EKG showed PAC and old KS. Pacemaker interrogation revealed normal functioning. Patient subsequently undergone DARYN on 12/28 which revealed no evidence of vegetation. Blood cultures finally on came out negative. Bone scan revealed no evidence of osteomyelitis , but showed cellulitis of the right foot. X-ray of the right foot revealed no fracture or dislocation. Antibiotic regimen was optimized as per ID specialist's recommendation. Patient was continued on Ancef and need to complete 4 weeks of treatment. Vascular surgeon seen and evaluated patient and recommended continue dual antiplatelet therapy and statin. Vascular surgeon recommended CT angio aorta to feet to delineate vasculopathy and right leg angiogram upon transfer. He also recommended podiatry to reevaluate right fifth toe gangrene to assess for salvageability. Per vascular surgeon, patient had absent femoral , popliteal and pedal pulses. Supplemental oxygen provided and titrated to keep oximetry above 92%. Nebulizing treatment with bronchodilator provided as needed. DVT prophylaxis provided. CT chest revealed bibasilar atelectasis and possibly right basilar consolidation. Patient was followed-up with chest x-ray, which revealed no acute disease. Hemodialysis provided as per java grails developer with close monitoring of volumes , renal parameters ,and electrolytes. Blood pressure was managed with the current medication regimen. Blood sugar was managed with sliding scale of insulin. Wound care provided as per trim setter helper recommendation. Pain management was addressed. Supportive care provided. Patient was required for transfer to higher level of care for further vascular work-up. Subsequently bed was arranged and secured , and patient was transferred to [facility] for peripheral angiogram. FINAL DIAGNOSIS Sepsis with Staph aureus bacteremia Persistent leukocytosis Right fifth toe dry worsening gangrene Severe multilevel arterial occlusive peripheral arterial disease Cellulitis right foot End-stage renal disease, on hemodialysis Severe pulmonary hypertension Aortic stenosis with aortic regurgitation Troponin leak Anemia of chronic kidney disease Pacemaker Hypertension Diabetes mellitus Diabetes mellitus DISCHARGE MEDICATIONS: See Medication Reconciliation list. DISCHARGE INSTRUCTIONS: Patient was discharged to [facility] for peripheral angiogram Nova Natarajan NP Jan 05, 2020 11:58
--- NOTE | 2020-01-09 07:45 | Consultation ---
DATE OF CONSULTATION: 12/29/2019 GENERAL CARDIOLOGY CONSULTATION CONSULTING PHYSICIAN: Dawit Messer M.D. REFERRING PHYSICIAN: Dave Melgoza M.D. REASON FOR CONSULTATION: Evaluation for transesophageal echocardiography to rule out infective endocarditis. HISTORY OF PRESENT ILLNESS: The patient is a very unfortunate 79-year-old female, who initially presented to the hospital with right foot infection. Bone scan did not show any evidence of osteomyelitis, however, the patient developed high-grade bacteremia and there was a question if the patient suffered from infective endocarditis versus pacemaker lead infection. Apparently, the patient had positive blood cultures for methicillin-sensitive Staphylococcus aureus in November 2019. A 2D echocardiography study was limited and had shown left ventricular ejection fraction approximately 50% with severe pulmonary hypertension and right ventricular systolic pressure approximately 60 to 65 mmHg. No evidence for valvular vegetation. The patient was placed on vancomycin and Zosyn in this admission. Cardiology consultation was made at the recommendation of Infectious Disease specialist Dr. David, and at request of Dr. Melgoza. At the time of my evaluation, the patient did not have any chest pain or shortness of breath. PAST MEDICAL HISTORY: Diabetes mellitus, infected right foot, hypertension, end-stage renal disease on hemodialysis, hypothyroidism, peripheral vascular disease. PAST SURGICAL HISTORY: Dual-chamber pacemaker implantation. MEDICATIONS: At home including losartan 25 mg p.o. daily and Tylenol No. 3 every 6 hours p.r.n. pain. ALLERGIES: Sulfa. SOCIAL HISTORY: The patient is a , lives alone. Denies any use of tobacco, alcohol, or illicit drug use. REVIEW OF SYSTEMS: HEENT: Denies any headache, diplopia, or blurred vision. CONSTITUTIONAL: Denies any fever, chills, night sweats, or weight loss. CARDIOVASCULAR: Denies any chest pain, shortness breath, PND, orthopnea, or leg swelling. PULMONARY: Denies any cough, hemoptysis, or wheezing. GASTROINTESTINAL: Denies any nausea, vomiting, diarrhea, constipation, abdominal pain, or GI bleed. GENITOURINARY: Denies any hematuria, dysuria, or incontinence. The patient is on hemodialysis. MUSCULOSKELETAL: Complains of right foot pain. PHYSICAL EXAMINATION: VITAL SIGNS: Blood pressure today was 116/53 mmHg, temperature was 100.0 degrees Fahrenheit, pulse of 79, respirations of 18, and O2 saturation was 90%. GENERAL: This is a very pleasant 79-year-old female, in no apparent respiratory distress. Alert and oriented x4. HEENT: Atraumatic and normocephalic. Anicteric. Pupils are equal, round, and reactive to light and accommodation. Extraocular muscles intact. NECK: JVP less than 5 cm. No carotid bruit. Carotid upstrokes 2+ bilaterally. CARDIOVASCULAR: Normal S1 and S2. Regular rate and rhythm. There is 2/6 ejection systolic murmur at the left sternal border. PMI is at fourth intercostal space in the midclavicular line. LUNGS: Clear to auscultation bilaterally. ABDOMEN: Soft, nontender, and nondistended. No hepatosplenomegaly. Positive bowel sounds. EXTREMITIES: No evidence of edema, clubbing, or cyanosis. LABORATORY FINDINGS: As of 12/28/2019, WBC 17.4, hemoglobin of 9.4, hematocrit of 28.2, and platelet count of 179,000. ESR of 99. Sodium was 129, potassium 4.3, chloride 87, bicarbonate 28, BUN of 42, creatinine 7.9, glucose is 104, calcium is 9.1. Microbiology revealed Staphylococcus aureus in the blood from December 20, 2019. However, there has been no growth from blood cultures that are obtained from December 24, 2019. Chest x-ray shows cardiomegaly with mild pulmonary venous congestion. ASSESSMENT AND PLAN: The patient is a very unfortunate 79-year-old female, who was seen in Invasive Cardiology for evaluation and discussion regarding performing transesophageal echocardiography for assessment of valvular morphology and to rule out valvular vegetation as well as a detailed evaluation of pacemaker lead and to rule out pacemaker lead infection. The patient was discussed the risks, benefits, and alternatives of the procedure in detail. All the questions and concerns were answered. She has agreed to the procedure and signed the informed consent. This test will be done under general anesthesia and her hemodynamic status, feasibility of the test will be evaluated by the anesthesiologist. I would like to thank, Dr. Melgoza, and Dr. David, for involving me in the care of this most pleasant patient. Dawit Messer M.D. DR: ROSANGELA JOB#: [id number] CC:
--- NOTE | 2020-01-12 13:00 | Consultation ---
DATE OF CONSULTATION: 01/02/2020 CONSULTING PHYSICIAN: Albert Camacho M.D. REFERRING PHYSICIAN: Dave Melgoza M.D. REASON FOR CONSULTATION: Right foot gangrene. HISTORY OF PRESENT ILLNESS: This is a 79-year-old female, who presents with end-stage renal disease on hemodialysis through left arm AV shunt. The patient is followed by a general surgeon, . for his shunt and reported by patient's report had a right lower extremity multiple stent placement by a ion exchange operator, Dr. Espino. The patient is on hemodialysis, left arm AV shunt, . Multiple evaluations were made by Dr. Espino, ion exchange operator. . SOCIAL HISTORY: No alcohol or drugs. FAMILY HISTORY: Unremarkable. SYSTEM REVIEW: . PHYSICAL EXAMINATION: VITAL SIGNS: , heart rate 80, and blood pressure 145/60, respirations 16. The patient has palpable radial pulses. . LUNGS: Clear to auscultation. HEART: Regular rate and rhythm. ABDOMEN: Soft and nontender. EXTREMITIES: She has palpable femoral pulses. Absent popliteal and pedal pulses bilaterally. Right foot has extensive gangrene in the . IMPRESSION AND PLAN: 1. 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 2. History of multiple right lower extremity stent placement by ion exchange operator, Dr. Espino. 3. End-stage renal disease on hemodialysis through the left arm AV shunt, followed by general surgeon, Dr. Pendleton. Evaluation of . 4. Podiatry assessment to assess the salvageability of the right foot gangrene. Albert Camacho M.D. DR: STEVE JOB#: [id number] CC:
== END 2020-01-03 17:15 | disposition short-term general hospital (02) | DRG 871 ==
LOC: EDBD 18:24 → EMR 18:38 → EDBEDREQ 21:10 → 2E 21:23
PROC: 5A1D70Z Performance of Urinary Filtration, Intermittent, Less than 6 Hours Per Day (ICD-10-PCS; principal; 2019-12-19)
DX: A41.01 Sepsis due to Methicillin susceptible Staphylococcus aureus (principal); J18.9 Pneumonia, unspecified organism; N18.6 End stage renal disease; L03.115 Cellulitis of right lower limb; I12.0 Hypertensive chronic kidney disease with stage 5 chronic kidney disease or end stage renal disease; I70.261 Atherosclerosis of native arteries of extremities with gangrene, right leg; Z99.2 Dependence on renal dialysis; E11.22 Type 2 diabetes mellitus with diabetic chronic kidney disease; Z95.0 Presence of cardiac pacemaker; E03.9 Hypothyroidism, unspecified; I27.20 Pulmonary hypertension, unspecified; I35.0 Nonrheumatic aortic (valve) stenosis; I35.1 Nonrheumatic aortic (valve) insufficiency; L97.519 Non-pressure chronic ulcer of other part of right foot with unspecified severity; D63.1 Anemia in chronic kidney disease
CPT/HCPCS: 36415; 71045; 71260; 74177; 78315; 80048; 80053; 80061; 80202; 82550; 82553; 82607; 82728; 82746; 82962; 82977; 83036; 83540; 83550; 83605; 83735; 83880; 84100; 84443; 84484; 84550; 85007; 85025; 85651; 86140; 86706; 86710; 87040; 87081; 87181; 93005; 93306; 93312; 93926; 94003; 94150; 94664; 96361; 96365; 96367; 96375; 99285; A4246; J1815; J2405; J7030